=== PATIENT | male | born 1970 | race Caucasian/White ===

== ENCOUNTER 2017-01-14 09:38 | Inpatient (IN) | payer OTHER ==
[2017-01-14 09:56] VITALS: BMI 28.5
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
[2017-01-14] MEDS ORDERED: MAGNESIUM HYDROX 2400MG/30ML ORAL SUSPENSION 30 ML CUP PO PRN (11:27)
[2017-01-14] MEDS ORDERED: ACETAMINOPHEN 325 MG TABLET (FP) PO PRN (11:27)
[2017-01-14] MEDS ORDERED: MAG HYDROX/AL HYDROX/SIMETH 30 ML UNIT-DOSE CUP PO PRN (11:27)
[2017-01-14] MEDS ORDERED: LOPERAMIDE HCL 2 MG CAPSULE PO PRN (11:27)
[2017-01-14] MEDS ORDERED: MENTHOL/PHENOL 1 EACH UD MM PRN (11:27)
[2017-01-14] MEDS ORDERED: IBUPROFEN 400 MG TABLET (FP) PO PRN (11:27)
[2017-01-14] MEDS ORDERED: guaiFENesin/D-METHORPHAN HB 10 ML UNIT-DOSE CUPS PO PRN (11:27)
[2017-01-14] MEDS ORDERED: MAGNESIUM CITRATE 300 ML BOTTLE PO PRN (11:27)
[2017-01-14] MEDS ORDERED: NICOTINE POLACRILEX 2 MG GUM BUC PRN (11:27)
[2017-01-14] MEDS ORDERED: P-EPHED 60MG/TRIPROLIDI 2.5MG TABLET PO PRN (11:27)
[2017-01-14] MEDS ORDERED: chlordiazePOXIDE HCL 25 MG CAPSULE PO ONE (11:55)
[2017-01-14] MEDS ORDERED: LEVOTHYROXINE NA 125 MCG TABLET (FP) PO ONE (11:57)
[2017-01-14] MEDS: NICOTINE 21 MG/24 HOURS TOPICAL PATCH TD SCH (12:08)
[2017-01-14] MEDS ORDERED: LEVOTHYROXINE NA 25 MCG TABLET (FP) PO ONE (12:30)
[2017-01-14] MEDS: GABAPENTIN 300 MG CAPSULE (FP) PO SCH ×2 (15:00→22:06)
[2017-01-14] MEDS: chlordiazePOXIDE HCL 25 MG CAPSULE PO PRN (15:00)
[2017-01-14] MEDS: chlordiazePOXIDE HCL 25 MG CAPSULE PO SCH ×2 (17:04→22:06)
[2017-01-14 17:30] LABS: URINE APPEARANCE CLOUDY; URINE BILIRUBIN NEGATIVE (NEGATIVE); URINE BLOOD NEGATIVE (NEGATIVE); URINE COLOR AMBER; URINE GLUCOSE (UA) NEGATIVE (NEGATIVE); URINE KETONE NEGATIVE (NEGATIVE); URINE NITRITE NEGATIVE (NEGATIVE); URINE UROBILINOGEN NEGATIVE mg/dL (0.2-1.0)
[2017-01-14 17:39] LABS: URINE PROTEIN 2+ (NEGATIVE)
[2017-01-14 17:40] LABS: URINE HYALINE CAST 6 /lpf; URINE MUCUS FEW; URINE RBC 2; URINE WBC 3
[2017-01-14 19:47] LABS: URINE LEUK ESTERASE Negative (NEGATIVE)
[2017-01-14] MEDS: THIAMINE HCL 100 MG TABLET (FP) PO SCH (22:06)
[2017-01-14] MEDS: hydrOXYzine PAMOATE 50 MG CAPSULE (FP) PO PRN (22:09)
[2017-01-15] MEDS: chlordiazePOXIDE HCL 25 MG CAPSULE PO SCH ×4 (05:27→22:58)
[2017-01-15] MEDS: GABAPENTIN 300 MG CAPSULE (FP) PO SCH ×3 (05:28→22:10)
[2017-01-15] MEDS: LEVOTHYROXINE NA 25 MCG TABLET (FP) PO SCH (07:22)
[2017-01-15 08:44] LABS: HIV 1 & 2 AB NEGATIVE; HIV 1 AGp24 NEGATIVE
[2017-01-15 10:04] LABS: MCH 33.2 pg (25.7-33.7); MCHC 33.9 g/dl (32.0-35.9); MEAN CELL VOLUME 97.9 fl (80-96); MEAN PLT VOLUME 7.9 fl (7.5-11.1); PLATELET COUNT 227 K/MM3 (134-434); RDW 14.5 % (11.9-15.9); WHITE BLOOD COUNT 6.2 K/mm3 (4.0-10.0)
[2017-01-15 10:20] LABS: ALBUMIN 4.3 g/dl (3.4-5.0); ALK PHOS 51 U/L (45-117); ANION GAP 16 (8-16); BILIRUBIN,TOTAL 1.3 mg/dL (0.2-1.0); CALCIUM 8.6 mg/dL (8.5-10.1); CO2 16 mmol/L (21-32); CREATININE 1.7 mg/dL (0.7-1.3); GLUCOSE,RANDOM 133 mg/dL (74-106); SGOT/AST 54 U/L (15-37); SGPT/ALT 61 U/L (12-78); TOT PROT 7.2 g/dl (6.4-8.2)
[2017-01-15] MEDS: PRENATAL VITAMINS W/ FOLIC ACID TABLET (FP) PO SCH (10:27)
[2017-01-15] MEDS: NICOTINE 21 MG/24 HOURS TOPICAL PATCH TD SCH (10:27)
[2017-01-15] MEDS: HYDROCORTISONE 0.5% TOPICAL OINTMENT TUBE TP SCH ×2 (10:47→22:10)
--- NOTE | 2017-01-15 11:39 | EKG ---
Test Reason : Blood Pressure : / mmHG Vent. Rate : 123 BPM Atrial Rate : 123 BPM P-R Int : 156 ms QRS Dur : 082 ms QT Int : 310 ms P-R-T Axes : 054 071 054 degrees QTc Int : 443 ms SINUS TACHYCARDIA OTHERWISE NORMAL ECG WHEN COMPARED WITH ECG OF 09-MAY-2016 14:48, NO SIGNIFICANT CHANGE WAS FOUND Confirmed by SAL BONILLA MD ([id number]) on 01/15/2017 11:38:33 AM Referred By: Confirmed By:SAL BONILLA MD
--- NOTE | 2017-01-15 12:12 | PN ---
S CIWA - CIWA Score Nausea/Vomitin-No Nausea/No Vomiting Muscle Tremors: 3 Anxiety: 4-Mod. Anxious/Guarded Agitation: 3 Paroxysmal Sweats: 3 Orientation: 0-Oriented Tacttile Disturbances: 3-Moderate Itch/Numb/Burn Auditory Disturbances: 0-None Visual Disturbances: 0-None Headache: 0-None Present CIWA-Ar Total Score: 16 BHS Progress Note (SOAP) Subjective: Body Aches, Tremors, Sweating. Objective: PT. A & O X 3, OBSERVED AMBULATING ON UNIT. NO ACUTE DISTRESS. 01/15/17 12:10 Vital Signs Temperature 96.1 F L 01/15/17 09:25 Pulse Rate 110 H 01/15/17 09:25 Respiratory Rate 18 01/15/17 09:25 Blood Pressure 104/68 01/15/17 09:25 O2 Sat by Pulse Oximetry (%) Laboratory Tests 01/14/17 01/14/17 01/15/17 11:15 15:00 05:45 WBC 6.2 RBC 4.66 D Hgb 15.5 D Hct 45.6 D MCV 97.9 H MCH 33.2 MCHC 33.9 RDW 14.5 D Plt Count 227 MPV 7.9 Sodium Potassium Chloride Carbon Dioxide Anion Gap BUN Creatinine Creat Clearance w eGFR Random Glucose Calcium Total Bilirubin AST ALT Alkaline Phosphatase Total Protein Albumin Urine Color Rossy Urine Appearance Cloudy Urine pH 5.0 Ur Specific [place] 1.023 Urine Protein 2+ H Urine Glucose (UA) Negative Urine Ketones Negative Urine Blood Negative Urine Nitrite Negative Urine Bilirubin Negative Urine Urobilinogen Negative Ur Leukocyte Esterase Negative Urine WBC (Auto) 3 Urine RBC (Auto) 2 Ur Epithelial Cells Rare Hyaline Casts 6 Urine Mucus Few RPR Titer HIV 1&2 Antibody Screen Negative HIV P24 Antigen Negative 01/15/17 01/15/17 05:45 05:45 WBC RBC Hgb Hct MCV MCH MCHC RDW Plt Count MPV Sodium 136 Potassium 3.5 Chloride 104 Carbon Dioxide 16 L Anion Gap 16 BUN 15 Creatinine 1.7 H D Creat Clearance w eGFR 43.42 Random Glucose 133 H D Calcium 8.6 Total Bilirubin 1.3 H D AST 54 H ALT 61 Alkaline Phosphatase 51 D Total Protein 7.2 Albumin 4.3 Urine Color Urine Appearance Urine pH Ur Specific [place] Urine Protein Urine Glucose (UA) Urine Ketones Urine Blood Urine Nitrite Urine Bilirubin Urine Urobilinogen Ur Leukocyte Esterase Urine WBC (Auto) Urine RBC (Auto) Ur Epithelial Cells Hyaline Casts Urine Mucus RPR Titer Nonreactive HIV 1&2 Antibody Screen HIV P24 Antigen LABS NOTED. Assessment: 01/15/17 12:10 WITHDRAWAL SYMPTOMS. Plan: CONTINUE DETOX. D/C MAGNESIUM-CONTAINING MEDS. AND IBUPROFEN DUE TO ABNORMAL ADMISSION RENAL LAB VALUES. BMP ON 01/17/2017 FOR ABNORMAL ADMISSION RENAL LAB VALUES.. INCREASE DAILY PO FLUID INTAKE.
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
[2017-01-15] MEDS: chlordiazePOXIDE HCL 25 MG CAPSULE PO PRN (12:30)
[2017-01-15] MEDS: THIAMINE HCL 100 MG TABLET (FP) PO SCH (22:09)
[2017-01-15] MEDS: hydrOXYzine PAMOATE 50 MG CAPSULE (FP) PO PRN (22:12)
[2017-01-16] MEDS: GABAPENTIN 300 MG CAPSULE (FP) PO SCH ×3 (05:37→22:08)
[2017-01-16] MEDS: chlordiazePOXIDE HCL 25 MG CAPSULE PO SCH ×2 (05:37→10:35)
[2017-01-16] MEDS: LEVOTHYROXINE NA 25 MCG TABLET (FP) PO SCH (06:44)
[2017-01-16] MEDS: PRENATAL VITAMINS W/ FOLIC ACID TABLET (FP) PO SCH (10:35)
[2017-01-16] MEDS: CLOTRIMAZOLE/BETAMET DIPROP 15 GM TUBE TP SCH ×3 (10:36→22:55)
[2017-01-16] MEDS: NICOTINE 21 MG/24 HOURS TOPICAL PATCH TD SCH (10:36)
[2017-01-16] MEDS: chlordiazePOXIDE HCL 25 MG CAPSULE PO PRN ×2 (12:44→20:06)
[2017-01-16] MEDS: chlordiazePOXIDE 5 MG CAPSULE PO SCH ×2 (17:00→22:08)
--- NOTE | 2017-01-16 19:09 | PN ---
[facility] CIWA - CIWA Score Nausea/Vomitin-No Nausea/No Vomiting Muscle Tremors: 3 Anxiety: 4-Mod. Anxious/Guarded Agitation: 3 Paroxysmal Sweats: 3 Orientation: 0-Oriented Tacttile Disturbances: 3-Moderate Itch/Numb/Burn Auditory Disturbances: 0-None Visual Disturbances: 0-None Headache: 0-None Present CIWA-Ar Total Score: 16 BHS Progress Note (SOAP) Subjective: Body Aches, Interrupted Sleep, Sweating, Tremors. Objective: PT. A & O X 3, OBSERVED AMBULATING ON UNIT. NO ACUTE DISTRESS. 01/16/17 19:07 Vital Signs Temperature 98.1 F 01/16/17 17:10 Pulse Rate 89 01/16/17 17:10 Respiratory Rate 18 01/16/17 17:10 Blood Pressure 96/57 01/16/17 17:10 O2 Sat by Pulse Oximetry (%) Laboratory Tests 01/14/17 01/14/17 01/15/17 11:15 15:00 05:45 WBC 6.2 RBC 4.66 D Hgb 15.5 D Hct 45.6 D MCV 97.9 H MCH 33.2 MCHC 33.9 RDW 14.5 D Plt Count 227 MPV 7.9 Sodium Potassium Chloride Carbon Dioxide Anion Gap BUN Creatinine Creat Clearance w eGFR Random Glucose Calcium Total Bilirubin AST ALT Alkaline Phosphatase Total Protein Albumin Urine Color Rossy Urine Appearance Cloudy Urine pH 5.0 Ur Specific [place] 1.023 Urine Protein 2+ H Urine Glucose (UA) Negative Urine Ketones Negative Urine Blood Negative Urine Nitrite Negative Urine Bilirubin Negative Urine Urobilinogen Negative Ur Leukocyte Esterase Negative Urine WBC (Auto) 3 Urine RBC (Auto) 2 Ur Epithelial Cells Rare Hyaline Casts 6 Urine Mucus Few RPR Titer HIV 1&2 Antibody Screen Negative HIV P24 Antigen Negative 01/15/17 01/15/17 05:45 05:45 WBC RBC Hgb Hct MCV MCH MCHC RDW Plt Count MPV Sodium 136 Potassium 3.5 Chloride 104 Carbon Dioxide 16 L Anion Gap 16 BUN 15 Creatinine 1.7 H D Creat Clearance w eGFR 43.42 Random Glucose 133 H D Calcium 8.6 Total Bilirubin 1.3 H D AST 54 H ALT 61 Alkaline Phosphatase 51 D Total Protein 7.2 Albumin 4.3 Urine Color Urine Appearance Urine pH Ur Specific [place] Urine Protein Urine Glucose (UA) Urine Ketones Urine Blood Urine Nitrite Urine Bilirubin Urine Urobilinogen Ur Leukocyte Esterase Urine WBC (Auto) Urine RBC (Auto) Ur Epithelial Cells Hyaline Casts Urine Mucus RPR Titer Nonreactive HIV 1&2 Antibody Screen HIV P24 Antigen LABS NOTED. Assessment: 01/16/17 19:07 WITHDRAWAL SYMPTOMS. Plan: CONTINUE DETOX. INCREASE DAILY PO FLUID INTAKE.
[2017-01-16] MEDS: THIAMINE HCL 100 MG TABLET (FP) PO SCH (22:08)
[2017-01-16] MEDS: hydrOXYzine PAMOATE 50 MG CAPSULE (FP) PO PRN (22:10)
[2017-01-17] MEDS: chlordiazePOXIDE 5 MG CAPSULE PO SCH ×2 (05:45→10:40)
[2017-01-17] MEDS: GABAPENTIN 300 MG CAPSULE (FP) PO SCH ×3 (05:46→22:10)
[2017-01-17] MEDS: LEVOTHYROXINE NA 25 MCG TABLET (FP) PO SCH (07:30)
[2017-01-17 10:01] LABS: ANION GAP 8 (8-16); CALCIUM 8.5 mg/dL (8.5-10.1); CO2 27 mmol/L (21-32); GLUCOSE,RANDOM 103 mg/dL (74-106)
[2017-01-17 10:03] LABS: CREATININE 1.1 mg/dL (0.7-1.3)
[2017-01-17] MEDS: PRENATAL VITAMINS W/ FOLIC ACID TABLET (FP) PO SCH (10:40)
[2017-01-17] MEDS: NICOTINE 21 MG/24 HOURS TOPICAL PATCH TD SCH (10:41)
[2017-01-17] MEDS: CLOTRIMAZOLE/BETAMET DIPROP 15 GM TUBE TP SCH ×2 (10:41→22:10)
--- NOTE | 2017-01-17 15:30 | PN ---
S Progress Note (SOAP) Subjective: Tremors, Interrupted Sleep, Body Aches, H/A, Fatigue. Objective: PT. A & O X 3, OBSERVED AMBULATING ON UNIT. NO ACUTE DISTRESS. PT. DENIES CHEST PAIN. 01/17/17 15:29 Vital Signs Temperature 96.3 F L 01/17/17 13:47 Pulse Rate 115 H 01/17/17 13:47 Respiratory Rate 18 01/17/17 13:47 Blood Pressure 117/78 01/17/17 13:47 O2 Sat by Pulse Oximetry (%) Laboratory Tests 01/14/17 01/14/17 01/15/17 11: 15:00 05:45 WBC 6.2 RBC 4.66 D Hgb 15.5 D Hct 45.6 D MCV 97.9 H MCH 33.2 MCHC 33.9 RDW 14.5 D Plt Count 227 MPV 7.9 Sodium Potassium Chloride Carbon Dioxide Anion Gap BUN Creatinine Creat Clearance w eGFR Random Glucose Calcium Total Bilirubin AST ALT Alkaline Phosphatase Total Protein Albumin Urine Color Rossy Urine Appearance Cloudy Urine pH 5.0 Ur Specific [place] 1.023 Urine Protein 2+ H Urine Glucose (UA) Negative Urine Ketones Negative Urine Blood Negative Urine Nitrite Negative Urine Bilirubin Negative Urine Urobilinogen Negative Ur Leukocyte Esterase Negative Urine WBC (Auto) 3 Urine RBC (Auto) 2 Ur Epithelial Cells Rare Hyaline Casts 6 Urine Mucus Few RPR Titer HIV 1&2 Antibody Screen Negative HIV P24 Antigen Negative 01/15/17 01/15/17 01/17/17 05:45 05:45 06:30 WBC RBC Hgb Hct MCV MCH MCHC RDW Plt Count MPV Sodium 136 143 Potassium 3.5 3.8 Chloride 104 108 H Carbon Dioxide 16 L 27 D Anion Gap 16 8 BUN 15 10 D Creatinine 1.7 H D 1.1 D Creat Clearance w eGFR 43.42 Random Glucose 133 H D 103 D Calcium 8.6 8.5 Total Bilirubin 1.3 H D AST 54 H ALT 61 Alkaline Phosphatase 51 D Total Protein 7.2 Albumin 4.3 Urine Color Urine Appearance Urine pH Ur Specific [place] Urine Protein Urine Glucose (UA) Urine Ketones Urine Blood Urine Nitrite Urine Bilirubin Urine Urobilinogen Ur Leukocyte Esterase Urine WBC (Auto) Urine RBC (Auto) Ur Epithelial Cells Hyaline Casts Urine Mucus RPR Titer Nonreactive HIV 1&2 Antibody Screen HIV P24 Antigen LABS NOTED. RESULTS OF BMP NOTED. 01/17/17 15:30 Assessment: 01/17/17 15:29 WITHDRAWAL SYMPTOMS. Plan: CONTINUE DETOX.
[2017-01-17] MEDS: chlordiazePOXIDE HCL 10 MG CAPSULE PO SCH ×2 (17:04→22:09)
[2017-01-17] MEDS: THIAMINE HCL 100 MG TABLET (FP) PO SCH (22:10)
[2017-01-17] MEDS: hydrOXYzine PAMOATE 50 MG CAPSULE (FP) PO PRN (22:12)
[2017-01-18] MEDS: chlordiazePOXIDE HCL 10 MG CAPSULE PO SCH (05:14)
[2017-01-18] MEDS: GABAPENTIN 300 MG CAPSULE (FP) PO SCH (05:16)
[2017-01-18] MEDS: LEVOTHYROXINE NA 25 MCG TABLET (FP) PO SCH (07:25)
[2017-01-18 09:24] VITALS: BP 97/80; PULSE 103; TEMP 98.1
--- NOTE | 2017-01-18 16:20 | DS ---
[facility] Detox Discharge Summary Admission Date: 01/14/17 Discharge Date: 01/18/17 - History Present History: Alcohol Dependence, Cocaine Dependence Additional Comments: PATIENT WILL RETURN TO OUTPATIENT 12-STEP / NA / AA SUPPORT GROUP MEETINGS FOR AFTERCARE. PATIENT ALSO ADVISED TO FOLLOW-UP WITH ONLINE PRODUCER DR. CHRISTINE ([facility]) FOR MEDICAL ASSESSMENT. PATIENT WAS DISCHARGED FROM DETOX UNIT IN STABLE MEDICAL CONDITION. Pertinent Past History: Hep C, History of Seizures (due to Head Trauma), Depression, Anxiety, Insomnia, Hypothyroidism, Nicotine Dependence, Syncope. - Physical Exam Results Vital Signs: Vital Signs Temperature 98.1 F 01/18/17 09:22 Pulse Rate 103 H 01/18/17 09:22 Respiratory Rate 15 01/18/17 09:22 Blood Pressure 97/80 01/18/17 09:22 O2 Sat by Pulse Oximetry (%) Pertinent Admission Physical Exam Findings: WITHDRAWAL SYMPTOMS. Laboratory Tests 01/14/17 01/14/17 01/15/17 11:15 15:00 05:45 WBC 6.2 RBC 4.66 D Hgb 15.5 D Hct 45.6 D MCV 97.9 H MCH 33.2 MCHC 33.9 RDW 14.5 D Plt Count 227 MPV 7.9 Sodium Potassium Chloride Carbon Dioxide Anion Gap BUN Creatinine Creat Clearance w eGFR Random Glucose Calcium Total Bilirubin AST ALT Alkaline Phosphatase Total Protein Albumin Urine Color Rossy Urine Appearance Cloudy Urine pH 5.0 Ur Specific [place] 1.023 Urine Protein 2+ H Urine Glucose (UA) Negative Urine Ketones Negative Urine Blood Negative Urine Nitrite Negative Urine Bilirubin Negative Urine Urobilinogen Negative Ur Leukocyte Esterase Negative Urine WBC (Auto) 3 Urine RBC (Auto) 2 Ur Epithelial Cells Rare Hyaline Casts 6 Urine Mucus Few RPR Titer HIV 1&2 Antibody Screen Negative HIV P24 Antigen Negative 01/15/17 01/15/17 01/17/17 05:45 05:45 06:30 WBC RBC Hgb Hct MCV MCH MCHC RDW Plt Count MPV Sodium 136 143 Potassium 3.5 3.8 Chloride 104 108 H Carbon Dioxide 16 L 27 D Anion Gap 16 8 BUN 15 10 D Creatinine 1.7 H D 1.1 D Creat Clearance w eGFR 43.42 Random Glucose 133 H D 103 D Calcium 8.6 8.5 Total Bilirubin 1.3 H D AST 54 H ALT 61 Alkaline Phosphatase 51 D Total Protein 7.2 Albumin 4.3 Urine Color Urine Appearance Urine pH Ur Specific [place] Urine Protein Urine Glucose (UA) Urine Ketones Urine Blood Urine Nitrite Urine Bilirubin Urine Urobilinogen Ur Leukocyte Esterase Urine WBC (Auto) Urine RBC (Auto) Ur Epithelial Cells Hyaline Casts Urine Mucus RPR Titer Nonreactive HIV 1&2 Antibody Screen HIV P24 Antigen LABS NOTED. - Treatment Hospital Course: Detox Protocol Followed, Detoxed Safely, Responded well, Discharged Condition Good Patient has Accepted a Rehab Referral to: PATIENT WILL RETURN TO OUTPATIENT 12- STEP/NA/AA SUPPORT GROUP MEETINGS. - Medication Discharge Medications: Ambulatory Orders Levothyroxine [Synthroid -] 62.5 mcg PO DAILY #30 tablet 01/17/17 - Diagnosis (1) Alcohol dependence with uncomplicated withdrawal Status: Acute (2) Cocaine dependence Status: Acute Qualifiers: Substance use status: uncomplicated Qualified Code(s): F14.20 - Cocaine dependence, uncomplicated (3) Nicotine dependence Status: Acute Qualifiers: Nicotine product type: cigarettes Substance use status: uncomplicated Qualified Code(s): F17.210 - Nicotine dependence, cigarettes, uncomplicated (4) Substance induced mood disorder Status: Acute (5) Hepatitis C Status: Chronic Qualifiers: Viral hepatitis chronicity: unspecified Hepatic coma status: without hepatic coma Qualified Code(s): B19.20 - Unspecified viral hepatitis C without hepatic coma (6) Hypothyroidism Status: Chronic Qualifiers: Hypothyroidism type: unspecified Qualified Code(s): E03.9 - Hypothyroidism , unspecified (7) Syncope Status: Acute Qualifiers: Syncope type: unspecified Qualified Code(s): R55 - Syncope and collapse (8) Seizure disorder Status: Chronic (9) Depression with anxiety Status: Suspected - AMA Did Patient Leave Against Medical Advice: No
== END 2017-01-18 08:50 | disposition home or self-care (01) | DRG 774 ==
LOC: YASAS 09:38 → Y3N 11:34
PROVIDERS: ADMIT Internal Medicine; ATTEND Internal Medicine
PROC: HZ2ZZZZ Detoxification Services for Substance Abuse Treatment (ICD-10-PCS; principal; 2017-01-14)
DX: F10.230 Alcohol dependence with withdrawal, uncomplicated (principal); F14.20 Cocaine dependence, uncomplicated; F17.210 Nicotine dependence, cigarettes, uncomplicated; F19.24 Other psychoactive substance dependence with psychoactive substance-induced mood disorder; F41.8 Other specified anxiety disorders; G47.00 Insomnia, unspecified; E03.9 Hypothyroidism, unspecified; B19.20 Unspecified viral hepatitis C without hepatic coma; R63.4 Abnormal weight loss; Z68.28 Body mass index [BMI] 28.0-28.9, adult; Z87.828 Personal history of other (healed) physical injury and trauma; G40.909 Epilepsy, unspecified, not intractable, without status epilepticus
CPT/HCPCS: 36415; 80048; 80053; 81003; 81015; 85027; 86593; 87389; 93005; 93010

== ENCOUNTER 2017-03-10 11:58 | Inpatient (IN) | payer OTHER ==
[2017-03-10 13:43] VITALS: BMI 28.2
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
[2017-03-10] MEDS ORDERED: guaiFENesin/D-METHORPHAN HB 10 ML UNIT-DOSE CUPS PO PRN (17:38)
[2017-03-10] MEDS ORDERED: ACETAMINOPHEN 325 MG TABLET (FP) PO PRN (17:38)
[2017-03-10] MEDS ORDERED: MAGNESIUM HYDROX 2400MG/30ML ORAL SUSPENSION 30 ML CUP PO PRN (17:38)
[2017-03-10] MEDS ORDERED: NICOTINE POLACRILEX 4 MG GUM BC PRN (17:38)
[2017-03-10] MEDS ORDERED: IBUPROFEN 400 MG TABLET (FP) PO PRN (17:38)
[2017-03-10] MEDS ORDERED: MENTHOL/PHENOL 1 EACH UD MM PRN (17:38)
[2017-03-10] MEDS ORDERED: LOPERAMIDE HCL 2 MG CAPSULE PO PRN (17:38)
[2017-03-10] MEDS ORDERED: MAGNESIUM CITRATE 300 ML BOTTLE PO PRN (17:38)
[2017-03-10] MEDS ORDERED: MAG HYDROX/AL HYDROX/SIMETH 30 ML UNIT-DOSE CUP PO PRN (17:38)
[2017-03-10] MEDS ORDERED: P-EPHED 60MG/TRIPROLIDI 2.5MG TABLET PO PRN (17:38)
[2017-03-10] MEDS: GABAPENTIN 300 MG CAPSULE (FP) PO SCH ×2 (20:34→22:12)
[2017-03-10] MEDS: METHOCARBAMOL 500 MG TABLET PO SCH ×2 (20:34→22:12)
[2017-03-10] MEDS: chlordiazePOXIDE HCL 25 MG CAPSULE PO PRN (20:35)
[2017-03-10] MEDS: chlordiazePOXIDE HCL 25 MG CAPSULE PO SCH (22:12)
[2017-03-10] MEDS: RANITIDINE HCL 150 MG TABLET (FP) PO SCH (22:12)
[2017-03-10] MEDS: THIAMINE HCL 100 MG TABLET (FP) PO SCH (22:12)
[2017-03-10] MEDS: NAPROXEN 500 MG TABLET (FP) PO SCH (22:12)
[2017-03-10] MEDS: LIDOCAINE PATCH REMOVAL MC SCH (22:51)
[2017-03-11 05:13] LABS: URINE APPEARANCE SLCLOUDY; URINE BILIRUBIN NEGATIVE (NEGATIVE); URINE BLOOD NEGATIVE (NEGATIVE); URINE COLOR YELLOW; URINE GLUCOSE (UA) NEGATIVE (NEGATIVE); URINE KETONE NEGATIVE (NEGATIVE); URINE LEUK ESTERASE NEGATIVE (NEGATIVE); URINE NITRITE NEGATIVE (NEGATIVE); URINE PROTEIN NEGATIVE (NEGATIVE); URINE UROBILINOGEN NEGATIVE mg/dL (0.2-1.0)
[2017-03-11] MEDS: METHOCARBAMOL 500 MG TABLET PO SCH ×3 (05:41→22:10)
[2017-03-11] MEDS: GABAPENTIN 300 MG CAPSULE (FP) PO SCH ×3 (05:41→22:09)
[2017-03-11] MEDS: chlordiazePOXIDE HCL 25 MG CAPSULE PO SCH ×4 (05:41→22:10)
[2017-03-11] MEDS: LEVOTHYROXINE NA 25 MCG TABLET (FP) PO SCH (07:57)
--- NOTE | 2017-03-11 09:05 | PN ---
S CIWA - CIWA Score Nausea/Vomitin Muscle Tremors: 3 Anxiety: 3 Agitation: 2 Paroxysmal Sweats: 1-Minimal Palms Moist Orientation: 0-Oriented Tacttile Disturbances: 1-Very Mild Itch/Numbness Auditory Disturbances: 1-Very Mild Visual Disturbances: 0-None Headache: 2-Mild CIWA-Ar Total Score: 16 BHS Progress Note (SOAP) Subjective: ALERT,IRRITABLE,ANXIOUS,INTERRUPTED SLEEP,TREMOR Objective: 03/11/17 09:03 Vital Signs Temperature 98.1 F 03/11/17 06:00 Pulse Rate 93 H 03/11/17 06:00 Respiratory Rate 18 03/11/17 06:00 Blood Pressure 100/58 03/11/17 06:00 O2 Sat by Pulse Oximetry (%) EKG SINUS TACHYCARDIA 107/MIN NO CHEST PAIN,NO SOB,NO DIZZINESS Laboratory Last Values Urine Color Yellow 03/10/17 06:30 Urine Appearance Slcloudy 03/10/17 06:30 Urine pH 5.0 (5.0-8.0) 03/10/17 06:30 Ur Specific [place] 1.019 (1.001-1.035) 03/10/17 06:30 Urine Protein Negative (NEGATIVE) 03/10/17 06:30 Urine Glucose (UA) Negative (NEGATIVE) 03/10/17 06:30 Urine Ketones Negative (NEGATIVE) 03/10/17 06:30 Urine Blood Negative (NEGATIVE) 03/10/17 06:30 Urine Nitrite Negative (NEGATIVE) 03/10/17 06:30 Urine Bilirubin Negative (NEGATIVE) 03/10/17 06:30 Urine Urobilinogen Negative mg/dL (0.2-1.0) 03/10/17 06:30 Ur Leukocyte Esterase Negative (NEGATIVE) 03/10/17 06:30 LABS PENDING Assessment: 03/11/17 09:04 WITHDRAWAL SYMPTOM Plan: CONTINUE DETOX
[2017-03-11] MEDS: RANITIDINE HCL 150 MG TABLET (FP) PO SCH ×2 (10:07→22:09)
[2017-03-11] MEDS: LIDOCAINE 5% TOPICAL PATCH TP SCH (10:07)
[2017-03-11] MEDS: PRENATAL VITAMINS W/ FOLIC ACID TABLET (FP) PO SCH (10:07)
[2017-03-11] MEDS: NICOTINE 21 MG/24 HOURS TOPICAL PATCH TD SCH (10:07)
[2017-03-11] MEDS: NAPROXEN 500 MG TABLET (FP) PO SCH ×2 (10:07→22:10)
[2017-03-11 10:20] LABS: CHLORIDE 106 mmol/L (98-107); POTASSIUM 4.1 mmol/L (3.5-5.1); SODIUM 143 mmol/L (136-145)
[2017-03-11 10:27] LABS: ALBUMIN 3.9 g/dl (3.4-5.0); ALK PHOS 47 U/L (45-117); ANION GAP 11 (8-16); BILIRUBIN,TOTAL 0.6 mg/dL (0.2-1.0); BLOOD UREA NITROGEN 18 mg/dL (7-18); CALCIUM 8.6 mg/dL (8.5-10.1); CO2 26 mmol/L (21-32); CREATININE 1.4 mg/dL (0.7-1.3); GLUCOSE,RANDOM 125 mg/dL (74-106); SGOT/AST 32 U/L (15-37); SGPT/ALT 44 U/L (12-78); TOT PROT 7.4 g/dl (6.4-8.2)
[2017-03-11 10:32] LABS: HEMATOCRIT 43.1 % (35.4-49); HEMOGLOBIN 14.1 GM/dL (11.7-16.9); MCH 34.5 pg (25.7-33.7); MCHC 32.8 g/dl (32.0-35.9); MEAN CELL VOLUME 105.1 fl (80-96); MEAN PLT VOLUME 7.9 fl (7.5-11.1); PLATELET COUNT 234 K/MM3 (134-434); WHITE BLOOD COUNT 5.7 K/mm3 (4.0-10.0)
[2017-03-11] MEDS: chlordiazePOXIDE HCL 25 MG CAPSULE PO PRN (12:03)
--- NOTE | 2017-03-11 15:19 | EKG ---
Test Reason : Blood Pressure : / mmHG Vent. Rate : 107 BPM Atrial Rate : 107 BPM P-R Int : 196 ms QRS Dur : 082 ms QT Int : 324 ms P-R-T Axes : 000 072 053 degrees QTc Int : 432 ms SINUS TACHYCARDIA OTHERWISE NORMAL ECG WHEN COMPARED WITH ECG OF 14-JAN-2017 13:18, NO SIGNIFICANT CHANGE WAS FOUND Confirmed by Dom Clemens MD ([id number]) on 03/11/2017 3:18:53 PM Referred By: Confirmed By:Dom Clemens MD
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
[2017-03-11] MEDS ORDERED: diphenhydrAMINE HCL 50 MG CAPSULE PO PRN (22:00)
[2017-03-11] MEDS: THIAMINE HCL 100 MG TABLET (FP) PO SCH (22:09)
[2017-03-11] MEDS: LIDOCAINE PATCH REMOVAL MC SCH (22:10)
[2017-03-12] MEDS: chlordiazePOXIDE HCL 25 MG CAPSULE PO PRN ×3 (00:50→14:34)
[2017-03-12] MEDS: METHOCARBAMOL 500 MG TABLET PO SCH ×3 (05:04→22:13)
[2017-03-12] MEDS: chlordiazePOXIDE HCL 25 MG CAPSULE PO SCH ×3 (05:04→17:24)
[2017-03-12] MEDS: GABAPENTIN 300 MG CAPSULE (FP) PO SCH ×3 (05:04→22:13)
[2017-03-12] MEDS: LEVOTHYROXINE NA 25 MCG TABLET (FP) PO SCH (06:20)
--- NOTE | 2017-03-12 09:08 | PN ---
S CIWA - CIWA Score Nausea/Vomitin Muscle Tremors: 3 Anxiety: 3 Agitation: 2 Paroxysmal Sweats: 1-Minimal Palms Moist Orientation: 0-Oriented Tacttile Disturbances: 1-Very Mild Itch/Numbness Auditory Disturbances: 1-Very Mild Visual Disturbances: 0-None Headache: 2-Mild CIWA-Ar Total Score: 16 BHS Progress Note (SOAP) Subjective: alert,irritable,anxious,interrupted sleep,tremor,rash left thumb Objective: 03/12/17 09:05 Vital Signs Temperature 96.8 F L 03/12/17 06:11 Pulse Rate 71 03/12/17 06:11 Respiratory Rate 18 03/12/17 06:11 Blood Pressure 136/78 03/12/17 06:11 O2 Sat by Pulse Oximetry (%) Laboratory Last Values WBC 5.7 K/mm3 (4.0-10.0) 03/11/17 06:00 RBC 4.10 M/mm3 (4.00-5.60) 03/11/17 06:00 Hgb 14.1 GM/dL (11.7-16.9) 03/11/17 06:00 Hct 43.1 % (35.4-49) 03/11/17 06:00 MCV 105.1 fl (80-96) H D 03/11/17 06:00 MCH 34.5 pg (25.7-33.7) H 03/11/17 06:00 MCHC 32.8 g/dl (32.0-35.9) 03/11/17 06:00 RDW 15.0 % (11.9-15.9) 03/11/17 06:00 Plt Count 234 K/MM3 (134-434) 03/11/17 06:00 MPV 7.9 fl (7.5-11.1) 03/11/17 06:00 Sodium 143 mmol/L (136-145) 03/11/17 06:00 Potassium 4.1 mmol/L (3.5-5.1) 03/11/17 06:00 Chloride 106 mmol/L (98-107) 03/11/17 06:00 Carbon Dioxide 26 mmol/L (21-32) 03/11/17 06:00 Anion Gap 11 (8-16) 03/11/17 06:00 BUN 18 mg/dL (7-18) D 03/11/17 06:00 Creatinine 1.4 mg/dL (0.7-1.3) H D 03/11/17 06:00 Creat Clearance w eGFR 54.32 (>60) 03/11/17 06:00 Random Glucose 125 mg/dL (74-106) H D 03/11/17 06:00 Calcium 8.6 mg/dL (8.5-10.1) 03/11/17 06:00 Total Bilirubin 0.6 mg/dL (0.2-1.0) D 03/11/17 06:00 AST 32 U/L (15-37) D 03/11/17 06:00 ALT 44 U/L (12-78) D 03/11/17 06:00 Alkaline Phosphatase 47 U/L (45-117) 03/11/17 06:00 Total Protein 7.4 g/dl (6.4-8.2) 03/11/17 06:00 Albumin 3.9 g/dl (3.4-5.0) 03/11/17 06:00 Urine Color Yellow 03/10/17 06:30 Urine Appearance Slcloudy 03/10/17 06:30 Urine pH 5.0 (5.0-8.0) 03/10/17 06:30 Ur Specific [place] 1.019 (1.001-1.035) 03/10/17 06:30 Urine Protein Negative (NEGATIVE) 03/10/17 06:30 Urine Glucose (UA) Negative (NEGATIVE) 03/10/17 06:30 Urine Ketones Negative (NEGATIVE) 03/10/17 06:30 Urine Blood Negative (NEGATIVE) 03/10/17 06:30 Urine Nitrite Negative (NEGATIVE) 03/10/17 06:30 Urine Bilirubin Negative (NEGATIVE) 03/10/17 06:30 Urine Urobilinogen Negative mg/dL (0.2-1.0) 03/10/17 06:30 Ur Leukocyte Esterase Negative (NEGATIVE) 03/10/17 06:30 RPR Titer Nonreactive (NONREACTIVE) 03/11/17 06:00 Assessment: 03/12/17 09:06 withdrawal symptom Plan: continue detox,encourage oral fluid,hydrocortisone cream left thumb bid,repeat cmp in am
[2017-03-12] MEDS: PRENATAL VITAMINS W/ FOLIC ACID TABLET (FP) PO SCH (10:03)
[2017-03-12] MEDS: RANITIDINE HCL 150 MG TABLET (FP) PO SCH ×2 (10:03→22:13)
[2017-03-12] MEDS: HYDROCORTISONE 1% TOPICAL CREAM 30 GM TUBE TP SCH ×2 (10:03→22:16)
[2017-03-12] MEDS: NAPROXEN 500 MG TABLET (FP) PO SCH ×2 (10:03→22:13)
[2017-03-12] MEDS: NICOTINE 21 MG/24 HOURS TOPICAL PATCH TD SCH (10:04)
[2017-03-12] MEDS: LIDOCAINE 5% TOPICAL PATCH TP SCH (10:04)
--- NOTE | 2017-03-12 15:52 | PN ---
Psychiatric Progress Note Vital Signs: Vital Signs Period Temp Pulse Resp BP Sys/Enriquez Pulse Ox Last 24 Hr 96.8 F-97.9 F 71-104 18-20 112-136/76-89 Date of Session: 03/12/17 Chief Complaint:: "I need trazodone for sleep." HPI: Pt. is a 46 year old male admitted to for alcohol dependence. ROS: Unremarkable. Current Medications: Active Medications Generic Name Dose Route Start Last Admin Trade Name Freq PRN Reason Stop Dose Admin Acetaminophen 650 mg 03/10/17 17:38 Tylenol - PO Q4H PRN FEVER OR PAIN Al Hydroxide/Mg Hydroxide 30 ml 03/10/17 17:38 Mylanta Oral Suspension - PO Q6H PRN DYSPEPSIA Chlordiazepoxide HCl 25 mg 03/11/17 23:00 03/12/17 10:56 Librium - PO 03/12/17 17:01 25 mg [id number] JUAN Administration Chlordiazepoxide HCl 15 mg 03/12/17 23:00 Librium - PO 03/13/17 17:01 [id number] JUAN Chlordiazepoxide HCl 25 mg 03/10/17 17:38 03/12/17 14:34 Librium - PO 03/13/17 17:37 25 mg Q4H PRN Administration WITHDRAWAL(CONT SUBST) Chlordiazepoxide HCl 10 mg 03/13/17 23:00 Librium - PO 03/14/17 17:01 [id number] UJAN Diphenhydramine HCl 50 mg 03/11/17 22:00 03/11/17 22:10 Benadryl - PO 50 mg HS PRN Administration INSOMNIA Eucalyptus/Menthol/Phenol/Sorbitol 1 each 03/10/17 17:38 Cepastat Lozenge - MM Q4H PRN SORE THROAT Gabapentin 600 mg 03/10/17 18:30 03/12/17 14:34 Neurontin - PO 600 mg TID JUAN Administration Guaifenesin 10 ml 03/10/17 17:38 Robitussin Dm - PO Q6H PRN COUGH Hydrocortisone 1 applic 03/12/17 10:00 03/12/17 10:03 Hytone 1% Cream - TP 1 applic BID JUAN Administration Levothyroxine Sodium 62.5 mcg 03/11/17 07:00 03/12/17 06:20 Synthroid - PO 62.5 mcg DAILY@0700 JUAN Administration Lidocaine 1 patch 03/11/17 10:00 03/12/17 10:04 Lidoderm Patch - TP 1 patch DAILY JUAN Administration Loperamide HCl 4 mg 03/10/17 17:38 Imodium - PO Q6H PRN DIARRHEA Magnesium Citrate 300 ml 03/10/17 17:38 Citroma - PO Q48H PRN CONSTIPATION Magnesium Hydroxide 30 ml 03/10/17 17:38 Milk Of Magnesia - PO DAILY PRN CONSTIPATION Methocarbamol 500 mg 03/10/17 18:30 03/12/17 14:35 Robaxin - PO 500 mg TID JUAN Administration Miscellaneous 1 each 03/10/17 22:00 03/11/17 22:10 Lidoderm Patch Removal MC 1 each DAILY@2200 JUAN Administration Naproxen 500 mg 03/10/17 22:00 03/12/17 10:03 Naprosyn - PO 500 mg BID JUAN Administration Nicotine 21 mg 03/11/17 10:00 03/12/17 10:04 Nicoderm Patch - TD 21 mg DAILY JUAN Administration Nicotine Polacrilex 4 mg 03/10/17 17:38 Nicorette Gum - BC Q2H PRN NICOTINE REPLACEMENT RX Multivit/Folic Acid/Iron 1 tab 03/11/17 10:00 03/12/17 10:03 Vitamins (Sjr) - PO 1 tab DAILY JUAN Administration Pseudoephedrine/Triprolidine 1 combo 03/10/17 17:38 Actifed - PO TID PRN NASAL CONGESTION Ranitidine HCl 150 mg 03/10/17 22:00 03/12/17 10:03 Zantac - PO 150 mg BID JUAN Administration Thiamine HCl 100 mg 03/10/17 22:00 03/11/17 22:09 Vitamin B1 - PO 100 mg HS JUAN Administration Medication(s) Change(s): Yes. Trazodone 50mg qhs for insomnia ordered. Benadryl 50mg discontinued. Current Side Effect: No Lab tests ordered: No Lab tests reviewed: Yes Provider note:: Typing Teacher approached patient in reference to the psychiatric reconsultation. Pt. requesting trazodone for sleep instead of his current sleep aid benadryl. Pt. stating benadryl was not effective last night and would instead prefer to take trazodone. Pt reports favorable effect from previously taking trazodone. Verbal consent given. Sleep hygiene discussed. Trazdone 50mg qhs ordered for insomnia. Benefits and side effects (priapism) discussed. Will continue to monitor. Total face to face time:: 25 Mental Status Exam - Mental Status Exam Alert and Oriented to: Time, Place, Person Cognitive Function: Good Patient Appearance: Well Groomed Mood: Euthymic Affect: Mood Congruent Patient Behavior: Cooperative Speech Pattern: Appropriate Voice Loudness: Normal Thought Process: Goal Oriented Thought Disorder: Not Present Hallucinations: Denies Suicidal Ideation: Denies Homicidal Ideation: Denies Insight/Judgement: Poor Sleep: Poorly Appetite: Fair Muscle strength/Tone: Normal Gait/Station: Normal Psychiatric Treatment Plan - Problem List (1) Alcohol dependence with uncomplicated withdrawal Current Visit: Yes (2) Alcohol dependence Current Visit: Yes (3) Nicotine dependence Current Visit: Yes Qualifiers: Nicotine product type: cigarettes Substance use status: in withdrawal Qualified Code(s): F17.213 - Nicotine dependence, cigarettes, with withdrawal (4) Anxiety disorder Current Visit: No Comment: Self reports. (5) Substance induced mood disorder Current Visit: No (6) Depression Current Visit: No Comment: Self reports. (7) Insomnia Current Visit: Yes
[2017-03-12] MEDS: THIAMINE HCL 100 MG TABLET (FP) PO SCH (22:13)
[2017-03-12] MEDS: chlordiazePOXIDE 5 MG CAPSULE PO SCH (22:13)
[2017-03-12] MEDS: traZODone HCL 50 MG TABLET (FP) PO SCH (22:13)
[2017-03-12] MEDS: LIDOCAINE PATCH REMOVAL MC SCH (22:16)
[2017-03-13] MEDS: chlordiazePOXIDE 5 MG CAPSULE PO SCH ×3 (05:04→17:55)
[2017-03-13] MEDS: GABAPENTIN 300 MG CAPSULE (FP) PO SCH ×3 (05:05→22:13)
[2017-03-13] MEDS: METHOCARBAMOL 500 MG TABLET PO SCH ×3 (05:05→22:13)
[2017-03-13] MEDS: LEVOTHYROXINE NA 25 MCG TABLET (FP) PO SCH (07:45)
[2017-03-13] MEDS: chlordiazePOXIDE HCL 25 MG CAPSULE PO PRN ×3 (08:28→16:38)
--- NOTE | 2017-03-13 09:33 | PN ---
S Progress Note (SOAP) Subjective: alert,irritable,anxious,interrupted sleep Objective: 03/13/17 09:32 Vital Signs Temperature 97 F L 03/13/17 06:01 Pulse Rate 72 03/13/17 06:01 Respiratory Rate 18 03/13/17 06:01 Blood Pressure 102/53 03/13/17 06:01 O2 Sat by Pulse Oximetry (%) repeat cmp pending Assessment: 03/13/17 09:32 withdrawal symptom Plan: continue detox,discharge in am
[2017-03-13] MEDS: PRENATAL VITAMINS W/ FOLIC ACID TABLET (FP) PO SCH (10:12)
[2017-03-13] MEDS: RANITIDINE HCL 150 MG TABLET (FP) PO SCH ×2 (10:12→22:13)
[2017-03-13] MEDS: NAPROXEN 500 MG TABLET (FP) PO SCH ×2 (10:12→22:13)
[2017-03-13] MEDS: LIDOCAINE 5% TOPICAL PATCH TP SCH (10:12)
[2017-03-13] MEDS: NICOTINE 21 MG/24 HOURS TOPICAL PATCH TD SCH (10:12)
[2017-03-13] MEDS: HYDROCORTISONE 1% TOPICAL CREAM 30 GM TUBE TP SCH ×2 (10:12→22:15)
[2017-03-13 10:14] LABS: CHLORIDE 109 mmol/L (98-107); POTASSIUM 4.1 mmol/L (3.5-5.1); SODIUM 141 mmol/L (136-145)
[2017-03-13 10:59] LABS: ALBUMIN 2.9 g/dl (3.4-5.0); ALK PHOS 36 U/L (45-117); ANION GAP 7 (8-16); BILIRUBIN,TOTAL 0.7 mg/dL (0.2-1.0); BLOOD UREA NITROGEN 12 mg/dL (7-18); CALCIUM 8.4 mg/dL (8.5-10.1); CO2 25 mmol/L (21-32); CREATININE 1.1 mg/dL (0.7-1.3); GLUCOSE,RANDOM 93 mg/dL (74-106); SGOT/AST 45 U/L (15-37); SGPT/ALT 48 U/L (12-78); TOT PROT 5.3 g/dl (6.4-8.2)
[2017-03-13] MEDS: chlordiazePOXIDE HCL 10 MG CAPSULE PO SCH (22:13)
[2017-03-13] MEDS: traZODone HCL 50 MG TABLET (FP) PO SCH (22:13)
[2017-03-13] MEDS: THIAMINE HCL 100 MG TABLET (FP) PO SCH (22:15)
[2017-03-14] MEDS: chlordiazePOXIDE HCL 10 MG CAPSULE PO SCH (05:21)
[2017-03-14] MEDS: METHOCARBAMOL 500 MG TABLET PO SCH (05:21)
[2017-03-14] MEDS: GABAPENTIN 300 MG CAPSULE (FP) PO SCH (05:21)
[2017-03-14] MEDS: LEVOTHYROXINE NA 25 MCG TABLET (FP) PO SCH (06:05)
[2017-03-14 06:21] VITALS: BP 114/70; PULSE 112; TEMP 97.2
--- NOTE | 2017-03-14 08:09 | DS ---
[facility] Detox Discharge Summary Admission Date: 03/10/17 Discharge Date: 03/14/17 - History Present History: Alcohol Dependence Pertinent Past History: hypothyroidism hepatitis c seizure gerd nicotine dependence borderlined dm - Physical Exam Results Vital Signs: Vital Signs Temperature 97.2 F L 03/14/17 06:00 Pulse Rate 112 H 03/14/17 06:00 Respiratory Rate 03/14/17 06:00 Blood Pressure 114/70 03/14/17 06:00 O2 Sat by Pulse Oximetry (%) Pertinent Admission Physical Exam Findings: withdrawal symptom with withdrawal finding - Treatment Hospital Course: Detox Protocol Followed, Detoxed Safely, Responded well, Discharged Condition Good Patient has Accepted a Rehab Referral to: declined - Medication Discharge Medications: Ambulatory Orders Levothyroxine [Synthroid -] 62.5 mcg PO DAILY #30 tablet 01/17/17 Gabapentin [Neurontin] 600 mg PO TID 03/10/17 - Diagnosis (1) Alcohol dependence with uncomplicated withdrawal Current Visit: Yes Status: Acute (2) Nicotine dependence Current Visit: Yes Status: Chronic Qualifiers: Nicotine product type: cigarettes Substance use status: in withdrawal Qualified Code(s): F17.213 - Nicotine dependence, cigarettes, with withdrawal (3) Borderline diabetes mellitus Current Visit: Yes Status: Chronic (4) GERD (gastroesophageal reflux disease) Current Visit: Yes Status: Chronic Qualifiers: Esophagitis presence: without esophagitis Qualified Code(s): K21.9 - Gastro -esophageal reflux disease without esophagitis (5) Hypothyroidism Current Visit: Yes Status: Chronic Qualifiers: Hypothyroidism type: acquired Qualified Code(s): E03.9 - Hypothyroidism, unspecified (6) Seizure disorder Current Visit: Yes Status: Chronic (7) Syncope Current Visit: No Status: Acute Qualifiers: Syncope type: unspecified Qualified Code(s): R55 - Syncope and collapse (8) Anxiety Current Visit: Yes Status: Acute (9) Drug-induced mood disorder Current Visit: No Status: Chronic (10) Substance induced mood disorder Current Visit: No Status: Suspected - AMA Did Patient Leave Against Medical Advice: No
== END 2017-03-14 09:40 | disposition home or self-care (01) | DRG 775 ==
LOC: YASAS 11:58 → Y6N 18:02
PROVIDERS: ADMIT Internal Medicine; ATTEND Internal Medicine
PROC: HZ2ZZZZ Detoxification Services for Substance Abuse Treatment (ICD-10-PCS; principal; 2017-03-10)
DX: F10.230 Alcohol dependence with withdrawal, uncomplicated (principal); F17.213 Nicotine dependence, cigarettes, with withdrawal; F32.9 Major depressive disorder, single episode, unspecified; F19.24 Other psychoactive substance dependence with psychoactive substance-induced mood disorder; F41.9 Anxiety disorder, unspecified; G47.00 Insomnia, unspecified; E03.9 Hypothyroidism, unspecified; K21.9 Gastro-esophageal reflux disease without esophagitis; G40.909 Epilepsy, unspecified, not intractable, without status epilepticus; R73.03 Prediabetes
CPT/HCPCS: 36415; 80053; 81003; 85027; 86593; 93005; 93010

== ENCOUNTER 2017-07-25 01:53 | Inpatient (IN) | payer OTHER ==
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
[2017-07-25] MEDS ORDERED: MAGNESIUM CITRATE 300 ML BOTTLE PO PRN (03:00)
[2017-07-25] MEDS ORDERED: IBUPROFEN 400 MG TABLET (FP) PO PRN (03:00)
[2017-07-25] MEDS ORDERED: LOPERAMIDE HCL 2 MG CAPSULE PO PRN (03:00)
[2017-07-25] MEDS ORDERED: ACETAMINOPHEN 325 MG TABLET (FP) PO PRN (03:00)
[2017-07-25] MEDS ORDERED: MAGNESIUM HYDROX 2400MG/30ML ORAL SUSPENSION 30 ML CUP PO PRN (03:00)
[2017-07-25] MEDS ORDERED: MAG HYDROX/AL HYDROX/SIMETH 30 ML UNIT-DOSE CUP PO PRN (03:00)
[2017-07-25] MEDS ORDERED: guaiFENesin/D-METHORPHAN HB 10 ML UNIT-DOSE CUPS PO PRN (03:00)
[2017-07-25] MEDS ORDERED: MENTHOL/PHENOL 1 EACH UD MM PRN (03:00)
[2017-07-25] MEDS ORDERED: P-EPHED 60MG/TRIPROLIDI 2.5MG TABLET PO PRN (03:00)
[2017-07-25 03:03] VITALS: BMI 28.2
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
[2017-07-25] MEDS: chlordiazePOXIDE HCL 25 MG CAPSULE PO SCH ×4 (04:18→22:10)
[2017-07-25] MEDS ORDERED: hydrOXYzine PAMOATE 50 MG CAPSULE (FP) PO ONE (04:26)
[2017-07-25] MEDS: GABAPENTIN 300 MG CAPSULE (FP) PO SCH ×3 (05:38→22:09)
[2017-07-25] MEDS: chlordiazePOXIDE HCL 25 MG CAPSULE PO PRN ×2 (06:38→14:02)
[2017-07-25] MEDS: LEVOTHYROXINE NA 125 MCG TABLET (FP) PO SCH (06:39)
[2017-07-25] MEDS: PRENATAL VITAMINS W/ FOLIC ACID TABLET (FP) PO SCH (10:24)
[2017-07-25] MEDS ORDERED: ONDANSETRON *ODT* 4 MG TABLET SL PRN (11:07)
[2017-07-25] MEDS ORDERED: NICOTINE POLACRILEX 2 MG GUM BUC PRN (11:08)
--- NOTE | 2017-07-25 11:24 | EKG ---
Test Reason : Blood Pressure : / mmHG Vent. Rate : 119 BPM Atrial Rate : 119 BPM P-R Int : 162 ms QRS Dur : 080 ms QT Int : 310 ms P-R-T Axes : 056 074 050 degrees QTc Int : 436 ms SINUS TACHYCARDIA CANNOT RULE OUT ANTERIOR INFARCT , AGE UNDETERMINED ABNORMAL ECG WHEN COMPARED WITH ECG OF 10-MAR-2017 20:43, NO SIGNIFICANT CHANGE WAS FOUND Confirmed by MINNIE POSEY MD ([id number]) on 07/25/2017 11:24:23 AM Referred By: Confirmed By:MINNIE POSEY MD
--- NOTE | 2017-07-25 11:24 | EKG ---
Test Reason : Blood Pressure : / mmHG Vent. Rate : 100 BPM Atrial Rate : 100 BPM P-R Int : 174 ms QRS Dur : 082 ms QT Int : 340 ms P-R-T Axes : 044 069 054 degrees QTc Int : 438 ms NORMAL SINUS RHYTHM NORMAL ECG WHEN COMPARED WITH ECG OF 25-JUL-2017 04:27, NO SIGNIFICANT CHANGE WAS FOUND Confirmed by MINNIE POSEY MD ([id number]) on 07/25/2017 11:24:09 AM Referred By: Confirmed By:MINNIE POSEY MD
[2017-07-25] MEDS: NICOTINE 21 MG/24 HOURS TOPICAL PATCH TD SCH (14:04)
[2017-07-25] MEDS: HYDROCORTISONE 0.5% TOPICAL OINTMENT TUBE TP SCH ×2 (14:04→22:36)
--- NOTE | 2017-07-25 16:41 | PN ---
[facility] CIWA - CIWA Score Nausea/Vomitin-No Nausea/No Vomiting Muscle Tremors: 3 Anxiety: 4-Mod. Anxious/Guarded Agitation: 2 Paroxysmal Sweats: No Perspiration Orientation: 2-Disoriented Date<2 days Tacttile Disturbances: 2-Mild Itch/Numbness/Burn Auditory Disturbances: 0-None Visual Disturbances: 3-Moderate Sensitivity Headache: 0-None Present CIWA-Ar Total Score: 16 S Progress Note (SOAP) Subjective: Interrupted sleep, Stomach Cramping, Tremors, Nausea. Objective: PATIENT A & O X 2 (UNCERTAIN ABOUT CURRENT DAY / DATE). PATIENT OBSERVED AMBULATING ON UNIT. NO ACUTE DISTRESS. 07/25/17 16:38 Vital Signs Temperature 96.7 F L 07/25/17 13:10 Pulse Rate 94 H 07/25/17 16:23 Respiratory Rate 18 07/25/17 16:23 Blood Pressure 99/65 07/25/17 13:10 O2 Sat by Pulse Oximetry (%) Laboratory Tests 07/25/17 07:50 HIV 1&2 Antibody Screen Negative HIV P24 Antigen Negative HIV AB RESULT PENDING. OTHER ADMISSION LAB RESULTS PENDING. Assessment: 07/25/17 16:40 WITHDRAWAL SYMPTOMS. Plan: CONTINUE DETOX. INCREASE DAILY PO FLUID INTAKE.
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
[2017-07-25] MEDS: THIAMINE HCL 100 MG TABLET (FP) PO SCH (22:09)
[2017-07-25] MEDS: MELATONIN 5 MG TABLETS PO PRN (22:11)
[2017-07-26] MEDS: chlordiazePOXIDE HCL 25 MG CAPSULE PO SCH ×4 (05:29→22:43)
[2017-07-26] MEDS: GABAPENTIN 300 MG CAPSULE (FP) PO SCH ×3 (05:31→22:44)
[2017-07-26] MEDS: LEVOTHYROXINE NA 125 MCG TABLET (FP) PO SCH (07:29)
[2017-07-26] MEDS: chlordiazePOXIDE HCL 25 MG CAPSULE PO PRN ×3 (08:37→20:39)
[2017-07-26 10:08] LABS: HEMATOCRIT 43.2 % (35.4-49); HEMOGLOBIN 14.9 GM/dL (11.7-16.9); MCH 35.6 pg (25.7-33.7); MCHC 34.4 g/dl (32.0-35.9); MEAN CELL VOLUME 103.6 fl (80-96); MEAN PLT VOLUME 8.3 fl (7.5-11.1); PLATELET COUNT 221 K/MM3 (134-434); RBC 4.17 M/mm3 (4.00-5.60); RDW 15.3 % (11.9-15.9); WHITE BLOOD COUNT 4.7 K/mm3 (4.0-10.0)
[2017-07-26 10:35] LABS: CHLORIDE 104 mmol/L (98-107); POTASSIUM 3.7 mmol/L (3.5-5.1); SODIUM 140 mmol/L (136-145)
[2017-07-26] MEDS: PRENATAL VITAMINS W/ FOLIC ACID TABLET (FP) PO SCH (10:42)
[2017-07-26] MEDS: HYDROCORTISONE 0.5% TOPICAL OINTMENT TUBE TP SCH ×2 (10:43→22:43)
[2017-07-26] MEDS: NICOTINE 21 MG/24 HOURS TOPICAL PATCH TD SCH (10:43)
[2017-07-26 11:04] LABS: ALBUMIN 3.9 g/dl (3.4-5.0); ALK PHOS 56 U/L (45-117); ANION GAP 15 (8-16); BILIRUBIN,TOTAL 0.7 mg/dL (0.2-1.0); BLOOD UREA NITROGEN 20 mg/dL (7-18); CALCIUM 8.4 mg/dL (8.5-10.1); CO2 21 mmol/L (21-32); CREATININE 1.6 mg/dL (0.7-1.3); GLUCOSE,RANDOM 142 mg/dL (74-106); SGOT/AST 130 U/L (15-37); SGPT/ALT 83 U/L (12-78); TOT PROT 6.8 g/dl (6.4-8.2)
--- NOTE | 2017-07-26 16:07 | PN ---
S CIWA - CIWA Score Nausea/Vomitin Muscle Tremors: 4-Moderate,w/Arms Extend Anxiety: 3 Agitation: 3 Paroxysmal Sweats: No Perspiration Orientation: 0-Oriented Tacttile Disturbances: 3-Moderate Itch/Numb/Burn Auditory Disturbances: 0-None Visual Disturbances: 0-None Headache: 0-None Present CIWA-Ar Total Score: 16 BHS Progress Note (SOAP) Subjective: Nausea, Anxious, Interrupted Sleep, Tremors. Objective: PATIENT A & O X 3, OBSERVED AMBULATING ON UNIT. NO ACUTE DISTRESS. 07/26/17 16:02 Vital Signs Temperature 96.1 F L 07/26/17 14:57 Pulse Rate 95 H 07/26/17 14:57 Respiratory Rate 20 07/26/17 14:57 Blood Pressure 135/92 07/26/17 14:57 O2 Sat by Pulse Oximetry (%) Laboratory Tests 07/25/17 07/26/17 07/26/17 07:50 05:30 05:30 WBC 4.7 RBC 4.17 Hgb 14.9 Hct 43.2 MCV 103.6 H MCH 35.6 H MCHC 34.4 RDW 15.3 Plt Count 221 MPV 8.3 Sodium 140 Potassium 3.7 Chloride 104 Carbon Dioxide 21 Anion Gap 15 BUN 20 H D Creatinine 1.6 H D Creat Clearance w eGFR 46.56 Random Glucose 142 H D Calcium 8.4 L Total Bilirubin 0.7 AST 130 H D ALT 83 H D Alkaline Phosphatase 56 D Total Protein 6.8 D Albumin 3.9 D RPR Titer HIV 1&2 Antibody Screen Negative HIV P24 Antigen Negative 07/26/17 05:30 WBC RBC Hgb Hct MCV MCH MCHC RDW Plt Count MPV Sodium Potassium Chloride Carbon Dioxide Anion Gap BUN Creatinine Creat Clearance w eGFR Random Glucose Calcium Total Bilirubin AST ALT Alkaline Phosphatase Total Protein Albumin RPR Titer Nonreactive HIV 1&2 Antibody Screen HIV P24 Antigen LABS NOTED. UA RESULTS PENDING. 07/26/17 16:05 Assessment: 07/26/17 16:03 WITHDRAWAL SYMPTOMS. Plan: CONTINUE DETOX. CMP ON 07/28/2017 FOR ADMISSION ABNORMALITIES. D/C IBUPROFEN AND MAGNESIUM-CONTAINING MEDS. FOR ABNORMAL ADMISSION RENAL LAB VALUES. INCREASE DAILY PO FLUID INTAKE.
[2017-07-26] MEDS: THIAMINE HCL 100 MG TABLET (FP) PO SCH (22:43)
[2017-07-26] MEDS: MELATONIN 5 MG TABLETS PO PRN (22:44)
[2017-07-27] MEDS: chlordiazePOXIDE HCL 25 MG CAPSULE PO PRN ×2 (00:39→14:00)
[2017-07-27] MEDS: chlordiazePOXIDE 5 MG CAPSULE PO SCH ×4 (05:33→22:47)
[2017-07-27] MEDS: GABAPENTIN 300 MG CAPSULE (FP) PO SCH ×3 (05:33→22:47)
[2017-07-27] MEDS: LEVOTHYROXINE NA 125 MCG TABLET (FP) PO SCH (07:13)
[2017-07-27] MEDS: NICOTINE 21 MG/24 HOURS TOPICAL PATCH TD SCH (10:24)
[2017-07-27] MEDS: PRENATAL VITAMINS W/ FOLIC ACID TABLET (FP) PO SCH (10:24)
[2017-07-27] MEDS: HYDROCORTISONE 0.5% TOPICAL OINTMENT TUBE TP SCH ×2 (10:24→22:46)
--- NOTE | 2017-07-27 15:15 | PN ---
S CIWA - CIWA Score Nausea/Vomitin Muscle Tremors: 3 Anxiety: 4-Mod. Anxious/Guarded Agitation: 3 Paroxysmal Sweats: 3 Orientation: 0-Oriented Tacttile Disturbances: 1-Very Mild Itch/Numbness Auditory Disturbances: 0-None Visual Disturbances: 0-None Headache: 1-Very Mild CIWA-Ar Total Score: 18 BHS Progress Note (SOAP) Subjective: Tremor, chills, sweating, headache, nausea Objective: 07/27/17 15:11 Last Vital Signs Temp Pulse Resp BP Pulse Ox 96.2 F L 83 18 118/84 07/27/17 10:00 07/27/17 10:00 07/27/17 10:00 07/27/17 10:00 Laboratory Tests 07/25/17 07/26/17 07/26/17 07:50 05:30 05:30 WBC 4.7 RBC 4.17 Hgb 14.9 Hct 43.2 MCV 103.6 H MCH 35.6 H MCHC 34.4 RDW 15.3 Plt Count 221 MPV 8.3 Sodium 140 Potassium 3.7 Chloride 104 Carbon Dioxide 21 Anion Gap 15 BUN 20 H D Creatinine 1.6 H D Creat Clearance w eGFR 46.56 Random Glucose 142 H D Calcium 8.4 L Total Bilirubin 0.7 AST 130 H D ALT 83 H D Alkaline Phosphatase 56 D Total Protein 6.8 D Albumin 3.9 D RPR Titer HIV 1&2 Antibody Screen Negative HIV P24 Antigen Negative 07/26/17 05:30 WBC RBC Hgb Hct MCV MCH MCHC RDW Plt Count MPV Sodium Potassium Chloride Carbon Dioxide Anion Gap BUN Creatinine Creat Clearance w eGFR Random Glucose Calcium Total Bilirubin AST ALT Alkaline Phosphatase Total Protein Albumin RPR Titer Nonreactive HIV 1&2 Antibody Screen HIV P24 Antigen Labs reviewed: Acute renal failure Assessment: 07/27/17 15:12 Withdrawal symptoms Noted with hyperglycemia and Acute renal failure Plan: Continue detox Hyperglycemia: repeat fasting glucose, send HbA1c Acute renal failure: encouraged PO hydration (water), water pitcher ordered, repeat BMP (already ordered for CMP on 07/28)
[2017-07-27] MEDS: THIAMINE HCL 100 MG TABLET (FP) PO SCH (22:47)
[2017-07-27] MEDS: MELATONIN 5 MG TABLETS PO PRN (22:47)
[2017-07-28] MEDS ORDERED: chlordiazePOXIDE HCL 10 MG CAPSULE PO SCH (05:00)
[2017-07-28] MEDS: GABAPENTIN 300 MG CAPSULE (FP) PO SCH (05:58)
[2017-07-28] MEDS: LEVOTHYROXINE NA 125 MCG TABLET (FP) PO SCH (06:51)
[2017-07-28 06:53] VITALS: BP 100/74; PULSE 90; TEMP 97.6
[2017-07-28 10:38] LABS: ALBUMIN 3.4 g/dl (3.4-5.0); ALK PHOS 54 U/L (45-117); ANION GAP 6 (8-16); BILIRUBIN,TOTAL 0.6 mg/dL (0.2-1.0); BLOOD UREA NITROGEN 7 mg/dL (7-18); CALCIUM 8.8 mg/dL (8.5-10.1); CHLORIDE 105 mmol/L (98-107); CO2 31 mmol/L (21-32); CREATININE 1.2 mg/dL (0.7-1.3); GLUCOSE,RANDOM 80 mg/dL (74-106); POTASSIUM 3.9 mmol/L (3.5-5.1); SGOT/AST 92 U/L (15-37); SGPT/ALT 101 U/L (12-78); SODIUM 142 mmol/L (136-145); TOT PROT 6.2 g/dl (6.4-8.2)
--- NOTE | 2017-07-28 16:10 | DS ---
[facility] Detox Discharge Summary Admission Date: 07/25/17 Discharge Date: 07/28/17 - History Additional Comments: pt for d/c home States he will do O/P by going to AA meetings, and peri out patient clincs Will f/u with his PMD DR Chow of [facility] in 2 months Declines refill prescription, stating he has enough supplies. Pt was A & O x 3, in no acute distress Pertinent Past History: GERD Seizure Hypothyroidism Hep C Depression Insomnia Anxiety - Physical Exam Results Vital Signs: Vital Signs Temperature 97.6 F 07/28/17 06:52 Pulse Rate 90 07/28/17 06:52 Respiratory Rate 18 07/28/17 06:52 Blood Pressure 100/74 07/28/17 06:52 O2 Sat by Pulse Oximetry (%) Pertinent Admission Physical Exam Findings: withdrawal sx - Treatment Hospital Course: Detox Protocol Followed, Detoxed Safely, Responded well, Discharged Condition Good Patient has Accepted a Rehab Referral to: Out patient, AA meetings - Medication Discharge Medications: Ambulatory Orders Levothyroxine [Synthroid -] 62.5 mcg PO DAILY #30 tablet 01/17/17 Gabapentin [Neurontin] 600 mg PO TID 03/10/17 - Diagnosis (1) Alcohol dependence with uncomplicated withdrawal Status: Acute (2) Borderline diabetes mellitus Status: Chronic (3) Depression Status: Chronic Qualifiers: Depression Type: unspecified Qualified Code(s): F32.9 - Major depressive disorder, single episode, unspecified (4) Drug-induced mood disorder Status: Chronic (5) GERD (gastroesophageal reflux disease) Status: Chronic Qualifiers: Esophagitis presence: without esophagitis Qualified Code(s): K21.9 - Gastro -esophageal reflux disease without esophagitis (6) Hypothyroidism Status: Chronic Qualifiers: Hypothyroidism type: acquired Qualified Code(s): E03.9 - Hypothyroidism, unspecified (7) Nicotine dependence Status: Chronic Qualifiers: Nicotine product type: cigarettes Substance use status: in withdrawal Qualified Code(s): F17.213 - Nicotine dependence, cigarettes, with withdrawal (8) Seizure disorder Status: Chronic (9) Tachycardia Status: Chronic - AMA Did Patient Leave Against Medical Advice: No
--- NOTE | 2017-07-28 16:10 | PN ---
S Progress Note (SOAP) Subjective: Denies any complaint Objective: 07/28/17 16:09 A & O x 3 Vital Signs Temperature 97.6 F 07/28/17 06:52 Pulse Rate 90 07/28/17 06:52 Respiratory Rate 18 07/28/17 06:52 Blood Pressure 100/74 07/28/17 06:52 O2 Sat by Pulse Oximetry (%) Assessment: 07/28/17 16:09 Detox successfully completed Plan: for d/c
== END 2017-07-28 08:55 | disposition home or self-care (01) | DRG 775 ==
LOC: YASAS 01:53 → Y3N 02:37
PROVIDERS: ADMIT Internal Medicine; ATTEND Internal Medicine
PROC: HZ2ZZZZ Detoxification Services for Substance Abuse Treatment (ICD-10-PCS; principal; 2017-07-25)
DX: F10.230 Alcohol dependence with withdrawal, uncomplicated (principal); F17.213 Nicotine dependence, cigarettes, with withdrawal; F19.27 Other psychoactive substance dependence with psychoactive substance-induced persisting dementia; F32.9 Major depressive disorder, single episode, unspecified; E03.9 Hypothyroidism, unspecified; K21.9 Gastro-esophageal reflux disease without esophagitis; N17.9 Acute kidney failure, unspecified; B18.2 Chronic viral hepatitis C; R73.03 Prediabetes; Z86.69 Personal history of other diseases of the nervous system and sense organs; F41.8 Other specified anxiety disorders; Z87.828 Personal history of other (healed) physical injury and trauma
CPT/HCPCS: 36415; 80053; 83036; 85027; 86593; 87389; 93005; 93010

== ENCOUNTER 2017-12-21 21:06 | Inpatient (IN) | payer OTHER ==
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
[2017-12-21] MEDS ORDERED: P-EPHED 60MG/TRIPROLIDI 2.5MG TABLET PO PRN (21:15)
[2017-12-21] MEDS ORDERED: IBUPROFEN 400 MG TABLET (FP) PO PRN (21:15)
[2017-12-21] MEDS ORDERED: MAGNESIUM CITRATE 300 ML BOTTLE PO PRN (21:15)
[2017-12-21] MEDS ORDERED: MAGNESIUM HYDROX 2400MG/30ML ORAL SUSPENSION 30 ML CUP PO PRN (21:15)
[2017-12-21] MEDS ORDERED: guaiFENesin/D-METHORPHAN HB 10 ML UNIT-DOSE CUPS PO PRN (21:15)
[2017-12-21] MEDS ORDERED: NICOTINE POLACRILEX 4 MG GUM BC PRN (21:15)
[2017-12-21] MEDS ORDERED: ACETAMINOPHEN 325 MG TABLET (FP) PO PRN (21:15)
[2017-12-21] MEDS ORDERED: LOPERAMIDE HCL 2 MG CAPSULE PO PRN (21:15)
[2017-12-21] MEDS ORDERED: MAG HYDROX/AL HYDROX/SIMETH 30 ML UNIT-DOSE CUP PO PRN (21:15)
[2017-12-21] MEDS ORDERED: MENTHOL/PHENOL 1 EACH UD MM PRN (21:15)
[2017-12-21 21:33] VITALS: BMI 28.3
[2017-12-21] MEDS ORDERED: chlordiazePOXIDE HCL 25 MG CAPSULE PO ONE (21:45)
[2017-12-21] MEDS ORDERED: PATIENT'S OWN MEDICATION (NON-FORMULARY) (Gabapentin [Neurontin] 600 MG) PO SCH (22:00)
[2017-12-21] MEDS: hydrOXYzine PAMOATE 25 MG CAPSULE (FP) PO PRN (22:53)
[2017-12-21] MEDS: GABAPENTIN 300 MG CAPSULE (FP) PO SCH (22:53)
[2017-12-21] MEDS: PANTOPRAZOLE 20 MG TABLET (FP) PO SCH (22:54)
[2017-12-21] MEDS: THIAMINE HCL 100 MG TABLET (FP) PO SCH (22:54)
[2017-12-21] MEDS: chlordiazePOXIDE HCL 25 MG CAPSULE PO SCH (22:54)
[2017-12-22] MEDS: chlordiazePOXIDE HCL 25 MG CAPSULE PO SCH ×4 (06:51→22:19)
[2017-12-22] MEDS: GABAPENTIN 300 MG CAPSULE (FP) PO SCH ×3 (06:52→22:19)
[2017-12-22] MEDS ORDERED: LEVOTHYROXINE NA 75 MCG TABLET (FP) PO SCH (07:00)
--- NOTE | 2017-12-22 08:48 | CONSULT ---
[facility] Psychiatric Consult - Data Date of interview: 12/22/17 Admission source: [facility] Identifying data: This is a 47 years old male, single, father of three, unsmployed, homeless, on PA, with no psychiatric hospitalization history, with multiple medical problems, reports Alcohol and Nicotine dependence, reports Alcohol withdrawal synptoms and seeking detox. THE PT. IS REQUESTING ADMISSION TO THE DETOX UNIT AND CAME FOR H AND PE Substance Abuse History: - Smoking Cessation. Smoking history: Current every day smoker. Have you smoked in the past 12 months: Yes. Aproximately how many cigarettes per day: 40. Cigars Per Day: 0. Hx Chewing Tobacco Use: No. Initiated information on smoking cessation: Yes. 'Breaking Loose' booklet given : 12/21/17. - Substances Abused. Alcohol. Route: Oral. Frequency: Daily. Amount used: BEER 30 CANS AND LIQUOR 2 P/D. Age of first use: 5. Date of Last Use: 12/21/17 Medical History: Renal failure history, DM-II, GERD, Hypothyroidism, Hyperglycemia history, Weight loss history, Syncope history, Seizure history, HepC+ Psychiatric History: PATIENT REPORTS HISTORY OF DEPRESSION, DENIES PSYCHIATRIC HOSPITALIZATIONS HISTORY, DENIES SUICDIAL, HOMICIDAL HISTORY, REPORTS TAKIGN PRIOR TO ADMISSION: GABAPENTIN 600MG PO TID Physical/Sexual Abuse/Trauma History: Denies Additional Comment: Gabapentin 600mg po tid. Observation Mental Status Exam - Mental Status Exam Alert and Oriented to: Person Cognitive Function: Fair Patient Appearance: Unkempt Mood: Sad Affect: Mood Congruent Patient Behavior: Sedated Speech Pattern: Delayed Voice Loudness: Mildly Soft/Quiet Thought Process: Goal Oriented Thought Disorder: Being Controlled Hallucinations: Denies Suicidal Ideation: Denies Homicidal Ideation: Denies Insight/Judgement: Fair Sleep: Difficulty falling asleep Appetite: Weight loss Muscle strength/Tone: Mild Hypotonicity Gait/Station: Shuffling Additional Comments: Gabapentin 600mg po tid. Observation Psychiatric Findings - Problem List ([place] 1, 2,3) (1) Acute renal failure Current Visit: No Status: Acute (2) Alcohol abuse Current Visit: No Status: Acute (3) Alcohol dependence Current Visit: No Status: Acute (4) Chest pain Current Visit: No Status: Acute Qualifiers: Chest pain type: other chest pain Qualified Code(s): R07.89 - Other chest pain; R07.8 - Other chest pain (5) Cocaine dependence Current Visit: No Status: Acute Qualifiers: Substance use status: uncomplicated Qualified Code(s): F14.20 - Cocaine dependence, uncomplicated (6) Hyperglycemia Current Visit: No Status: Acute (7) Syncope Current Visit: No Status: Acute Qualifiers: Syncope type: unspecified Qualified Code(s): R55 - Syncope and collapse (8) Weight loss Current Visit: No Status: Acute (9) Alcohol dependence with uncomplicated withdrawal Current Visit: No Status: Chronic (10) Borderline diabetes mellitus Current Visit: No Status: Chronic Comment: DIETARY CONTROL (11) Drug-induced mood disorder Current Visit: No Status: Chronic (12) GERD (gastroesophageal reflux disease) Current Visit: No Status: Chronic Qualifiers: Esophagitis presence: without esophagitis Qualified Code(s): K21.9 - Gastro -esophageal reflux disease without esophagitis (13) Hypothyroidism Current Visit: No Status: Chronic Qualifiers: Hypothyroidism type: unspecified Qualified Code(s): E03.9 - Hypothyroidism , unspecified (14) Seizure disorder Current Visit: No Status: Chronic (15) Substance-induced anxiety disorder Current Visit: No Status: Chronic (16) Tachycardia Current Visit: No Status: Chronic (17) Substance induced mood disorder Current Visit: No Status: Suspected (18) Hepatitis C Current Visit: No Status: Resolved Qualifiers: Viral hepatitis chronicity: unspecified Hepatic coma status: without hepatic coma Qualified Code(s): B19.20 - Unspecified viral hepatitis C without hepatic coma - Initial Treatment Plan Initial Treatment Plan: Gabapentin 600mg po tid. Observation
[2017-12-22] MEDS: PANTOPRAZOLE 20 MG TABLET (FP) PO SCH ×2 (10:03→22:19)
[2017-12-22] MEDS: PRENATAL VITAMINS W/ FOLIC ACID TABLET (FP) PO SCH (10:03)
[2017-12-22] MEDS: NICOTINE 21 MG/24 HOURS TOPICAL PATCH TD SCH (10:04)
[2017-12-22 11:10] LABS: HEMATOCRIT 46.1 % (35.4-49); HEMOGLOBIN 15.1 GM/dL (11.7-16.9); MCHC 32.8 g/dl (32.0-35.9); MEAN CELL VOLUME 103.8 fl (80-96); MEAN PLT VOLUME 7.9 fl (7.5-11.1); PLATELET COUNT 175 K/MM3 (134-434); RBC 4.44 M/mm3 (4.00-5.60); RDW 14.9 % (11.9-15.9); WHITE BLOOD COUNT 3.8 K/mm3 (4.0-10.0)
[2017-12-22 11:45] LABS: ALBUMIN 4.2 g/dl (3.4-5.0); ALK PHOS 54 U/L (45-117); ANION GAP 7 MMOL/L (8-16); BILIRUBIN,TOTAL 0.7 mg/dL (0.2-1); BLOOD UREA NITROGEN 9 mg/dL (7-18); CHLORIDE 107 mmol/L (98-107); CO2 24 mmol/L (21-32); CREATININE 1.2 mg/dL (0.55-1.3); GLUCOSE,RANDOM 78 mg/dL (74-106); POTASSIUM 4.5 mmol/L (3.5-5.1); SGOT/AST 38 U/L (15-37); SGPT/ALT 47 U/L (13-61); SODIUM 138 mmol/L (136-145); TOT PROT 7.3 g/dl (6.4-8.2)
--- NOTE | 2017-12-22 12:16 | PN ---
[facility] CIWA - CIWA Score Nausea/Vomitin-Mild Nausea/No Vomiting Muscle Tremors: 4-Moderate,w/Arms Extend Anxiety: 4-Mod. Anxious/Guarded Agitation: 4-Moderately Restless Paroxysmal Sweats: 1-Minimal Palms Moist Orientation: 1-Uncertain about Date Tacttile Disturbances: 1-Very Mild Itch/Numbness Auditory Disturbances: 0-None Visual Disturbances: 0-None Headache: 0-None Present CIWA-Ar Total Score: 16 BHS Progress Note (SOAP) Subjective: sweat tremor restlessness anxiety Objective: 12/22/17 12:15 Vital Signs Temperature 97.0 F L 12/22/17 09:37 Pulse Rate 78 12/22/17 09:37 Respiratory Rate 18 12/22/17 09:37 Blood Pressure 109/63 12/22/17 09:37 O2 Sat by Pulse Oximetry (%) Laboratory Last Values WBC 3.8 K/mm3 (4.0-10.0) L 12/22/17 07:20 RBC 4.44 M/mm3 (4.00-5.60) 12/22/17 07:20 Hgb 15.1 GM/dL (11.7-16.9) 12/22/17 07:20 Hct 46.1 % (35.4-49) D 12/22/17 07:20 MCV 103.8 fl (80-96) H 12/22/17 07:20 MCH 34.0 pg (25.7-33.7) H 12/22/17 07:20 MCHC 32.8 g/dl (32.0-35.9) 12/22/17 07:20 RDW 14.9 % (11.9-15.9) 12/22/17 07:20 Plt Count 175 K/MM3 (134-434) D 12/22/17 07:20 MPV 7.9 fl (7.5-11.1) D 12/22/17 07:20 Sodium 138 mmol/L (136-145) 12/22/17 07:20 Potassium 4.5 mmol/L (3.5-5.1) 12/22/17 07:20 Chloride 107 mmol/L (98-107) 12/22/17 07:20 Carbon Dioxide 24 mmol/L (21-32) 12/22/17 07:20 Anion Gap 7 MMOL/L (8-16) L 12/22/17 07:20 BUN 9 mg/dL (7-18) 12/22/17 07:20 Creatinine 1.2 mg/dL (0.55-1.3) 12/22/17 07:20 Creat Clearance w eGFR > 60 (>60) 12/22/17 07:20 Random Glucose 78 mg/dL (74-106) 12/22/17 07:20 Calcium 9.0 mg/dL (8.5-10.1) 12/22/17 07:20 Total Bilirubin 0.7 mg/dL (0.2-1) 12/22/17 07:20 AST 38 U/L (15-37) H 12/22/17 07:20 ALT 47 U/L (13-61) 12/22/17 07:20 Alkaline Phosphatase 54 U/L (45-117) 12/22/17 07:20 Total Protein 7.3 g/dl (6.4-8.2) 12/22/17 07:20 Albumin 4.2 g/dl (3.4-5.0) 12/22/17 07:20 lab noted Assessment: 12/22/17 12:15 withdrawal sx Plan: continue detox
[2017-12-22] MEDS: chlordiazePOXIDE HCL 25 MG CAPSULE PO PRN (14:16)
[2017-12-22 17:49] LABS: URINE APPEARANCE CLEAR; URINE BILIRUBIN NEGATIVE (<2.0 mg/dL); URINE COLOR LTYELLOW; URINE GLUCOSE (UA) NEGATIVE (NEGATIVE); URINE KETONE NEGATIVE (NEGATIVE); URINE LEUK ESTERASE NEGATIVE (NEGATIVE); URINE NITRITE NEGATIVE (NEGATIVE); URINE PROTEIN NEGATIVE (NEGATIVE); URINE UROBILINOGEN NEGATIVE mg/dL (0.2-1.0)
[2017-12-22] MEDS: THIAMINE HCL 100 MG TABLET (FP) PO SCH (22:19)
[2017-12-22] MEDS: MELATONIN 5 MG TABLETS PO PRN (22:20)
[2017-12-23] MEDS: GABAPENTIN 300 MG CAPSULE (FP) PO SCH ×3 (05:44→22:11)
[2017-12-23] MEDS: chlordiazePOXIDE HCL 25 MG CAPSULE PO SCH ×3 (05:44→17:01)
[2017-12-23] MEDS: LEVOTHYROXINE NA 25 MCG TABLET (FP) PO SCH (07:41)
[2017-12-23] MEDS: PANTOPRAZOLE 20 MG TABLET (FP) PO SCH ×2 (10:41→22:11)
[2017-12-23] MEDS: PRENATAL VITAMINS W/ FOLIC ACID TABLET (FP) PO SCH (10:41)
[2017-12-23] MEDS: NICOTINE 21 MG/24 HOURS TOPICAL PATCH TD SCH (10:42)
--- NOTE | 2017-12-23 11:42 | PN ---
S CIWA - CIWA Score Nausea/Vomitin-No Nausea/No Vomiting Muscle Tremors: 4-Moderate,w/Arms Extend Anxiety: 3 Agitation: 3 Paroxysmal Sweats: 3 Orientation: 0-Oriented Tacttile Disturbances: 0-None Auditory Disturbances: 0-None Visual Disturbances: 0-None Headache: 0-None Present CIWA-Ar Total Score: 13 S Progress Note (SOAP) Subjective: sweats shakes restless body aches nausea I have a rash on my palm and it itches Objective: 12/23/17 11:35 Vital Signs Temperature 97.8 F 12/23/17 09:34 Pulse Rate 88 12/23/17 09:34 Respiratory Rate 18 12/23/17 09:34 Blood Pressure 105/68 12/23/17 09:34 O2 Sat by Pulse Oximetry (%) Laboratory Tests 12/22/17 12/22/17 12/22/17 07:20 07:20 07:20 WBC 3.8 L RBC 4.44 Hgb 15.1 Hct 46.1 D MCV 103.8 H MCH 34.0 H MCHC 32.8 RDW 14.9 Plt Count 175 D MPV 7.9 D Sodium 138 Potassium 4.5 Chloride 107 Carbon Dioxide 24 Anion Gap 7 L BUN 9 Creatinine 1.2 Creat Clearance w eGFR > 60 Random Glucose 78 Calcium 9.0 Total Bilirubin 0.7 AST 38 H ALT 47 Alkaline Phosphatase 54 Total Protein 7.3 Albumin 4.2 Urine Color Urine Appearance Urine pH Ur Specific [place] Urine Protein Urine Glucose (UA) Urine Ketones Urine Blood Urine Nitrite Urine Bilirubin Urine Urobilinogen Ur Leukocyte Esterase RPR Titer Nonreactive 12/22/17 17:00 WBC RBC Hgb Hct MCV MCH MCHC RDW Plt Count MPV Sodium Potassium Chloride Carbon Dioxide Anion Gap BUN Creatinine Creat Clearance w eGFR Random Glucose Calcium Total Bilirubin AST ALT Alkaline Phosphatase Total Protein Albumin Urine Color Ltyellow Urine Appearance Clear Urine pH 5.0 Ur Specific [place] 1.006 L Urine Protein Negative Urine Glucose (UA) Negative Urine Ketones Negative Urine Blood Negative Urine Nitrite Negative Urine Bilirubin Negative Urine Urobilinogen Negative Ur Leukocyte Esterase Negative RPR Titer aaox3 ambulating no acute distress rash noted on left side of palm quarter size and erythema in color. Pt c/o of itching Assessment: 12/23/17 11:42 withdrawal sx Plan: continue detox increase fluids hydrocortizone cream ordered aveeno soap
[2017-12-23] MEDS ORDERED: COLLOIDAL OATMEAL 1 BAR EACH TP PRN (11:44)
[2017-12-23] MEDS: chlordiazePOXIDE HCL 25 MG CAPSULE PO PRN (12:06)
--- NOTE | 2017-12-23 13:01 | EKG ---
Test Reason : Blood Pressure : / mmHG Vent. Rate : 090 BPM Atrial Rate : 090 BPM P-R Int : 180 ms QRS Dur : 086 ms QT Int : 342 ms P-R-T Axes : 053 073 064 degrees QTc Int : 418 ms NORMAL SINUS RHYTHM NORMAL ECG Confirmed by MD JULISSA, ITALAI ([id number]) on 12/23/2017 1:01:04 PM Referred By: Confirmed By:ITALIA COSTA MD
[2017-12-23] MEDS: hydrOXYzine PAMOATE 25 MG CAPSULE (FP) PO PRN (14:17)
[2017-12-23] MEDS: FLUOCINONIDE 0.05% TOP OINT (60 GM TUBE) TP SCH ×2 (14:18→22:11)
[2017-12-23] MEDS: THIAMINE HCL 100 MG TABLET (FP) PO SCH (22:11)
[2017-12-23] MEDS: MELATONIN 5 MG TABLETS PO PRN (22:11)
[2017-12-23] MEDS: chlordiazePOXIDE 5 MG CAPSULE PO SCH (22:11)
[2017-12-24] MEDS: LEVOTHYROXINE NA 25 MCG TABLET (FP) PO SCH (06:26)
[2017-12-24] MEDS: chlordiazePOXIDE 5 MG CAPSULE PO SCH ×3 (06:26→17:32)
[2017-12-24] MEDS: GABAPENTIN 300 MG CAPSULE (FP) PO SCH ×3 (06:26→22:07)
[2017-12-24] MEDS: FLUOCINONIDE 0.05% TOP OINT (60 GM TUBE) TP SCH ×3 (06:29→22:07)
[2017-12-24] MEDS: PRENATAL VITAMINS W/ FOLIC ACID TABLET (FP) PO SCH (10:09)
[2017-12-24] MEDS: NICOTINE 21 MG/24 HOURS TOPICAL PATCH TD SCH (10:09)
[2017-12-24] MEDS: PANTOPRAZOLE 20 MG TABLET (FP) PO SCH ×2 (10:10→22:07)
[2017-12-24] MEDS: hydrOXYzine PAMOATE 25 MG CAPSULE (FP) PO PRN ×2 (10:11→14:50)
--- NOTE | 2017-12-24 13:52 | PN ---
BHS Progress Note (SOAP) Subjective: tired, interrupted sleep, , sweats, anxious Objective: 12/24/17 13:48 Vital Signs Temperature 98.4 F 12/24/17 13:41 Pulse Rate 98 H 12/24/17 13:41 Respiratory Rate 18 12/24/17 13:41 Blood Pressure 114/72 12/24/17 13:41 O2 Sat by Pulse Oximetry (%) Laboratory Tests 12/22/17 12/22/17 12/22/17 07:20 07:20 07:20 WBC 3.8 L RBC 4.44 Hgb 15.1 Hct 46.1 D MCV 103.8 H MCH 34.0 H MCHC 32.8 RDW 14.9 Plt Count 175 D MPV 7.9 D Sodium 138 Potassium 4.5 Chloride 107 Carbon Dioxide 24 Anion Gap 7 L BUN 9 Creatinine 1.2 Creat Clearance w eGFR > 60 Random Glucose 78 Calcium 9.0 Total Bilirubin 0.7 AST 38 H ALT 47 Alkaline Phosphatase 54 Total Protein 7.3 Albumin 4.2 Urine Color Urine Appearance Urine pH Ur Specific [place] Urine Protein Urine Glucose (UA) Urine Ketones Urine Blood Urine Nitrite Urine Bilirubin Urine Urobilinogen Ur Leukocyte Esterase RPR Titer Nonreactive 12/22/17 17:00 WBC RBC Hgb Hct MCV MCH MCHC RDW Plt Count MPV Sodium Potassium Chloride Carbon Dioxide Anion Gap BUN Creatinine Creat Clearance w eGFR Random Glucose Calcium Total Bilirubin AST ALT Alkaline Phosphatase Total Protein Albumin Urine Color Ltyellow Urine Appearance Clear Urine pH 5.0 Ur Specific [place] 1.006 L Urine Protein Negative Urine Glucose (UA) Negative Urine Ketones Negative Urine Blood Negative Urine Nitrite Negative Urine Bilirubin Negative Urine Urobilinogen Negative Ur Leukocyte Esterase Negative RPR Titer pt aox3 in nad , lying in bed , Assessment: 12/24/17 13:52 withdrawal sx's Plan: cont. detox increase fluids d/c in am
[2017-12-24] MEDS: chlordiazePOXIDE HCL 10 MG CAPSULE PO SCH (22:07)
[2017-12-24] MEDS: MELATONIN 5 MG TABLETS PO PRN (22:07)
[2017-12-24] MEDS: THIAMINE HCL 100 MG TABLET (FP) PO SCH (22:07)
[2017-12-25] MEDS: chlordiazePOXIDE HCL 10 MG CAPSULE PO SCH (06:19)
[2017-12-25] MEDS: LEVOTHYROXINE NA 25 MCG TABLET (FP) PO SCH (06:19)
[2017-12-25] MEDS: GABAPENTIN 300 MG CAPSULE (FP) PO SCH (06:19)
[2017-12-25] MEDS: FLUOCINONIDE 0.05% TOP OINT (60 GM TUBE) TP SCH (06:21)
[2017-12-25 07:15] VITALS: BP 120/75; PULSE 58; TEMP 96.8
--- NOTE | 2017-12-25 08:39 | DS ---
[facility] Detox Discharge Summary Admission Date: 12/21/17 Discharge Date: 12/25/17 - History Present History: Alcohol Dependence - Physical Exam Results Vital Signs: Vital Signs Temperature 96.8 F L 12/25/17 07:14 Pulse Rate 58 L 12/25/17 07:14 Respiratory Rate 18 12/25/17 07:14 Blood Pressure 120/75 12/25/17 07:14 O2 Sat by Pulse Oximetry (%) - Treatment Hospital Course: Detox Protocol Followed, Detoxed Safely, Responded well, Discharged Condition Good, Rehab Referral Accepted - Medication Discharge Medications: Ambulatory Orders Levothyroxine [Synthroid -] 62.5 mcg PO DAILY #30 tablet 01/17/17 Gabapentin [Neurontin] 600 mg PO TID 03/10/17 Fluocinonide 0.05% Oin [Lidex 0.05% Ointment -] 1 applic TP TID #1 applic - Diagnosis (1) Hypothyroidism Current Visit: Yes Status: Chronic Qualifiers: Hypothyroidism type: unspecified Qualified Code(s): E03.9 - Hypothyroidism , unspecified (2) Acute renal failure Current Visit: No Status: Acute (3) Alcohol dependence Current Visit: No Status: Acute (4) Anxiety Current Visit: No Status: Acute (5) Chest pain Current Visit: No Status: Acute Qualifiers: Chest pain type: other chest pain Qualified Code(s): R07.89 - Other chest pain; R07.8 - Other chest pain (6) Cocaine dependence Current Visit: No Status: Acute Qualifiers: Substance use status: uncomplicated Qualified Code(s): F14.20 - Cocaine dependence, uncomplicated (7) Hyperglycemia Current Visit: No Status: Acute (8) Insomnia Current Visit: No Status: Acute (9) Syncope Current Visit: No Status: Acute Qualifiers: Syncope type: unspecified Qualified Code(s): R55 - Syncope and collapse (10) Weight loss Current Visit: No Status: Acute (11) Alcohol dependence with uncomplicated withdrawal Current Visit: No Status: Chronic (12) Anxiety disorder Current Visit: No Status: Chronic (13) Borderline diabetes mellitus Current Visit: No Status: Chronic (14) Depression Current Visit: No Status: Chronic Qualifiers: Depression Type: unspecified Qualified Code(s): F32.9 - Major depressive disorder, single episode, unspecified (15) Drug-induced mood disorder Current Visit: No Status: Chronic (16) GERD (gastroesophageal reflux disease) Current Visit: No Status: Chronic Qualifiers: Esophagitis presence: without esophagitis Qualified Code(s): K21.9 - Gastro -esophageal reflux disease without esophagitis (17) Nicotine dependence Current Visit: No Status: Chronic Qualifiers: Nicotine product type: cigarettes Substance use status: uncomplicated Qualified Code(s): F17.210 - Nicotine dependence, cigarettes, uncomplicated (18) Red blood cell disorder Current Visit: No Status: Chronic (19) Seizure disorder Current Visit: No Status: Chronic (20) Substance-induced anxiety disorder Current Visit: No Status: Chronic (21) Tachycardia Current Visit: No Status: Chronic (22) Depression with anxiety Current Visit: No Status: Suspected (23) Substance induced mood disorder Current Visit: No Status: Suspected (24) Hepatitis C Current Visit: No Status: Resolved Qualifiers: Viral hepatitis chronicity: unspecified Hepatic coma status: without hepatic coma Qualified Code(s): B19.20 - Unspecified viral hepatitis C without hepatic coma - AMA Did Patient Leave Against Medical Advice: No (going home)
== END 2017-12-25 08:58 | disposition home or self-care (01) | DRG 774 ==
LOC: YASAS 21:06 → Y6N 21:31
PROC: HZ2ZZZZ Detoxification Services for Substance Abuse Treatment (ICD-10-PCS; principal; 2017-12-21)
DX: F10.230 Alcohol dependence with withdrawal, uncomplicated (principal); F14.20 Cocaine dependence, uncomplicated; F17.210 Nicotine dependence, cigarettes, uncomplicated; F41.9 Anxiety disorder, unspecified; F32.9 Major depressive disorder, single episode, unspecified; F19.280 Other psychoactive substance dependence with psychoactive substance-induced anxiety disorder; F19.24 Other psychoactive substance dependence with psychoactive substance-induced mood disorder; N17.9 Acute kidney failure, unspecified; R07.89 Other chest pain; R73.9 Hyperglycemia, unspecified; G47.00 Insomnia, unspecified; R73.03 Prediabetes; K21.9 Gastro-esophageal reflux disease without esophagitis; B19.20 Unspecified viral hepatitis C without hepatic coma; R00.0 Tachycardia, unspecified; Z86.69 Personal history of other diseases of the nervous system and sense organs; Z88.0 Allergy status to penicillin; Z91.013 Allergy to seafood; Z87.898 Personal history of other specified conditions
CPT/HCPCS: 36415; 80053; 81003; 85027; 86593; 93005; 93010

== ENCOUNTER 2018-02-01 18:06 | Emergency (ER) | payer OTHER ==
[2018-02-01 18:16] VITALS: BMI 30.3
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
[2018-02-01] MEDS ORDERED: FOLIC ACID INJECTION - 1 MG, THIAMINE HCL 100 MG, MULTIVIT INJECTION ADULT 10 ML in SOD... IVPB ONE (19:20)
[2018-02-01] MEDS ORDERED: ACETAMINOPHEN 1000 MG/100 ML VIAL (NON FORMULARY) IVPB ONE (19:20)
[2018-02-01] MEDS ORDERED: chlordiazePOXIDE HCL 25 MG CAPSULE PO ONE ×3 (19:32→22:33)
[2018-02-01] MEDS ORDERED: chlordiazePOXIDE HCL 25 MG CAPSULE ONE ×3 (19:59→22:35)
[2018-02-01] MEDS ORDERED: ACETAMINOPHEN INJECTION 100 ML IVPB ONE ×2 (19:59→20:38)
[2018-02-01 20:20] LABS: BASO % 2.7 % (0-2.0); EOS % 7.4 % (0-4.5); HEMATOCRIT 38.8 % (35.4-49); LYMPH % 38.4 % (8-40); MCH 35.9 pg (25.7-33.7); MCHC 36.2 g/dl (32.0-35.9); MEAN CELL VOLUME 99.1 fl (80-96); MEAN PLT VOLUME 7.2 fl (7.5-11.1); MONO % 7.9 % (3.8-10.2); NEUT % 43.6 % (42.8-82.8); PLATELET COUNT 205 K/MM3 (134-434); RBC 3.91 M/mm3 (4.00-5.60); RDW 14.3 % (11.9-15.9)
[2018-02-01 20:32] LABS: INR 0.87 (0.83-1.09); PROTHROMBIN TIME (PATIENT) 10.3 SEC (9.7-13.0)
[2018-02-01 20:35] LABS: ACTIVATED PTT 25.6 SECONDS (25.2-36.5)
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
[2018-02-01 20:49] LABS: ALBUMIN 4.4 g/dl (3.4-5.0); ALK PHOS 57 U/L (45-117); ANION GAP 9 MMOL/L (8-16); BILIRUBIN,TOTAL 0.4 mg/dL (0.2-1); BLOOD UREA NITROGEN 15 mg/dL (7-18); CALCIUM 8.5 mg/dL (8.5-10.1); CHLORIDE 105 mmol/L (98-107); CO2 25 mmol/L (21-32); CREATININE 1.4 mg/dL (0.55-1.3); GLUCOSE,RANDOM 148 mg/dL (74-106); LIPASE 388 U/L (73-393); MAGNESIUM 2.3 mg/dL (1.8-2.4); POTASSIUM 4.1 mmol/L (3.5-5.1); SGOT/AST 44 U/L (15-37); SGPT/ALT 39 U/L (13-61); SODIUM 139 mmol/L (136-145); TOT PROT 7.4 g/dl (6.4-8.2)
[2018-02-01 22:34] VITALS: TEMP 98.2
[2018-02-01 23:21] VITALS: BP 125/86; PULSE 100
--- NOTE | 2018-02-02 11:10 | EKG ---
Test Reason : Blood Pressure : / mmHG Vent. Rate : 123 BPM Atrial Rate : 123 BPM P-R Int : 160 ms QRS Dur : 082 ms QT Int : 302 ms P-R-T Axes : 037 047 051 degrees QTc Int : 432 ms SINUS TACHYCARDIA CANNOT RULE OUT ANTERIOR INFARCT , AGE UNDETERMINED ABNORMAL ECG WHEN COMPARED WITH ECG OF 21-DEC-2017 22:10, VENT. RATE HAS INCREASED Confirmed by WILMAN PAIGE MD ([id number]) on 02/02/2018 11:10:30 AM Referred By: Confirmed By:WILMAN PAIGE MD
== END 2018-02-01 23:20 | disposition short-term general hospital (02) ==
LOC: JER 18:06
PROC: 3E033NZ Introduction of Analgesics, Hypnotics, Sedatives into Peripheral Vein, Percutaneous Approach (ICD-10-PCS; principal; 2018-02-01)
PROC: 3E0337Z Introduction of Electrolytic and Water Balance Substance into Peripheral Vein, Percutaneous Approach (ICD-10-PCS; 2018-02-01)
DX: F10.239 Alcohol dependence with withdrawal, unspecified (principal); K21.9 Gastro-esophageal reflux disease without esophagitis; F14.10 Cocaine abuse, uncomplicated; E03.9 Hypothyroidism, unspecified; F41.8 Other specified anxiety disorders
CPT/HCPCS: 36415; 80053; 80307; 82550; 82553; 83690; 83735; 84443; 84484; 85025; 85610; 85730; 86850; 86900; 86901; 93005; 93010; 99284-25; J0131; J7030

== ENCOUNTER 2018-02-01 23:33 | Inpatient (IN) | payer OTHER ==
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
[2018-02-02] MEDS ORDERED: MAGNESIUM HYDROX 2400MG/30ML ORAL SUSPENSION 30 ML CUP PO PRN
[2018-02-02] MEDS ORDERED: LOPERAMIDE HCL 2 MG CAPSULE PO PRN
[2018-02-02] MEDS ORDERED: MAGNESIUM CITRATE 300 ML BOTTLE PO PRN
[2018-02-02] MEDS ORDERED: guaiFENesin/D-METHORPHAN HB 10 ML UNIT-DOSE CUPS PO PRN
[2018-02-02] MEDS ORDERED: P-EPHED 60MG/TRIPROLIDI 2.5MG TABLET PO PRN
[2018-02-02] MEDS ORDERED: MENTHOL/PHENOL 1 EACH UD MM PRN
[2018-02-02] MEDS ORDERED: hydrOXYzine PAMOATE 50 MG CAPSULE (FP) PO PRN
[2018-02-02] MEDS ORDERED: NICOTINE POLACRILEX 4 MG GUM BC PRN
[2018-02-02] MEDS ORDERED: ACETAMINOPHEN 325 MG TABLET (FP) PO PRN
[2018-02-02] MEDS ORDERED: MAG HYDROX/AL HYDROX/SIMETH 30 ML UNIT-DOSE CUP PO PRN
[2018-02-02] MEDS ORDERED: IBUPROFEN 400 MG TABLET (FP) PO PRN
[2018-02-02] MEDS: chlordiazePOXIDE HCL 25 MG CAPSULE PO PRN ×2 (01:17→09:17)
[2018-02-02] MEDS: GABAPENTIN 300 MG CAPSULE (FP) PO SCH ×3 (05:40→22:23)
[2018-02-02] MEDS: chlordiazePOXIDE HCL 25 MG CAPSULE PO SCH ×4 (05:40→22:24)
[2018-02-02] MEDS: LEVOTHYROXINE NA 25 MCG TABLET (FP) PO SCH (06:55)
[2018-02-02] MEDS: PRENATAL VITAMINS W/ FOLIC ACID TABLET (FP) PO SCH (10:18)
[2018-02-02] MEDS: NICOTINE 21 MG/24 HOURS TOPICAL PATCH TD SCH (10:18)
[2018-02-02 15:09] LABS: URINE APPEARANCE CLEAR; URINE BILIRUBIN NEGATIVE (<2.0 mg/dL); URINE COLOR STRAW; URINE GLUCOSE (UA) NEGATIVE (NEGATIVE); URINE KETONE NEGATIVE (NEGATIVE); URINE LEUK ESTERASE NEGATIVE (NEGATIVE); URINE NITRITE NEGATIVE (NEGATIVE); URINE PROTEIN NEGATIVE (NEGATIVE); URINE UROBILINOGEN NEGATIVE mg/dL (0.2-1.0)
--- NOTE | 2018-02-02 15:54 | PN ---
S CIWA - CIWA Score Nausea/Vomitin Muscle Tremors: 3 Anxiety: 2 Agitation: 2 Paroxysmal Sweats: 3 Orientation: 0-Oriented Tacttile Disturbances: 0-None Auditory Disturbances: 0-None Visual Disturbances: 0-None Headache: 0-None Present CIWA-Ar Total Score: 12 BHS Progress Note (SOAP) Subjective: shakes tremors chest discomfort Objective: 02/02/18 15:52 Sleeping, A & O x 3 Vital Signs Temperature 97.2 F L 02/02/18 13:04 Pulse Rate 92 H 02/02/18 15:30 Respiratory Rate 18 02/02/18 15:30 Blood Pressure 100/59 L 02/02/18 13:04 O2 Sat by Pulse Oximetry (%) Laboratory Last Values Urine Color Straw 02/02/18 10:10 Urine Appearance Clear 02/02/18 10:10 Urine pH 5.0 (5.0-8.0) 02/02/18 10:10 Ur Specific [place] 1.011 (1.010-1.035) 02/02/18 10:10 Urine Protein Negative (NEGATIVE) 02/02/18 10:10 Urine Glucose (UA) Negative (NEGATIVE) 02/02/18 10:10 Urine Ketones Negative (NEGATIVE) 02/02/18 10:10 Urine Blood Negative (NEGATIVE) 02/02/18 10:10 Urine Nitrite Negative (NEGATIVE) 02/02/18 10:10 Urine Bilirubin Negative (<2.0 mg/dL) 02/02/18 10:10 Urine Urobilinogen Negative mg/dL (0.2-1.0) 02/02/18 10:10 Ur Leukocyte Esterase Negative (NEGATIVE) 02/02/18 10:10 UA noted chemistry pending Assessment: 02/02/18 15:53 withdrawal sx Plan: continue detox f/u on rest of labs
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
[2018-02-02] MEDS: THIAMINE HCL 100 MG TABLET (FP) PO SCH (22:23)
[2018-02-02] MEDS: MELATONIN 5 MG TABLETS PO PRN (22:24)
[2018-02-03] MEDS: chlordiazePOXIDE HCL 25 MG CAPSULE PO SCH ×4 (05:31→22:16)
[2018-02-03] MEDS: GABAPENTIN 300 MG CAPSULE (FP) PO SCH ×3 (05:31→22:16)
[2018-02-03] MEDS: LEVOTHYROXINE NA 25 MCG TABLET (FP) PO SCH (06:24)
[2018-02-03] MEDS: chlordiazePOXIDE HCL 25 MG CAPSULE PO PRN ×2 (09:18→14:26)
[2018-02-03] MEDS: NICOTINE 21 MG/24 HOURS TOPICAL PATCH TD SCH (10:17)
[2018-02-03] MEDS: PRENATAL VITAMINS W/ FOLIC ACID TABLET (FP) PO SCH (10:17)
[2018-02-03] MEDS: CLOTRIMAZOLE 1% CREAM 15 GM TUBE TP SCH ×2 (10:19→22:16)
--- NOTE | 2018-02-03 13:11 | PN ---
S CIWA - CIWA Score Nausea/Vomitin Muscle Tremors: 3 Anxiety: 3 Agitation: 3 Paroxysmal Sweats: 3 Orientation: 0-Oriented Tacttile Disturbances: 0-None Auditory Disturbances: 0-None Visual Disturbances: 0-None Headache: 0-None Present CIWA-Ar Total Score: 14 [facility] Progress Note (SOAP) Subjective: Anxious, nausea, sweating, chills, tremor. C/O redness and itchy area to left palm (thumb area) after taking librium stating that he always gets a little itching but that librium works well for him and wants to continue taking librium and that symptoms usually goes away when he uses a cream for the itching. Objective: 02/03/18 13:05 Last Vital Signs Temp Pulse Resp BP Pulse Ox 96.8 F L 122 H 19 132/82 02/03/18 09:30 02/03/18 09:30 02/03/18 09:30 02/03/18 09:30 Laboratory Tests 02/02/18 10:10 Urine Color Straw Urine Appearance Clear Urine pH 5.0 Ur Specific [place] 1.011 Urine Protein Negative Urine Glucose (UA) Negative Urine Ketones Negative Urine Blood Negative Urine Nitrite Negative Urine Bilirubin Negative Urine Urobilinogen Negative Ur Leukocyte Esterase Negative Labs reviewed: CBC wnl; CMP shows serum creatinine 1.4, serum glucose 148mg/dl Assessment: 02/03/18 13:12 Withdrawal symptoms Noted with prerenal azotemia and hyperglycemia Plan: Continue detox Prerenal azotemia: encouraged PO water intake, repeat BMP Hyperglycemia: denies DM, repeat fasting glucose
[2018-02-03] MEDS: THIAMINE HCL 100 MG TABLET (FP) PO SCH (22:16)
[2018-02-03] MEDS: MELATONIN 5 MG TABLETS PO PRN (22:16)
[2018-02-04] MEDS: GABAPENTIN 300 MG CAPSULE (FP) PO SCH ×3 (05:25→22:36)
[2018-02-04] MEDS: chlordiazePOXIDE 5 MG CAPSULE PO SCH ×4 (05:25→22:11)
[2018-02-04] MEDS: LEVOTHYROXINE NA 25 MCG TABLET (FP) PO SCH (07:09)
[2018-02-04] MEDS: PRENATAL VITAMINS W/ FOLIC ACID TABLET (FP) PO SCH (10:16)
[2018-02-04] MEDS: CLOTRIMAZOLE 1% CREAM 15 GM TUBE TP SCH ×2 (10:17→22:36)
[2018-02-04] MEDS: NICOTINE 21 MG/24 HOURS TOPICAL PATCH TD SCH (10:17)
[2018-02-04 11:05] LABS: ANION GAP 6 MMOL/L (8-16); BLOOD UREA NITROGEN 9 mg/dL (7-18); CALCIUM 8.8 mg/dL (8.5-10.1); CHLORIDE 108 mmol/L (98-107); CO2 27 mmol/L (21-32); CREATININE 1.1 mg/dL (0.55-1.3); GLUCOSE,RANDOM 101 mg/dL (74-106); POTASSIUM 3.6 mmol/L (3.5-5.1); SODIUM 141 mmol/L (136-145)
[2018-02-04] MEDS: chlordiazePOXIDE HCL 25 MG CAPSULE PO PRN ×2 (12:52→19:45)
--- NOTE | 2018-02-04 16:15 | PN ---
[facility] Progress Note (SOAP) Subjective: Tremor, chills, anxious, sweating, interrupted sleep Objective: 02/04/18 16:14 Last Vital Signs Temp Pulse Resp BP Pulse Ox 98.5 F 105 H 20 121/79 02/04/18 13:08 02/04/18 13:08 02/04/18 13:08 02/04/18 13:08 Laboratory Tests 02/02/18 02/04/18 10:10 07:00 Sodium 141 Potassium 3.6 Chloride 108 H Carbon Dioxide 27 Anion Gap 6 L BUN 9 Creatinine 1.1 Creat Clearance w eGFR > 60 Random Glucose 101 Calcium 8.8 Urine Color Straw Urine Appearance Clear Urine pH 5.0 Ur Specific [place] 1.011 Urine Protein Negative Urine Glucose (UA) Negative Urine Ketones Negative Urine Blood Negative Urine Nitrite Negative Urine Bilirubin Negative Urine Urobilinogen Negative Ur Leukocyte Esterase Negative Labs reviewed Assessment: 02/04/18 16:14 Withdrawal symptoms Plan: Continue detox Encouraged PO water intake
[2018-02-04] MEDS: THIAMINE HCL 100 MG TABLET (FP) PO SCH (22:10)
[2018-02-04] MEDS: MELATONIN 5 MG TABLETS PO PRN (22:11)
[2018-02-05] MEDS ORDERED: chlordiazePOXIDE HCL 10 MG CAPSULE PO SCH (05:00)
[2018-02-05] MEDS: GABAPENTIN 300 MG CAPSULE (FP) PO SCH (05:07)
[2018-02-05 06:11] VITALS: PULSE 70; TEMP 97.9
[2018-02-05 06:12] VITALS: BP 106/64
[2018-02-05] MEDS: LEVOTHYROXINE NA 25 MCG TABLET (FP) PO SCH (07:22)
--- NOTE | 2018-02-05 16:41 | DS ---
[facility] Detox Discharge Summary Admission Date: 02/02/18 Discharge Date: 02/05/18 - History Present History: Alcohol Dependence Additional Comments: Patient completed detox successfully. Patient instructed to follow up with PCP within 1-2 weeks. Patient is A, A, Ox3, in nad, ambulatory. Pertinent Past History: Alcohol dependence Seizure disorder Hypothyroidism GERD Hepatitis C Nicotine dependence - Physical Exam Results Vital Signs: Vital Signs Temperature 97.9 F 02/05/18 06:11 Pulse Rate 70 02/05/18 06:11 Respiratory Rate 18 02/05/18 06:11 Blood Pressure 106/64 02/05/18 06:11 O2 Sat by Pulse Oximetry (%) Pertinent Admission Physical Exam Findings: Withdrawal symptoms Laboratory Tests 02/02/18 02/04/18 10:10 07:00 Sodium 141 Potassium 3.6 Chloride 108 H Carbon Dioxide 27 Anion Gap 6 L BUN 9 Creatinine 1.1 Creat Clearance w eGFR > 60 Random Glucose 101 Calcium 8.8 Urine Color Straw Urine Appearance Clear Urine pH 5.0 Ur Specific [place] 1.011 Urine Protein Negative Urine Glucose (UA) Negative Urine Ketones Negative Urine Blood Negative Urine Nitrite Negative Urine Bilirubin Negative Urine Urobilinogen Negative Ur Leukocyte Esterase Negative Labs reviewed - Treatment Hospital Course: Detox Protocol Followed, Detoxed Safely, Responded well, Discharged Condition Good - Medication Discharge Medications: Ambulatory Orders Gabapentin [Neurontin] 600 mg PO TID #90 tablet 12/25/17 Levothyroxine [Synthroid -] 75 mcg PO DAILY@0700 #30 tablet 12/25/17 - Diagnosis (1) Hand dermatitis Status: Acute (2) Alcohol dependence with uncomplicated withdrawal Status: Acute (3) Nicotine dependence Status: Chronic Qualifiers: Nicotine product type: cigarettes Substance use status: uncomplicated Qualified Code(s): F17.210 - Nicotine dependence, cigarettes, uncomplicated (4) GERD (gastroesophageal reflux disease) Status: Chronic Qualifiers: Esophagitis presence: without esophagitis Qualified Code(s): K21.9 - Gastro -esophageal reflux disease without esophagitis (5) Hypothyroidism Status: Chronic Qualifiers: Hypothyroidism type: unspecified Qualified Code(s): E03.9 - Hypothyroidism , unspecified (6) Depression with anxiety Status: Chronic (7) Hepatitis C Status: Chronic Qualifiers: Viral hepatitis chronicity: unspecified Hepatic coma status: without hepatic coma Qualified Code(s): B19.20 - Unspecified viral hepatitis C without hepatic coma (8) Seizure disorder Status: Chronic - AMA Did Patient Leave Against Medical Advice: No (F/U with PCP within 1-2 weeks)
== END 2018-02-05 08:36 | disposition home or self-care (01) | DRG 897 ==
LOC: YASAS 23:33 → Y3N 02-02 00:23
PROC: HZ2ZZZZ Detoxification Services for Substance Abuse Treatment (ICD-10-PCS; principal; 2018-02-02)
DX: F10.230 Alcohol dependence with withdrawal, uncomplicated (principal); F14.20 Cocaine dependence, uncomplicated; F17.210 Nicotine dependence, cigarettes, uncomplicated; F19.24 Other psychoactive substance dependence with psychoactive substance-induced mood disorder; F41.8 Other specified anxiety disorders; F32.9 Major depressive disorder, single episode, unspecified; B18.2 Chronic viral hepatitis C; G47.00 Insomnia, unspecified; E03.9 Hypothyroidism, unspecified; E11.9 Type 2 diabetes mellitus without complications; L30.9 Dermatitis, unspecified; R07.89 Other chest pain; K21.9 Gastro-esophageal reflux disease without esophagitis; R79.89 Other specified abnormal findings of blood chemistry; R73.9 Hyperglycemia, unspecified; G40.909 Epilepsy, unspecified, not intractable, without status epilepticus
CPT/HCPCS: 36415; 80048; 81003

== ENCOUNTER 2018-03-30 09:18 | Inpatient (IN) | payer OTHER ==
[2018-03-30 09:43] VITALS: BMI 27.6
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
[2018-03-30] MEDS ORDERED: MAGNESIUM HYDROX 2400MG/30ML ORAL SUSPENSION 30 ML CUP PO PRN (13:46)
[2018-03-30] MEDS ORDERED: IBUPROFEN 400 MG TABLET (FP) PO PRN (13:46)
[2018-03-30] MEDS ORDERED: MENTHOL/PHENOL 1 EACH UD MM PRN (13:46)
[2018-03-30] MEDS ORDERED: P-EPHED 60MG/TRIPROLIDI 2.5MG TABLET PO PRN (13:46)
[2018-03-30] MEDS ORDERED: ACETAMINOPHEN 325 MG TABLET (FP) PO PRN (13:46)
[2018-03-30] MEDS ORDERED: LOPERAMIDE HCL 2 MG CAPSULE PO PRN (13:46)
[2018-03-30] MEDS ORDERED: MAG HYDROX/AL HYDROX/SIMETH 30 ML UNIT-DOSE CUP PO PRN (13:46)
[2018-03-30] MEDS ORDERED: MAGNESIUM CITRATE 300 ML BOTTLE PO PRN (13:46)
[2018-03-30] MEDS ORDERED: NICOTINE POLACRILEX 4 MG GUM BUC PRN (13:46)
[2018-03-30] MEDS ORDERED: guaiFENesin/D-METHORPHAN HB 10 ML UNIT-DOSE CUPS PO PRN (13:46)
[2018-03-30] MEDS ORDERED: SODIUM CHLORIDE NASAL SPRAY 44 ML BOTTLE NS PRN (13:52)
[2018-03-30] MEDS ORDERED: chlordiazePOXIDE HCL 25 MG CAPSULE PO ONE (15:00)
[2018-03-30] MEDS: GABAPENTIN 300 MG CAPSULE (FP) PO SCH ×2 (15:12→22:21)
[2018-03-30] MEDS: BACLOFEN 10 MG TABLET (FP) PO SCH ×2 (15:12→22:21)
[2018-03-30] MEDS: chlordiazePOXIDE HCL 25 MG CAPSULE PO SCH ×2 (17:38→22:21)
[2018-03-30] MEDS: MINERAL OIL/PETROLAT/WATER TOPICAL CREAM 454 GM JAR TP SCH (17:38)
[2018-03-30] MEDS: THIAMINE HCL 100 MG TABLET (FP) PO SCH (22:21)
[2018-03-31] MEDS: chlordiazePOXIDE HCL 25 MG CAPSULE PO SCH ×4 (05:37→22:14)
[2018-03-31] MEDS: GABAPENTIN 300 MG CAPSULE (FP) PO SCH ×3 (05:37→22:14)
[2018-03-31] MEDS: BACLOFEN 10 MG TABLET (FP) PO SCH ×3 (05:37→22:14)
[2018-03-31] MEDS: LEVOTHYROXINE NA 25 MCG TABLET (FP) PO SCH (06:11)
[2018-03-31] MEDS: chlordiazePOXIDE HCL 25 MG CAPSULE PO PRN ×3 (08:48→20:41)
[2018-03-31] MEDS ORDERED: PRENATAL VITAMINS W/ FOLIC ACID TABLET (FP) PO SCH (10:00)
[2018-03-31] MEDS: MULTIVITAMINS (DAILY MVI) TABLET (FP) PO SCH (10:15)
[2018-03-31] MEDS: NICOTINE 21 MG/24 HOURS TOPICAL PATCH TD SCH (10:20)
[2018-03-31] MEDS: FLUOCINONIDE 0.05% CREAM (60 GM TUBE) TP SCH ×4 (10:44→22:16)
[2018-03-31] MEDS: MINERAL OIL/PETROLAT/WATER TOPICAL CREAM 454 GM JAR TP SCH (10:44)
[2018-03-31 10:56] LABS: HEMATOCRIT 40.2 % (35.4-49); HEMOGLOBIN 14.1 GM/dL (11.7-16.9); MCH 36.3 pg (25.7-33.7); MEAN CELL VOLUME 103.6 fl (80-96); MEAN PLT VOLUME 8.1 fl (7.5-11.1); PLATELET COUNT 178 K/MM3 (134-434); RBC 3.88 M/mm3 (4.00-5.60); WHITE BLOOD COUNT 6.2 K/mm3 (4.0-10.0)
[2018-03-31 11:19] LABS: ALBUMIN 4.1 g/dl (3.4-5.0); ALK PHOS 49 U/L (45-117); ANION GAP 12 MMOL/L (8-16); BILIRUBIN,TOTAL 0.9 mg/dL (0.2-1); BLOOD UREA NITROGEN 19 mg/dL (7-18); CALCIUM 9.3 mg/dL (8.5-10.1); CHLORIDE 105 mmol/L (98-107); CO2 22 mmol/L (21-32); CREATININE 1.4 mg/dL (0.55-1.3); GLUCOSE,RANDOM 108 mg/dL (74-106); SGOT/AST 46 U/L (15-37); SGPT/ALT 50 U/L (13-61); SODIUM 138 mmol/L (136-145); TOT PROT 7.1 g/dl (6.4-8.2)
[2018-03-31] MEDS ORDERED: diphenhydrAMINE HCL 50 MG CAPSULE PO PRN (13:31)
--- NOTE | 2018-03-31 13:31 | PN ---
[facility] CIWA - CIWA Score Nausea/Vomitin-No Nausea/No Vomiting Muscle Tremors: 3 Anxiety: 0-No Anxiety, at Ease Agitation: 0-Normal Activity Paroxysmal Sweats: 3 Orientation: 0-Oriented Tacttile Disturbances: 2-Mild Itch/Numbness/Burn Auditory Disturbances: 0-None Visual Disturbances: 2-Mild Sensitivity Headache: 2-Mild CIWA-Ar Total Score: 12 S Progress Note (SOAP) Subjective: Interrupted Sleep, Stomach Cramping, H/A, Diarrhea, Tremors, Body Aches, Sweating. Objective: PATIENT A & O X 3, OBSERVED AMBULATING ON UNIT. IN NO ACUTE DISTRESS. 03/31/18 13:27 Vital Signs Temperature 97.7 F 03/31/18 13:23 Pulse Rate 58 L 03/31/18 13:23 Respiratory Rate 18 03/31/18 13:23 Blood Pressure 107/68 03/31/18 13:23 O2 Sat by Pulse Oximetry (%) Laboratory Tests 03/31/18 03/31/18 03/31/18 05:45 05:45 05:45 WBC 6.2 RBC 3.88 L Hgb 14.1 Hct 40.2 MCV 103.6 H MCH 36.3 H MCHC 35.0 RDW 15.0 Plt Count 178 MPV 8.1 D Sodium 138 Potassium 4.0 Chloride 105 Carbon Dioxide 22 Anion Gap 12 BUN 19 H Creatinine 1.4 H Creat Clearance w eGFR 54.09 Random Glucose 108 H Calcium 9.3 Total Bilirubin 0.9 AST 46 H ALT 50 Alkaline Phosphatase 49 Total Protein 7.1 Albumin 4.1 RPR Titer HIV 1&2 Antibody Screen Negative HIV P24 Antigen Negative 03/31/18 05:45 WBC RBC Hgb Hct MCV MCH MCHC RDW Plt Count MPV Sodium Potassium Chloride Carbon Dioxide Anion Gap BUN Creatinine Creat Clearance w eGFR Random Glucose Calcium Total Bilirubin AST ALT Alkaline Phosphatase Total Protein Albumin RPR Titer Nonreactive HIV 1&2 Antibody Screen HIV P24 Antigen LABS NOTED. Assessment: 03/31/18 13:27 WITHDRAWAL SYMPTOMS. Plan: CONTINUE DETOX. INCREASE DAILY PO FLUID INTAKE. PRN IMMODIUM FOR DIARRHEA. PATIENT REPORTS THAT THENAR MUSCLE OF LEFT HAND "IS RED AND FEELS ITCHY" SINCE HE WAS ADMITTED FOR DETOX. ERYTHEMA AND MILD SWELLING NOTED ON THENAR MUSCLE OF LEFT HAND. PATIENT REPORTS THAT THIS HAS OCCURRED SEVERAL TIMES IN PAST WHEN HE WAS ADMITTED FOR DETOX AND BELIEVES TO BE DUE TO LIBRIUM. PATIENT DENIES NOTICING SIMILAR OCCURRENCE ON ANY OTHER PART OF HIS BODY. TOPICAL LIDEX CREAM ORDERED FOR AFFECTED AREA ON HAND.
[2018-03-31] MEDS: THIAMINE HCL 100 MG TABLET (FP) PO SCH (22:14)
[2018-03-31] MEDS: MELATONIN 5 MG TABLETS PO PRN (22:14)
[2018-04-01] MEDS: chlordiazePOXIDE HCL 25 MG CAPSULE PO SCH ×2 (05:58→10:33)
[2018-04-01] MEDS: BACLOFEN 10 MG TABLET (FP) PO SCH ×3 (05:59→22:13)
[2018-04-01] MEDS: GABAPENTIN 300 MG CAPSULE (FP) PO SCH ×3 (05:59→22:13)
[2018-04-01] MEDS: LEVOTHYROXINE NA 25 MCG TABLET (FP) PO SCH (06:01)
[2018-04-01] MEDS: chlordiazePOXIDE HCL 25 MG CAPSULE PO PRN ×3 (08:48→20:31)
[2018-04-01] MEDS: NICOTINE 21 MG/24 HOURS TOPICAL PATCH TD SCH (10:33)
[2018-04-01] MEDS: MINERAL OIL/PETROLAT/WATER TOPICAL CREAM 454 GM JAR TP SCH (10:33)
[2018-04-01] MEDS: CHOLECALCIFEROL (VITAMIN D3) 1,000 UNIT TABLET (FP) PO SCH (10:33)
[2018-04-01] MEDS: FLUOCINONIDE 0.05% CREAM (60 GM TUBE) TP SCH (10:33)
[2018-04-01] MEDS: MULTIVITAMINS (DAILY MVI) TABLET (FP) PO SCH (10:34)
[2018-04-01] MEDS ORDERED: HYDROCORTISONE 1% TOPICAL CREAM 30 GM TUBE TP PRN (10:36)
--- NOTE | 2018-04-01 16:32 | PN ---
S CIWA - CIWA Score Nausea/Vomitin-Mild Nausea/No Vomiting Muscle Tremors: 1-None Visible, but Constable Anxiety: 1-Mildly Anxious Agitation: 1-Slight > Activity Paroxysmal Sweats: 1-Minimal Palms Moist Orientation: 0-Oriented Tacttile Disturbances: 1-Very Mild Itch/Numbness Auditory Disturbances: 1-Very Mild Visual Disturbances: 0-None Headache: 0-None Present CIWA-Ar Total Score: 7 [facility] Progress Note (SOAP) Subjective: pt would like to have benadryl for sleep- that is better than melatonin O: Vital Signs - 24 hr 03/31/18 03/31/18 04/01/18 17:47 20:56 00:30 Temperature 97.3 F L 97.2 F L Pulse Rate 69 107 H Respiratory 16 16 18 Rate Blood Pressure 113/67 114/65 04/01/18 04/01/18 04/01/18 03:30 08:03 09:14 Temperature 96.8 F L 96.1 F L Pulse Rate 87 120 H Respiratory 18 18 20 Rate Blood Pressure 111/74 115/85 04/01/18 13:41 Temperature 97.3 F L Pulse Rate 122 H Respiratory 20 Rate Blood Pressure 106/88 Laboratory Tests 03/31/18 03/31/18 03/31/18 05:45 05:45 05:45 WBC 6.2 RBC 3.88 L Hgb 14.1 Hct 40.2 MCV 103.6 H MCH 36.3 H MCHC 35.0 RDW 15.0 Plt Count 178 MPV 8.1 D Sodium 138 Potassium 4.0 Chloride 105 Carbon Dioxide 22 Anion Gap 12 BUN 19 H Creatinine 1.4 H Creat Clearance w eGFR 54.09 Random Glucose 108 H Calcium 9.3 Total Bilirubin 0.9 AST 46 H ALT 50 Alkaline Phosphatase 49 Total Protein 7.1 Albumin 4.1 RPR Titer HIV 1&2 Antibody Screen Negative HIV P24 Antigen Negative 03/31/18 05:45 WBC RBC Hgb Hct MCV MCH MCHC RDW Plt Count MPV Sodium Potassium Chloride Carbon Dioxide Anion Gap BUN Creatinine Creat Clearance w eGFR Random Glucose Calcium Total Bilirubin AST ALT Alkaline Phosphatase Total Protein Albumin RPR Titer Nonreactive HIV 1&2 Antibody Screen HIV P24 Antigen mild renal insufficiency a/p continue alcohol detox protocol- will give benadryl for sleep
[2018-04-01] MEDS: chlordiazePOXIDE 5 MG CAPSULE PO SCH ×2 (17:44→22:13)
[2018-04-01] MEDS: THIAMINE HCL 100 MG TABLET (FP) PO SCH (22:13)
[2018-04-02] MEDS: chlordiazePOXIDE HCL 25 MG CAPSULE PO PRN ×2 (03:40→07:33)
[2018-04-02] MEDS: GABAPENTIN 300 MG CAPSULE (FP) PO SCH ×3 (05:23→22:28)
[2018-04-02] MEDS: BACLOFEN 10 MG TABLET (FP) PO SCH (05:23)
[2018-04-02] MEDS: chlordiazePOXIDE 5 MG CAPSULE PO SCH ×2 (05:23→10:48)
[2018-04-02] MEDS: LEVOTHYROXINE NA 25 MCG TABLET (FP) PO SCH (06:52)
[2018-04-02] MEDS ORDERED: CYCLOBENZAPRINE HCL 10 MG TABLET (FP) PO PRN (09:19)
[2018-04-02] MEDS ORDERED: cloNIDine HCL 0.1 MG TABLET PO SCH (10:00)
[2018-04-02] MEDS: NICOTINE 21 MG/24 HOURS TOPICAL PATCH TD SCH (10:48)
[2018-04-02] MEDS ORDERED: ALBUTEROL SO4 2.5/IPRATROPIUM 0.5 INH SOL 3 ML VIAL.NEB. NEB PRN (13:44)
--- NOTE | 2018-04-02 14:13 | PN ---
[facility] Progress Note (SOAP) Subjective: Fatigue, Body Aches, Anxious. At Time of AM Rounds Assessment, Patient reports feelings of "dizziness," Anxiety, and SOB. Objective: PATIENT A & O X 3, OBSERVED AMBULATING ON UNIT. NO ACUTE DISTRESS. PATIENT DENIES KNOWN HISTORY OF CARDIAC DISEASE. LUNG SOUNDS AUSCULTATED CLEAR AND EQUAL BILATERALLY. VS NOTED. BP STABLE. O2: 95%. PATIENT EXPERIENCING INTERMITTENT TACHYCARDIA OVER VARIOUS VS ASSESSMENTS. 04/02/18 14:10 Vital Signs Temperature 98.1 F 04/02/18 13:24 Pulse Rate 99 H 04/02/18 13:24 Respiratory Rate 18 04/02/18 13:24 Blood Pressure 113/75 04/02/18 13:24 O2 Sat by Pulse Oximetry (%) Laboratory Tests 03/31/18 03/31/18 03/31/18 05:45 05:45 05:45 WBC 6.2 RBC 3.88 L Hgb 14.1 Hct 40.2 MCV 103.6 H MCH 36.3 H MCHC 35.0 RDW 15.0 Plt Count 178 MPV 8.1 D Sodium 138 Potassium 4.0 Chloride 105 Carbon Dioxide 22 Anion Gap 12 BUN 19 H Creatinine 1.4 H Creat Clearance w eGFR 54.09 Random Glucose 108 H Calcium 9.3 Total Bilirubin 0.9 AST 46 H ALT 50 Alkaline Phosphatase 49 Total Protein 7.1 Albumin 4.1 RPR Titer HIV 1&2 Antibody Screen Negative HIV P24 Antigen Negative 03/31/18 05:45 WBC RBC Hgb Hct MCV MCH MCHC RDW Plt Count MPV Sodium Potassium Chloride Carbon Dioxide Anion Gap BUN Creatinine Creat Clearance w eGFR Random Glucose Calcium Total Bilirubin AST ALT Alkaline Phosphatase Total Protein Albumin RPR Titer Nonreactive HIV 1&2 Antibody Screen HIV P24 Antigen LABS NOTED. ECG ORDERED. RESULTS NOTED: 'NORMAL SINUS RHYTHM; SEPTAL INFARCT, AGE UNDETERMINED.' 04/02/18 14:13 Assessment: 04/02/18 14:14 WITHDRAWAL SYMPTOMS. TACHYCARDIA. 04/02/18 14:19 Plan: CONTINUE DETOX. CLONIDINE, 0.1 MG PO DAILY FOR WITHDRAWAL SYMPTOMS AND FOR TACHYCARDIA. PRN FLEXERIL FOR BODY ACHES / MUSCLE SPASMS. PATIENT ADVISED TO FOLLOW-UP WITH PHARMACY CUSTOMER CARE SPECIALIST DR. REAL ([facility], [place]) AND SYSTEMS SOFTWARE ENGINEER DR. LYNN ([place], [place]) AFTER DISCHARGE FROM DETOX UNIT FOR HISTORY OF HEMOCHROMATOSIS, THYROID DISORDER AND FOR HISTORY OF HEPATITIS C. PATIENT VERBALIZED UNDERSTANDING OF RECOMMENDATIONS.
--- NOTE | 2018-04-02 14:18 | EKG ---
Test Reason : Blood Pressure : / mmHG Vent. Rate : 090 BPM Atrial Rate : 090 BPM P-R Int : 182 ms QRS Dur : 080 ms QT Int : 336 ms P-R-T Axes : 060 072 063 degrees QTc Int : 411 ms NORMAL SINUS RHYTHM SEPTAL INFARCT (CITED ON OR BEFORE 01-FEB-2018) ABNORMAL ECG WHEN COMPARED WITH ECG OF 01-FEB-2018 20:03, QUESTIONABLE CHANGE IN INITIAL [employer]CES OF ANTERIOR LEADS Confirmed by RODOLFO CASANOVA MD ([id number]) on 04/02/2018 2:17:48 PM Referred By: Confirmed By:RODOLFO CASANOVA MD
[2018-04-02] MEDS: MULTIVITAMINS (DAILY MVI) TABLET (FP) PO SCH (15:24)
[2018-04-02] MEDS: CHOLECALCIFEROL (VITAMIN D3) 1,000 UNIT TABLET (FP) PO SCH (15:24)
[2018-04-02] MEDS: MINERAL OIL/PETROLAT/WATER TOPICAL CREAM 454 GM JAR TP SCH (15:24)
[2018-04-02] MEDS: chlordiazePOXIDE HCL 10 MG CAPSULE PO SCH ×2 (17:51→22:28)
[2018-04-02] MEDS: THIAMINE HCL 100 MG TABLET (FP) PO SCH (22:29)
[2018-04-02] MEDS: MELATONIN 5 MG TABLETS PO PRN (22:30)
[2018-04-03] MEDS: CHOLECALCIFEROL (VITAMIN D3) 1,000 UNIT TABLET (FP) PO SCH (01:55)
[2018-04-03] MEDS: GABAPENTIN 300 MG CAPSULE (FP) PO SCH (05:12)
[2018-04-03] MEDS: chlordiazePOXIDE HCL 10 MG CAPSULE PO SCH (05:12)
[2018-04-03] MEDS: LEVOTHYROXINE NA 25 MCG TABLET (FP) PO SCH (06:02)
--- NOTE | 2018-04-03 08:53 | DS ---
[facility] Detox Discharge Summary Admission Date: 03/30/18 Discharge Date: 04/03/18 - History Present History: Alcohol Dependence, Cocaine Dependence - Physical Exam Results Vital Signs: Vital Signs Temperature 96.6 F L 04/03/18 06:00 Pulse Rate 69 04/03/18 06:00 Respiratory Rate 18 04/03/18 06:30 Blood Pressure 113/69 04/03/18 06:00 O2 Sat by Pulse Oximetry (%) - Treatment Hospital Course: Detox Protocol Followed, Detoxed Safely, Responded well, Discharged Condition Good, Rehab Referral Accepted - Medication Discharge Medications: Ambulatory Orders Gabapentin [Neurontin] 600 mg PO TID #90 tablet 12/25/17 Levothyroxine [Synthroid -] 75 mcg PO DAILY@0700 #30 tablet 12/25/17 Cholecalciferol (Vitamin D3) [Vitamin D3 -] 1,000 unit PO DAILY 03/30/18 - Diagnosis (1) Alcohol dependence with uncomplicated withdrawal Current Visit: Yes Status: Chronic (2) Nicotine dependence Current Visit: Yes Status: Chronic Qualifiers: Nicotine product type: cigarettes Substance use status: uncomplicated Qualified Code(s): F17.210 - Nicotine dependence, cigarettes, uncomplicated (3) Borderline diabetes mellitus Current Visit: Yes Status: Chronic (4) GERD (gastroesophageal reflux disease) Current Visit: Yes Status: Chronic Qualifiers: Esophagitis presence: without esophagitis Qualified Code(s): K21.9 - Gastro -esophageal reflux disease without esophagitis (5) Hemochromatosis, hereditary Current Visit: Yes Status: Chronic (6) Hepatitis C Current Visit: Yes Status: Chronic Qualifiers: Viral hepatitis chronicity: unspecified Hepatic coma status: without hepatic coma Qualified Code(s): B19.20 - Unspecified viral hepatitis C without hepatic coma (7) Hypothyroidism Current Visit: Yes Status: Chronic Qualifiers: Hypothyroidism type: unspecified Qualified Code(s): E03.9 - Hypothyroidism , unspecified (8) Drug-induced mood disorder Current Visit: Yes Status: Suspected (9) Substance induced mood disorder Current Visit: Yes Status: Suspected (10) Anxiety Current Visit: No Status: Acute (11) Cocaine dependence Current Visit: Yes Status: Chronic Qualifiers: Substance use status: uncomplicated Qualified Code(s): F14.20 - Cocaine dependence, uncomplicated (12) Hand dermatitis Current Visit: Yes Status: Chronic (13) Insomnia Current Visit: No Status: Acute (14) Syncope Current Visit: No Status: Acute Qualifiers: Syncope type: unspecified Qualified Code(s): R55 - Syncope and collapse (15) Weight loss Current Visit: No Status: Acute (16) Anxiety disorder Current Visit: No Status: Chronic (17) Cocaine abuse, uncomplicated Current Visit: No Status: Chronic (18) Depression Current Visit: No Status: Chronic Qualifiers: Depression Type: unspecified Qualified Code(s): F32.9 - Major depressive disorder, single episode, unspecified (19) Depression with anxiety Current Visit: No Status: Chronic (20) Seizure disorder Current Visit: No Status: Chronic (21) Substance-induced anxiety disorder Current Visit: No Status: Chronic (22) Tachycardia Current Visit: No Status: Chronic (23) Hyperglycemia Current Visit: No Status: Resolved
[2018-04-03 09:46] VITALS: BP 103/69; PULSE 89; TEMP 96.1
== END 2018-04-03 08:58 | disposition home or self-care (01) | DRG 774 ==
LOC: YASAS 09:18 → Y6N 14:38
PROVIDERS: ADMIT Neuromusculoskeletal Medicine & OMM; ATTEND Neuromusculoskeletal Medicine & OMM
PROC: HZ2ZZZZ Detoxification Services for Substance Abuse Treatment (ICD-10-PCS; principal; 2018-03-30)
DX: F10.230 Alcohol dependence with withdrawal, uncomplicated (principal); F14.20 Cocaine dependence, uncomplicated; F17.210 Nicotine dependence, cigarettes, uncomplicated; F19.24 Other psychoactive substance dependence with psychoactive substance-induced mood disorder; F19.280 Other psychoactive substance dependence with psychoactive substance-induced anxiety disorder; F41.9 Anxiety disorder, unspecified; F32.9 Major depressive disorder, single episode, unspecified; K21.9 Gastro-esophageal reflux disease without esophagitis; E83.119 Hemochromatosis, unspecified; B19.20 Unspecified viral hepatitis C without hepatic coma; E03.9 Hypothyroidism, unspecified; L30.9 Dermatitis, unspecified; G47.00 Insomnia, unspecified; R73.03 Prediabetes; R00.0 Tachycardia, unspecified; R73.9 Hyperglycemia, unspecified; G40.89 Other seizures; N28.9 Disorder of kidney and ureter, unspecified; Z91.013 Allergy to seafood; Z88.0 Allergy status to penicillin
CPT/HCPCS: 36415; 80053; 85027; 86593; 87389; 93005; 93010; J0475; J0735

== ENCOUNTER 2018-05-11 14:45 | Inpatient (IN) | payer OTHER ==
[2018-05-11 17:59] VITALS: BMI 27.4
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
[2018-05-11] MEDS ORDERED: HYDROCORTISONE 1% TOPICAL OINT 30 GM TUBE TP PRN (19:07)
[2018-05-11] MEDS ORDERED: BISMUTH SUBSALICYLATE 524 MG/30 ML UD PO PRN (20:51)
[2018-05-11] MEDS ORDERED: METHOCARBAMOL 500 MG TABLET PO PRN (20:51)
[2018-05-11] MEDS ORDERED: NICOTINE POLACRILEX 2 MG GUM BUC PRN (20:51)
[2018-05-11] MEDS ORDERED: MAGNESIUM CITRATE 300 ML BOTTLE PO PRN (20:51)
[2018-05-11] MEDS ORDERED: ACETAMINOPHEN 325 MG TABLET (FP) PO PRN ×2 (20:51)
[2018-05-11] MEDS ORDERED: IBUPROFEN 400 MG TABLET (FP) PO PRN (20:51)
[2018-05-11] MEDS ORDERED: MENTHOL/PHENOL 1 EACH UD MM PRN (20:51)
[2018-05-11] MEDS ORDERED: MAG HYDROX/AL HYDROX/SIMETH 30 ML UNIT-DOSE CUP PO PRN (20:51)
[2018-05-11] MEDS ORDERED: MAGNESIUM HYDROX 2400MG/30ML ORAL SUSPENSION 30 ML CUP PO PRN (20:51)
[2018-05-11] MEDS: chlordiazePOXIDE HCL 25 MG CAPSULE PO PRN (21:04)
[2018-05-11] MEDS: GABAPENTIN 300 MG CAPSULE (FP) PO SCH (22:30)
[2018-05-11] MEDS: THIAMINE HCL 100 MG TABLET (FP) PO SCH (22:30)
[2018-05-11] MEDS: MELATONIN 5 MG TABLETS PO PRN (22:30)
[2018-05-11] MEDS: chlordiazePOXIDE HCL 25 MG CAPSULE PO SCH (22:30)
[2018-05-12] MEDS: chlordiazePOXIDE HCL 25 MG CAPSULE PO SCH ×4 (05:31→22:20)
[2018-05-12] MEDS: GABAPENTIN 300 MG CAPSULE (FP) PO SCH ×3 (05:31→22:20)
[2018-05-12] MEDS ORDERED: LEVOTHYROXINE NA 75 MCG TABLET (FP) PO SCH (07:00)
[2018-05-12] MEDS: chlordiazePOXIDE HCL 25 MG CAPSULE PO PRN ×2 (08:44→14:14)
[2018-05-12] MEDS: LEVOTHYROXINE NA 25 MCG TABLET (FP) PO SCH (10:28)
[2018-05-12] MEDS: NICOTINE 14 MG/24 HOURS TOPICAL PATCH TD SCH (10:29)
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
--- NOTE | 2018-05-12 12:02 | PN ---
[facility] CIWA - CIWA Score Nausea/Vomitin-Mild Nausea/No Vomiting Muscle Tremors: 2 Anxiety: 2 Agitation: 1-Slight > Activity Paroxysmal Sweats: 1-Minimal Palms Moist Orientation: 1-Uncertain about Date Tacttile Disturbances: 1-Very Mild Itch/Numbness Auditory Disturbances: 0-None Visual Disturbances: 0-None Headache: 1-Very Mild CIWA-Ar Total Score: 10 [facility] Progress Note (SOAP) Subjective: left thumb itchy rashes patch round well demarked erythema flat 4 cm in diameter no exudate tremor sweating trouble sleep at night Objective: 05/12/18 12:01 Vital Signs Temperature 97.8 F 05/12/18 09:38 Pulse Rate 93 H 05/12/18 09:38 Respiratory Rate 16 05/12/18 09:38 Blood Pressure 112/67 05/12/18 09:38 O2 Sat by Pulse Oximetry (%) lab pending Assessment: 05/12/18 12:02 alcohol withdrawal sx Plan: continue detox
[2018-05-12 12:39] LABS: HEMATOCRIT 37.5 % (35.4-49); HEMOGLOBIN 13.3 GM/dL (11.7-16.9); MCH 37.6 pg (25.7-33.7); MCHC 35.4 g/dl (32.0-35.9); MEAN CELL VOLUME 106.2 fl (80-96); PLATELET COUNT 137 K/MM3 (134-434); RBC 3.53 M/mm3 (4.00-5.60); RDW 13.4 % (11.9-15.9); WHITE BLOOD COUNT 3.3 K/mm3 (4.0-10.0)
[2018-05-12 12:47] LABS: ALBUMIN 3.6 g/dl (3.4-5.0); ALK PHOS 44 U/L (45-117); ANION GAP 6 MMOL/L (8-16); BILIRUBIN,TOTAL 0.6 mg/dL (0.2-1); BLOOD UREA NITROGEN 12 mg/dL (7-18); CALCIUM 8.6 mg/dL (8.5-10.1); CHLORIDE 109 mmol/L (98-107); CO2 25 mmol/L (21-32); CREATININE 1.1 mg/dL (0.55-1.3); GLUCOSE,RANDOM 82 mg/dL (74-106); POTASSIUM 3.6 mmol/L (3.5-5.1); SGOT/AST 52 U/L (15-37); SGPT/ALT 67 U/L (13-61); SODIUM 140 mmol/L (136-145); TOT PROT 6.1 g/dl (6.4-8.2)
[2018-05-12] MEDS: HYDROCORTISONE 1% TOPICAL OINT 30 GM TUBE TP SCH ×4 (13:23→23:35)
[2018-05-12 17:28] LABS: URINE APPEARANCE CLEAR; URINE BILIRUBIN NEGATIVE (<2.0 mg/dL); URINE COLOR YELLOW; URINE GLUCOSE (UA) NEGATIVE (NEGATIVE); URINE KETONE NEGATIVE (NEGATIVE); URINE LEUK ESTERASE NEGATIVE (NEGATIVE); URINE NITRITE NEGATIVE (NEGATIVE); URINE PROTEIN NEGATIVE (NEGATIVE); URINE UROBILINOGEN NEGATIVE mg/dL (0.2-1.0)
[2018-05-12] MEDS: MELATONIN 5 MG TABLETS PO PRN (22:20)
[2018-05-12] MEDS: THIAMINE HCL 100 MG TABLET (FP) PO SCH (22:20)
[2018-05-13] MEDS: chlordiazePOXIDE HCL 25 MG CAPSULE PO SCH ×3 (05:17→17:11)
[2018-05-13] MEDS: GABAPENTIN 300 MG CAPSULE (FP) PO SCH ×3 (05:17→22:17)
[2018-05-13] MEDS: LEVOTHYROXINE NA 25 MCG TABLET (FP) PO SCH (06:01)
[2018-05-13] MEDS: chlordiazePOXIDE HCL 25 MG CAPSULE PO PRN ×3 (08:51→19:01)
[2018-05-13] MEDS: NICOTINE 14 MG/24 HOURS TOPICAL PATCH TD SCH (10:20)
[2018-05-13] MEDS: HYDROCORTISONE 1% TOPICAL OINT 30 GM TUBE TP SCH ×4 (10:21→22:17)
--- NOTE | 2018-05-13 11:10 | PN ---
[facility] CIWA - CIWA Score Nausea/Vomitin-Mild Nausea/No Vomiting Muscle Tremors: 1-None Visible, but [place] Anxiety: 1-Mildly Anxious Agitation: 0-Normal Activity Paroxysmal Sweats: No Perspiration Orientation: 1-Uncertain about Date Tacttile Disturbances: 1-Very Mild Itch/Numbness Auditory Disturbances: 0-None Visual Disturbances: 0-None Headache: 1-Very Mild CIWA-Ar Total Score: 6 [facility] Progress Note (SOAP) Subjective: tremor sweating itchy of left palm Objective: 05/13/18 11:09 Vital Signs Temperature 96.2 F L 05/13/18 09:10 Pulse Rate 121 H 05/13/18 09:10 Respiratory Rate 18 05/13/18 09:10 Blood Pressure 95/71 05/13/18 09:10 O2 Sat by Pulse Oximetry (%) Laboratory Last Values WBC 3.3 K/mm3 (4.0-10.0) L 05/12/18 07:00 RBC 3.53 M/mm3 (4.00-5.60) L 05/12/18 07:00 Hgb 13.3 GM/dL (11.7-16.9) 05/12/18 07:00 Hct 37.5 % (35.4-49) 05/12/18 07:00 MCV 106.2 fl (80-96) H 05/12/18 07:00 MCH 37.6 pg (25.7-33.7) H 05/12/18 07:00 MCHC 35.4 g/dl (32.0-35.9) 05/12/18 07:00 RDW 13.4 % (11.9-15.9) D 05/12/18 07:00 Plt Count 137 K/MM3 (134-434) D 05/12/18 07:00 MPV 8.0 fl (7.5-11.1) 05/12/18 07:00 Sodium 140 mmol/L (136-145) 05/12/18 07:00 Potassium 3.6 mmol/L (3.5-5.1) 05/12/18 07:00 Chloride 109 mmol/L (98-107) H 05/12/18 07:00 Carbon Dioxide 25 mmol/L (21-32) 05/12/18 07:00 Anion Gap 6 MMOL/L (8-16) L 05/12/18 07:00 BUN 12 mg/dL (7-18) 05/12/18 07:00 Creatinine 1.1 mg/dL (0.55-1.3) 05/12/18 07:00 Creat Clearance w eGFR > 60 (>60) 05/12/18 07:00 Random Glucose 82 mg/dL (74-106) 05/12/18 07:00 Calcium 8.6 mg/dL (8.5-10.1) 05/12/18 07:00 Total Bilirubin 0.6 mg/dL (0.2-1) 05/12/18 07:00 AST 52 U/L (15-37) H 05/12/18 07:00 ALT 67 U/L (13-61) H 05/12/18 07:00 Alkaline Phosphatase 44 U/L (45-117) L 05/12/18 07:00 Total Protein 6.1 g/dl (6.4-8.2) L 05/12/18 07:00 Albumin 3.6 g/dl (3.4-5.0) 05/12/18 07:00 Urine Color Yellow 05/12/18 15:45 Urine Appearance Clear 05/12/18 15:45 Urine pH 5.0 (5.0-8.0) 05/12/18 15:45 Ur Specific [place] 1.015 (1.010-1.035) 05/12/18 15:45 Urine Protein Negative (NEGATIVE) 05/12/18 15:45 Urine Glucose (UA) Negative (NEGATIVE) 05/12/18 15:45 Urine Ketones Negative (NEGATIVE) 05/12/18 15:45 Urine Blood Negative (NEGATIVE) 05/12/18 15:45 Urine Nitrite Negative (NEGATIVE) 05/12/18 15:45 Urine Bilirubin Negative (<2.0 mg/dL) 05/12/18 15:45 Urine Urobilinogen Negative mg/dL (0.2-1.0) 05/12/18 15:45 Ur Leukocyte Esterase Negative (NEGATIVE) 05/12/18 15:45 RPR Titer Nonreactive (NONREACTIVE) 05/12/18 07:00 lab noted Assessment: 05/13/18 11:09 withdrawal sx Plan: continue detox
[2018-05-13] MEDS: chlordiazePOXIDE HCL 10 MG CAPSULE PO SCH (22:17)
[2018-05-13] MEDS: THIAMINE HCL 100 MG TABLET (FP) PO SCH (22:17)
[2018-05-13] MEDS: MELATONIN 5 MG TABLETS PO PRN (22:18)
[2018-05-14] MEDS: chlordiazePOXIDE HCL 10 MG CAPSULE PO SCH ×3 (05:20→17:36)
[2018-05-14] MEDS: GABAPENTIN 300 MG CAPSULE (FP) PO SCH ×3 (05:20→22:20)
[2018-05-14] MEDS: LEVOTHYROXINE NA 25 MCG TABLET (FP) PO SCH (06:04)
[2018-05-14] MEDS: chlordiazePOXIDE HCL 10 MG CAPSULE PO PRN ×2 (08:54→12:22)
[2018-05-14] MEDS: NICOTINE 14 MG/24 HOURS TOPICAL PATCH TD SCH (10:08)
[2018-05-14] MEDS: HYDROCORTISONE 1% TOPICAL OINT 30 GM TUBE TP SCH ×4 (10:09→22:20)
--- NOTE | 2018-05-14 17:12 | PN ---
[facility] Progress Note (SOAP) Subjective: Sweating, Tremors, Fatigue. Objective: PATIENT A & O X 3, OBSERVED AMBULATING ON UNIT. IN NO ACUTE DISTRESS. 05/14/18 17:10 Vital Signs Temperature 98.6 F 05/14/18 13:55 Pulse Rate 112 H 05/14/18 13:55 Respiratory Rate 18 05/14/18 13:55 Blood Pressure 122/79 05/14/18 13:55 O2 Sat by Pulse Oximetry (%) Laboratory Tests 05/12/18 05/12/18 05/12/18 07:00 07:00 07:00 WBC 3.3 L RBC 3.53 L Hgb 13.3 Hct 37.5 MCV 106.2 H MCH 37.6 H MCHC 35.4 RDW 13.4 D Plt Count 137 D MPV 8.0 Sodium 140 Potassium 3.6 Chloride 109 H Carbon Dioxide 25 Anion Gap 6 L BUN 12 Creatinine 1.1 Creat Clearance w eGFR > 60 Random Glucose 82 Calcium 8.6 Total Bilirubin 0.6 AST 52 H ALT 67 H Alkaline Phosphatase 44 L Total Protein 6.1 L Albumin 3.6 Urine Color Urine Appearance Urine pH Ur Specific [place] Urine Protein Urine Glucose (UA) Urine Ketones Urine Blood Urine Nitrite Urine Bilirubin Urine Urobilinogen Ur Leukocyte Esterase RPR Titer Nonreactive 05/12/18 15:45 WBC RBC Hgb Hct MCV MCH MCHC RDW Plt Count MPV Sodium Potassium Chloride Carbon Dioxide Anion Gap BUN Creatinine Creat Clearance w eGFR Random Glucose Calcium Total Bilirubin AST ALT Alkaline Phosphatase Total Protein Albumin Urine Color Yellow Urine Appearance Clear Urine pH 5.0 Ur Specific [place] 1.015 Urine Protein Negative Urine Glucose (UA) Negative Urine Ketones Negative Urine Blood Negative Urine Nitrite Negative Urine Bilirubin Negative Urine Urobilinogen Negative Ur Leukocyte Esterase Negative RPR Titer LABS NOTED. Assessment: 05/14/18 17:11 WITHDRAWAL SYMPTOMS. LEUKOPENIA. Plan: CONTINUE DETOX.
[2018-05-14] MEDS: THIAMINE HCL 100 MG TABLET (FP) PO SCH (22:20)
[2018-05-14] MEDS: MELATONIN 5 MG TABLETS PO PRN (22:21)
[2018-05-14] MEDS ORDERED: chlordiazePOXIDE HCL 10 MG CAPSULE PO SCH (23:00)
[2018-05-15] MEDS: GABAPENTIN 300 MG CAPSULE (FP) PO SCH (05:26)
[2018-05-15 06:29] VITALS: BP 105/72; PULSE 71; TEMP 96.1
[2018-05-15] MEDS: LEVOTHYROXINE NA 25 MCG TABLET (FP) PO SCH (06:30)
--- NOTE | 2018-05-15 19:06 | DS ---
[facility] Detox Discharge Summary Admission Date: 05/11/18 Discharge Date: 05/15/18 - History Present History: Alcohol Dependence Additional Comments: PATIENT TO RETURN TO [facility] ([place], [place]) FOR AFTERCARE. PATIENT ADVISED TO FOLLOW-UP WITH QUALITY ASSURANCE INTERN DR. CHRISTINE AFTER DISCHARGE FROM DETOX FOR GENERAL MEDICAL ASSESSMENT AND FOR HISTORY OF HEREDITARY HEMOCHROMATOSIS. PATIENT VERBALIZED UNDERSTANDING OF RECOMMENDATION. PATIENT DECLINED OFFER OF MEDICATION PRESCRIPTION FOR HOME MEDICATION AT TIME OF DISCHARGE FROM DETOX, NOTING THAT HE CURRENTLY HAS ADEQUATE SUPPLIES OF ALL PRESCRIBED HOME MEDICATIONS AT HOME. PATIENT WAS DISCHARGED FROM DETOX UNIT IN STABLE MEDICAL CONDITION. Pertinent Past History: History of Seizures (Related To History of Head Trauma), Hypothyroidism, Hep C ( Treated), Hemochromatosis (Hereditary), G.E.R.D., Hand Dermatitis, History of Borderline DM, Nicotine Dependence, History of Chronic Back Pain, Insomnia. - Physical Exam Results Vital Signs: Vital Signs Temperature 96.1 F L 05/15/18 06:29 Pulse Rate 71 05/15/18 06:29 Respiratory Rate 18 05/15/18 06:29 Blood Pressure 105/72 05/15/18 06:29 O2 Sat by Pulse Oximetry (%) Pertinent Admission Physical Exam Findings: WITHDRAWAL SYMPTOMS. Laboratory Tests 05/12/18 05/12/18 05/12/18 07:00 07:00 07:00 WBC 3.3 L RBC 3.53 L Hgb 13.3 Hct 37.5 MCV 106.2 H MCH 37.6 H MCHC 35.4 RDW 13.4 D Plt Count 137 D MPV 8.0 Sodium 140 Potassium 3.6 Chloride 109 H Carbon Dioxide 25 Anion Gap 6 L BUN 12 Creatinine 1.1 Creat Clearance w eGFR > 60 Random Glucose 82 Calcium 8.6 Total Bilirubin 0.6 AST 52 H ALT 67 H Alkaline Phosphatase 44 L Total Protein 6.1 L Albumin 3.6 Urine Color Urine Appearance Urine pH Ur Specific [place] Urine Protein Urine Glucose (UA) Urine Ketones Urine Blood Urine Nitrite Urine Bilirubin Urine Urobilinogen Ur Leukocyte Esterase RPR Titer Nonreactive 05/12/18 15:45 WBC RBC Hgb Hct MCV MCH MCHC RDW Plt Count MPV Sodium Potassium Chloride Carbon Dioxide Anion Gap BUN Creatinine Creat Clearance w eGFR Random Glucose Calcium Total Bilirubin AST ALT Alkaline Phosphatase Total Protein Albumin Urine Color Yellow Urine Appearance Clear Urine pH 5.0 Ur Specific [place] 1.015 Urine Protein Negative Urine Glucose (UA) Negative Urine Ketones Negative Urine Blood Negative Urine Nitrite Negative Urine Bilirubin Negative Urine Urobilinogen Negative Ur Leukocyte Esterase Negative RPR Titer LABS NOTED. - Treatment Hospital Course: Detox Protocol Followed, Detoxed Safely, Responded well, Discharged Condition Good Patient has Accepted a Rehab Referral to: PT. WILL RETURN TO [facility] ([place], [place]) - Medication Discharge Medications: Ambulatory Orders Gabapentin [Neurontin] 600 mg PO TID #90 tablet 12/25/17 Levothyroxine [Synthroid -] 75 mcg PO DAILY@0700 #30 tablet 12/25/17 Cholecalciferol (Vitamin D3) [Vitamin D3 -] 1,000 unit PO DAILY 03/30/18 - Diagnosis (1) Alcohol dependence with uncomplicated withdrawal Status: Acute (2) Borderline diabetes mellitus Status: Chronic (3) Chronic back pain Status: Chronic Qualifiers: Back pain location: low back pain Back pain laterality: right Sciatica presence: with sciatica Sciatica laterality: sciatica laterality unspecified Qualified Code(s): M54.40 - Lumbago with sciatica, unspecified side; G89.29 - Other chronic pain (4) GERD (gastroesophageal reflux disease) Status: Chronic Qualifiers: Esophagitis presence: without esophagitis Qualified Code(s): K21.9 - Gastro -esophageal reflux disease without esophagitis (5) Hand dermatitis Status: Chronic (6) Hemochromatosis, hereditary Status: Chronic (7) Hypothyroidism Status: Chronic Qualifiers: Hypothyroidism type: unspecified Qualified Code(s): E03.9 - Hypothyroidism , unspecified (8) Nicotine dependence Status: Chronic Qualifiers: Nicotine product type: cigarettes Substance use status: uncomplicated Qualified Code(s): F17.210 - Nicotine dependence, cigarettes, uncomplicated (9) Seizure disorder Status: Chronic (10) Insomnia Status: Chronic Qualifiers: Insomnia type: unspecified Qualified Code(s): G47.00 - Insomnia, unspecified (11) Non-compliance Status: Chronic (12) Substance induced mood disorder Status: Chronic - AMA Did Patient Leave Against Medical Advice: No
== END 2018-05-15 09:04 | disposition home or self-care (01) | DRG 775 ==
LOC: YASAS 14:45 → Y3N 19:40
PROVIDERS: ADMIT Surgery; ATTEND Surgery
PROC: HZ2ZZZZ Detoxification Services for Substance Abuse Treatment (ICD-10-PCS; principal; 2018-05-11)
DX: F10.230 Alcohol dependence with withdrawal, uncomplicated (principal); F19.24 Other psychoactive substance dependence with psychoactive substance-induced mood disorder; F17.210 Nicotine dependence, cigarettes, uncomplicated; R56.1 Post traumatic seizures; G47.00 Insomnia, unspecified; E11.9 Type 2 diabetes mellitus without complications; B18.2 Chronic viral hepatitis C; K21.9 Gastro-esophageal reflux disease without esophagitis; M54.40 Lumbago with sciatica, unspecified side; D72.818 Other decreased white blood cell count; E83.110 Hereditary hemochromatosis; L40.9 Psoriasis, unspecified; E03.9 Hypothyroidism, unspecified; Z91.19 Patient's noncompliance with other medical treatment and regimen
CPT/HCPCS: 36415; 80053; 81003; 85027; 86593

== ENCOUNTER 2018-06-07 04:02 | Emergency (ER) | payer OTHER ==
[2018-06-07 04:06] VITALS: BP 109/76; PULSE 98; TEMP 98.6; BMI 31.1
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
== END 2018-06-07 05:00 | disposition home or self-care (01) ==
LOC: JER 04:02
DX: F10.120 Alcohol abuse with intoxication, uncomplicated (principal); M79.641 Pain in right hand; Y90.8 Blood alcohol level of 240 mg/100 ml or more; W19.XXXA Unspecified fall, initial encounter; Y93.89 Activity, other specified; Y92.89 Other specified places as the place of occurrence of the external cause; Y99.8 Other external cause status; E03.9 Hypothyroidism, unspecified; R56.1 Post traumatic seizures
CPT/HCPCS: 73130-TC-RT-FY; 99281-25

== ENCOUNTER 2018-06-07 14:59 | Inpatient (IN) | payer OTHER ==
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
[2018-06-07] MEDS ORDERED: METHOCARBAMOL 500 MG TABLET PO PRN (17:31)
[2018-06-07] MEDS ORDERED: PROCHLORPERAZINE MALEATE 5 MG TABLET PO PRN (17:31)
[2018-06-07] MEDS ORDERED: ACETAMINOPHEN 325 MG TABLET (FP) PO PRN ×2 (17:31)
[2018-06-07] MEDS ORDERED: BISMUTH SUBSALICYLATE 524 MG/30 ML UD PO PRN (17:31)
[2018-06-07] MEDS ORDERED: NICOTINE POLACRILEX 4 MG GUM BUC PRN (17:31)
[2018-06-07] MEDS ORDERED: MAGNESIUM HYDROX 2400MG/30ML ORAL SUSPENSION 30 ML CUP PO PRN (17:31)
[2018-06-07] MEDS ORDERED: chlordiazePOXIDE HCL 25 MG CAPSULE PO ONE (17:31)
[2018-06-07] MEDS ORDERED: MENTHOL/PHENOL 1 EACH UD MM PRN (17:31)
[2018-06-07] MEDS ORDERED: MAGNESIUM CITRATE 300 ML BOTTLE PO PRN (17:31)
[2018-06-07] MEDS ORDERED: IBUPROFEN 400 MG TABLET (FP) PO PRN (17:31)
[2018-06-07] MEDS ORDERED: MAG HYDROX/AL HYDROX/SIMETH 30 ML UNIT-DOSE CUP PO PRN (17:31)
[2018-06-07] MEDS: guaiFENesin 200 MG/10 ML 10 ML UNIT-DOSE CUPS PO SCH ×2 (17:57→22:47)
[2018-06-07] MEDS: ALBUTEROL SO4 0.083% IH SOL 2.5 MG/3 ML VIAL.NEB. NEB SCH (17:58)
[2018-06-07] MEDS: chlordiazePOXIDE HCL 25 MG CAPSULE PO PRN (20:33)
[2018-06-07] MEDS: THIAMINE HCL 100 MG TABLET (FP) PO SCH (22:06)
[2018-06-07] MEDS: chlordiazePOXIDE HCL 25 MG CAPSULE PO SCH (22:06)
[2018-06-07] MEDS: GABAPENTIN 300 MG CAPSULE (FP) PO SCH (22:06)
[2018-06-07] MEDS: MELATONIN 5 MG TABLETS PO PRN (22:08)
[2018-06-08] MEDS: chlordiazePOXIDE HCL 25 MG CAPSULE PO SCH ×4 (05:54→22:09)
[2018-06-08] MEDS: GABAPENTIN 300 MG CAPSULE (FP) PO SCH ×3 (05:54→22:09)
[2018-06-08] MEDS: LEVOTHYROXINE NA 25 MCG TABLET (FP) PO SCH (06:28)
[2018-06-08] MEDS: ALBUTEROL SO4 0.083% IH SOL 2.5 MG/3 ML VIAL.NEB. NEB SCH (06:28)
[2018-06-08] MEDS: guaiFENesin 200 MG/10 ML 10 ML UNIT-DOSE CUPS PO SCH ×4 (06:28→22:48)
[2018-06-08] MEDS: chlordiazePOXIDE HCL 25 MG CAPSULE PO PRN ×3 (08:32→20:06)
--- NOTE | 2018-06-08 10:08 | PN ---
S CIWA - CIWA Score Nausea/Vomitin-Mild Nausea/No Vomiting Muscle Tremors: 3 Anxiety: 2 Agitation: 3 Paroxysmal Sweats: 1-Minimal Palms Moist Orientation: 2-Disoriented Date<2 days Tacttile Disturbances: 0-None Auditory Disturbances: 0-None Visual Disturbances: 0-None Headache: 2-Mild CIWA-Ar Total Score: 14 [facility] Progress Note (SOAP) Subjective: patient has alcohol withdrawal sx of indigestion, tremor trouble sleep at night , feeling tired Objective: 06/08/18 10:08 Vital Signs Temperature 97.2 F L 06/08/18 09:41 Pulse Rate 113 H 06/08/18 09:41 Respiratory Rate 20 06/08/18 09:41 Blood Pressure 122/83 06/08/18 09:41 O2 Sat by Pulse Oximetry (%) lab pending Assessment: 06/08/18 10:11 alcohol withdrawal sx Plan: continue detox
[2018-06-08 10:12] LABS: HEMATOCRIT 36.6 % (35.4-49); HEMOGLOBIN 12.4 GM/dL (11.7-16.9); MCH 36.1 pg (25.7-33.7); MCHC 33.9 g/dl (32.0-35.9); MEAN CELL VOLUME 106.4 fl (80-96); MEAN PLT VOLUME 7.5 fl (7.5-11.1); PLATELET COUNT 135 K/MM3 (134-434); RBC 3.44 M/mm3 (4.00-5.60); RDW 13.2 % (11.9-15.9); WHITE BLOOD COUNT 2.6 K/mm3 (4.0-10.0)
[2018-06-08] MEDS: NICOTINE 21 MG/24 HOURS TOPICAL PATCH TD SCH (10:12)
[2018-06-08 10:30] LABS: ALBUMIN 3.6 g/dl (3.4-5.0); ALK PHOS 40 U/L (45-117); ANION GAP 8 MMOL/L (8-16); BILIRUBIN,TOTAL 0.6 mg/dL (0.2-1); BLOOD UREA NITROGEN 13 mg/dL (7-18); CALCIUM 8.7 mg/dL (8.5-10.1); CHLORIDE 106 mmol/L (98-107); CO2 27 mmol/L (21-32); CREATININE 1.2 mg/dL (0.55-1.3); GLUCOSE,RANDOM 119 mg/dL (74-106); POTASSIUM 3.9 mmol/L (3.5-5.1); SGOT/AST 35 U/L (15-37); SGPT/ALT 36 U/L (13-61); SODIUM 141 mmol/L (136-145); TOT PROT 6.1 g/dl (6.4-8.2)
[2018-06-08] MEDS: CHOLECALCIFEROL (VITAMIN D3) 1,000 UNIT TABLET (FP) PO SCH (12:00)
[2018-06-08] MEDS: HYDROCORTISONE 1% TOPICAL CREAM 30 GM TUBE TP SCH ×2 (14:05→22:11)
--- NOTE | 2018-06-08 15:37 | EKG ---
Test Reason : Blood Pressure : / mmHG Vent. Rate : 080 BPM Atrial Rate : 080 BPM P-R Int : 184 ms QRS Dur : 084 ms QT Int : 376 ms P-R-T Axes : 051 068 057 degrees QTc Int : 433 ms NORMAL SINUS RHYTHM NORMAL ECG WHEN COMPARED WITH ECG OF 02-APR-2018 08:51, NO SIGNIFICANT CHANGE WAS FOUND Confirmed by WILMAN PAIGE MD ([id number]) on 06/08/2018 3:37:08 PM Referred By: Confirmed By:WILMAN PAIGE MD
[2018-06-08 17:27] LABS: URINE APPEARANCE CLEAR; URINE BILIRUBIN NEGATIVE (NEGATIVE); URINE COLOR YELLOW; URINE GLUCOSE (UA) NEGATIVE (NEGATIVE); URINE KETONE NEGATIVE (NEGATIVE); URINE LEUK ESTERASE NEGATIVE (NEGATIVE); URINE NITRITE NEGATIVE (NEGATIVE); URINE PROTEIN NEGATIVE (NEGATIVE); URINE UROBILINOGEN 0.2 mg/dL (0.2-1.0)
[2018-06-08] MEDS: THIAMINE HCL 100 MG TABLET (FP) PO SCH (22:09)
[2018-06-08] MEDS: MELATONIN 5 MG TABLETS PO PRN (22:09)
[2018-06-09] MEDS: chlordiazePOXIDE HCL 25 MG CAPSULE PO SCH ×3 (05:12→17:19)
[2018-06-09] MEDS: GABAPENTIN 300 MG CAPSULE (FP) PO SCH ×3 (05:12→22:36)
[2018-06-09] MEDS: HYDROCORTISONE 1% TOPICAL CREAM 30 GM TUBE TP SCH ×3 (05:15→23:35)
[2018-06-09] MEDS: guaiFENesin 200 MG/10 ML 10 ML UNIT-DOSE CUPS PO SCH ×2 (06:59→13:04)
[2018-06-09] MEDS: LEVOTHYROXINE NA 25 MCG TABLET (FP) PO SCH (07:01)
[2018-06-09] MEDS: chlordiazePOXIDE HCL 25 MG CAPSULE PO PRN ×3 (08:54→19:27)
[2018-06-09] MEDS: NICOTINE 21 MG/24 HOURS TOPICAL PATCH TD SCH (10:11)
[2018-06-09] MEDS: CHOLECALCIFEROL (VITAMIN D3) 1,000 UNIT TABLET (FP) PO SCH (10:11)
--- NOTE | 2018-06-09 10:56 | PN ---
S CIWA - CIWA Score Nausea/Vomitin-No Nausea/No Vomiting Muscle Tremors: 3 Anxiety: 1-Mildly Anxious Agitation: 2 Paroxysmal Sweats: 1-Minimal Palms Moist Orientation: 1-Uncertain about Date Tacttile Disturbances: 0-None Auditory Disturbances: 0-None Visual Disturbances: 0-None Headache: 1-Very Mild CIWA-Ar Total Score: 9 [facility] Progress Note (SOAP) Subjective: feeling ok today but lack of energy to go to the group prefer to stay in room Objective: 06/09/18 10:55 Vital Signs Temperature 95.8 F L 06/09/18 09:04 Pulse Rate 88 06/09/18 09:04 Respiratory Rate 18 06/09/18 09:04 Blood Pressure 121/80 06/09/18 09:04 O2 Sat by Pulse Oximetry (%) Laboratory Last Values WBC 2.6 K/mm3 (4.0-10.0) L 06/08/18 07:00 RBC 3.44 M/mm3 (4.00-5.60) L 06/08/18 07:00 Hgb 12.4 GM/dL (11.7-16.9) 06/08/18 07:00 Hct 36.6 % (35.4-49) 06/08/18 07:00 MCV 106.4 fl (80-96) H 06/08/18 07:00 MCH 36.1 pg (25.7-33.7) H 06/08/18 07:00 MCHC 33.9 g/dl (32.0-35.9) 06/08/18 07:00 RDW 13.2 % (11.9-15.9) 06/08/18 07:00 Plt Count 135 K/MM3 (134-434) 06/08/18 07:00 MPV 7.5 fl (7.5-11.1) 06/08/18 07:00 Sodium 141 mmol/L (136-145) 06/08/18 07:00 Potassium 3.9 mmol/L (3.5-5.1) 06/08/18 07:00 Chloride 106 mmol/L (98-107) 06/08/18 07:00 Carbon Dioxide 27 mmol/L (21-32) 06/08/18 07:00 Anion Gap 8 MMOL/L (8-16) 06/08/18 07:00 BUN 13 mg/dL (7-18) 06/08/18 07:00 Creatinine 1.2 mg/dL (0.55-1.3) 06/08/18 07:00 Creat Clearance w eGFR 64.62 (>60) 06/08/18 07:00 Random Glucose 119 mg/dL (74-106) H 06/08/18 07:00 Calcium 8.7 mg/dL (8.5-10.1) 06/08/18 07:00 Total Bilirubin 0.6 mg/dL (0.2-1) 06/08/18 07:00 AST 35 U/L (15-37) 06/08/18 07:00 ALT 36 U/L (13-61) 06/08/18 07:00 Alkaline Phosphatase 40 U/L (45-117) L 06/08/18 07:00 Total Protein 6.1 g/dl (6.4-8.2) L 06/08/18 07:00 Albumin 3.6 g/dl (3.4-5.0) 06/08/18 07:00 Urine Color Yellow 06/07/18 23:00 Urine Appearance Clear 06/07/18 23:00 Urine pH 5.0 (5.0-8.0) 06/07/18 23:00 Ur Specific [place] 1.010 (1.010-1.035) 06/07/18 23:00 Urine Protein Negative (NEGATIVE) 06/07/18 23:00 Urine Glucose (UA) Negative (NEGATIVE) 06/07/18 23:00 Urine Ketones Negative (NEGATIVE) 06/07/18 23:00 Urine Blood Negative (NEGATIVE) 06/07/18 23:00 Urine Nitrite Negative (NEGATIVE) 06/07/18 23:00 Urine Bilirubin Negative (NEGATIVE) 06/07/18 23:00 Urine Urobilinogen 0.2 mg/dL (0.2-1.0) 06/07/18 23:00 Ur Leukocyte Esterase Negative (NEGATIVE) 06/07/18 23:00 RPR Titer Nonreactive (NONREACTIVE) 06/08/18 07:00 HIV 1&2 Antibody Screen Negative 06/08/18 07:00 HIV P24 Antigen Negative 06/08/18 07:00 lab noted repeat cbc 06/09/18 10:57 Assessment: 06/09/18 10:57 alcohol withdrawal sx Plan: continue detox
[2018-06-09] MEDS: THIAMINE HCL 100 MG TABLET (FP) PO SCH (22:36)
[2018-06-09] MEDS: chlordiazePOXIDE HCL 10 MG CAPSULE PO SCH (22:36)
[2018-06-09] MEDS: MELATONIN 5 MG TABLETS PO PRN (22:36)
[2018-06-10] MEDS: chlordiazePOXIDE HCL 10 MG CAPSULE PO PRN ×3 (00:33→19:13)
[2018-06-10] MEDS: GABAPENTIN 300 MG CAPSULE (FP) PO SCH ×3 (05:29→22:28)
[2018-06-10] MEDS: chlordiazePOXIDE HCL 10 MG CAPSULE PO SCH ×3 (05:29→17:11)
[2018-06-10] MEDS: LEVOTHYROXINE NA 25 MCG TABLET (FP) PO SCH (06:12)
[2018-06-10] MEDS: HYDROCORTISONE 1% TOPICAL CREAM 30 GM TUBE TP SCH ×3 (06:28→22:43)
[2018-06-10 10:02] LABS: ALBUMIN 3.2 g/dl (3.4-5.0); ALK PHOS 38 U/L (45-117); ANION GAP 6 MMOL/L (8-16); BILIRUBIN,TOTAL 0.5 mg/dL (0.2-1); BLOOD UREA NITROGEN 7 mg/dL (7-18); CALCIUM 8.7 mg/dL (8.5-10.1); CHLORIDE 107 mmol/L (98-107); CO2 26 mmol/L (21-32); GLUCOSE,RANDOM 115 mg/dL (74-106); POTASSIUM 3.7 mmol/L (3.5-5.1); SGOT/AST 25 U/L (15-37); SGPT/ALT 32 U/L (13-61); SODIUM 140 mmol/L (136-145); TOT PROT 5.5 g/dl (6.4-8.2)
[2018-06-10] MEDS: NICOTINE 21 MG/24 HOURS TOPICAL PATCH TD SCH (10:39)
[2018-06-10] MEDS: CHOLECALCIFEROL (VITAMIN D3) 1,000 UNIT TABLET (FP) PO SCH (10:40)
--- NOTE | 2018-06-10 11:12 | PN ---
S CIWA - CIWA Score Nausea/Vomitin-No Nausea/No Vomiting Muscle Tremors: 2 Anxiety: 1-Mildly Anxious Agitation: 1-Slight > Activity Paroxysmal Sweats: 1-Minimal Palms Moist Orientation: 0-Oriented Tacttile Disturbances: 0-None Auditory Disturbances: 0-None Visual Disturbances: 0-None Headache: 0-None Present CIWA-Ar Total Score: 5 B[facility] Progress Note (SOAP) Subjective: reporting that three months ago wbc was low but "doctor said little low" patient donates his blood every two to three months due to high concentration of iron content encourage the patient bring in lab report to hemotologist follow up appointment repeat wbc pending Objective: 06/10/18 11:15 Vital Signs Temperature 96.0 F L 06/10/18 09:04 Pulse Rate 88 06/10/18 09:04 Respiratory Rate 20 06/10/18 09:04 Blood Pressure 118/78 06/10/18 09:04 O2 Sat by Pulse Oximetry (%) Laboratory Last Values WBC 2.6 K/mm3 (4.0-10.0) L 06/08/18 07:00 RBC 3.44 M/mm3 (4.00-5.60) L 06/08/18 07:00 Hgb 12.4 GM/dL (11.7-16.9) 06/08/18 07:00 Hct 36.6 % (35.4-49) 06/08/18 07:00 MCV 106.4 fl (80-96) H 06/08/18 07:00 MCH 36.1 pg (25.7-33.7) H 06/08/18 07:00 MCHC 33.9 g/dl (32.0-35.9) 06/08/18 07:00 RDW 13.2 % (11.9-15.9) 06/08/18 07:00 Plt Count 135 K/MM3 (134-434) 06/08/18 07:00 MPV 7.5 fl (7.5-11.1) 06/08/18 07:00 Sodium 140 mmol/L (136-145) 06/10/18 07:00 Potassium 3.7 mmol/L (3.5-5.1) 06/10/18 07:00 Chloride 107 mmol/L (98-107) 06/10/18 07:00 Carbon Dioxide 26 mmol/L (21-32) 06/10/18 07:00 Anion Gap 6 MMOL/L (8-16) L 06/10/18 07:00 BUN 7 mg/dL (7-18) 06/10/18 07:00 Creatinine 1.0 mg/dL (0.55-1.3) 06/10/18 07:00 Creat Clearance w eGFR 79.75 (>60) 06/10/18 07:00 Random Glucose 115 mg/dL (74-106) H 06/10/18 07:00 Calcium 8.7 mg/dL (8.5-10.1) 06/10/18 07:00 Total Bilirubin 0.5 mg/dL (0.2-1) 06/10/18 07:00 AST 25 U/L (15-37) 06/10/18 07:00 ALT 32 U/L (13-61) 06/10/18 07:00 Alkaline Phosphatase 38 U/L (45-117) L 06/10/18 07:00 Total Protein 5.5 g/dl (6.4-8.2) L 06/10/18 07:00 Albumin 3.2 g/dl (3.4-5.0) L 06/10/18 07:00 Urine Color Yellow 06/07/18 23:00 Urine Appearance Clear 06/07/18 23:00 Urine pH 5.0 (5.0-8.0) 06/07/18 23:00 Ur Specific [place] 1.010 (1.010-1.035) 06/07/18 23:00 Urine Protein Negative (NEGATIVE) 06/07/18 23:00 Urine Glucose (UA) Negative (NEGATIVE) 06/07/18 23:00 Urine Ketones Negative (NEGATIVE) 06/07/18 23:00 Urine Blood Negative (NEGATIVE) 06/07/18 23:00 Urine Nitrite Negative (NEGATIVE) 06/07/18 23:00 Urine Bilirubin Negative (NEGATIVE) 06/07/18 23:00 Urine Urobilinogen 0.2 mg/dL (0.2-1.0) 06/07/18 23:00 Ur Leukocyte Esterase Negative (NEGATIVE) 06/07/18 23:00 RPR Titer Nonreactive (NONREACTIVE) 06/08/18 07:00 HIV 1&2 Antibody Screen Negative 06/08/18 07:00 HIV P24 Antigen Negative 06/08/18 07:00 lab noted Assessment: 06/10/18 11:16 alcohol withdrawal sx Plan: continue detox
[2018-06-10] MEDS: THIAMINE HCL 100 MG TABLET (FP) PO SCH (22:28)
[2018-06-10] MEDS: MELATONIN 5 MG TABLETS PO PRN (22:29)
[2018-06-10] MEDS ORDERED: chlordiazePOXIDE HCL 10 MG CAPSULE PO SCH (23:00)
[2018-06-11] MEDS ORDERED: hydrOXYzine PAMOATE 50 MG CAPSULE (FP) PO ONE (00:34)
[2018-06-11 06:33] VITALS: BP 109/67; PULSE 63; TEMP 96.8
[2018-06-11] MEDS: GABAPENTIN 300 MG CAPSULE (FP) PO SCH (07:31)
[2018-06-11] MEDS: LEVOTHYROXINE NA 25 MCG TABLET (FP) PO SCH (07:31)
[2018-06-11] MEDS: HYDROCORTISONE 1% TOPICAL CREAM 30 GM TUBE TP SCH (07:31)
--- NOTE | 2018-06-11 16:46 | DS ---
[facility] Detox Discharge Summary Admission Date: 06/07/18 Discharge Date: 06/11/18 - History Present History: Alcohol Dependence Additional Comments: 47 years old male admitted on 06/07/18 for alcohol withdrawal stabilization completed detox regimen aftercare Pertinent Past History: 47 years old male admitted on 06/07/18 for alcohol withdrawal stabilization completed detox regimen aftercare as per counselor arrangement patient stated that he has a primary care provider prescribed synthroid and vitamin D patient acknowledged the low wbc as well as follow up with primary care provider - Physical Exam Results Vital Signs: Vital Signs Temperature 96.8 F L 06/11/18 06:32 Pulse Rate 63 06/11/18 06:32 Respiratory Rate 8 L 06/11/18 06:32 Blood Pressure 109/67 06/11/18 06:32 O2 Sat by Pulse Oximetry (%) Pertinent Admission Physical Exam Findings: alcohol withdrawal sx Laboratory Last Values WBC 2.6 K/mm3 (4.0-10.0) L 06/08/18 07:00 RBC 3.44 M/mm3 (4.00-5.60) L 06/08/18 07:00 Hgb 12.4 GM/dL (11.7-16.9) 06/08/18 07:00 Hct 36.6 % (35.4-49) 06/08/18 07:00 MCV 106.4 fl (80-96) H 06/08/18 07:00 MCH 36.1 pg (25.7-33.7) H 06/08/18 07:00 MCHC 33.9 g/dl (32.0-35.9) 06/08/18 07:00 RDW 13.2 % (11.9-15.9) 06/08/18 07:00 Plt Count 135 K/MM3 (134-434) 06/08/18 07:00 MPV 7.5 fl (7.5-11.1) 06/08/18 07:00 Sodium 140 mmol/L (136-145) 06/10/18 07:00 Potassium 3.7 mmol/L (3.5-5.1) 06/10/18 07:00 Chloride 107 mmol/L (98-107) 06/10/18 07:00 Carbon Dioxide 26 mmol/L (21-32) 06/10/18 07:00 Anion Gap 6 MMOL/L (8-16) L 06/10/18 07:00 BUN 7 mg/dL (7-18) 06/10/18 07:00 Creatinine 1.0 mg/dL (0.55-1.3) 06/10/18 07:00 Creat Clearance w eGFR 79.75 (>60) 06/10/18 07:00 Random Glucose 115 mg/dL (74-106) H 06/10/18 07:00 Calcium 8.7 mg/dL (8.5-10.1) 06/10/18 07:00 Total Bilirubin 0.5 mg/dL (0.2-1) 06/10/18 07:00 AST 25 U/L (15-37) 06/10/18 07:00 ALT 32 U/L (13-61) 06/10/18 07:00 Alkaline Phosphatase 38 U/L (45-117) L 06/10/18 07:00 Total Protein 5.5 g/dl (6.4-8.2) L 06/10/18 07:00 Albumin 3.2 g/dl (3.4-5.0) L 06/10/18 07:00 Urine Color Yellow 06/07/18 23:00 Urine Appearance Clear 06/07/18 23:00 Urine pH 5.0 (5.0-8.0) 06/07/18 23:00 Ur Specific [place] 1.010 (1.010-1.035) 06/07/18 23:00 Urine Protein Negative (NEGATIVE) 06/07/18 23:00 Urine Glucose (UA) Negative (NEGATIVE) 06/07/18 23:00 Urine Ketones Negative (NEGATIVE) 06/07/18 23:00 Urine Blood Negative (NEGATIVE) 06/07/18 23:00 Urine Nitrite Negative (NEGATIVE) 06/07/18 23:00 Urine Bilirubin Negative (NEGATIVE) 06/07/18 23:00 Urine Urobilinogen 0.2 mg/dL (0.2-1.0) 06/07/18 23:00 Ur Leukocyte Esterase Negative (NEGATIVE) 06/07/18 23:00 RPR Titer Nonreactive (NONREACTIVE) 06/08/18 07:00 HIV 1&2 Antibody Screen Negative 06/08/18 07:00 HIV P24 Antigen Negative 06/08/18 07:00 lab noted strong recommend the patient to bring in medication list and lab report to follow up appointment and aftercare program - Treatment Hospital Course: Detox Protocol Followed, Detoxed Safely, Responded well, Discharged Condition Good, Rehab Referral Accepted Patient has Accepted a Rehab Referral to: as per counselor arrangement - Medication Discharge Medications: Ambulatory Orders Gabapentin [Neurontin] 600 mg PO TID #90 tablet 12/25/17 Levothyroxine [Synthroid -] 75 mcg PO DAILY@0700 #30 tablet 12/25/17 Cholecalciferol (Vitamin D3) [Vitamin D3 -] 1,000 unit PO DAILY 03/30/18 - Diagnosis (1) Alcohol dependence with uncomplicated withdrawal Status: Acute (2) GERD (gastroesophageal reflux disease) Status: Chronic Qualifiers: Esophagitis presence: without esophagitis Qualified Code(s): K21.9 - Gastro -esophageal reflux disease without esophagitis (3) Hepatitis C Status: Chronic Qualifiers: Viral hepatitis chronicity: unspecified Hepatic coma status: without hepatic coma Qualified Code(s): B19.20 - Unspecified viral hepatitis C without hepatic coma (4) Hypothyroidism Status: Chronic Qualifiers: Hypothyroidism type: unspecified Qualified Code(s): E03.9 - Hypothyroidism , unspecified (5) Nicotine dependence Status: Acute Qualifiers: Nicotine product type: cigarettes Substance use status: in withdrawal Qualified Code(s): F17.213 - Nicotine dependence, cigarettes, with withdrawal (6) Substance induced mood disorder Status: Suspected - AMA Did Patient Leave Against Medical Advice: No
== END 2018-06-11 08:38 | disposition home or self-care (01) | DRG 774 ==
LOC: YASAS 14:59 → Y3N 17:31
PROVIDERS: ADMIT Surgery; ATTEND Surgery
PROC: HZ2ZZZZ Detoxification Services for Substance Abuse Treatment (ICD-10-PCS; principal; 2018-06-07)
DX: F10.230 Alcohol dependence with withdrawal, uncomplicated (principal); F14.10 Cocaine abuse, uncomplicated; F17.213 Nicotine dependence, cigarettes, with withdrawal; F19.24 Other psychoactive substance dependence with psychoactive substance-induced mood disorder; K21.9 Gastro-esophageal reflux disease without esophagitis; B19.20 Unspecified viral hepatitis C without hepatic coma; E03.9 Hypothyroidism, unspecified; G40.89 Other seizures; M54.40 Lumbago with sciatica, unspecified side; G89.29 Other chronic pain; G47.00 Insomnia, unspecified; R00.0 Tachycardia, unspecified; E83.110 Hereditary hemochromatosis; Z91.013 Allergy to seafood; Z88.0 Allergy status to penicillin; Z91.048 Other nonmedicinal substance allergy status
CPT/HCPCS: 36415; 80053; 81003; 85027; 86593; 87389; 93005; 93010; 94640

== ENCOUNTER 2018-07-14 17:24 | Inpatient (IN) | payer OTHER ==
[2018-07-14 18:29] VITALS: BMI 30.6
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
[2018-07-14] MEDS ORDERED: MAG HYDROX/AL HYDROX/SIMETH 30 ML UNIT-DOSE CUP PO PRN (20:51)
[2018-07-14] MEDS ORDERED: DICYCLOMINE HCL 10 MG CAPSULE PO PRN (20:51)
[2018-07-14] MEDS ORDERED: MAGNESIUM HYDROX 2400MG/30ML ORAL SUSPENSION 30 ML CUP PO PRN (20:51)
[2018-07-14] MEDS ORDERED: P-EPHED 60MG/TRIPROLIDI 2.5MG TABLET PO PRN (20:51)
[2018-07-14] MEDS ORDERED: guaiFENesin 200 MG/10 ML 10 ML UNIT-DOSE CUPS PO PRN (20:51)
[2018-07-14] MEDS ORDERED: IBUPROFEN 400 MG TABLET (FP) PO PRN ×2 (20:51)
[2018-07-14] MEDS ORDERED: BISMUTH SUBSALICYLATE 524 MG/30 ML UD PO PRN (20:51)
[2018-07-14] MEDS ORDERED: ACETAMINOPHEN 325 MG TABLET (FP) PO PRN ×2 (20:51)
[2018-07-14] MEDS ORDERED: MENTHOL/PHENOL 1 EACH UD MM PRN (20:51)
[2018-07-14] MEDS ORDERED: MAGNESIUM CITRATE 300 ML BOTTLE PO PRN (20:51)
[2018-07-14] MEDS ORDERED: NICOTINE POLACRILEX 4 MG GUM BUC PRN (20:51)
[2018-07-14] MEDS ORDERED: ONDANSETRON *ODT* 4 MG TABLET SL PRN (20:51)
[2018-07-14] MEDS ORDERED: hydrOXYzine PAMOATE 25 MG CAPSULE (FP) PO PRN (20:51)
[2018-07-14] MEDS: THIAMINE HCL 100 MG TABLET (FP) PO SCH (21:50)
[2018-07-14] MEDS: GABAPENTIN 300 MG CAPSULE (FP) PO SCH (21:50)
[2018-07-14] MEDS: chlordiazePOXIDE HCL 25 MG CAPSULE PO SCH (22:05)
[2018-07-14] MEDS: MELATONIN 5 MG TABLETS PO PRN (22:39)
[2018-07-15] MEDS: GABAPENTIN 300 MG CAPSULE (FP) PO SCH ×3 (05:41→22:31)
[2018-07-15] MEDS: chlordiazePOXIDE HCL 25 MG CAPSULE PO SCH ×4 (05:41→22:30)
[2018-07-15] MEDS: LEVOTHYROXINE NA 25 MCG TABLET (FP) PO SCH (06:12)
[2018-07-15 09:56] LABS: HEMATOCRIT 37.2 % (35.4-49); HEMOGLOBIN 12.7 GM/dL (11.7-16.9); MCHC 34.1 g/dl (32.0-35.9); MEAN CELL VOLUME 102.5 fl (80-96); MEAN PLT VOLUME 7.6 fl (7.5-11.1); PLATELET COUNT 185 K/MM3 (134-434); RBC 3.63 M/mm3 (4.00-5.60); WHITE BLOOD COUNT 3.8 K/mm3 (4.0-10.0)
[2018-07-15 10:09] LABS: ALBUMIN 3.7 g/dl (3.4-5.0); BILIRUBIN,TOTAL 0.2 mg/dL (0.2-1); CREATININE 1.1 mg/dL (0.55-1.3); POTASSIUM 4.4 mmol/L (3.5-5.1)
[2018-07-15] MEDS: NICOTINE 21 MG/24 HOURS TOPICAL PATCH TD SCH (10:44)
--- NOTE | 2018-07-15 11:39 | PN ---
[facility] CIWA - CIWA Score Nausea/Vomitin-Mild Nausea/No Vomiting Muscle Tremors: 4-Moderate,w/Arms Extend Anxiety: 4-Mod. Anxious/Guarded Agitation: 3 Paroxysmal Sweats: 1-Minimal Palms Moist Orientation: 2-Disoriented Date<2 days Tacttile Disturbances: 0-None Auditory Disturbances: 1-Very Mild Visual Disturbances: 0-None Headache: 2-Mild CIWA-Ar Total Score: 18 BHS Progress Note (SOAP) Subjective: anxiety doing fine with librium protocol tired headaches Objective: 07/15/18 11:38 Vital Signs Temperature 97.5 F L 07/15/18 09:18 Pulse Rate 114 H 07/15/18 09:18 Respiratory Rate 20 07/15/18 09:18 Blood Pressure 105/70 07/15/18 09:18 O2 Sat by Pulse Oximetry (%) Laboratory Last Values WBC 3.8 K/mm3 (4.0-10.0) L 07/15/18 07:00 RBC 3.63 M/mm3 (4.00-5.60) L 07/15/18 07:00 Hgb 12.7 GM/dL (11.7-16.9) 07/15/18 07:00 Hct 37.2 % (35.4-49) 07/15/18 07:00 MCV 102.5 fl (80-96) H 07/15/18 07:00 MCH 35.0 pg (25.7-33.7) H 07/15/18 07:00 MCHC 34.1 g/dl (32.0-35.9) 07/15/18 07:00 RDW 13.0 % (11.9-15.9) 07/15/18 07:00 Plt Count 185 K/MM3 (134-434) D 07/15/18 07:00 MPV 7.6 fl (7.5-11.1) 07/15/18 07:00 Sodium 145 mmol/L (136-145) 07/15/18 07:00 Potassium 4.4 mmol/L (3.5-5.1) 07/15/18 07:00 Chloride 115 mmol/L (98-107) H 07/15/18 07:00 Carbon Dioxide 25 mmol/L (21-32) 07/15/18 07:00 Anion Gap 6 MMOL/L (8-16) L 07/15/18 07:00 BUN 12 mg/dL (7-18) 07/15/18 07:00 Creatinine 1.1 mg/dL (0.55-1.3) 07/15/18 07:00 Est GFR (CKD-EPI)AfAm 91.52 07/15/18 07:00 Est GFR (CKD-EPI)NonAf 78.96 07/15/18 07:00 Random Glucose 96 mg/dL (74-106) 07/15/18 07:00 Calcium 9.0 mg/dL (8.5-10.1) 07/15/18 07:00 Total Bilirubin 0.2 mg/dL (0.2-1) 07/15/18 07:00 AST 20 U/L (15-37) 07/15/18 07:00 ALT 30 U/L (13-61) 07/15/18 07:00 Alkaline Phosphatase 40 U/L (45-117) L 07/15/18 07:00 Total Protein 6.0 g/dl (6.4-8.2) L 07/15/18 07:00 Albumin 3.7 g/dl (3.4-5.0) 07/15/18 07:00 lab noted Assessment: 07/15/18 11:39 withdrawal sx Plan: continue detox
[2018-07-15] MEDS: chlordiazePOXIDE HCL 25 MG CAPSULE PO PRN ×2 (12:48→20:35)
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
[2018-07-15] MEDS: THIAMINE HCL 100 MG TABLET (FP) PO SCH (22:30)
[2018-07-15] MEDS: MELATONIN 5 MG TABLETS PO PRN (22:31)
[2018-07-16] MEDS: chlordiazePOXIDE HCL 25 MG CAPSULE PO SCH ×3 (05:24→17:22)
[2018-07-16] MEDS: GABAPENTIN 300 MG CAPSULE (FP) PO SCH ×3 (05:24→22:32)
[2018-07-16] MEDS: LEVOTHYROXINE NA 25 MCG TABLET (FP) PO SCH (07:23)
[2018-07-16] MEDS: chlordiazePOXIDE HCL 25 MG CAPSULE PO PRN ×3 (08:50→20:23)
[2018-07-16] MEDS: NICOTINE 21 MG/24 HOURS TOPICAL PATCH TD SCH (10:29)
--- NOTE | 2018-07-16 13:40 | PN ---
S CIWA - CIWA Score Nausea/Vomitin-Mild Nausea/No Vomiting Muscle Tremors: 4-Moderate,w/Arms Extend Anxiety: 3 Agitation: 3 Paroxysmal Sweats: 1-Minimal Palms Moist Orientation: 0-Oriented Tacttile Disturbances: 0-None Auditory Disturbances: 0-None Visual Disturbances: 0-None Headache: 1-Very Mild CIWA-Ar Total Score: 13 BHS Progress Note (SOAP) Subjective: left base thumb rashes chronic eczema soft on palpation no nodule thrum full range of motion brisk capillary refilled Objective: 07/16/18 13:39 Vital Signs Temperature 96.4 F L 07/16/18 09:43 Pulse Rate 134 H 07/16/18 09:43 Respiratory Rate 20 07/16/18 09:43 Blood Pressure 113/82 07/16/18 09:43 O2 Sat by Pulse Oximetry (%) Laboratory Last Values WBC 3.8 K/mm3 (4.0-10.0) L 07/15/18 07:00 RBC 3.63 M/mm3 (4.00-5.60) L 07/15/18 07:00 Hgb 12.7 GM/dL (11.7-16.9) 07/15/18 07:00 Hct 37.2 % (35.4-49) 07/15/18 07:00 MCV 102.5 fl (80-96) H 07/15/18 07:00 MCH 35.0 pg (25.7-33.7) H 07/15/18 07:00 MCHC 34.1 g/dl (32.0-35.9) 07/15/18 07:00 RDW 13.0 % (11.9-15.9) 07/15/18 07:00 Plt Count 185 K/MM3 (134-434) D 07/15/18 07:00 MPV 7.6 fl (7.5-11.1) 07/15/18 07:00 Sodium 145 mmol/L (136-145) 07/15/18 07:00 Potassium 4.4 mmol/L (3.5-5.1) 07/15/18 07:00 Chloride 115 mmol/L (98-107) H 07/15/18 07:00 Carbon Dioxide 25 mmol/L (21-32) 07/15/18 07:00 Anion Gap 6 MMOL/L (8-16) L 07/15/18 07:00 BUN 12 mg/dL (7-18) 07/15/18 07:00 Creatinine 1.1 mg/dL (0.55-1.3) 07/15/18 07:00 Est GFR (CKD-EPI)AfAm 91.52 07/15/18 07:00 Est GFR (CKD-EPI)NonAf 78.96 07/15/18 07:00 Random Glucose 96 mg/dL (74-106) 07/15/18 07:00 Calcium 9.0 mg/dL (8.5-10.1) 07/15/18 07:00 Total Bilirubin 0.2 mg/dL (0.2-1) 07/15/18 07:00 AST 20 U/L (15-37) 07/15/18 07:00 ALT 30 U/L (13-61) 07/15/18 07:00 Alkaline Phosphatase 40 U/L (45-117) L 07/15/18 07:00 Total Protein 6.0 g/dl (6.4-8.2) L 07/15/18 07:00 Albumin 3.7 g/dl (3.4-5.0) 07/15/18 07:00 RPR Titer Nonreactive (NONREACTIVE) 07/15/18 07:00 HIV 1&2 Antibody Screen Negative 07/15/18 07:00 HIV P24 Antigen Negative 07/15/18 07:00 lab noted Assessment: 07/16/18 13:40 alcohol withdrawal sx Plan: continue detox
--- NOTE | 2018-07-16 14:37 | PN ---
[facility] CIWA - CIWA Score Nausea/Vomitin-Mild Nausea/No Vomiting Muscle Tremors: 3 Anxiety: 3 Agitation: 2 Paroxysmal Sweats: 1-Minimal Palms Moist Orientation: 1-Uncertain about Date Tacttile Disturbances: 0-None Auditory Disturbances: 0-None Visual Disturbances: 0-None Headache: 2-Mild CIWA-Ar Total Score: 13
[2018-07-16] MEDS: TRIAMCINOLONE ACET 0.1% OINT 15 GM TUBE TP SCH ×4 (15:07→22:31)
[2018-07-16] MEDS: THIAMINE HCL 100 MG TABLET (FP) PO SCH (22:31)
[2018-07-16] MEDS: chlordiazePOXIDE HCL 10 MG CAPSULE PO SCH (22:31)
[2018-07-16] MEDS: MELATONIN 5 MG TABLETS PO PRN (22:32)
[2018-07-16] MEDS ORDERED: chlordiazePOXIDE HCL 10 MG CAPSULE PO PRN (23:00)
[2018-07-17] MEDS: chlordiazePOXIDE HCL 10 MG CAPSULE PO SCH ×3 (05:33→17:24)
[2018-07-17] MEDS: GABAPENTIN 300 MG CAPSULE (FP) PO SCH ×3 (05:33→22:13)
[2018-07-17] MEDS: LEVOTHYROXINE NA 25 MCG TABLET (FP) PO SCH (07:06)
[2018-07-17] MEDS: NICOTINE 21 MG/24 HOURS TOPICAL PATCH TD SCH (10:39)
[2018-07-17] MEDS: TRIAMCINOLONE ACET 0.1% OINT 15 GM TUBE TP SCH ×4 (10:40→22:13)
[2018-07-17] MEDS: METHOCARBAMOL 500 MG TABLET PO PRN ×2 (10:41→17:25)
[2018-07-17 16:07] LABS: PH,URINE 6.5 (5.0-8.0); URINE APPEARANCE CLEAR; URINE BILIRUBIN NEGATIVE (NEGATIVE); URINE COLOR YELLOW; URINE GLUCOSE (UA) NEGATIVE (NEGATIVE); URINE KETONE NEGATIVE (NEGATIVE); URINE LEUK ESTERASE NEGATIVE (NEGATIVE); URINE NITRITE NEGATIVE (NEGATIVE); URINE PROTEIN NEGATIVE (NEGATIVE); URINE UROBILINOGEN 0.2 mg/dL (0.2-1.0)
--- NOTE | 2018-07-17 18:10 | PN ---
S CIWA - CIWA Score Nausea/Vomitin-No Nausea/No Vomiting Muscle Tremors: 2 Anxiety: 2 Agitation: 1-Slight > Activity Paroxysmal Sweats: 3 Orientation: 0-Oriented Tacttile Disturbances: 1-Very Mild Itch/Numbness Auditory Disturbances: 0-None Visual Disturbances: 0-None Headache: 0-None Present CIWA-Ar Total Score: 9 BHS Progress Note (SOAP) Subjective: Body Aches, Sweating, Diarrhea, Stomach Cramping, Anxious, Interrupted Sleep, Tremors. Objective: PATIENT A & O X 3, OBSERVED AMBULATING ON UNIT UNASSISTED. IN NO ACUTE DISTRESS. 07/17/18 18:08 Vital Signs Temperature 97.2 F L 07/17/18 17:52 Pulse Rate 75 07/17/18 17:52 Respiratory Rate 18 07/17/18 17:52 Blood Pressure 118/75 07/17/18 17:52 O2 Sat by Pulse Oximetry (%) Laboratory Tests 07/15/18 07/15/18 07/15/18 07:00 07:00 07:00 WBC 3.8 L RBC 3.63 L Hgb 12.7 Hct 37.2 MCV 102.5 H MCH 35.0 H MCHC 34.1 RDW 13.0 Plt Count 185 D MPV 7.6 Sodium 145 Potassium 4.4 Chloride 115 H Carbon Dioxide 25 Anion Gap 6 L BUN 12 Creatinine 1.1 Est GFR (CKD-EPI)AfAm 91.52 Est GFR (CKD-EPI)NonAf 78.96 Random Glucose 96 Calcium 9.0 Total Bilirubin 0.2 AST 20 ALT 30 Alkaline Phosphatase 40 L Total Protein 6.0 L Albumin 3.7 Urine Color Urine Appearance Urine pH Ur Specific [place] Urine Protein Urine Glucose (UA) Urine Ketones Urine Blood Urine Nitrite Urine Bilirubin Urine Urobilinogen Ur Leukocyte Esterase RPR Titer HIV 1&2 Antibody Screen Negative HIV P24 Antigen Negative 07/15/18 07/17/18 07:00 10:50 WBC RBC Hgb Hct MCV MCH MCHC RDW Plt Count MPV Sodium Potassium Chloride Carbon Dioxide Anion Gap BUN Creatinine Est GFR (CKD-EPI)AfAm Est GFR (CKD-EPI)NonAf Random Glucose Calcium Total Bilirubin AST ALT Alkaline Phosphatase Total Protein Albumin Urine Color Yellow Urine Appearance Clear Urine pH 6.5 D Ur Specific [place] 1.010 Urine Protein Negative Urine Glucose (UA) Negative Urine Ketones Negative Urine Blood Negative Urine Nitrite Negative Urine Bilirubin Negative Urine Urobilinogen 0.2 Ur Leukocyte Esterase Negative RPR Titer Nonreactive HIV 1&2 Antibody Screen HIV P24 Antigen LABS NOTED. Assessment: 07/17/18 18:09 WITHDRAWAL SYMPTOMS. Plan: CONTINUE DETOX. PATIENT SCHEDULED FOR D/C TOMORROW AM.
[2018-07-17] MEDS ORDERED: cloNIDine HCL 0.1 MG TABLET PO ONE (18:30)
[2018-07-17] MEDS: MELATONIN 5 MG TABLETS PO PRN (22:13)
[2018-07-17] MEDS: THIAMINE HCL 100 MG TABLET (FP) PO SCH (22:21)
[2018-07-17] MEDS ORDERED: chlordiazePOXIDE HCL 10 MG CAPSULE PO SCH (23:00)
[2018-07-18] MEDS: METHOCARBAMOL 500 MG TABLET PO PRN (00:13)
[2018-07-18] MEDS: GABAPENTIN 300 MG CAPSULE (FP) PO SCH (05:32)
[2018-07-18 06:10] VITALS: BP 116/74; PULSE 65; TEMP 96.8
[2018-07-18] MEDS: LEVOTHYROXINE NA 25 MCG TABLET (FP) PO SCH (06:12)
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
== END 2018-07-18 07:30 | disposition home or self-care (01) | DRG 774 ==
LOC: YASAS 17:24 → Y3N 21:09
PROVIDERS: ADMIT Surgery; ATTEND Surgery
PROC: HZ2ZZZZ Detoxification Services for Substance Abuse Treatment (ICD-10-PCS; principal; 2018-07-14)
DX: F10.230 Alcohol dependence with withdrawal, uncomplicated (principal); F14.20 Cocaine dependence, uncomplicated; F17.213 Nicotine dependence, cigarettes, with withdrawal; F19.24 Other psychoactive substance dependence with psychoactive substance-induced mood disorder; F41.9 Anxiety disorder, unspecified; F32.9 Major depressive disorder, single episode, unspecified; E03.9 Hypothyroidism, unspecified; B19.20 Unspecified viral hepatitis C without hepatic coma; K21.9 Gastro-esophageal reflux disease without esophagitis; M54.40 Lumbago with sciatica, unspecified side; G89.29 Other chronic pain; Z91.89 Other specified personal risk factors, not elsewhere classified; Z88.0 Allergy status to penicillin; Z91.013 Allergy to seafood; Z91.048 Other nonmedicinal substance allergy status; Z91.19 Patient's noncompliance with other medical treatment and regimen
CPT/HCPCS: 36415; 80053; 81003; 85027; 86593; 87389; J0735

== ENCOUNTER 2018-07-22 18:27 | Emergency (ER) | payer OTHER ==
[2018-07-22 18:41] VITALS: BP 123/92; PULSE 107; TEMP 98.7; BMI 35.7
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
[2018-07-22] MEDS ORDERED: LORazepam 2 MG/ML SDV VIAL ONE (20:16)
[2018-07-22 20:28] LABS: EOS % 5.8 % (0-4.5); HEMATOCRIT 41.3 % (35.4-49); HEMOGLOBIN 13.9 GM/dL (11.7-16.9); LYMPH % 37.8 % (8-40); MCH 34.4 pg (25.7-33.7); MCHC 33.6 g/dl (32.0-35.9); MEAN CELL VOLUME 102.3 fl (80-96); MEAN PLT VOLUME 7.4 fl (7.5-11.1); MONO % 11.9 % (3.8-10.2); NEUT % 42.5 % (42.8-82.8); PLATELET COUNT 227 K/MM3 (134-434); RBC 4.03 M/mm3 (4.00-5.60); RDW 13.4 % (11.9-15.9); WHITE BLOOD COUNT 4.6 K/mm3 (4.0-10.0)
[2018-07-22 20:52] LABS: ALBUMIN 4.1 g/dl (3.4-5.0); ALK PHOS 53 U/L (45-117); ANION GAP 8 MMOL/L (8-16); BILIRUBIN,TOTAL 0.8 mg/dL (0.2-1); BLOOD UREA NITROGEN 19 mg/dL (7-18); CALCIUM 8.6 mg/dL (8.5-10.1); CHLORIDE 108 mmol/L (98-107); CO2 27 mmol/L (21-32); CREATININE 1.6 mg/dL (0.55-1.3); GLUCOSE,RANDOM 96 mg/dL (74-106); POTASSIUM 4.1 mmol/L (3.5-5.1); SGOT/AST 103 U/L (15-37); SGPT/ALT 87 U/L (13-61); SODIUM 143 mmol/L (136-145); TOT PROT 6.8 g/dl (6.4-8.2)
[2018-07-22] MEDS ORDERED: SODIUM CHLORIDE 0.9% 500 ML INFUS.BAG IV ONE (21:21)
[2018-07-23 02:13] LABS: METHADONE, UR NEGATIVE ng/ml (CUTOFF=300); OPIATES, URI NEGATIVE ng/ml (CUTOFF=300); PHENCYCLIDINE,URINE NEGATIVE ng/ml (CUTOFF=25); URINE AMPHETAMINES NEGATIVE ng/ml (CUTOFF=500); URINE BARBITURATES NEGATIVE ng/ml (CUTOFF=200)
[2018-07-23 02:15] LABS: URINE BENZODIAZEPINES POSITIVE ng/ml (CUTOFF=200)
[2018-07-23 02:16] LABS: COCAINE, UR POSITIVE ng/ml (CUTOFF=300)
[2018-07-23 02:27] LABS: URINE APPEARANCE CLEAR; URINE BILIRUBIN NEGATIVE (NEGATIVE); URINE COLOR YELLOW; URINE GLUCOSE (UA) NEGATIVE (NEGATIVE); URINE KETONE NEGATIVE (NEGATIVE); URINE LEUK ESTERASE NEGATIVE (NEGATIVE); URINE NITRITE NEGATIVE (NEGATIVE); URINE PROTEIN NEGATIVE (NEGATIVE); URINE UROBILINOGEN 0.2 mg/dL (0.2-1.0)
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
--- NOTE | 2018-07-23 13:15 | EKG ---
Test Reason : Blood Pressure : / mmHG Vent. Rate : 099 BPM Atrial Rate : 099 BPM P-R Int : 164 ms QRS Dur : 082 ms QT Int : 338 ms P-R-T Axes : 029 060 043 degrees QTc Int : 433 ms NORMAL SINUS RHYTHM NORMAL ECG WHEN COMPARED WITH ECG OF 08-JUN-2018 05:18, NO SIGNIFICANT CHANGE WAS FOUND Confirmed by RODOLFO CASANOVA MD ([id number]) on 07/23/2018 1:14:52 PM Referred By: Confirmed By:RODOLFO CASANOVA MD
== END 2018-07-23 03:38 | disposition home or self-care (01) ==
LOC: JER 18:27
PROC: 3E033NZ Introduction of Analgesics, Hypnotics, Sedatives into Peripheral Vein, Percutaneous Approach (ICD-10-PCS; principal; 2018-07-22)
PROC: 3E0337Z Introduction of Electrolytic and Water Balance Substance into Peripheral Vein, Percutaneous Approach (ICD-10-PCS; 2018-07-22)
DX: F10.120 Alcohol abuse with intoxication, uncomplicated (principal); Y90.8 Blood alcohol level of 240 mg/100 ml or more; F14.20 Cocaine dependence, uncomplicated; F10.11 Alcohol abuse, in remission; F17.210 Nicotine dependence, cigarettes, uncomplicated; E03.9 Hypothyroidism, unspecified; G40.909 Epilepsy, unspecified, not intractable, without status epilepticus
CPT/HCPCS: 36415; 70450-TC; 71250-TC; 74176-TC; 76705-TC; 80053; 80307; 81003; 83690; 84443; 84484; 85025; 93005; 93010; 99281-25

== ENCOUNTER 2018-08-14 10:57 | Inpatient (IN) | payer OTHER ==
[2018-08-14 13:52] VITALS: BMI 29.5
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
[2018-08-14] MEDS ORDERED: MAG HYDROX/AL HYDROX/SIMETH 30 ML UNIT-DOSE CUP PO PRN (15:45)
[2018-08-14] MEDS ORDERED: MAGNESIUM HYDROX 2400MG/30ML ORAL SUSPENSION 30 ML CUP PO PRN (15:45)
[2018-08-14] MEDS ORDERED: ACETAMINOPHEN 325 MG TABLET (FP) PO PRN ×2 (15:45)
[2018-08-14] MEDS ORDERED: BISMUTH SUBSALICYLATE 524 MG/30 ML UD PO PRN (15:45)
[2018-08-14] MEDS ORDERED: METHOCARBAMOL 500 MG TABLET PO PRN (15:45)
[2018-08-14] MEDS ORDERED: MAGNESIUM CITRATE 300 ML BOTTLE PO PRN (15:45)
[2018-08-14] MEDS ORDERED: hydrOXYzine PAMOATE 25 MG CAPSULE (FP) PO PRN (15:45)
[2018-08-14] MEDS ORDERED: NICOTINE POLACRILEX 4 MG GUM BUC PRN (15:45)
[2018-08-14] MEDS ORDERED: IBUPROFEN 400 MG TABLET (FP) PO PRN (15:45)
[2018-08-14] MEDS: chlordiazePOXIDE HCL 25 MG CAPSULE PO SCH ×2 (16:50→22:10)
[2018-08-14] MEDS: chlordiazePOXIDE HCL 25 MG CAPSULE PO PRN (20:08)
[2018-08-14] MEDS: THIAMINE HCL 100 MG TABLET (FP) PO SCH (22:09)
[2018-08-14] MEDS: GABAPENTIN 300 MG CAPSULE (FP) PO SCH (22:09)
[2018-08-15] MEDS: GABAPENTIN 300 MG CAPSULE (FP) PO SCH ×3 (05:09→22:03)
[2018-08-15] MEDS: chlordiazePOXIDE HCL 25 MG CAPSULE PO SCH ×4 (05:09→22:03)
[2018-08-15] MEDS: LEVOTHYROXINE NA 25 MCG TABLET (FP) PO SCH (07:48)
[2018-08-15] MEDS: chlordiazePOXIDE HCL 25 MG CAPSULE PO PRN (09:04)
[2018-08-15] MEDS: NICOTINE 21 MG/24 HOURS TOPICAL PATCH TD SCH (09:05)
--- NOTE | 2018-08-15 10:10 | PN ---
[facility] CIWA - CIWA Score Nausea/Vomitin-No Nausea/No Vomiting Muscle Tremors: 2 Anxiety: 2 Agitation: 2 Paroxysmal Sweats: 3 Orientation: 0-Oriented Tacttile Disturbances: 0-None Auditory Disturbances: 0-None Visual Disturbances: 0-None Headache: 2-Mild CIWA-Ar Total Score: 11 [facility] Progress Note (SOAP) Subjective: c/o sweats, anxiety, headache, and shakes. Objective: 08/15/18 10:07 Vital Signs 08/15/18 08/15/18 08/15/18 02:30 03:00 03:30 Temperature Pulse Rate 89 84 80 Respiratory 18 18 Rate Blood Pressure 08/15/18 08/15/18 08/15/18 04:00 04:30 05:00 Temperature Pulse Rate 80 77 74 Respiratory 18 18 Rate Blood Pressure 08/15/18 08/15/18 08/15/18 05:30 06:00 06:09 Temperature 97.0 F L Pulse Rate 78 81 79 Respiratory 18 18 18 Rate Blood Pressure 99/57 L 08/15/18 08/15/18 08/15/18 06:30 07:00 07:30 Temperature Pulse Rate 79 81 85 Respiratory 18 18 18 Rate Blood Pressure 08/15/18 08/15/18 08/15/18 08:00 08:30 09:24 Temperature 96.8 F L Pulse Rate 83 88 92 H Respiratory 18 18 20 Rate Blood Pressure 100/62 Labs pending. Assessment: 08/15/18 10:07 AOX3, in no acute distress Full ROM, ambulating in the unit. Withdrawal symptoms. Plan: continue detox increase hydration.
[2018-08-15 10:48] LABS: ALBUMIN 3.9 g/dl (3.4-5.0); BILIRUBIN,TOTAL 0.7 mg/dL (0.2-1); CALCIUM 8.4 mg/dL (8.5-10.1); CREATININE 1.3 mg/dL (0.55-1.3); POTASSIUM 4.3 mmol/L (3.5-5.1); TOT PROT 6.3 g/dl (6.4-8.2)
[2018-08-15 11:17] LABS: HEMATOCRIT 37.3 % (35.4-49); HEMOGLOBIN 13.1 GM/dL (11.7-16.9); MCH 35.8 pg (25.7-33.7); MEAN CELL VOLUME 102.5 fl (80-96); MEAN PLT VOLUME 7.5 fl (7.5-11.1); RBC 3.64 M/mm3 (4.00-5.60); RDW 14.2 % (11.9-15.9); WHITE BLOOD COUNT 3.7 K/mm3 (4.0-10.0)
[2018-08-15 11:36] LABS: PLATELET COUNT 148 K/MM3 (134-434)
[2018-08-15] MEDS: MELATONIN 5 MG TABLETS PO PRN (22:03)
[2018-08-15] MEDS: THIAMINE HCL 100 MG TABLET (FP) PO SCH (22:03)
[2018-08-16] MEDS: GABAPENTIN 300 MG CAPSULE (FP) PO SCH ×3 (06:00→22:32)
[2018-08-16] MEDS: chlordiazePOXIDE HCL 25 MG CAPSULE PO SCH ×2 (06:00→10:09)
[2018-08-16] MEDS: LEVOTHYROXINE NA 25 MCG TABLET (FP) PO SCH (06:00)
[2018-08-16] MEDS: NICOTINE 21 MG/24 HOURS TOPICAL PATCH TD SCH (10:08)
[2018-08-16] MEDS: chlordiazePOXIDE HCL 25 MG CAPSULE PO PRN (13:18)
--- NOTE | 2018-08-16 15:15 | PN ---
S CIWA - CIWA Score Nausea/Vomitin-Mild Nausea/No Vomiting Muscle Tremors: 2 Anxiety: 2 Agitation: 2 Paroxysmal Sweats: 1-Minimal Palms Moist Orientation: 0-Oriented Tacttile Disturbances: 0-None Auditory Disturbances: 0-None Visual Disturbances: 0-None Headache: 1-Very Mild CIWA-Ar Total Score: 9 [facility] Progress Note (SOAP) Subjective: RESTLESSNESS, POOR SLEEP GI UPSET Objective: Vital Signs - 24 hr 08/15/18 08/15/18 08/15/18 15:30 16:00 16:30 Temperature Pulse Rate 95 H 95 H 98 H Respiratory 18 18 16 Rate Blood Pressure 08/15/18 08/15/18 08/15/18 17:00 17:37 21:24 Temperature 97.4 F L 97 F L Pulse Rate 90 96 H 100 H Respiratory 18 16 18 Rate Blood Pressure 111/73 120/99 08/16/18 08/16/18 08/16/18 00:30 03:30 06:26 Temperature 96.6 F L Pulse Rate 74 Respiratory 18 18 18 Rate Blood Pressure 109/71 08/16/18 08/16/18 08/16/18 06:30 09:14 13:00 Temperature 96.3 F L 97.8 F Pulse Rate 81 112 H Respiratory 18 18 18 Rate Blood Pressure 122/83 116/80 Laboratory Tests 08/15/18 08/15/18 07:40 07:40 WBC 3.7 L RBC 3.64 L Hgb 13.1 Hct 37.3 MCV 102.5 H MCH 35.8 H MCHC 35.0 RDW 14.2 Plt Count 148 D MPV 7.5 Sodium 141 Potassium 4.3 Chloride 109 H Carbon Dioxide 25 Anion Gap 7 L BUN 19.0 H Creatinine 1.3 Est GFR (CKD-EPI)AfAm 74.26 Est GFR (CKD-EPI)NonAf 64.07 Random Glucose 90 Calcium 8.4 L Total Bilirubin 0.7 AST 51 H ALT 70 H Alkaline Phosphatase 52 Total Protein 6.3 L Albumin 3.9 ALERT AMBULATING AND ORIENTED Assessment: 08/16/18 15:14 ACUTE WITHDRAWAL MILD TRNSAMINITIS Plan: CONTINUE DETOX PROTOCOL
[2018-08-16] MEDS: chlordiazePOXIDE HCL 10 MG CAPSULE PO SCH ×2 (17:23→22:32)
[2018-08-16] MEDS: chlordiazePOXIDE HCL 10 MG CAPSULE PO PRN (20:26)
[2018-08-16] MEDS: THIAMINE HCL 100 MG TABLET (FP) PO SCH (22:32)
[2018-08-16] MEDS: MELATONIN 5 MG TABLETS PO PRN (22:32)
[2018-08-17] MEDS: GABAPENTIN 300 MG CAPSULE (FP) PO SCH ×3 (05:15→22:06)
[2018-08-17] MEDS: chlordiazePOXIDE HCL 10 MG CAPSULE PO SCH ×3 (05:15→16:22)
[2018-08-17] MEDS: LEVOTHYROXINE NA 25 MCG TABLET (FP) PO SCH (06:19)
[2018-08-17] MEDS: chlordiazePOXIDE HCL 10 MG CAPSULE PO PRN (09:04)
[2018-08-17] MEDS: NICOTINE 21 MG/24 HOURS TOPICAL PATCH TD SCH (10:40)
[2018-08-17] MEDS: MENTHOL/PHENOL 1 EACH UD MM PRN ×3 (10:43→19:07)
--- NOTE | 2018-08-17 13:47 | PN ---
S CIWA - CIWA Score Nausea/Vomitin-No Nausea/No Vomiting Muscle Tremors: None Anxiety: 2 Agitation: 2 Paroxysmal Sweats: No Perspiration Orientation: 0-Oriented Tacttile Disturbances: 2-Mild Itch/Numbness/Burn Auditory Disturbances: 0-None Visual Disturbances: 0-None Headache: 0-None Present CIWA-Ar Total Score: 6 BHS Progress Note (SOAP) Subjective: Anxious, Restless. Objective: PATIENT A & O X 3, OBSERVED AMBULATING ON UNIT UNASSISTED. IN NO ACUTE DISTRESS. 08/17/18 13:46 Vital Signs Temperature 97.0 F L 08/17/18 13:04 Pulse Rate 105 H 08/17/18 13:04 Respiratory Rate 18 08/17/18 13:04 Blood Pressure 118/74 08/17/18 13:04 O2 Sat by Pulse Oximetry (%) Laboratory Tests 08/15/18 08/15/18 07:40 07:40 WBC 3.7 L RBC 3.64 L Hgb 13.1 Hct 37.3 MCV 102.5 H MCH 35.8 H MCHC 35.0 RDW 14.2 Plt Count 148 D MPV 7.5 Sodium 141 Potassium 4.3 Chloride 109 H Carbon Dioxide 25 Anion Gap 7 L BUN 19.0 H Creatinine 1.3 Est GFR (CKD-EPI)AfAm 74.26 Est GFR (CKD-EPI)NonAf 64.07 Random Glucose 90 Calcium 8.4 L Total Bilirubin 0.7 AST 51 H ALT 70 H Alkaline Phosphatase 52 Total Protein 6.3 L Albumin 3.9 LABS NOTED. Assessment: 08/17/18 13:46 WITHDRAWAL SYMPTOMS. ELEVATED LIVER ENZYMES (AST, ALT). Plan: CONTINUE DETOX. PATIENT SCHEDULED FOR D/C TOMORROW.
[2018-08-17] MEDS: THIAMINE HCL 100 MG TABLET (FP) PO SCH (22:06)
[2018-08-17] MEDS: MELATONIN 5 MG TABLETS PO PRN (22:07)
[2018-08-18] MEDS: GABAPENTIN 300 MG CAPSULE (FP) PO SCH (05:17)
[2018-08-18] MEDS: chlordiazePOXIDE HCL 10 MG CAPSULE PO SCH (05:17)
[2018-08-18 06:03] VITALS: BP 117/70; PULSE 71; TEMP 97
--- NOTE | 2018-08-18 15:22 | DS ---
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 THUS, PRE-DISCHARGE MEDICAL ASSESSMENT UNABLE TO BE DONE. PER DISCUSSION WITH PATIENT YESTERDAY, PATIENT NOTED THAT HE WOULD RETURN TO [facility], WHERE HE HAS PREVIOUSLY BEEN A CLIENT, FOR AFTERCARE. ALSO PER DISCUSSION WITH PATIENT YESTERDAY, PATIENT DECLINED OFFER OF MEDICATION PRESCRIPTION FOR HOME MEDICATION AT TIME OF DISCHARGE FROM DETOX, NOTING THAT HE CURRENTLY HAS ADEQUATE SUPPLIES OF ALL PRESCRIBED HOME MEDICATIONS AT HOME. Pertinent Past History: History Of Hemochromatosis, Hypothyroidism, Borderline DM, Nicotine Dependence, G.E.R.D., History Of Seizure Disorder, HTN, Hep C (Treated), Depression. - Physical Exam Results Vital Signs: Vital Signs Temperature 97 F L 08/18/18 06:02 Pulse Rate 71 08/18/18 06:02 Respiratory Rate 18 08/18/18 06:02 Blood Pressure 117/70 08/18/18 06:02 O2 Sat by Pulse Oximetry (%) Pertinent Admission Physical Exam Findings: WITHDRAWAL SYMPTOMS. Laboratory Tests 08/15/18 08/15/18 08/18/18 07:40 07:40 05:18 WBC 3.7 L RBC 3.64 L Hgb 13.1 Hct 37.3 MCV 102.5 H MCH 35.8 H MCHC 35.0 RDW 14.2 Plt Count 148 D MPV 7.5 Sodium 141 Potassium 4.3 Chloride 109 H Carbon Dioxide 25 Anion Gap 7 L BUN 19.0 H Creatinine 1.3 Est GFR (CKD-EPI)AfAm 74.26 Est GFR (CKD-EPI)NonAf 64.07 POC Glucometer 115 Random Glucose 90 Calcium 8.4 L Total Bilirubin 0.7 AST 51 H ALT 70 H Alkaline Phosphatase 52 Total Protein 6.3 L Albumin 3.9 LABS NOTED. - Treatment Hospital Course: Detox Protocol Followed, Detoxed Safely, Responded well, Discharged Condition Good Patient has Accepted a Rehab Referral to: PATIENT TO RETURN TO PREVIOUS [facility]. - Medication Discharge Medications: Ambulatory Orders Gabapentin [Neurontin] 600 mg PO TID #90 tablet 12/25/17 Cholecalciferol (Vitamin D3) [Vitamin D3 -] 1,000 unit PO DAILY 03/30/18 Levothyroxine [Synthroid -] 75 mcg PO DAILY@0700 #30 tablet 07/27/18 - Diagnosis (1) Alcohol dependence with uncomplicated withdrawal Status: Acute (2) At risk for dehydration due to poor fluid intake Status: Acute (3) Cocaine dependence Status: Acute Qualifiers: Substance use status: uncomplicated Qualified Code(s): F14.20 - Cocaine dependence, uncomplicated (4) Nicotine dependence Status: Acute Qualifiers: Nicotine product type: cigarettes Substance use status: in withdrawal Qualified Code(s): F17.213 - Nicotine dependence, cigarettes, with withdrawal (5) Borderline diabetes mellitus Status: Chronic (6) GERD (gastroesophageal reflux disease) Status: Chronic Qualifiers: Esophagitis presence: without esophagitis Qualified Code(s): K21.9 - Gastro -esophageal reflux disease without esophagitis (7) Hemochromatosis, hereditary Status: Chronic (8) Hypertension Status: Chronic Qualifiers: Hypertension type: essential hypertension Qualified Code(s): I10 - Essential (primary) hypertension (9) Hypothyroidism Status: Chronic Qualifiers: Hypothyroidism type: unspecified Qualified Code(s): E03.9 - Hypothyroidism , unspecified (10) Seizure disorder Status: Chronic - AMA Did Patient Leave Against Medical Advice: No
== END 2018-08-18 06:45 | disposition home or self-care (01) | DRG 774 ==
LOC: YASAS 10:57 → Y3N 16:11
PROVIDERS: ADMIT Surgery; ATTEND Surgery
PROC: HZ2ZZZZ Detoxification Services for Substance Abuse Treatment (ICD-10-PCS; principal; 2018-08-14)
DX: F10.230 Alcohol dependence with withdrawal, uncomplicated (principal); F14.20 Cocaine dependence, uncomplicated; F17.210 Nicotine dependence, cigarettes, uncomplicated; F32.9 Major depressive disorder, single episode, unspecified; E03.9 Hypothyroidism, unspecified; E83.110 Hereditary hemochromatosis; K21.9 Gastro-esophageal reflux disease without esophagitis; G40.909 Epilepsy, unspecified, not intractable, without status epilepticus; E11.9 Type 2 diabetes mellitus without complications; R94.5 Abnormal results of liver function studies; B18.2 Chronic viral hepatitis C; Z91.89 Other specified personal risk factors, not elsewhere classified; Z91.013 Allergy to seafood; Z88.0 Allergy status to penicillin
CPT/HCPCS: 36415; 80053; 82962; 85027

== ENCOUNTER 2018-10-18 16:13 | Inpatient (IN) | payer OTHER ==
[2018-10-18 17:14] VITALS: BMI 27.4
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
[2018-10-18] MEDS ORDERED: NICOTINE POLACRILEX 2 MG GUM BUC PRN (18:38)
[2018-10-18] MEDS ORDERED: MAGNESIUM CITRATE 300 ML BOTTLE PO PRN (18:38)
[2018-10-18] MEDS ORDERED: IBUPROFEN 400 MG TABLET (FP) PO PRN (18:38)
[2018-10-18] MEDS ORDERED: ACETAMINOPHEN 325 MG TABLET (FP) PO PRN ×2 (18:38)
[2018-10-18] MEDS ORDERED: MENTHOL/PHENOL 1 EACH UD MM PRN (18:38)
[2018-10-18] MEDS ORDERED: BISMUTH SUBSALICYLATE 524 MG/30 ML UD PO PRN (18:38)
[2018-10-18] MEDS ORDERED: MAGNESIUM HYDROX 2400MG/30ML ORAL SUSPENSION 30 ML CUP PO PRN (18:38)
[2018-10-18] MEDS ORDERED: MAG HYDROX/AL HYDROX/SIMETH 30 ML UNIT-DOSE CUP PO PRN (18:38)
[2018-10-18] MEDS ORDERED: METHOCARBAMOL 500 MG TABLET PO PRN (18:38)
[2018-10-18] MEDS: chlordiazePOXIDE HCL 25 MG CAPSULE PO PRN (19:29)
[2018-10-18] MEDS: NICOTINE 21 MG/24 HOURS TOPICAL PATCH TD SCH (19:59)
[2018-10-18] MEDS: hydrOXYzine PAMOATE 25 MG CAPSULE (FP) PO PRN (20:14)
[2018-10-18] MEDS ORDERED: PATIENT'S OWN MEDICATION (NON-FORMULARY) (Gabapentin [Neurontin] 600 MG) PO SCH (22:00)
[2018-10-18] MEDS: chlordiazePOXIDE HCL 25 MG CAPSULE PO SCH (22:54)
[2018-10-18] MEDS: MELATONIN 5 MG TABLETS PO PRN (22:54)
[2018-10-18] MEDS: THIAMINE HCL 100 MG TABLET (FP) PO SCH (22:54)
[2018-10-18] MEDS: GABAPENTIN 300 MG CAPSULE (FP) PO SCH (22:54)
[2018-10-19] MEDS: GABAPENTIN 300 MG CAPSULE (FP) PO SCH ×3 (05:34→22:14)
[2018-10-19] MEDS: chlordiazePOXIDE HCL 25 MG CAPSULE PO SCH ×4 (05:35→22:13)
[2018-10-19] MEDS ORDERED: LEVOTHYROXINE NA 75 MCG TABLET (FP) PO SCH (07:00)
[2018-10-19] MEDS: chlordiazePOXIDE HCL 25 MG CAPSULE PO PRN ×2 (07:58→13:26)
[2018-10-19] MEDS: LEVOTHYROXINE NA 25 MCG TABLET (FP) PO SCH (10:09)
[2018-10-19] MEDS: CHOLECALCIFEROL (VIT D3) 1,000 UNIT (25 MCG) TABLET PO SCH (10:09)
[2018-10-19] MEDS: NICOTINE 21 MG/24 HOURS TOPICAL PATCH TD SCH (10:09)
[2018-10-19] MEDS: PRENATAL VITAMINS W/ FOLIC ACID TABLET (FP) PO SCH (10:10)
[2018-10-19 12:03] LABS: ALBUMIN 3.1 g/dl (3.4-5.0); BILIRUBIN,TOTAL 0.4 mg/dL (0.2-1); BLOOD UREA NITROGEN 16.5 mg/dL (7-18); CALCIUM 8.2 mg/dL (8.5-10.1); CREATININE 1.1 mg/dL (0.55-1.3); POTASSIUM 3.7 mmol/L (3.5-5.1); TOT PROT 5.4 g/dl (6.4-8.2)
[2018-10-19 12:28] LABS: HEMATOCRIT 34.9 % (35.4-49); HEMOGLOBIN 12.3 GM/dL (11.7-16.9); MCH 37.2 pg (25.7-33.7); MCHC 35.3 g/dl (32.0-35.9); MEAN CELL VOLUME 105.3 fl (80-96); MEAN PLT VOLUME 7.4 fl (7.5-11.1); PLATELET COUNT 157 K/MM3 (134-434); RBC 3.31 M/mm3 (4.00-5.60); RDW 13.6 % (11.9-15.9)
--- NOTE | 2018-10-19 17:38 | PN ---
[facility] CIWA - CIWA Score Nausea/Vomitin-No Nausea/No Vomiting Muscle Tremors: 3 Anxiety: 3 Agitation: 0-Normal Activity Paroxysmal Sweats: No Perspiration Orientation: 0-Oriented Tacttile Disturbances: 1-Very Mild Itch/Numbness Auditory Disturbances: 1-Very Mild Visual Disturbances: 3-Moderate Sensitivity Headache: 0-None Present CIWA-Ar Total Score: 11 BHS Progress Note (SOAP) Subjective: Anxious, Fatigue, Tremors. Objective: PATIENT A & O X 3. IN NO ACUTE DISTRESS. 10/19/18 17:39 Vital Signs Temperature 98.1 F 10/19/18 17:23 Pulse Rate 76 10/19/18 17:23 Respiratory Rate 16 10/19/18 17:23 Blood Pressure 100/65 10/19/18 17:23 O2 Sat by Pulse Oximetry (%) Laboratory Tests 10/19/18 10/19/18 10/19/18 07:30 07:30 07:30 WBC 3.0 L RBC 3.31 L Hgb 12.3 Hct 34.9 L MCV 105.3 H MCH 37.2 H MCHC 35.3 RDW 13.6 Plt Count 157 MPV 7.4 L Sodium 142 Potassium 3.7 Chloride 110 H Carbon Dioxide 28 Anion Gap 5 L BUN 16.5 Creatinine 1.1 Est GFR (CKD-EPI)AfAm 90.88 Est GFR (CKD-EPI)NonAf 78.41 Random Glucose 117 H Calcium 8.2 L Total Bilirubin 0.4 AST 49 H ALT 54 Alkaline Phosphatase 43 L Total Protein 5.4 L Albumin 3.1 L RPR Titer Nonreactive HIV 1&2 Antibody Screen HIV P24 Antigen 10/19/18 07:30 WBC RBC Hgb Hct MCV MCH MCHC RDW Plt Count MPV Sodium Potassium Chloride Carbon Dioxide Anion Gap BUN Creatinine Est GFR (CKD-EPI)AfAm Est GFR (CKD-EPI)NonAf Random Glucose Calcium Total Bilirubin AST ALT Alkaline Phosphatase Total Protein Albumin RPR Titer HIV 1&2 Antibody Screen Cancelled HIV P24 Antigen Cancelled LABS NOTED. PATIENT HAS HAD LOW WBC LEVELS ON PREVIOUS ADMISSIONS. 10/19/18 17:40 Assessment: 10/19/18 17:39 WITHDRAWAL SYMPTOMS. LEUKOPENIA. ANEMIA. 10/19/18 17:40 Plan: CONTINUE DETOX. INCREASE DAILY PO WATER INTAKE. PATIENT IS CURRENTLY RECEIVING DAILY MVI CONTAINING B VITAMINS AND IRON WHILE ADMITTED FOR DETOX.
[2018-10-19] MEDS: THIAMINE HCL 100 MG TABLET (FP) PO SCH (22:13)
[2018-10-19] MEDS: MELATONIN 5 MG TABLETS PO PRN (22:14)
[2018-10-20] MEDS: chlordiazePOXIDE HCL 25 MG CAPSULE PO PRN ×2 (02:13→14:16)
[2018-10-20] MEDS: chlordiazePOXIDE HCL 25 MG CAPSULE PO SCH ×4 (06:08→22:17)
[2018-10-20] MEDS: GABAPENTIN 300 MG CAPSULE (FP) PO SCH ×3 (06:33→22:17)
[2018-10-20] MEDS: LEVOTHYROXINE NA 25 MCG TABLET (FP) PO SCH (09:00)
[2018-10-20] MEDS: NICOTINE 21 MG/24 HOURS TOPICAL PATCH TD SCH (10:39)
[2018-10-20] MEDS: PRENATAL VITAMINS W/ FOLIC ACID TABLET (FP) PO SCH (10:39)
[2018-10-20] MEDS: CHOLECALCIFEROL (VIT D3) 1,000 UNIT (25 MCG) TABLET PO SCH (10:39)
[2018-10-20] MEDS: hydrOXYzine PAMOATE 25 MG CAPSULE (FP) PO PRN (12:24)
--- NOTE | 2018-10-20 12:38 | PN ---
[facility] CIWA - CIWA Score Nausea/Vomitin Muscle Tremors: 2 Anxiety: 3 Agitation: 3 Paroxysmal Sweats: 1-Minimal Palms Moist Orientation: 0-Oriented Tacttile Disturbances: 1-Very Mild Itch/Numbness Auditory Disturbances: 0-None Visual Disturbances: 0-None Headache: 1-Very Mild CIWA-Ar Total Score: 13 BHS Progress Note (SOAP) Subjective: alert,irritable,anxious,interrupted sleep,rash left hand contact dermatitis Objective: 10/20/18 12:37 Vital Signs Temperature 96.3 F L 10/20/18 09:32 Pulse Rate 95 H 10/20/18 09:32 Respiratory Rate 18 10/20/18 09:32 Blood Pressure 126/87 10/20/18 09:32 O2 Sat by Pulse Oximetry (%) Assessment: 10/20/18 12:37 withdrawal symptom Plan: continue detox librium regimen
[2018-10-20] MEDS: HYDROCORTISONE 1% TOPICAL CREAM 30 GM TUBE TP SCH ×2 (14:17→22:33)
[2018-10-20] MEDS: MELATONIN 5 MG TABLETS PO PRN (22:17)
[2018-10-20] MEDS: THIAMINE HCL 100 MG TABLET (FP) PO SCH (22:17)
[2018-10-21] MEDS ORDERED: chlordiazePOXIDE HCL 10 MG CAPSULE PO PRN
[2018-10-21] MEDS: GABAPENTIN 300 MG CAPSULE (FP) PO SCH ×3 (06:10→22:14)
[2018-10-21] MEDS: chlordiazePOXIDE HCL 10 MG CAPSULE PO SCH ×4 (06:10→22:14)
[2018-10-21] MEDS: LEVOTHYROXINE NA 25 MCG TABLET (FP) PO SCH (06:11)
[2018-10-21] MEDS: HYDROCORTISONE 1% TOPICAL CREAM 30 GM TUBE TP SCH ×2 (10:06→22:33)
[2018-10-21] MEDS: NICOTINE 21 MG/24 HOURS TOPICAL PATCH TD SCH (10:06)
[2018-10-21] MEDS: CHOLECALCIFEROL (VIT D3) 1,000 UNIT (25 MCG) TABLET PO SCH (10:06)
[2018-10-21] MEDS: PRENATAL VITAMINS W/ FOLIC ACID TABLET (FP) PO SCH (10:06)
[2018-10-21] MEDS: hydrOXYzine PAMOATE 25 MG CAPSULE (FP) PO PRN (15:16)
--- NOTE | 2018-10-21 16:20 | PN ---
[facility] CIWA - CIWA Score Nausea/Vomitin-No Nausea/No Vomiting Muscle Tremors: 3 Anxiety: 3 Agitation: 2 Paroxysmal Sweats: 3 Orientation: 0-Oriented Tacttile Disturbances: 1-Very Mild Itch/Numbness Auditory Disturbances: 0-None Visual Disturbances: 0-None Headache: 0-None Present CIWA-Ar Total Score: 12 S Progress Note (SOAP) Subjective: Anxious, Sweating, Tremors. Objective: PATIENT A & O X 3, OBSERVED AMBULATING ON UNIT UNASSISTED. IN NO ACUTE DISTRESS. 10/21/18 16:16 Vital Signs Temperature 98.6 F 10/21/18 13:41 Pulse Rate 117 H 10/21/18 13:41 Respiratory Rate 18 10/21/18 13:41 Blood Pressure 114/54 L 10/21/18 13:41 O2 Sat by Pulse Oximetry (%) Laboratory Last Values WBC 3.0 K/mm3 (4.0-10.0) L 10/19/18 07:30 RBC 3.31 M/mm3 (4.00-5.60) L 10/19/18 07:30 Hgb 12.3 GM/dL (11.7-16.9) 10/19/18 07:30 Hct 34.9 % (35.4-49) L 10/19/18 07:30 MCV 105.3 fl (80-96) H 10/19/18 07:30 MCH 37.2 pg (25.7-33.7) H 10/19/18 07:30 MCHC 35.3 g/dl (32.0-35.9) 10/19/18 07:30 RDW 13.6 % (11.9-15.9) 10/19/18 07:30 Plt Count 157 K/MM3 (134-434) 10/19/18 07:30 MPV 7.4 fl (7.5-11.1) L 10/19/18 07:30 Sodium 142 mmol/L (136-145) 10/19/18 07:30 Potassium 3.7 mmol/L (3.5-5.1) 10/19/18 07:30 Chloride 110 mmol/L (98-107) H 10/19/18 07:30 Carbon Dioxide 28 mmol/L (21-32) 10/19/18 07:30 Anion Gap 5 MMOL/L (8-16) L 10/19/18 07:30 BUN 16.5 mg/dL (7-18) 10/19/18 07:30 Creatinine 1.1 mg/dL (0.55-1.3) 10/19/18 07:30 Est GFR (CKD-EPI)AfAm 90.88 10/19/18 07:30 Est GFR (CKD-EPI)NonAf 78.41 10/19/18 07:30 Random Glucose 117 mg/dL (74-106) H 10/19/18 07:30 Calcium 8.2 mg/dL (8.5-10.1) L 10/19/18 07:30 Total Bilirubin 0.4 mg/dL (0.2-1) 10/19/18 07:30 AST 49 U/L (15-37) H 10/19/18 07:30 ALT 54 U/L (13-61) 10/19/18 07:30 Alkaline Phosphatase 43 U/L (45-117) L 10/19/18 07:30 Total Protein 5.4 g/dl (6.4-8.2) L 10/19/18 07:30 Albumin 3.1 g/dl (3.4-5.0) L 10/19/18 07:30 RPR Titer Nonreactive (NONREACTIVE) 10/19/18 07:30 HIV 1&2 Ag/Ab, 4th Gen Non reactive (Non Reactive) 10/19/18 09:30 HIV 1&2 Antibody Screen Cancelled 10/19/18 07:30 HIV P24 Antigen Cancelled 10/19/18 07:30 LABS NOTED. PATIENT HAS HAD ELEVATED AST AND LOW WBC LEVELS ON PREVIOUS ADMISSIONS. 10/21/18 16:18 Assessment: 10/21/18 16:17 WITHDRAWAL SYMPTOMS. ELEVATED AST LEVEL. LEUKOPENIA. ANEMIA. 10/21/18 16:19 Plan: CONTINUE DETOX.
[2018-10-21] MEDS: THIAMINE HCL 100 MG TABLET (FP) PO SCH (22:13)
[2018-10-21] MEDS: MELATONIN 5 MG TABLETS PO PRN (22:14)
[2018-10-22] MEDS: hydrOXYzine PAMOATE 25 MG CAPSULE (FP) PO PRN (02:46)
[2018-10-22] MEDS ORDERED: chlordiazePOXIDE HCL 10 MG CAPSULE PO SCH (05:00)
[2018-10-22] MEDS: GABAPENTIN 300 MG CAPSULE (FP) PO SCH ×2 (05:46→15:05)
[2018-10-22] MEDS: LEVOTHYROXINE NA 25 MCG TABLET (FP) PO SCH (06:18)
[2018-10-22] MEDS ORDERED: hydrOXYzine PAMOATE 50 MG CAPSULE (FP) PO PRN (08:56)
[2018-10-22] MEDS ORDERED: MELATONIN 5 MG TABLETS PO PRN (09:00)
[2018-10-22] MEDS: NICOTINE 21 MG/24 HOURS TOPICAL PATCH TD SCH (10:10)
[2018-10-22] MEDS: PRENATAL VITAMINS W/ FOLIC ACID TABLET (FP) PO SCH (10:10)
[2018-10-22] MEDS: CHOLECALCIFEROL (VIT D3) 1,000 UNIT (25 MCG) TABLET PO SCH (10:10)
[2018-10-22] MEDS: HYDROCORTISONE 1% TOPICAL CREAM 30 GM TUBE TP SCH (10:11)
[2018-10-22 13:19] LABS: PH,URINE 7.5 (5.0-8.0); URINE APPEARANCE CLEAR; URINE BILIRUBIN NEGATIVE (NEGATIVE); URINE COLOR YELLOW; URINE GLUCOSE (UA) NEGATIVE (NEGATIVE); URINE KETONE NEGATIVE (NEGATIVE); URINE LEUK ESTERASE NEGATIVE (NEGATIVE); URINE NITRITE NEGATIVE (NEGATIVE); URINE PROTEIN NEGATIVE (NEGATIVE); URINE UROBILINOGEN 0.2 mg/dL (0.2-1.0)
[2018-10-22 13:42] VITALS: BP 146/88; PULSE 70; TEMP 97.5
--- NOTE | 2018-10-22 16:34 | PN ---
S CIWA - CIWA Score Nausea/Vomitin-No Nausea/No Vomiting Muscle Tremors: 3 Anxiety: 5 Agitation: 2 Paroxysmal Sweats: 3 Orientation: 0-Oriented Tacttile Disturbances: 0-None Auditory Disturbances: 0-None Visual Disturbances: 0-None Headache: 0-None Present CIWA-Ar Total Score: 13 S Progress Note (SOAP) Subjective: Anxious, Sweating, Tremors, Insomnia. Objective: PATIENT A & O X 3, OBSERVED AMBULATING ON UNIT UNASSISTED. IN NO ACUTE DISTRESS. 10/22/18 16:33 Vital Signs Temperature 97.5 F L 10/22/18 13:41 Pulse Rate 70 10/22/18 13:41 Respiratory Rate 18 10/22/18 13:41 Blood Pressure 146/88 10/22/18 13:41 O2 Sat by Pulse Oximetry (%) Laboratory Tests 10/19/18 10/19/18 10/19/18 07:30 07:30 07:30 WBC 3.0 L RBC 3.31 L Hgb 12.3 Hct 34.9 L MCV 105.3 H MCH 37.2 H MCHC 35.3 RDW 13.6 Plt Count 157 MPV 7.4 L Sodium 142 Potassium 3.7 Chloride 110 H Carbon Dioxide 28 Anion Gap 5 L BUN 16.5 Creatinine 1.1 Est GFR (CKD-EPI)AfAm 90.88 Est GFR (CKD-EPI)NonAf 78.41 Random Glucose 117 H Calcium 8.2 L Total Bilirubin 0.4 AST 49 H ALT 54 Alkaline Phosphatase 43 L Total Protein 5.4 L Albumin 3.1 L Urine Color Urine Appearance Urine pH Ur Specific [place] Urine Protein Urine Glucose (UA) Urine Ketones Urine Blood Urine Nitrite Urine Bilirubin Urine Urobilinogen Ur Leukocyte Esterase RPR Titer Nonreactive HIV 1&2 Ag/Ab, 4th Gen HIV 1&2 Antibody Screen HIV P24 Antigen 10/19/18 10/19/18 10/22/18 07:30 09:30 09:00 WBC RBC Hgb Hct MCV MCH MCHC RDW Plt Count MPV Sodium Potassium Chloride Carbon Dioxide Anion Gap BUN Creatinine Est GFR (CKD-EPI)AfAm Est GFR (CKD-EPI)NonAf Random Glucose Calcium Total Bilirubin AST ALT Alkaline Phosphatase Total Protein Albumin Urine Color Yellow Urine Appearance Clear Urine pH 7.5 D Ur Specific [place] 1.010 Urine Protein Negative Urine Glucose (UA) Negative Urine Ketones Negative Urine Blood Negative Urine Nitrite Negative Urine Bilirubin Negative Urine Urobilinogen 0.2 Ur Leukocyte Esterase Negative RPR Titer HIV 1&2 Ag/Ab, 4th Gen Non reactive HIV 1&2 Antibody Screen Cancelled HIV P24 Antigen Cancelled LABS NOTED. Assessment: 10/22/18 16:33 WITHDRAWAL SYMPTOMS. ANEMIA. LEUKOPENIA. ELEVATED AST LEVEL. Plan: CONTINUE DETOX. PRN MELATONIN PO FOR INSOMNIA.
--- NOTE | 2018-10-22 16:41 | DS ---
[facility] Detox Discharge Summary Admission Date: 10/18/18 Discharge Date: 10/22/18 - History Present History: Alcohol Dependence, Cocaine Dependence Additional Comments: DESPITE EFFORTS BY SOFT WORK WRAPPER LAYER AND EXAMINER AND BY NURSING STAFF TO ADDRESS PATIENT'S MEDICAL NEEDS / CONCERNS, PATIENT DOES NOT WISH TO REMAIN TO COMPLETE DETOX REGIMEN. RISKS OF LEAVING DETOX UNIT AGAINST MEDICAL ADVICE AND PRIOR TO COMPLETION OF DETOX REGIMEN EXPLAINED TO PATIENT. PATIENT ADVISED TO GO IMMEDIATELY TO NEAREST ER SHOULD ANY INTOLERABLE WITHDRAWAL / DETOX SYMPTOMS DEVELOP AT ANY TIME. PATIENT VERBALIZED UNDERSTANDING OF ALL INFORMATION / RECOMMENDATIONS PRESENTED TO HIM PRIOR TO DEPARTURE FROM DETOX UNIT. PATIENT DECLINED OFFER OF MEDICATION PRESCRIPTION FOR HOME MEDICATION AT TIME IN WHICH HE LEFT DETOX UNIT, NOTING THAT HE CURRENTLY HAS ADEQUATE SUPPLIES OF ALL PRESCRIBED HOME MEDICATIONS AT HOME. PATIENT LEFT DETOX UNIT IN STABLE MEDICAL CONDITION. Pertinent Past History: Leukopenia, Elevated Liver Enzyme Levels, Thrombocytopenia, Depression, Epilepsy , History of Herniated Discs in Back, Hereditary Hemochromatosis, Hypothyroidism , Hep C (Treated), History Of Chronic Back Pain. - Physical Exam Results Vital Signs: Vital Signs Temperature 97.5 F L 10/22/18 13:41 Pulse Rate 70 10/22/18 13:41 Respiratory Rate 18 10/22/18 13:41 Blood Pressure 146/88 10/22/18 13:41 O2 Sat by Pulse Oximetry (%) Pertinent Admission Physical Exam Findings: WITHDRAWAL SYMPTOMS. Laboratory Tests 10/19/18 10/19/18 10/19/18 07:30 07:30 07:30 WBC 3.0 L RBC 3.31 L Hgb 12.3 Hct 34.9 L MCV 105.3 H MCH 37.2 H MCHC 35.3 RDW 13.6 Plt Count 157 MPV 7.4 L Sodium 142 Potassium 3.7 Chloride 110 H Carbon Dioxide 28 Anion Gap 5 L BUN 16.5 Creatinine 1.1 Est GFR (CKD-EPI)AfAm 90.88 Est GFR (CKD-EPI)NonAf 78.41 Random Glucose 117 H Calcium 8.2 L Total Bilirubin 0.4 AST 49 H ALT 54 Alkaline Phosphatase 43 L Total Protein 5.4 L Albumin 3.1 L Urine Color Urine Appearance Urine pH Ur Specific [place] Urine Protein Urine Glucose (UA) Urine Ketones Urine Blood Urine Nitrite Urine Bilirubin Urine Urobilinogen Ur Leukocyte Esterase RPR Titer Nonreactive HIV 1&2 Ag/Ab, 4th Gen HIV 1&2 Antibody Screen HIV P24 Antigen 0810/19/18 10/22/18 07:30 09:30 09:00 WBC RBC Hgb Hct MCV MCH MCHC RDW Plt Count MPV Sodium Potassium Chloride Carbon Dioxide Anion Gap BUN Creatinine Est GFR (CKD-EPI)AfAm Est GFR (CKD-EPI)NonAf Random Glucose Calcium Total Bilirubin AST ALT Alkaline Phosphatase Total Protein Albumin Urine Color Yellow Urine Appearance Clear Urine pH 7.5 D Ur Specific [place] 1.010 Urine Protein Negative Urine Glucose (UA) Negative Urine Ketones Negative Urine Blood Negative Urine Nitrite Negative Urine Bilirubin Negative Urine Urobilinogen 0.2 Ur Leukocyte Esterase Negative RPR Titer HIV 1&2 Ag/Ab, 4th Gen Non reactive HIV 1&2 Antibody Screen Cancelled HIV P24 Antigen Cancelled LABS NOTED. - Medication Discharge Medications: Ambulatory Orders Gabapentin [Neurontin] 600 mg PO TID #90 tablet 12/25/17 Cholecalciferol (Vitamin D3) [Vitamin D3 -] 1,000 unit PO DAILY 03/30/18 Levothyroxine [Synthroid -] 75 mcg PO DAILY@0700 #30 tablet 07/27/18 - Diagnosis (1) Anemia Current Visit: Yes Status: Acute Qualifiers: Anemia type: unspecified type Qualified Code(s): D64.9 - Anemia, unspecified (2) Depression Current Visit: Yes Status: Acute Qualifiers: Depression Type: unspecified Qualified Code(s): F32.9 - Major depressive disorder, single episode, unspecified (3) Leukopenia Current Visit: Yes Status: Acute Qualifiers: Leukopenia type: unspecified Qualified Code(s): D72.819 - Decreased white blood cell count, unspecified (4) Alcohol dependence with uncomplicated withdrawal Current Visit: Yes Status: Acute (5) Alcohol intoxication Current Visit: Yes Status: Acute Qualifiers: Complication of substance-induced condition: uncomplicated Qualified Code(s ): F10.920 - Alcohol use, unspecified with intoxication, uncomplicated (6) At risk for dehydration due to poor fluid intake Current Visit: Yes Status: Acute (7) Chronic back pain Current Visit: Yes Status: Chronic Qualifiers: Back pain location: low back pain Back pain laterality: right Sciatica presence: with sciatica Sciatica laterality: sciatica laterality unspecified Qualified Code(s): M54.40 - Lumbago with sciatica, unspecified side; G89.29 - Other chronic pain (8) Hemochromatosis, hereditary Current Visit: Yes Status: Chronic (9) Hepatitis C Current Visit: Yes Status: Chronic Qualifiers: Viral hepatitis chronicity: unspecified Hepatic coma status: without hepatic coma Qualified Code(s): B19.20 - Unspecified viral hepatitis C without hepatic coma (10) Elevated aspartate aminotransferase level Current Visit: Yes Status: Acute (11) Cocaine abuse, uncomplicated Current Visit: Yes Status: Acute - AMA Did Patient Leave Against Medical Advice: Yes (PATIENT DID NOT WISH TO REMAIN TO COMPLETE DETOX REGIMEN.)
[2018-10-23] MEDS ORDERED: chlordiazePOXIDE HCL 10 MG CAPSULE PO ONE (05:00)
== END 2018-10-22 16:36 | disposition home or self-care (01) | DRG 775 ==
LOC: YASAS 16:13 → Y6N 18:48
PROVIDERS: ADMIT Surgery; ATTEND Surgery
PROC: HZ2ZZZZ Detoxification Services for Substance Abuse Treatment (ICD-10-PCS; principal; 2018-10-18)
DX: F10.230 Alcohol dependence with withdrawal, uncomplicated (principal); F10.220 Alcohol dependence with intoxication, uncomplicated; F17.210 Nicotine dependence, cigarettes, uncomplicated; F32.9 Major depressive disorder, single episode, unspecified; D64.9 Anemia, unspecified; D72.819 Decreased white blood cell count, unspecified; R63.8 Other symptoms and signs concerning food and fluid intake; M54.40 Lumbago with sciatica, unspecified side; G89.29 Other chronic pain; G40.909 Epilepsy, unspecified, not intractable, without status epilepticus; B19.20 Unspecified viral hepatitis C without hepatic coma; R74.0 Nonspecific elevation of levels of transaminase and lactic acid dehydrogenase [LDH]; E83.119 Hemochromatosis, unspecified; E03.9 Hypothyroidism, unspecified; Z88.0 Allergy status to penicillin; Z91.013 Allergy to seafood
CPT/HCPCS: 36415; 80053; 81003; 85027; 86593; 87389

== ENCOUNTER 2018-12-01 17:26 | Inpatient (IN) | payer OTHER ==
[2018-12-01 20:04] VITALS: BMI 29.1
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
[2018-12-01] MEDS ORDERED: MAGNESIUM CITRATE 300 ML BOTTLE PO PRN (21:43)
[2018-12-01] MEDS ORDERED: MENTHOL/PHENOL 1 EACH UD MM PRN (21:43)
[2018-12-01] MEDS ORDERED: MAG HYDROX/AL HYDROX/SIMETH 30 ML UNIT-DOSE CUP PO PRN (21:43)
[2018-12-01] MEDS ORDERED: BISMUTH SUBSALICYLATE 524 MG/30 ML UD PO PRN (21:43)
[2018-12-01] MEDS ORDERED: MAGNESIUM HYDROX 2400MG/30ML ORAL SUSPENSION 30 ML CUP PO PRN (21:43)
[2018-12-01] MEDS ORDERED: ACETAMINOPHEN 325 MG TABLET (FP) PO PRN ×2 (21:43)
[2018-12-01] MEDS ORDERED: IBUPROFEN 400 MG TABLET (FP) PO PRN (21:43)
[2018-12-01] MEDS: chlordiazePOXIDE HCL 25 MG CAPSULE PO SCH (22:49)
[2018-12-01] MEDS ORDERED: chlordiazePOXIDE HCL 25 MG CAPSULE ONE (22:49)
[2018-12-01] MEDS: THIAMINE HCL 100 MG TABLET (FP) PO SCH (22:50)
[2018-12-01] MEDS: MELATONIN 5 MG TABLETS PO PRN (22:50)
[2018-12-02] MEDS: chlordiazePOXIDE HCL 25 MG CAPSULE PO SCH ×4 (05:33→22:15)
[2018-12-02] MEDS: hydrOXYzine PAMOATE 25 MG CAPSULE (FP) PO PRN ×2 (09:22→15:49)
[2018-12-02] MEDS: METHOCARBAMOL 500 MG TABLET PO PRN ×3 (09:22→22:15)
--- NOTE | 2018-12-02 09:53 | CONSULT ---
[facility] Psychiatric Consult - Data Date of interview: 12/02/18 Admission source: Self-referred Psychiatric History: Patient approached at bedside while sleeping. Told advertising copy writer: " I did not ask to talk to you. I'm all right". Patient seen recently on by Dr De Paz during one of his admissions to this facility. He was not prescribed medication
[2018-12-02] MEDS: PRENATAL VITAMINS W/ FOLIC ACID TABLET (FP) PO SCH (10:21)
[2018-12-02 11:01] LABS: ALBUMIN 3.4 g/dl (3.4-5.0); BILIRUBIN,TOTAL 0.5 mg/dL (0.2-1); BLOOD UREA NITROGEN 17.5 mg/dL (7-18); CALCIUM 8.7 mg/dL (8.5-10.1); CREATININE 1.2 mg/dL (0.55-1.3); HEMATOCRIT 36.5 % (35.4-49); HEMOGLOBIN 12.8 GM/dL (11.7-16.9); MCH 36.4 pg (25.7-33.7); MEAN CELL VOLUME 104.1 fl (80-96); MEAN PLT VOLUME 7.6 fl (7.5-11.1); PLATELET COUNT 167 K/MM3 (134-434); POTASSIUM 4.1 mmol/L (3.5-5.1); RBC 3.51 M/mm3 (4.00-5.60); RDW 13.5 % (11.9-15.9); TOT PROT 5.8 g/dl (6.4-8.2); WHITE BLOOD COUNT 2.7 K/mm3 (4.0-10.0)
--- NOTE | 2018-12-02 11:23 | PN ---
S CIWA - CIWA Score Nausea/Vomitin-Mild Nausea/No Vomiting Muscle Tremors: 3 Anxiety: 3 Agitation: 4-Moderately Restless Paroxysmal Sweats: 3 Orientation: 0-Oriented Tacttile Disturbances: 0-None Auditory Disturbances: 0-None Visual Disturbances: 0-None Headache: 1-Very Mild CIWA-Ar Total Score: 15 BHS Progress Note (SOAP) Subjective: sweats shakes agitation body aches interrupted sleep headache Objective: 12/02/18 11:24 Vital Signs Temperature 97.2 F L 12/02/18 09:29 Pulse Rate 87 12/02/18 09:29 Respiratory Rate 18 12/02/18 09:29 Blood Pressure 116/63 12/02/18 09:29 O2 Sat by Pulse Oximetry (%) Laboratory Tests 12/02/18 12/02/18 08:00 08:00 WBC 2.7 L RBC 3.51 L Hgb 12.8 Hct 36.5 MCV 104.1 H MCH 36.4 H MCHC 35.0 RDW 13.5 Plt Count 167 MPV 7.6 Sodium 141 Potassium 4.1 Chloride 107 Carbon Dioxide 25 Anion Gap 8 BUN 17.5 Creatinine 1.2 Est GFR (CKD-EPI)AfAm 81.80 Est GFR (CKD-EPI)NonAf 70.58 Random Glucose 104 Calcium 8.7 Total Bilirubin 0.5 AST 34 ALT 61 Alkaline Phosphatase 41 L Total Protein 5.8 L Albumin 3.4 labs noted aaox3 ambulating no acute distress Assessment: 12/02/18 11:24 withdrawals Plan: continue detox increase fluids
[2018-12-02] MEDS: GABAPENTIN 300 MG CAPSULE (FP) PO SCH ×2 (13:26→22:15)
[2018-12-02 16:53] LABS: URINE APPEARANCE CLEAR; URINE BILIRUBIN NEGATIVE (NEGATIVE); URINE COLOR YELLOW; URINE GLUCOSE (UA) NEGATIVE (NEGATIVE); URINE KETONE NEGATIVE (NEGATIVE); URINE LEUK ESTERASE NEGATIVE (NEGATIVE); URINE NITRITE NEGATIVE (NEGATIVE); URINE PROTEIN NEGATIVE (NEGATIVE); URINE UROBILINOGEN 0.2 mg/dL (0.2-1.0)
[2018-12-02] MEDS: chlordiazePOXIDE HCL 25 MG CAPSULE PO PRN (20:28)
[2018-12-02] MEDS: THIAMINE HCL 100 MG TABLET (FP) PO SCH (22:15)
[2018-12-02] MEDS: MELATONIN 5 MG TABLETS PO PRN (22:17)
[2018-12-03] MEDS: GABAPENTIN 300 MG CAPSULE (FP) PO SCH ×3 (06:46→22:34)
[2018-12-03] MEDS: chlordiazePOXIDE HCL 25 MG CAPSULE PO SCH ×4 (06:46→22:34)
[2018-12-03] MEDS: LEVOTHYROXINE NA 25 MCG TABLET (FP) PO SCH (08:10)
[2018-12-03] MEDS: NICOTINE 21 MG/24 HOURS TOPICAL PATCH TD SCH (11:20)
[2018-12-03] MEDS: PRENATAL VITAMINS W/ FOLIC ACID TABLET (FP) PO SCH (11:20)
[2018-12-03] MEDS: METHOCARBAMOL 500 MG TABLET PO PRN ×2 (12:19→22:34)
[2018-12-03] MEDS: hydrOXYzine PAMOATE 25 MG CAPSULE (FP) PO PRN (12:19)
--- NOTE | 2018-12-03 13:43 | PN ---
S CIWA - CIWA Score Nausea/Vomitin-No Nausea/No Vomiting Muscle Tremors: 2 Anxiety: 2 Agitation: 3 Paroxysmal Sweats: 2 Orientation: 0-Oriented Tacttile Disturbances: 0-None Auditory Disturbances: 0-None Visual Disturbances: 0-None Headache: 0-None Present CIWA-Ar Total Score: 9 BHS Progress Note (SOAP) Subjective: sweats irritable agitation body aches Objective: 12/03/18 13:42 Vital Signs Temperature 97.5 F L 12/03/18 09:59 Pulse Rate 82 12/03/18 09:59 Respiratory Rate 18 12/03/18 09:59 Blood Pressure 112/73 12/03/18 09:59 O2 Sat by Pulse Oximetry (%) Laboratory Tests 12/02/18 12/02/18 12/02/18 08:00 08:00 08:00 WBC 2.7 L RBC 3.51 L Hgb 12.8 Hct 36.5 MCV 104.1 H MCH 36.4 H MCHC 35.0 RDW 13.5 Plt Count 167 MPV 7.6 Sodium 141 Potassium 4.1 Chloride 107 Carbon Dioxide 25 Anion Gap 8 BUN 17.5 Creatinine 1.2 Est GFR (CKD-EPI)AfAm 81.80 Est GFR (CKD-EPI)NonAf 70.58 Random Glucose 104 Calcium 8.7 Total Bilirubin 0.5 AST 34 ALT 61 Alkaline Phosphatase 41 L Total Protein 5.8 L Albumin 3.4 Urine Color Urine Appearance Urine pH Ur Specific [place] Urine Protein Urine Glucose (UA) Urine Ketones Urine Blood Urine Nitrite Urine Bilirubin Urine Urobilinogen Ur Leukocyte Esterase RPR Titer Nonreactive 12/02/18 13:30 WBC RBC Hgb Hct MCV MCH MCHC RDW Plt Count MPV Sodium Potassium Chloride Carbon Dioxide Anion Gap BUN Creatinine Est GFR (CKD-EPI)AfAm Est GFR (CKD-EPI)NonAf Random Glucose Calcium Total Bilirubin AST ALT Alkaline Phosphatase Total Protein Albumin Urine Color Yellow Urine Appearance Clear Urine pH 5.0 D Ur Specific [place] 1.014 Urine Protein Negative Urine Glucose (UA) Negative Urine Ketones Negative Urine Blood Negative Urine Nitrite Negative Urine Bilirubin Negative Urine Urobilinogen 0.2 Ur Leukocyte Esterase Negative RPR Titer labs noted aaox3 ambulating no acute distress Assessment: 12/03/18 13:43 withdrawals Plan: continue detox increase fluids
[2018-12-03] MEDS: chlordiazePOXIDE HCL 25 MG CAPSULE PO PRN (20:00)
[2018-12-03] MEDS: MELATONIN 5 MG TABLETS PO PRN (22:34)
[2018-12-03] MEDS: THIAMINE HCL 100 MG TABLET (FP) PO SCH (22:34)
[2018-12-04] MEDS ORDERED: chlordiazePOXIDE HCL 10 MG CAPSULE PO PRN
[2018-12-04] MEDS: GABAPENTIN 300 MG CAPSULE (FP) PO SCH ×3 (05:36→21:37)
[2018-12-04] MEDS: chlordiazePOXIDE HCL 10 MG CAPSULE PO SCH ×4 (05:36→23:34)
[2018-12-04] MEDS: LEVOTHYROXINE NA 25 MCG TABLET (FP) PO SCH (07:55)
[2018-12-04] MEDS ORDERED: cloNIDine HCL 0.1 MG TABLET PO ONE (09:03)
[2018-12-04] MEDS: NICOTINE 21 MG/24 HOURS TOPICAL PATCH TD SCH (10:26)
[2018-12-04] MEDS: PRENATAL VITAMINS W/ FOLIC ACID TABLET (FP) PO SCH (10:26)
--- NOTE | 2018-12-04 11:29 | PN ---
S CIWA - CIWA Score Nausea/Vomitin-No Nausea/No Vomiting Muscle Tremors: 3 Anxiety: 3 Agitation: 2 Paroxysmal Sweats: 1-Minimal Palms Moist Orientation: 0-Oriented Tacttile Disturbances: 0-None Auditory Disturbances: 0-None Visual Disturbances: 0-None Headache: 0-None Present CIWA-Ar Total Score: 9 BHS Progress Note (SOAP) Subjective: sweats anxiety restless Objective: 12/04/18 11:26 Vital Signs Temperature 97.9 F 12/04/18 10:24 Pulse Rate 134 H 12/04/18 10:24 Respiratory Rate 18 12/04/18 10:24 Blood Pressure 104/70 12/04/18 10:24 O2 Sat by Pulse Oximetry (%) Laboratory Tests 12/02/18 12/02/18 12/02/18 08:00 08:00 08:00 WBC 2.7 L RBC 3.51 L Hgb 12.8 Hct 36.5 MCV 104.1 H MCH 36.4 H MCHC 35.0 RDW 13.5 Plt Count 167 MPV 7.6 Sodium 141 Potassium 4.1 Chloride 107 Carbon Dioxide 25 Anion Gap 8 BUN 17.5 Creatinine 1.2 Est GFR (CKD-EPI)AfAm 81.80 Est GFR (CKD-EPI)NonAf 70.58 Random Glucose 104 Calcium 8.7 Total Bilirubin 0.5 AST 34 ALT 61 Alkaline Phosphatase 41 L Total Protein 5.8 L Albumin 3.4 Urine Color Urine Appearance Urine pH Ur Specific [place] Urine Protein Urine Glucose (UA) Urine Ketones Urine Blood Urine Nitrite Urine Bilirubin Urine Urobilinogen Ur Leukocyte Esterase RPR Titer Nonreactive 12/02/18 13:30 WBC RBC Hgb Hct MCV MCH MCHC RDW Plt Count MPV Sodium Potassium Chloride Carbon Dioxide Anion Gap BUN Creatinine Est GFR (CKD-EPI)AfAm Est GFR (CKD-EPI)NonAf Random Glucose Calcium Total Bilirubin AST ALT Alkaline Phosphatase Total Protein Albumin Urine Color Yellow Urine Appearance Clear Urine pH 5.0 D Ur Specific [place] 1.014 Urine Protein Negative Urine Glucose (UA) Negative Urine Ketones Negative Urine Blood Negative Urine Nitrite Negative Urine Bilirubin Negative Urine Urobilinogen 0.2 Ur Leukocyte Esterase Negative RPR Titer labs noted tachycardia HR 134 pt denies of chest pain ekg ordered clonidin 0.2mg x one Assessment: 12/04/18 11:28 withdrawal sx Plan: EKG done; normal sinus rhythm noted clonidine 0.2mg x one continue detox increase fluids
--- NOTE | 2018-12-04 12:02 | EKG ---
Test Reason : Blood Pressure : / mmHG Vent. Rate : 096 BPM Atrial Rate : 096 BPM P-R Int : 166 ms QRS Dur : 084 ms QT Int : 324 ms P-R-T Axes : 047 065 046 degrees QTc Int : 409 ms NORMAL SINUS RHYTHM NORMAL ECG WHEN COMPARED WITH ECG OF 22-JUL-2018 18:31, NO SIGNIFICANT CHANGE WAS FOUND Confirmed by MINNIE POSEY MD ([id number]) on 12/04/2018 12:01:32 PM Referred By: NIDA JOYNER Confirmed By:MINNIE POSEY MD
[2018-12-04] MEDS: MELATONIN 5 MG TABLETS PO PRN (21:36)
[2018-12-04] MEDS: THIAMINE HCL 100 MG TABLET (FP) PO SCH (21:37)
[2018-12-05] MEDS: GABAPENTIN 300 MG CAPSULE (FP) PO SCH ×3 (06:04→22:58)
[2018-12-05] MEDS: LEVOTHYROXINE NA 25 MCG TABLET (FP) PO SCH (06:04)
[2018-12-05] MEDS: chlordiazePOXIDE HCL 10 MG CAPSULE PO SCH ×2 (06:05→18:04)
[2018-12-05] MEDS: NICOTINE 21 MG/24 HOURS TOPICAL PATCH TD SCH (10:59)
[2018-12-05] MEDS: PRENATAL VITAMINS W/ FOLIC ACID TABLET (FP) PO SCH (10:59)
[2018-12-05] MEDS: hydrOXYzine PAMOATE 25 MG CAPSULE (FP) PO PRN ×3 (11:00→22:59)
--- NOTE | 2018-12-05 14:35 | PN ---
S CIWA - CIWA Score Nausea/Vomitin-No Nausea/No Vomiting Muscle Tremors: None Anxiety: 2 Agitation: 0-Normal Activity Paroxysmal Sweats: 1-Minimal Palms Moist Orientation: 0-Oriented Tacttile Disturbances: 0-None Auditory Disturbances: 0-None Visual Disturbances: 0-None Headache: 1-Very Mild CIWA-Ar Total Score: 4 S Progress Note (SOAP) Subjective: c/o tiredness, mild anxiety, sweats. Objective: 12/05/18 14:34 Vital Signs 12/05/18 12/05/18 09:52 13:56 Temperature 97.6 F 98.0 F Pulse Rate 87 113 H Respiratory 18 18 Rate Blood Pressure 103/73 101/64 Lab Results WBC 2.7 K/mm3 (4.0-10.0) L 12/02/18 08:00 RBC 3.51 M/mm3 (4.00-5.60) L 12/02/18 08:00 Hgb 12.8 GM/dL (11.7-16.9) 12/02/18 08:00 Hct 36.5 % (35.4-49) 12/02/18 08:00 MCV 104.1 fl (80-96) H 12/02/18 08:00 MCHC 35.0 g/dl (32.0-35.9) 12/02/18 08:00 RDW 13.5 % (11.9-15.9) 12/02/18 08:00 Plt Count 167 K/MM3 (134-434) 12/02/18 08:00 Sodium 141 mmol/L (136-145) 12/02/18 08:00 Potassium 4.1 mmol/L (3.5-5.1) 12/02/18 08:00 Chloride 107 mmol/L (98-107) 12/02/18 08:00 Carbon Dioxide 25 mmol/L (21-32) 12/02/18 08:00 Anion Gap 8 MMOL/L (8-16) 12/02/18 08:00 BUN 17.5 mg/dL (7-18) 12/02/18 08:00 Creatinine 1.2 mg/dL (0.55-1.3) 12/02/18 08:00 Random Glucose 104 mg/dL (74-106) 12/02/18 08:00 Calcium 8.7 mg/dL (8.5-10.1) 12/02/18 08:00 Labs noted. Assessment: 12/05/18 14:34 AOX3, in no acute respiratory distress. Full ROM, ambulating in the unit. mild withdrawal symptoms. For discharge tomorrow. Plan: continue detox. D/C in AM.
[2018-12-05] MEDS: METHOCARBAMOL 500 MG TABLET PO PRN ×2 (16:28→22:59)
[2018-12-05] MEDS: THIAMINE HCL 100 MG TABLET (FP) PO SCH (22:58)
[2018-12-05] MEDS: MELATONIN 5 MG TABLETS PO PRN (22:58)
[2018-12-06] MEDS ORDERED: chlordiazePOXIDE HCL 10 MG CAPSULE PO ONE (05:00)
[2018-12-06] MEDS: GABAPENTIN 300 MG CAPSULE (FP) PO SCH (05:45)
[2018-12-06] MEDS: LEVOTHYROXINE NA 25 MCG TABLET (FP) PO SCH (06:18)
[2018-12-06 09:38] VITALS: BP 109/77; PULSE 112; TEMP 96.1
--- NOTE | 2018-12-06 15:10 | PN ---
S CIWA - CIWA Score Nausea/Vomitin-No Nausea/No Vomiting Muscle Tremors: None Anxiety: 0-No Anxiety, at Ease Agitation: 0-Normal Activity Paroxysmal Sweats: No Perspiration Orientation: 0-Oriented Tacttile Disturbances: 0-None Auditory Disturbances: 0-None Visual Disturbances: 0-None Headache: 0-None Present CIWA-Ar Total Score: 0 BHS Progress Note (SOAP) Subjective: no complaints offered Objective: 12/06/18 15:09 A & O x 3 gait steady not in acute distress Vital Signs Temperature 96.1 F L 12/06/18 09:37 Pulse Rate 112 H 12/06/18 09:37 Respiratory Rate 20 12/06/18 09:37 Blood Pressure 109/77 12/06/18 09:37 O2 Sat by Pulse Oximetry (%) Assessment: 12/06/18 15:10 detox completed Plan: for d/c
--- NOTE | 2018-12-06 15:11 | DS ---
[facility] Detox Discharge Summary Admission Date: 12/01/18 Discharge Date: 12/06/18 - History Additional Comments: for discharge due to completion of detox. In no distress. States he will continue aftercare by attending Outpatient facility at [facility] No med refill needed as per last provider note - Physical Exam Results Vital Signs: Vital Signs Temperature 96.1 F L 12/06/18 09:37 Pulse Rate 112 H 12/06/18 09:37 Respiratory Rate 20 12/06/18 09:37 Blood Pressure 109/77 12/06/18 09:37 O2 Sat by Pulse Oximetry (%) Pertinent Admission Physical Exam Findings: withdrawal sx - Treatment Hospital Course: Detox Protocol Followed, Detoxed Safely, Responded well, Discharged Condition Good, Rehab Referral Accepted Patient has Accepted a Rehab Referral to: [facility] - Medication Discharge Medications: Ambulatory Orders Gabapentin [Neurontin] 600 mg PO TID #90 tablet 12/25/17 Cholecalciferol (Vitamin D3) [Vitamin D3 -] 1,000 unit PO DAILY 03/30/18 Levothyroxine [Synthroid -] 75 mcg PO DAILY@0700 #30 tablet 07/27/18 - Diagnosis (1) Alcohol dependence with uncomplicated withdrawal Status: Acute (2) Anemia Status: Acute Qualifiers: Anemia type: unspecified type Qualified Code(s): D64.9 - Anemia, unspecified (3) Cocaine abuse, uncomplicated Status: Acute (4) Depression Status: Acute Qualifiers: Depression Type: unspecified Qualified Code(s): F32.9 - Major depressive disorder, single episode, unspecified (5) Elevated aspartate aminotransferase level Status: Acute (6) Nicotine dependence Status: Acute Qualifiers: Nicotine product type: cigarettes Substance use status: in withdrawal Qualified Code(s): F17.213 - Nicotine dependence, cigarettes, with withdrawal (7) GERD (gastroesophageal reflux disease) Status: Chronic Qualifiers: Esophagitis presence: without esophagitis Qualified Code(s): K21.9 - Gastro -esophageal reflux disease without esophagitis (8) Hepatitis C Status: Chronic Qualifiers: Viral hepatitis chronicity: unspecified Hepatic coma status: without hepatic coma Qualified Code(s): B19.20 - Unspecified viral hepatitis C without hepatic coma (9) Seizure disorder Status: Chronic (10) Drug-induced mood disorder Status: Suspected - AMA Did Patient Leave Against Medical Advice: No
== END 2018-12-06 08:43 | disposition home or self-care (01) | DRG 774 ==
LOC: YASAS 17:26 → Y6N 22:03
PROVIDERS: ADMIT Surgery; ATTEND Surgery
PROC: HZ2ZZZZ Detoxification Services for Substance Abuse Treatment (ICD-10-PCS; principal; 2018-12-01)
DX: F10.230 Alcohol dependence with withdrawal, uncomplicated (principal); F14.10 Cocaine abuse, uncomplicated; F17.210 Nicotine dependence, cigarettes, uncomplicated; F19.24 Other psychoactive substance dependence with psychoactive substance-induced mood disorder; F32.9 Major depressive disorder, single episode, unspecified; I10 Essential (primary) hypertension; E11.9 Type 2 diabetes mellitus without complications; B19.20 Unspecified viral hepatitis C without hepatic coma; G40.909 Epilepsy, unspecified, not intractable, without status epilepticus; D64.9 Anemia, unspecified; K21.9 Gastro-esophageal reflux disease without esophagitis; E03.9 Hypothyroidism, unspecified; R00.0 Tachycardia, unspecified; R94.5 Abnormal results of liver function studies; Z91.89 Other specified personal risk factors, not elsewhere classified; Z88.0 Allergy status to penicillin; Z91.018 Allergy to other foods
CPT/HCPCS: 36415; 80053; 81003; 85027; 86593; 93005; 93010; J0735

== ENCOUNTER 2019-01-07 17:38 | Inpatient (IN) | payer OTHER ==
[2019-01-07 21:49] VITALS: BMI 28.8
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
[2019-01-07] MEDS ORDERED: IBUPROFEN 400 MG TABLET (FP) PO PRN (22:11)
[2019-01-07] MEDS ORDERED: MAGNESIUM CITRATE 300 ML BOTTLE PO PRN (22:11)
[2019-01-07] MEDS ORDERED: BISMUTH SUBSALICYLATE 524 MG/30 ML UD PO PRN (22:11)
[2019-01-07] MEDS ORDERED: guaiFENesin 200 MG/10 ML 10 ML UNIT-DOSE CUPS PO PRN (22:11)
[2019-01-07] MEDS ORDERED: MAG HYDROX/AL HYDROX/SIMETH 30 ML UNIT-DOSE CUP PO PRN (22:11)
[2019-01-07] MEDS ORDERED: NICOTINE POLACRILEX 2 MG GUM BUC PRN (22:11)
[2019-01-07] MEDS ORDERED: MAGNESIUM HYDROX 2400MG/30ML ORAL SUSPENSION 30 ML CUP PO PRN (22:11)
[2019-01-07] MEDS ORDERED: ACETAMINOPHEN 325 MG TABLET (FP) PO PRN ×2 (22:11)
[2019-01-07] MEDS ORDERED: DICYCLOMINE HCL 10 MG CAPSULE PO PRN (22:11)
[2019-01-07] MEDS ORDERED: ONDANSETRON *ODT* 4 MG TABLET SL PRN (22:11)
[2019-01-07] MEDS ORDERED: P-EPHED 60MG/TRIPROLIDI 2.5MG TABLET PO PRN (22:11)
[2019-01-07] MEDS ORDERED: MENTHOL/PHENOL 1 EACH UD MM PRN (22:11)
[2019-01-07] MEDS: chlordiazePOXIDE HCL 25 MG CAPSULE PO SCH (22:57)
[2019-01-07] MEDS: MELATONIN 5 MG TABLETS PO PRN (22:59)
[2019-01-08] MEDS: chlordiazePOXIDE HCL 25 MG CAPSULE PO PRN ×2 (02:02→08:53)
[2019-01-08] MEDS: GABAPENTIN 300 MG CAPSULE (FP) PO SCH ×3 (05:21→22:11)
[2019-01-08] MEDS: chlordiazePOXIDE HCL 25 MG CAPSULE PO SCH ×4 (05:21→22:11)
[2019-01-08] MEDS: LEVOTHYROXINE NA 25 MCG TABLET (FP) PO SCH (06:21)
[2019-01-08 09:54] LABS: HEMATOCRIT 33.7 % (35.4-49); HEMOGLOBIN 11.9 GM/dL (11.7-16.9); MCH 36.5 pg (25.7-33.7); MCHC 35.2 g/dl (32.0-35.9); MEAN CELL VOLUME 103.7 fl (80-96); MEAN PLT VOLUME 7.3 fl (7.5-11.1); PLATELET COUNT 181 K/MM3 (134-434); RBC 3.25 M/mm3 (4.00-5.60); RDW 13.7 % (11.9-15.9); WHITE BLOOD COUNT 3.6 K/mm3 (4.0-10.0)
[2019-01-08] MEDS: NICOTINE 14 MG/24 HOURS TOPICAL PATCH TD SCH (10:24)
[2019-01-08 10:55] LABS: ALBUMIN 3.4 g/dl (3.4-5.0); BILIRUBIN,TOTAL 0.5 mg/dL (0.2-1); BLOOD UREA NITROGEN 12.5 mg/dL (7-18); CALCIUM 8.2 mg/dL (8.5-10.1); CREATININE 1.2 mg/dL (0.55-1.3); POTASSIUM 3.8 mmol/L (3.5-5.1); TOT PROT 5.8 g/dl (6.4-8.2)
[2019-01-08 12:39] LABS: URINE APPEARANCE CLEAR; URINE BILIRUBIN NEGATIVE (NEGATIVE); URINE COLOR YELLOW; URINE GLUCOSE (UA) NEGATIVE (NEGATIVE); URINE KETONE NEGATIVE (NEGATIVE); URINE LEUK ESTERASE NEGATIVE (NEGATIVE); URINE NITRITE NEGATIVE (NEGATIVE); URINE PROTEIN NEGATIVE (NEGATIVE); URINE UROBILINOGEN 0.2 mg/dL (0.2-1.0)
--- NOTE | 2019-01-08 13:25 | PN ---
[facility] CIWA - CIWA Score Nausea/Vomitin-Mild Nausea/No Vomiting Muscle Tremors: 2 Anxiety: 2 Agitation: 2 Paroxysmal Sweats: No Perspiration Orientation: 0-Oriented Tacttile Disturbances: 1-Very Mild Itch/Numbness Auditory Disturbances: 0-None Visual Disturbances: 0-None Headache: 2-Mild CIWA-Ar Total Score: 10 S Progress Note (SOAP) Subjective: alert,irritable,anxious,interrupted sleep,tremor Objective: 01/08/19 13:24 Vital Signs Temperature 97.6 F 01/08/19 13:18 Pulse Rate 110 H 01/08/19 13:18 Respiratory Rate 20 01/08/19 13:18 Blood Pressure 95/65 01/08/19 13:18 O2 Sat by Pulse Oximetry (%) 01/08/19 13:24 Laboratory Last Values WBC 3.6 K/mm3 (4.0-10.0) L 01/08/19 08:00 RBC 3.25 M/mm3 (4.00-5.60) L 01/08/19 08:00 Hgb 11.9 GM/dL (11.7-16.9) 01/08/19 08:00 Hct 33.7 % (35.4-49) L 01/08/19 08:00 MCV 103.7 fl (80-96) H 01/08/19 08:00 MCH 36.5 pg (25.7-33.7) H 01/08/19 08:00 MCHC 35.2 g/dl (32.0-35.9) 01/08/19 08:00 RDW 13.7 % (11.9-15.9) 01/08/19 08:00 Plt Count 181 K/MM3 (134-434) 01/08/19 08:00 MPV 7.3 fl (7.5-11.1) L 01/08/19 08:00 Sodium 139 mmol/L (136-145) 01/08/19 08:00 Potassium 3.8 mmol/L (3.5-5.1) 01/08/19 08:00 Chloride 108 mmol/L (98-107) H 01/08/19 08:00 Carbon Dioxide 26 mmol/L (21-32) 01/08/19 08:00 Anion Gap 5 MMOL/L (8-16) L 01/08/19 08:00 BUN 12.5 mg/dL (7-18) 01/08/19 08:00 Creatinine 1.2 mg/dL (0.55-1.3) 01/08/19 08:00 Est GFR (CKD-EPI)AfAm 81.80 01/08/19 08:00 Est GFR (CKD-EPI)NonAf 70.58 01/08/19 08:00 POC Glucometer 111 UNITS (80-120) 01/08/19 06:08 Random Glucose 91 mg/dL (74-106) 01/08/19 08:00 Calcium 8.2 mg/dL (8.5-10.1) L 01/08/19 08:00 Total Bilirubin 0.5 mg/dL (0.2-1) 01/08/19 08:00 AST 44 U/L (15-37) H 01/08/19 08:00 ALT 40 U/L (13-61) 01/08/19 08:00 Alkaline Phosphatase 45 U/L (45-117) 01/08/19 08:00 Total Protein 5.8 g/dl (6.4-8.2) L 01/08/19 08:00 Albumin 3.4 g/dl (3.4-5.0) 01/08/19 08:00 Urine Color Yellow 01/08/19 08:10 Urine Appearance Clear 01/08/19 08:10 Urine pH 5.0 (5.0-8.0) 01/08/19 08:10 Ur Specific [place] 1.006 (1.010-1.035) L 01/08/19 08:10 Urine Protein Negative (NEGATIVE) 01/08/19 08:10 Urine Glucose (UA) Negative (NEGATIVE) 01/08/19 08:10 Urine Ketones Negative (NEGATIVE) 01/08/19 08:10 Urine Blood Negative (NEGATIVE) 01/08/19 08:10 Urine Nitrite Negative (NEGATIVE) 01/08/19 08:10 Urine Bilirubin Negative (NEGATIVE) 01/08/19 08:10 Urine Urobilinogen 0.2 mg/dL (0.2-1.0) 01/08/19 08:10 Ur Leukocyte Esterase Negative (NEGATIVE) 01/08/19 08:10 Assessment: 01/08/19 13:24 withdrawal symptom Plan: continue detox librium regimen
--- NOTE | 2019-01-08 13:36 | EKG ---
Test Reason : Blood Pressure : / mmHG Vent. Rate : 095 BPM Atrial Rate : 095 BPM P-R Int : 188 ms QRS Dur : 084 ms QT Int : 356 ms P-R-T Axes : 051 075 057 degrees QTc Int : 447 ms NORMAL SINUS RHYTHM NORMAL ECG WHEN COMPARED WITH ECG OF 04-DEC-2018 08:12, NO SIGNIFICANT CHANGE WAS FOUND Confirmed by MINNIE POSEY MD ([id number]) on 01/08/2019 1:35:39 PM Referred By: Tacho Moncada Confirmed By:MINNIE POSEY MD
--- NOTE | 2019-01-08 14:05 | CONSULT ---
[facility] Psychiatric Consult - Data Date of interview: 01/08/19 Admission source: [facility] Identifying data: Patient is approached by this check writer for the psychiatric interview. " I don't need to see psychiatrists." Mr Barrios declines psychiatric evaluation. Nursing staff is made aware.
[2019-01-08] MEDS: THIAMINE HCL 100 MG TABLET (FP) PO SCH (22:11)
[2019-01-08] MEDS: MELATONIN 5 MG TABLETS PO PRN (22:12)
[2019-01-09] MEDS: chlordiazePOXIDE HCL 25 MG CAPSULE PO PRN ×2 (05:35→15:25)
[2019-01-09] MEDS: GABAPENTIN 300 MG CAPSULE (FP) PO SCH ×3 (05:36→22:20)
[2019-01-09] MEDS: chlordiazePOXIDE HCL 25 MG CAPSULE PO SCH ×4 (05:38→22:20)
[2019-01-09] MEDS: LEVOTHYROXINE NA 25 MCG TABLET (FP) PO SCH (07:04)
[2019-01-09] MEDS: NICOTINE 14 MG/24 HOURS TOPICAL PATCH TD SCH (10:07)
[2019-01-09] MEDS: hydrOXYzine PAMOATE 25 MG CAPSULE (FP) PO PRN ×2 (11:46→20:06)
--- NOTE | 2019-01-09 12:29 | PN ---
S CIWA - CIWA Score Nausea/Vomitin-No Nausea/No Vomiting Muscle Tremors: 2 Anxiety: 3 Agitation: 0-Normal Activity Paroxysmal Sweats: 3 Orientation: 0-Oriented Tacttile Disturbances: 0-None Auditory Disturbances: 0-None Visual Disturbances: 0-None Headache: 0-None Present CIWA-Ar Total Score: 8 S Progress Note (SOAP) Subjective: c/o sweats, anxiety, and headache. Objective: 01/09/19 12:28 Vital Signs 01/09/19 01/09/19 06:13 09:34 Temperature 96.5 F L 96.8 F L Pulse Rate 67 98 H Respiratory 18 18 Rate Blood Pressure 107/71 128/85 Lab Results WBC 3.6 K/mm3 (4.0-10.0) L 01/08/19 08:00 RBC 3.25 M/mm3 (4.00-5.60) L 01/08/19 08:00 Hgb 11.9 GM/dL (11.7-16.9) 01/08/19 08:00 Hct 33.7 % (35.4-49) L 01/08/19 08:00 MCV 103.7 fl (80-96) H 01/08/19 08:00 MCHC 35.2 g/dl (32.0-35.9) 01/08/19 08:00 RDW 13.7 % (11.9-15.9) 01/08/19 08:00 Plt Count 181 K/MM3 (134-434) 01/08/19 08:00 Sodium 139 mmol/L (136-145) 01/08/19 08:00 Potassium 3.8 mmol/L (3.5-5.1) 01/08/19 08:00 Chloride 108 mmol/L (98-107) H 01/08/19 08:00 Carbon Dioxide 26 mmol/L (21-32) 01/08/19 08:00 Anion Gap 5 MMOL/L (8-16) L 01/08/19 08:00 BUN 12.5 mg/dL (7-18) 01/08/19 08:00 Creatinine 1.2 mg/dL (0.55-1.3) 01/08/19 08:00 Random Glucose 91 mg/dL (74-106) 01/08/19 08:00 Calcium 8.2 mg/dL (8.5-10.1) L 01/08/19 08:00 Labs noted. Assessment: 01/09/19 12:28 AOX3, in no acute respiratory distress. Full rom, ambulating in the unit. Withdrawal symptoms. Plan: continue detox.
[2019-01-09] MEDS: METHOCARBAMOL 500 MG TABLET PO PRN (20:06)
[2019-01-09] MEDS: MELATONIN 5 MG TABLETS PO PRN (22:20)
[2019-01-09] MEDS: THIAMINE HCL 100 MG TABLET (FP) PO SCH (22:20)
[2019-01-10] MEDS ORDERED: chlordiazePOXIDE HCL 10 MG CAPSULE PO PRN
[2019-01-10] MEDS: GABAPENTIN 300 MG CAPSULE (FP) PO SCH ×3 (05:12→22:08)
[2019-01-10] MEDS: chlordiazePOXIDE HCL 10 MG CAPSULE PO SCH ×4 (05:12→22:08)
[2019-01-10] MEDS: METHOCARBAMOL 500 MG TABLET PO PRN ×2 (05:12→10:10)
[2019-01-10] MEDS: LEVOTHYROXINE NA 25 MCG TABLET (FP) PO SCH (06:33)
[2019-01-10] MEDS: NICOTINE 14 MG/24 HOURS TOPICAL PATCH TD SCH (10:09)
[2019-01-10] MEDS: hydrOXYzine PAMOATE 25 MG CAPSULE (FP) PO PRN (12:27)
--- NOTE | 2019-01-10 13:23 | PN ---
[facility] CIWA - CIWA Score Nausea/Vomitin-No Nausea/No Vomiting Muscle Tremors: 2 Anxiety: 2 Agitation: 2 Paroxysmal Sweats: 1-Minimal Palms Moist Orientation: 0-Oriented Tacttile Disturbances: 0-None Auditory Disturbances: 0-None Visual Disturbances: 0-None Headache: 0-None Present CIWA-Ar Total Score: 7 S Progress Note (SOAP) Subjective: 48 years old male admitted on 01/07/19 for alcohol withdrawal sx management treatd with librium detox regimen trouble sleep at night belsomra 5 mg po x 1 hs Objective: 01/10/19 13:27 Vital Signs Temperature 96.5 F L 01/10/19 13:10 Pulse Rate 92 H 01/10/19 13:10 Respiratory Rate 18 01/10/19 13:10 Blood Pressure 109/71 01/10/19 13:10 O2 Sat by Pulse Oximetry (%) Laboratory Last Values WBC 3.6 K/mm3 (4.0-10.0) L 01/08/19 08:00 RBC 3.25 M/mm3 (4.00-5.60) L 01/08/19 08:00 Hgb 11.9 GM/dL (11.7-16.9) 01/08/19 08:00 Hct 33.7 % (35.4-49) L 01/08/19 08:00 MCV 103.7 fl (80-96) H 01/08/19 08:00 MCH 36.5 pg (25.7-33.7) H 01/08/19 08:00 MCHC 35.2 g/dl (32.0-35.9) 01/08/19 08:00 RDW 13.7 % (11.9-15.9) 01/08/19 08:00 Plt Count 181 K/MM3 (134-434) 01/08/19 08:00 MPV 7.3 fl (7.5-11.1) L 01/08/19 08:00 Sodium 139 mmol/L (136-145) 01/08/19 08:00 Potassium 3.8 mmol/L (3.5-5.1) 01/08/19 08:00 Chloride 108 mmol/L (98-107) H 01/08/19 08:00 Carbon Dioxide 26 mmol/L (21-32) 01/08/19 08:00 Anion Gap 5 MMOL/L (8-16) L 01/08/19 08:00 BUN 12.5 mg/dL (7-18) 01/08/19 08:00 Creatinine 1.2 mg/dL (0.55-1.3) 01/08/19 08:00 Est GFR (CKD-EPI)AfAm 81.80 01/08/19 08:00 Est GFR (CKD-EPI)NonAf 70.58 01/08/19 08:00 POC Glucometer 123 UNITS (80-120) 01/10/19 05:11 Random Glucose 91 mg/dL (74-106) 01/08/19 08:00 Calcium 8.2 mg/dL (8.5-10.1) L 01/08/19 08:00 Total Bilirubin 0.5 mg/dL (0.2-1) 01/08/19 08:00 AST 44 U/L (15-37) H 01/08/19 08:00 ALT 40 U/L (13-61) 01/08/19 08:00 Alkaline Phosphatase 45 U/L (45-117) 01/08/19 08:00 Total Protein 5.8 g/dl (6.4-8.2) L 01/08/19 08:00 Albumin 3.4 g/dl (3.4-5.0) 01/08/19 08:00 Urine Color Yellow 01/08/19 08:10 Urine Appearance Clear 01/08/19 08:10 Urine pH 5.0 (5.0-8.0) 01/08/19 08:10 Ur Specific [place] 1.006 (1.010-1.035) L 01/08/19 08:10 Urine Protein Negative (NEGATIVE) 01/08/19 08:10 Urine Glucose (UA) Negative (NEGATIVE) 01/08/19 08:10 Urine Ketones Negative (NEGATIVE) 01/08/19 08:10 Urine Blood Negative (NEGATIVE) 01/08/19 08:10 Urine Nitrite Negative (NEGATIVE) 01/08/19 08:10 Urine Bilirubin Negative (NEGATIVE) 01/08/19 08:10 Urine Urobilinogen 0.2 mg/dL (0.2-1.0) 01/08/19 08:10 Ur Leukocyte Esterase Negative (NEGATIVE) 01/08/19 08:10 lab noted Assessment: 01/10/19 13:27 alcohol withdrawal sx Plan: continue librium detox regimen
[2019-01-10] MEDS ORDERED: hydrOXYzine PAMOATE 25 MG CAPSULE (FP) PO PRN (15:09)
[2019-01-10] MEDS ORDERED: SUVOREXANT 5 MG TABLET PO SCH (22:00)
[2019-01-10] MEDS: THIAMINE HCL 100 MG TABLET (FP) PO SCH (22:08)
[2019-01-10] MEDS: MELATONIN 5 MG TABLETS PO PRN (22:08)
[2019-01-11] MEDS ORDERED: chlordiazePOXIDE HCL 10 MG CAPSULE PO SCH (05:00)
[2019-01-11] MEDS: GABAPENTIN 300 MG CAPSULE (FP) PO SCH (05:31)
[2019-01-11 06:23] VITALS: BP 101/55; PULSE 71; TEMP 96.9
[2019-01-11] MEDS: LEVOTHYROXINE NA 25 MCG TABLET (FP) PO SCH (06:30)
--- NOTE | 2019-01-11 12:57 | DS ---
[facility] Detox Discharge Summary Admission Date: 01/07/19 Discharge Date: 01/11/19 - History Present History: Alcohol Dependence Additional Comments: 48 years old male admitted on 01/07/19 for alcohol withdrawal sx management treated with librium detox regimen patient is alert oriented x 3 cardiac S1S2 regular rate rhythm respiratory clear lung bilaterally on auscultation abdomen soft no rebound tenderness Pertinent Past History: patient prefers to leave the detox unit one day early that he wants to return home for personal belonging patient speech clearly coherently - Physical Exam Results Vital Signs: Vital Signs Temperature 96.9 F L 01/11/19 06:23 Pulse Rate 71 01/11/19 06:23 Respiratory Rate 18 01/11/19 06:23 Blood Pressure 101/55 L 01/11/19 06:23 O2 Sat by Pulse Oximetry (%) Pertinent Admission Physical Exam Findings: alcohol withdrawal sx Laboratory Last Values WBC 3.6 K/mm3 (4.0-10.0) L 01/08/19 08:00 RBC 3.25 M/mm3 (4.00-5.60) L 01/08/19 08:00 Hgb 11.9 GM/dL (11.7-16.9) 01/08/19 08:00 Hct 33.7 % (35.4-49) L 01/08/19 08:00 MCV 103.7 fl (80-96) H 01/08/19 08:00 MCH 36.5 pg (25.7-33.7) H 01/08/19 08:00 MCHC 35.2 g/dl (32.0-35.9) 01/08/19 08:00 RDW 13.7 % (11.9-15.9) 01/08/19 08:00 Plt Count 181 K/MM3 (134-434) 01/08/19 08:00 MPV 7.3 fl (7.5-11.1) L 01/08/19 08:00 Sodium 139 mmol/L (136-145) 01/08/19 08:00 Potassium 3.8 mmol/L (3.5-5.1) 01/08/19 08:00 Chloride 108 mmol/L (98-107) H 01/08/19 08:00 Carbon Dioxide 26 mmol/L (21-32) 01/08/19 08:00 Anion Gap 5 MMOL/L (8-16) L 01/08/19 08:00 BUN 12.5 mg/dL (7-18) 01/08/19 08:00 Creatinine 1.2 mg/dL (0.55-1.3) 01/08/19 08:00 Est GFR (CKD-EPI)AfAm 81.80 01/08/19 08:00 Est GFR (CKD-EPI)NonAf 70.58 01/08/19 08:00 POC Glucometer 136 UNITS (80-120) 01/11/19 05:30 Random Glucose 91 mg/dL (74-106) 01/08/19 08:00 Calcium 8.2 mg/dL (8.5-10.1) L 01/08/19 08:00 Total Bilirubin 0.5 mg/dL (0.2-1) 01/08/19 08:00 AST 44 U/L (15-37) H 01/08/19 08:00 ALT 40 U/L (13-61) 01/08/19 08:00 Alkaline Phosphatase 45 U/L (45-117) 01/08/19 08:00 Total Protein 5.8 g/dl (6.4-8.2) L 01/08/19 08:00 Albumin 3.4 g/dl (3.4-5.0) 01/08/19 08:00 Urine Color Yellow 01/08/19 08:10 Urine Appearance Clear 01/08/19 08:10 Urine pH 5.0 (5.0-8.0) 01/08/19 08:10 Ur Specific [place] 1.006 (1.010-1.035) L 01/08/19 08:10 Urine Protein Negative (NEGATIVE) 01/08/19 08:10 Urine Glucose (UA) Negative (NEGATIVE) 01/08/19 08:10 Urine Ketones Negative (NEGATIVE) 01/08/19 08:10 Urine Blood Negative (NEGATIVE) 01/08/19 08:10 Urine Nitrite Negative (NEGATIVE) 01/08/19 08:10 Urine Bilirubin Negative (NEGATIVE) 01/08/19 08:10 Urine Urobilinogen 0.2 mg/dL (0.2-1.0) 01/08/19 08:10 Ur Leukocyte Esterase Negative (NEGATIVE) 01/08/19 08:10 lab noted - Treatment Hospital Course: Detox Protocol Followed, Detoxed Safely, Responded well, Discharged Condition Good, Rehab Referral Accepted Patient has Accepted a Rehab Referral to: [facility] - Medication Discharge Medications: Ambulatory Orders Gabapentin [Neurontin] 600 mg PO TID #90 tablet 12/25/17 Cholecalciferol (Vitamin D3) [Vitamin D3 -] 1,000 unit PO DAILY 03/30/18 Levothyroxine [Synthroid -] 75 mcg PO DAILY@0700 #30 tablet 07/27/18 - Diagnosis (1) Alcohol dependence with uncomplicated withdrawal Status: Acute (2) DM type 2 (diabetes mellitus, type 2) Status: Chronic Qualifiers: Diabetes mellitus half-way insulin use: unspecified salvage determiner insulin use status Diabetes mellitus complication status: without complication Qualified Code(s): E11.9 - Type 2 diabetes mellitus without complications (3) GERD (gastroesophageal reflux disease) Status: Chronic Qualifiers: Esophagitis presence: without esophagitis Qualified Code(s): K21.9 - Gastro -esophageal reflux disease without esophagitis (4) Hepatitis C Status: Chronic Qualifiers: Viral hepatitis chronicity: unspecified Hepatic coma status: without hepatic coma Qualified Code(s): B19.20 - Unspecified viral hepatitis C without hepatic coma (5) Hypertension Status: Chronic Qualifiers: Hypertension type: essential hypertension Qualified Code(s): I10 - Essential (primary) hypertension (6) Hypothyroidism Status: Chronic Qualifiers: Hypothyroidism type: unspecified Qualified Code(s): E03.9 - Hypothyroidism , unspecified (7) Nicotine dependence Status: Acute Qualifiers: Nicotine product type: cigarettes Substance use status: in withdrawal Qualified Code(s): F17.213 - Nicotine dependence, cigarettes, with withdrawal (8) Substance induced mood disorder Status: Suspected - AMA Did Patient Leave Against Medical Advice: No CIWA Score - CIWA Score Nausea/Vomitin-No Nausea/No Vomiting Muscle Tremors: 1-None Visible, but [place] Anxiety: 1-Mildly Anxious Agitation: 1-Slight > Activity Paroxysmal Sweats: 1-Minimal Palms Moist Orientation: 0-Oriented Tacttile Disturbances: 0-None Auditory Disturbances: 0-None Visual Disturbances: 0-None Headache: 0-None Present CIWA-Ar Total Score: 4
[2019-01-12] MEDS ORDERED: chlordiazePOXIDE HCL 10 MG CAPSULE PO ONE (05:00)
== END 2019-01-11 08:54 | disposition home or self-care (01) | DRG 774 ==
LOC: YASAS 17:38 → Y3N 22:10
PROVIDERS: ADMIT Allergy & Immunology; ATTEND Allergy & Immunology
PROC: HZ2ZZZZ Detoxification Services for Substance Abuse Treatment (ICD-10-PCS; principal; 2019-01-07)
DX: F10.230 Alcohol dependence with withdrawal, uncomplicated (principal); F14.20 Cocaine dependence, uncomplicated; F17.213 Nicotine dependence, cigarettes, with withdrawal; F19.280 Other psychoactive substance dependence with psychoactive substance-induced anxiety disorder; F19.24 Other psychoactive substance dependence with psychoactive substance-induced mood disorder; F41.9 Anxiety disorder, unspecified; F32.9 Major depressive disorder, single episode, unspecified; E03.9 Hypothyroidism, unspecified; E11.9 Type 2 diabetes mellitus without complications; Z79.4 Long term (current) use of insulin; I10 Essential (primary) hypertension; K21.9 Gastro-esophageal reflux disease without esophagitis; B18.2 Chronic viral hepatitis C; G47.00 Insomnia, unspecified; M54.40 Lumbago with sciatica, unspecified side; G89.29 Other chronic pain; Z91.89 Other specified personal risk factors, not elsewhere classified; Z88.0 Allergy status to penicillin; Z91.013 Allergy to seafood; Z91.048 Other nonmedicinal substance allergy status
CPT/HCPCS: 36415; 80053; 81003; 82962; 85027; 93005; 93010

== ENCOUNTER 2019-01-27 21:20 | Emergency (ER) | payer OTHER ==
[2019-01-27 21:26] VITALS: BMI 27.7
--- NOTE | 2019-01-27 21:34 | PDOC ---
History of Present Illness - General Chief Complaint: Alcohol intoxication Stated Complaint: INTOX Time Seen by Provider: 01/27/19 21:34 History Source: Patient Exam Limitations: Intoxication - History of Present Illness Initial Comments: Pt is a 48 yo M, with PMH of polysubstance use (nicotine, alcohol, cocaine) and HCV, who is presenting from [facility] via EMS for alcohol intoxication. Pt states his last drink ("a lot of beer") was today just before he presented to [facility]. Pts alcohol level at [facility] was 0.2 and then 0.18. Pt is asking for librium as "I'm withdrawing". Pts ROS is limited due to lack of cooperation and intoxication, but pt denies any recent fevers/chills, headache, vision changes, syncope, chest pain, palpitations, SOB, nausea/vomiting, abdominal pain , urinary symptoms, diarrhea/constipation, or leg swelling. Allergies: PCN, Iron Social: Pt is an everyday cigarette smoker. Pt endorses frequent cocaine use, and drinks alcohol (beer and liquor) every day. Pt presented to detox today for alcohol use. Pt denies any recent travel or sick contacts. Surgical: no relevant history. Family: no relevant history. Past History - Past Medical History Allergies/Adverse Reactions: Allergies Fish Containing Products Allergy (Severe, Verified 01/27/19 21:26) Swelling Penicillins Allergy (Severe, Verified 01/27/19 21:26) Swelling silver Allergy (Severe, Verified 01/27/19 21:26) Hives iron Adverse Reaction (Severe, Verified 01/27/19 21:26) Rash Home Medications: Ambulatory Orders Gabapentin [Neurontin] 600 mg PO TID #90 tablet 12/25/17 Cholecalciferol (Vitamin D3) [Vitamin D3 -] 1,000 unit PO DAILY 03/30/18 Levothyroxine [Synthroid -] 75 mcg PO DAILY@0700 #30 tablet 07/27/18 Psychosocial History: Yes: other (polysubstance abuse) Surgical History: Yes: Noncontributory - Family History Significant Family History: Yes: no pertinent family hx - Immunization History Immunization Up to Date: Yes - Social History Smoking Status: Unknown if ever smoked Number of Cigarettes Per Day: 10 Cigars Per Day: 0 *Review of Systems - Review of Systems Able to Perform ROS?: No (see HPI, intox) *Physical Exam - Vital Signs Last Vital Signs Temp Pulse Resp BP Pulse Ox 98.3 F 18 120/82 99 01/27/19 21:22 01/27/19 21:22 01/27/19 21:22 01/27/19 21:22 - Physical Exam Comments: Vitals stable, pt afebrile. Pt in NAD, but smells strongly of alcohol and is slurring his words. Is argumentative and loud with staff. Normal body habitus. Pt alert and oriented x3. Answers most questions appropriately, but also begins to ramble and becomes argumentative without being able to stay on track. No tongue fasciculation or hand tremors b/l. 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 No midline spinal tenderness, step-offs, or crepitus. Head normocephalic, atraumatic. Eyes PERRLA, EOMI. Oropharynx without erythema or exudates, no LAD b/l. No nasal congestion. Hearing intact. Clear heart sounds, S1/S2, no JVD, b/l pedal edema, or heart murmur. Clear lung sounds, no respiratory distress, wheezes, crackles, or accessory muscle use. No abdominal or CVA tenderness to palpation, no rebound, no guarding. Abdomen soft, non-distended, and with normoactive bowel sounds. Skin without jaundice or rash. 01/27/19 22:12 01/27/19 22:15 Discharge Disposition - Diagnosis Alcohol intoxication Qualifiers: Complication of substance-induced condition: uncomplicated Qualified Code(s): F10.920 - Alcohol use, unspecified with intoxication, uncomplicated - Discharge Dispostion Last Admission D/C Date: 01/11/19 - Referrals Referrals: [facility] [place] Internal [facility] at [place] [Provider Group] - Patient Instructions Printed Discharge Instructions: DI for Alcohol Abuse Additional Instructions: You were seen in the ER today for alcohol intoxication. Please present to [facility] IMMEDIATELY for intake. Please return to the ER if you have any worsening pain, development of fevers or chills, loss of consciousness, inability to tolerate food or fluids, or any other concerns. - Post Discharge Activity BHS CIWA - CIWA Score Nausea/Vomitin-No Nausea/No Vomiting Muscle Tremors: None Anxiety: 1-Mildly Anxious Agitation: 0-Normal Activity Paroxysmal Sweats: No Perspiration Orientation: 0-Oriented Tacttile Disturbances: 0-None Auditory Disturbances: 0-None Visual Disturbances: 0-None Headache: 0-None Present CIWA-Ar Total Score: 1 Critical Care Time/MDM Note - Medical Decision Making Note: Pt was seen at bedside, also will be seen by attending Dr. Bauer. Pt presenting with alcohol intoxication, sent from [facility] due to being aggressive and too intoxicated. Pt verbally aggressive with staff, but expresses no SI or HI at this time. Will monitor pt for clinical sobriety and pt will return to [facility] for alcohol detox. Provided PO water for hydration. Can provide librium PO as needed for withdrawal. Will continue to reassess pt and monitor for symptomatic improvement. 01/27/19 22:15 Provided 50 PO librium and 4 SL zofran for nausea. 01/27/19 23:21 [facility] detox (spoke with Violetta), who will not accept pt back without alcohol level. Ordered blood alcohol level. 01/27/19 23:41 Pending BAL. Pt signed out to Dr. Jonas (night team). 01/27/19 23:58
--- NOTE | 2019-01-27 21:38 | PDOC ---
Attending Attestation - Resident Resident Name: MarylouCarolyn - ED Attending Attestation I have performed the following: I have examined & evaluated the patient, The case was reviewed & discussed with the resident, I agree w/resident's findings & plan - HPI HPI: 01/27/19 21:37 Pt was sent from [facility] because he had an alcohol lebel of 180 and he was being aggressive. Pt sent here to be monitored and to sober up. He has no complaints. - Physicial Exam PE: 01/27/19 21:37 Agree with resident exam - Medical Decision Making 01/27/19 21:38 Pt will be observed for 3 hrs and then he will be discharged back to [facility]. 01/28/19 06:38 Pt's repeat etoh is down near 250; he can be transferred back to [facility] however, I cannot get in touch with the GERIATRICIAN Violetta at [facility]; the AM ER docs will send him back
[2019-01-27] MEDS ORDERED: chlordiazePOXIDE HCL 25 MG CAPSULE PO ONE (22:27)
[2019-01-27] MEDS ORDERED: chlordiazePOXIDE HCL 10 MG CAPSULE PO ONE (22:45)
[2019-01-27] MEDS ORDERED: chlordiazePOXIDE HCL 10 MG CAPSULE ONE (22:46)
[2019-01-27] MEDS ORDERED: ONDANSETRON *ODT* 4 MG TABLET SL ONE (23:02)
[2019-01-27] MEDS ORDERED: ONDANSETRON *ODT* 4 MG TABLET ONE (23:15)
[2019-01-28 06:40] VITALS: BP 108/75; PULSE 88; TEMP 98
--- NOTE | 2019-01-28 07:34 | PDOC ---
*Physical Exam - Vital Signs Last Vital Signs Temp Pulse Resp BP Pulse Ox 98 F 88 18 108/75 98 01/28/19 06:05 01/28/19 06:05 01/28/19 06:05 01/28/19 06:05 01/28/19 06:05 ED Treatment Course - ADDITIONAL ORDERS Additional order review: Laboratory Results 01/28/19 01/28/19 05:30 00:20 Alcohol, Quantitative 267.3 H 308.0 H - Medications Given in the ED: ED Medications Discontinued Medications Generic Name Dose Route Start Last Admin Trade Name Jo Ann PRN Reason Stop Dose Admin Chlordiazepoxide HCl 50 mg 01/27/19 22:45 01/27/19 22:50 Librium - PO 01/27/19 22:46 50 mg ONCE ONE Administration Ondansetron HCl 4 mg 01/27/19 23:02 01/27/19 23:17 Zofran Odt - SL 01/27/19 23:03 4 mg ONCE ONE Administration Medical Decision Making - Medical Decision Making 01/28/19 07:33 patient signed out as intoxicated pending sobriety and transfer to [facility] for detox. Patient is now sober. Discussed with [facility]. Will transfer patient to [facility]. Discharge - Discharge Information Problems reviewed: Yes Clinical Impression/Diagnosis: Alcohol intoxication Qualifiers: Complication of substance-induced condition: uncomplicated Qualified Code(s): F10.920 - Alcohol use, unspecified with intoxication, uncomplicated Condition: Good Disposition: HOME - Admission No - Follow up/Referral Referrals: [facility] [place] Internal [facility] at [place] [Provider Group] - Patient Discharge Instructions Patient Printed Discharge Instructions: DI for Alcohol Abuse Additional Instructions: You were seen in the ER today for alcohol intoxication. Please present to [facility] IMMEDIATELY for intake. Please return to the ER if you have any worsening pain, development of fevers or chills, loss of consciousness, inability to tolerate food or fluids, or any other concerns. - Post Discharge Activity
== END 2019-01-28 07:51 | disposition home or self-care (01) ==
LOC: JER 21:20
DX: F10.920 Alcohol use, unspecified with intoxication, uncomplicated (principal); Z88.0 Allergy status to penicillin; Z91.013 Allergy to seafood; Z91.09 Other allergy status, other than to drugs and biological substances
CPT/HCPCS: 36415; 80307; 99284-25; Q0162

== ENCOUNTER 2019-01-28 08:47 | Inpatient (IN) | payer OTHER ==
[2019-01-28 09:07] VITALS: BMI 28.3
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
[2019-01-28] MEDS ORDERED: IBUPROFEN 400 MG TABLET (FP) PO PRN (09:44)
[2019-01-28] MEDS ORDERED: MAG HYDROX/AL HYDROX/SIMETH 30 ML UNIT-DOSE CUP PO PRN (09:44)
[2019-01-28] MEDS ORDERED: MAGNESIUM CITRATE 300 ML BOTTLE PO PRN (09:44)
[2019-01-28] MEDS ORDERED: hydrOXYzine PAMOATE 25 MG CAPSULE (FP) PO PRN (09:44)
[2019-01-28] MEDS ORDERED: MAGNESIUM HYDROX 2400MG/30ML ORAL SUSPENSION 30 ML CUP PO PRN (09:44)
[2019-01-28] MEDS ORDERED: ACETAMINOPHEN 325 MG TABLET (FP) PO PRN ×2 (09:44)
[2019-01-28] MEDS ORDERED: MENTHOL/PHENOL 1 EACH UD MM PRN (09:44)
[2019-01-28] MEDS ORDERED: METHOCARBAMOL 500 MG TABLET PO PRN (09:44)
[2019-01-28] MEDS ORDERED: NICOTINE POLACRILEX 2 MG GUM BUC PRN (09:44)
[2019-01-28] MEDS ORDERED: BISMUTH SUBSALICYLATE 524 MG/30 ML UD PO PRN (09:44)
[2019-01-28] MEDS: PRENATAL VITAMINS W/ FOLIC ACID TABLET (FP) PO SCH (11:22)
[2019-01-28] MEDS: LORazepam 2 MG TABLET PO SCH ×3 (11:22→22:27)
[2019-01-28] MEDS: NICOTINE 21 MG/24 HOURS TOPICAL PATCH TD SCH (11:23)
[2019-01-28] MEDS: CHOLECALCIFEROL (VIT D3) 1,000 UNIT (25 MCG) TABLET PO SCH (14:13)
[2019-01-28] MEDS: GABAPENTIN 300 MG CAPSULE (FP) PO SCH ×2 (14:13→22:27)
[2019-01-28] MEDS: THIAMINE HCL 100 MG TABLET (FP) PO SCH (22:27)
[2019-01-28] MEDS: MELATONIN 5 MG TABLETS PO PRN (22:29)
[2019-01-29] MEDS: GABAPENTIN 300 MG CAPSULE (FP) PO SCH ×3 (05:48→22:02)
[2019-01-29] MEDS: LORazepam 2 MG TABLET PO SCH ×4 (05:48→22:02)
[2019-01-29] MEDS: LEVOTHYROXINE NA 25 MCG TABLET (FP) PO SCH (07:47)
[2019-01-29] MEDS: LORazepam 1 MG TABLET PO PRN (08:50)
[2019-01-29 10:06] LABS: ALBUMIN 3.3 g/dl (3.4-5.0); BILIRUBIN,TOTAL 0.9 mg/dL (0.2-1); BLOOD UREA NITROGEN 19.2 mg/dL (7-18); CREATININE 1.2 mg/dL (0.55-1.3); POTASSIUM 3.9 mmol/L (3.5-5.1); TOT PROT 5.6 g/dl (6.4-8.2)
[2019-01-29 10:07] LABS: HEMATOCRIT 37.6 % (35.4-49); HEMOGLOBIN 13.3 GM/dL (11.7-16.9); MCH 36.4 pg (25.7-33.7); MCHC 35.4 g/dl (32.0-35.9); MEAN CELL VOLUME 102.6 fl (80-96); MEAN PLT VOLUME 7.4 fl (7.5-11.1); PLATELET COUNT 216 K/MM3 (134-434); RBC 3.66 M/mm3 (4.00-5.60); RDW 13.5 % (11.9-15.9); WHITE BLOOD COUNT 4.1 K/mm3 (4.0-10.0)
[2019-01-29] MEDS: PRENATAL VITAMINS W/ FOLIC ACID TABLET (FP) PO SCH (10:20)
[2019-01-29] MEDS: NICOTINE 21 MG/24 HOURS TOPICAL PATCH TD SCH (10:20)
--- NOTE | 2019-01-29 11:14 | PN ---
S CIWA - CIWA Score Nausea/Vomitin-No Nausea/No Vomiting Muscle Tremors: 3 Anxiety: 3 Agitation: 3 Paroxysmal Sweats: 3 Orientation: 0-Oriented Tacttile Disturbances: 0-None Auditory Disturbances: 0-None Visual Disturbances: 0-None Headache: 0-None Present CIWA-Ar Total Score: 12 BHS Progress Note (SOAP) Subjective: sweats shakes restless interrupted sleep Objective: 01/29/19 11:13 Vital Signs Temperature 97.7 F 01/29/19 09:53 Pulse Rate 108 H 01/29/19 09:53 Respiratory Rate 18 01/29/19 09:53 Blood Pressure 117/83 01/29/19 09:53 O2 Sat by Pulse Oximetry (%) Laboratory Tests 01/28/19 01/28/19 01/29/19 09:33 16:19 05:44 WBC RBC Hgb Hct MCV MCH MCHC RDW Plt Count MPV Sodium Potassium Chloride Carbon Dioxide Anion Gap BUN Creatinine Est GFR (CKD-EPI)AfAm Est GFR (CKD-EPI)NonAf POC Glucometer 224 173 102 Random Glucose Calcium Total Bilirubin AST ALT Alkaline Phosphatase Total Protein Albumin RPR Titer 01/29/19 01/29/19 01/29/19 06:50 06:50 06:50 WBC 4.1 RBC 3.66 L Hgb 13.3 Hct 37.6 MCV 102.6 H MCH 36.4 H MCHC 35.4 RDW 13.5 Plt Count 216 MPV 7.4 L Sodium 139 Potassium 3.9 Chloride 105 Carbon Dioxide 28 Anion Gap 6 L BUN 19.2 H Creatinine 1.2 Est GFR (CKD-EPI)AfAm 81.80 Est GFR (CKD-EPI)NonAf 70.58 POC Glucometer Random Glucose 143 H Calcium 8.0 L Total Bilirubin 0.9 AST 110 H ALT 80 H Alkaline Phosphatase 52 Total Protein 5.6 L Albumin 3.3 L RPR Titer Nonreactive aaox3 ambulating no acute distress Assessment: 01/29/19 11:14 withdrawal sx Plan: continue detox increase fluids
[2019-01-29] MEDS: CHOLECALCIFEROL (VIT D3) 1,000 UNIT (25 MCG) TABLET PO SCH (14:30)
[2019-01-29] MEDS: THIAMINE HCL 100 MG TABLET (FP) PO SCH (22:02)
[2019-01-29] MEDS: MELATONIN 5 MG TABLETS PO PRN (22:03)
[2019-01-30] MEDS: GABAPENTIN 300 MG CAPSULE (FP) PO SCH ×3 (05:20→22:49)
[2019-01-30] MEDS: LORazepam 1 MG TABLET PO SCH ×2 (05:21→10:38)
[2019-01-30] MEDS: LEVOTHYROXINE NA 25 MCG TABLET (FP) PO SCH (07:37)
[2019-01-30] MEDS: LORazepam 1 MG TABLET PO PRN (09:19)
[2019-01-30] MEDS: NICOTINE 21 MG/24 HOURS TOPICAL PATCH TD SCH (10:38)
[2019-01-30] MEDS: PRENATAL VITAMINS W/ FOLIC ACID TABLET (FP) PO SCH (10:38)
[2019-01-30] MEDS: CHOLECALCIFEROL (VIT D3) 1,000 UNIT (25 MCG) TABLET PO SCH (10:40)
--- NOTE | 2019-01-30 13:41 | PN ---
S CIWA - CIWA Score Nausea/Vomitin-Mild Nausea/No Vomiting Muscle Tremors: 2 Anxiety: 2 Agitation: 2 Paroxysmal Sweats: 2 Orientation: 0-Oriented Tacttile Disturbances: 0-None Auditory Disturbances: 0-None Visual Disturbances: 0-None Headache: 1-Very Mild CIWA-Ar Total Score: 10 BHS Progress Note (SOAP) Subjective: pt states ativan is not helping him much prefers librium. O: Vital Signs - 24 hr 01/29/19 01/29/19 01/29/19 13:57 16:48 20:41 Temperature 96.4 F L 97.7 F 97.0 F L Pulse Rate 124 H 105 H 119 H Respiratory 18 18 18 Rate Blood Pressure 126/90 133/88 125/79 01/30/19 01/30/19 01/30/19 03:30 06:00 09:49 Temperature 97.2 F L 97.6 F Pulse Rate 81 129 H Respiratory 18 18 18 Rate Blood Pressure 113/73 122/90 01/30/19 13:31 Temperature 97.9 F Pulse Rate 139 H Respiratory 18 Rate Blood Pressure 106/75 Laboratory Tests 01/28/19 01/28/19 01/29/19 09:33 16:19 05:44 WBC RBC Hgb Hct MCV MCH MCHC RDW Plt Count MPV Sodium Potassium Chloride Carbon Dioxide Anion Gap BUN Creatinine Est GFR (CKD-EPI)AfAm Est GFR (CKD-EPI)NonAf POC Glucometer 224 173 102 Random Glucose Calcium Total Bilirubin AST ALT Alkaline Phosphatase Total Protein Albumin RPR Titer HIV 1&2 Ag/Ab, 4th Gen HIV 1&2 Antibody Screen HIV P24 Antigen 01/29/19 01/29/19 01/29/19 06:50 06:50 06:50 WBC 4.1 RBC 3.66 L Hgb 13.3 Hct 37.6 MCV 102.6 H MCH 36.4 H MCHC 35.4 RDW 13.5 Plt Count 216 MPV 7.4 L Sodium 139 Potassium 3.9 Chloride 105 Carbon Dioxide 28 Anion Gap 6 L BUN 19.2 H Creatinine 1.2 Est GFR (CKD-EPI)AfAm 81.80 Est GFR (CKD-EPI)NonAf 70.58 POC Glucometer Random Glucose 143 H Calcium 8.0 L Total Bilirubin 0.9 AST 110 H ALT 80 H Alkaline Phosphatase 52 Total Protein 5.6 L Albumin 3.3 L RPR Titer Nonreactive HIV 1&2 Ag/Ab, 4th Gen HIV 1&2 Antibody Screen HIV P24 Antigen 01/29/19 01/29/19 01/29/19 06:50 10:00 16:15 WBC RBC Hgb Hct MCV MCH MCHC RDW Plt Count MPV Sodium Potassium Chloride Carbon Dioxide Anion Gap BUN Creatinine Est GFR (CKD-EPI)AfAm Est GFR (CKD-EPI)NonAf POC Glucometer 103 Random Glucose Calcium Total Bilirubin AST ALT Alkaline Phosphatase Total Protein Albumin RPR Titer HIV 1&2 Ag/Ab, 4th Gen Non reactive HIV 1&2 Antibody Screen Cancelled HIV P24 Antigen Cancelled 01/30/19 05:22 WBC RBC Hgb Hct MCV MCH MCHC RDW Plt Count MPV Sodium Potassium Chloride Carbon Dioxide Anion Gap BUN Creatinine Est GFR (CKD-EPI)AfAm Est GFR (CKD-EPI)NonAf POC Glucometer 108 Random Glucose Calcium Total Bilirubin AST ALT Alkaline Phosphatase Total Protein Albumin RPR Titer HIV 1&2 Ag/Ab, 4th Gen HIV 1&2 Antibody Screen HIV P24 Antigen a/p: AUD: alcohol detox protocol will change to valium increased RDW- will give B12
[2019-01-30] MEDS ORDERED: diazePAM 5 MG TABLET PO PRN (13:54)
[2019-01-30 14:06] LABS: PH,URINE 5.5 (5.0-8.0); URINE APPEARANCE TURBID; URINE BILIRUBIN NEGATIVE (NEGATIVE); URINE COLOR DK YELLOW; URINE GLUCOSE (UA) NEGATIVE (NEGATIVE); URINE KETONE NEGATIVE (NEGATIVE); URINE LEUK ESTERASE NEGATIVE (NEGATIVE); URINE NITRITE NEGATIVE (NEGATIVE); URINE PROTEIN NEGATIVE (NEGATIVE); URINE UROBILINOGEN 0.2 mg/dL (0.2-1.0)
[2019-01-30] MEDS: diazePAM 5 MG TABLET PO SCH ×2 (14:20→22:50)
[2019-01-30] MEDS: THIAMINE HCL 100 MG TABLET (FP) PO SCH (22:49)
[2019-01-30] MEDS: MELATONIN 5 MG TABLETS PO PRN (22:50)
[2019-01-31] MEDS ORDERED: LORazepam 0.5 MG TABLET PO PRN
[2019-01-31] MEDS ORDERED: LORazepam 0.5 MG TABLET PO SCH (05:00)
[2019-01-31] MEDS: diazePAM 5 MG TABLET PO SCH (05:46)
[2019-01-31] MEDS: LEVOTHYROXINE NA 25 MCG TABLET (FP) PO SCH ×2 (05:46→07:26)
[2019-01-31] MEDS: GABAPENTIN 300 MG CAPSULE (FP) PO SCH (05:46)
[2019-01-31 06:30] VITALS: BP 110/63; PULSE 77; TEMP 97.2
--- NOTE | 2019-01-31 09:30 | DS ---
[facility] Detox Discharge Summary Admission Date: 01/28/19 Discharge Date: 01/31/19 - History Present History: Alcohol Dependence, Cocaine Dependence - Physical Exam Results Vital Signs: Vital Signs Temperature 97.2 F L 01/31/19 06:00 Pulse Rate 77 01/31/19 06:00 Respiratory Rate 18 01/31/19 06:00 Blood Pressure 110/63 01/31/19 06:00 O2 Sat by Pulse Oximetry (%) Pertinent Admission Physical Exam Findings: pt arrived in withdrawals Laboratory Tests 01/28/19 01/28/19 01/29/19 09:33 16:19 05:44 WBC RBC Hgb Hct MCV MCH MCHC RDW Plt Count MPV Sodium Potassium Chloride Carbon Dioxide Anion Gap BUN Creatinine Est GFR (CKD-EPI)AfAm Est GFR (CKD-EPI)NonAf POC Glucometer 224 173 102 Random Glucose Calcium Total Bilirubin AST ALT Alkaline Phosphatase Total Protein Albumin Urine Color Urine Appearance Urine pH Ur Specific Davis Urine Protein Urine Glucose (UA) Urine Ketones Urine Blood Urine Nitrite Urine Bilirubin Urine Urobilinogen Ur Leukocyte Esterase RPR Titer HIV 1&2 Ag/Ab, 4th Gen HIV 1&2 Antibody Screen HIV P24 Antigen 01/29/19 01/29/19 01/29/19 06:50 06:50 06:50 WBC 4.1 RBC 3.66 L Hgb 13.3 Hct 37.6 MCV 102.6 H MCH 36.4 H MCHC 35.4 RDW 13.5 Plt Count 216 MPV 7.4 L Sodium 139 Potassium 3.9 Chloride 105 Carbon Dioxide 28 Anion Gap 6 L BUN 19.2 H Creatinine 1.2 Est GFR (CKD-EPI)AfAm 81.80 Est GFR (CKD-EPI)NonAf 70.58 POC Glucometer Random Glucose 143 H Calcium 8.0 L Total Bilirubin 0.9 AST 110 H ALT 80 H Alkaline Phosphatase 52 Total Protein 5.6 L Albumin 3.3 L Urine Color Urine Appearance Urine pH Ur Specific Davis Urine Protein Urine Glucose (UA) Urine Ketones Urine Blood Urine Nitrite Urine Bilirubin Urine Urobilinogen Ur Leukocyte Esterase RPR Titer Nonreactive HIV 1&2 Ag/Ab, 4th Gen HIV 1&2 Antibody Screen HIV P24 Antigen 01/29/19 01/29/19 01/29/19 06:50 10:00 16:15 WBC RBC Hgb Hct MCV MCH MCHC RDW Plt Count MPV Sodium Potassium Chloride Carbon Dioxide Anion Gap BUN Creatinine Est GFR (CKD-EPI)AfAm Est GFR (CKD-EPI)NonAf POC Glucometer 103 Random Glucose Calcium Total Bilirubin AST ALT Alkaline Phosphatase Total Protein Albumin Urine Color Urine Appearance Urine pH Ur Specific Davis Urine Protein Urine Glucose (UA) Urine Ketones Urine Blood Urine Nitrite Urine Bilirubin Urine Urobilinogen Ur Leukocyte Esterase RPR Titer HIV 1&2 Ag/Ab, 4th Gen Non reactive HIV 1&2 Antibody Screen Cancelled HIV P24 Antigen Cancelled 01/29/19 01/30/19 01/30/19 20:05 05:22 16:54 WBC RBC Hgb Hct MCV MCH MCHC RDW Plt Count MPV Sodium Potassium Chloride Carbon Dioxide Anion Gap BUN Creatinine Est GFR (CKD-EPI)AfAm Est GFR (CKD-EPI)NonAf POC Glucometer 108 155 Random Glucose Calcium Total Bilirubin AST ALT Alkaline Phosphatase Total Protein Albumin Urine Color Dk yellow Urine Appearance Turbid Urine pH 5.5 Ur Specific Davis 1.028 Urine Protein Negative Urine Glucose (UA) Negative Urine Ketones Negative Urine Blood Negative Urine Nitrite Negative Urine Bilirubin Negative Urine Urobilinogen 0.2 Ur Leukocyte Esterase Negative RPR Titer HIV 1&2 Ag/Ab, 4th Gen HIV 1&2 Antibody Screen HIV P24 Antigen 01/31/19 05:50 WBC RBC Hgb Hct MCV MCH MCHC RDW Plt Count MPV Sodium Potassium Chloride Carbon Dioxide Anion Gap BUN Creatinine Est GFR (CKD-EPI)AfAm Est GFR (CKD-EPI)NonAf POC Glucometer 107 Random Glucose Calcium Total Bilirubin AST ALT Alkaline Phosphatase Total Protein Albumin Urine Color Urine Appearance Urine pH Ur Specific Davis Urine Protein Urine Glucose (UA) Urine Ketones Urine Blood Urine Nitrite Urine Bilirubin Urine Urobilinogen Ur Leukocyte Esterase RPR Titer HIV 1&2 Ag/Ab, 4th Gen HIV 1&2 Antibody Screen HIV P24 Antigen pt aaox3 ambulating no acute distress no s/s of withdrawals - Treatment Hospital Course: Detox Protocol Followed, Detoxed Safely, Responded well, Discharged Condition Good, Rehab Referral Accepted Patient has Accepted a Rehab Referral to: pt declined rehab; referral provided - Medication Discharge Medications: Ambulatory Orders Gabapentin [Neurontin] 600 mg PO TID #90 tablet 12/25/17 Cholecalciferol (Vitamin D3) [Vitamin D3 -] 1,000 unit PO DAILY 03/30/18 Levothyroxine [Synthroid -] 75 mcg PO DAILY@0700 #30 tablet 05/27/19 - Diagnosis (1) Anxiety and depression Current Visit: Yes Status: Acute (2) Hepatitis C virus infection cured after antiviral drug therapy Current Visit: Yes Status: Acute (3) Alcohol dependence with uncomplicated withdrawal Current Visit: Yes Status: Acute (4) Cocaine dependence Current Visit: Yes Status: Acute Qualifiers: Substance use status: uncomplicated Qualified Code(s): F14.20 - Cocaine dependence, uncomplicated (5) Elevated aspartate aminotransferase level Current Visit: No Status: Acute (6) Elevated liver enzymes Current Visit: No Status: Acute (7) Nicotine dependence Current Visit: Yes Status: Chronic Qualifiers: Nicotine product type: cigarettes Substance use status: uncomplicated Qualified Code(s): F17.210 - Nicotine dependence, cigarettes, uncomplicated (8) Anxiety disorder Current Visit: No Status: Chronic (9) Borderline diabetes mellitus Current Visit: No Status: Chronic (10) Chronic back pain Current Visit: No Status: Chronic Qualifiers: Back pain location: low back pain Back pain laterality: right Sciatica presence: with sciatica Sciatica laterality: sciatica laterality unspecified Qualified Code(s): M54.40 - Lumbago with sciatica, unspecified side; G89.29 - Other chronic pain (11) DM type 2 (diabetes mellitus, type 2) Current Visit: No Status: Chronic Qualifiers: Diabetes mellitus salvage determiner insulin use: unspecified salvage determiner insulin use status Diabetes mellitus complication status: without complication Qualified Code(s): E11.9 - Type 2 diabetes mellitus without complications (12) Depression Current Visit: No Status: Chronic Qualifiers: Depression Type: unspecified Qualified Code(s): F32.9 - Major depressive disorder, single episode, unspecified (13) Depression with anxiety Current Visit: No Status: Chronic (14) GERD (gastroesophageal reflux disease) Current Visit: Yes Status: Chronic Qualifiers: Esophagitis presence: without esophagitis Qualified Code(s): K21.9 - Gastro -esophageal reflux disease without esophagitis (15) Hand dermatitis Current Visit: No Status: Chronic (16) Hemochromatosis, hereditary Current Visit: No Status: Chronic (17) Hepatitis C Current Visit: No Status: Chronic Qualifiers: Viral hepatitis chronicity: unspecified Hepatic coma status: without hepatic coma Qualified Code(s): B19.20 - Unspecified viral hepatitis C without hepatic coma (18) Hypertension Current Visit: No Status: Chronic Qualifiers: Hypertension type: essential hypertension Qualified Code(s): I10 - Essential (primary) hypertension (19) Hypothyroidism Current Visit: No Status: Chronic Qualifiers: Hypothyroidism type: unspecified Qualified Code(s): E03.9 - Hypothyroidism , unspecified (20) Insomnia Current Visit: No Status: Chronic Qualifiers: Insomnia type: unspecified Qualified Code(s): G47.00 - Insomnia, unspecified (21) Seizure disorder Current Visit: No Status: Chronic (22) Substance-induced anxiety disorder Current Visit: No Status: Chronic (23) Tachycardia Current Visit: No Status: Chronic (24) Drug-induced mood disorder Current Visit: No Status: Suspected (25) Substance induced mood disorder Current Visit: No Status: Suspected (26) Hyperglycemia Current Visit: No Status: Resolved - AMA Did Patient Leave Against Medical Advice: No
[2019-02-01] MEDS ORDERED: LORazepam 0.5 MG TABLET PO ONE (05:00)
== END 2019-01-31 09:25 | disposition home or self-care (01) | DRG 774 ==
LOC: YASAS 08:47 → Y6N 09:24
PROVIDERS: ADMIT Allergy & Immunology; ATTEND Allergy & Immunology
PROC: HZ2ZZZZ Detoxification Services for Substance Abuse Treatment (ICD-10-PCS; principal; 2019-01-28)
DX: F10.230 Alcohol dependence with withdrawal, uncomplicated (principal); F14.20 Cocaine dependence, uncomplicated; F17.210 Nicotine dependence, cigarettes, uncomplicated; F19.24 Other psychoactive substance dependence with psychoactive substance-induced mood disorder; F41.8 Other specified anxiety disorders; F32.9 Major depressive disorder, single episode, unspecified; G47.00 Insomnia, unspecified; E11.9 Type 2 diabetes mellitus without complications; Z79.4 Long term (current) use of insulin; E03.9 Hypothyroidism, unspecified; I10 Essential (primary) hypertension; K21.9 Gastro-esophageal reflux disease without esophagitis; L30.9 Dermatitis, unspecified; R74.0 Nonspecific elevation of levels of transaminase and lactic acid dehydrogenase [LDH]; R74.8 Abnormal levels of other serum enzymes; R94.5 Abnormal results of liver function studies; M54.40 Lumbago with sciatica, unspecified side; G89.29 Other chronic pain; Z86.19 Personal history of other infectious and parasitic diseases; Z86.69 Personal history of other diseases of the nervous system and sense organs; Z88.0 Allergy status to penicillin; Z91.013 Allergy to seafood; Z91.048 Other nonmedicinal substance allergy status
CPT/HCPCS: 36415; 80053; 81003; 82962; 85027; 86593; 87389

== ENCOUNTER 2019-11-07 19:59 | Inpatient (IN) | payer OTHER ==
[2019-11-07 21:22] VITALS: BMI 27.9
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
[2019-11-07] MEDS ORDERED: BISMUTH SUBSALICYLATE 524 MG/30 ML UD PO PRN (22:46)
[2019-11-07] MEDS ORDERED: MAGNESIUM CITRATE 300 ML BOTTLE PO PRN (22:46)
[2019-11-07] MEDS ORDERED: MAG HYDROX/AL HYDROX/SIMETH 30 ML UNIT-DOSE CUP PO PRN (22:46)
[2019-11-07] MEDS ORDERED: IBUPROFEN 400 MG TABLET (FP) PO PRN (22:46)
[2019-11-07] MEDS ORDERED: ONDANSETRON *ODT* 4 MG TABLET SL PRN (22:46)
[2019-11-07] MEDS ORDERED: ACETAMINOPHEN 325 MG TABLET (FP) PO PRN ×2 (22:46)
[2019-11-07] MEDS ORDERED: MAGNESIUM HYDROX 2400MG/30ML ORAL SUSPENSION 30 ML CUP PO PRN (22:46)
[2019-11-07] MEDS ORDERED: LORazepam 1 MG TABLET PO PRN (22:46)
[2019-11-07] MEDS ORDERED: MENTHOL/PHENOL 1 EACH UD MM PRN (22:46)
[2019-11-07] MEDS ORDERED: NICOTINE POLACRILEX 2 MG GUM BUC PRN (22:46)
[2019-11-07] MEDS: METHOCARBAMOL 500 MG TABLET PO PRN (23:59)
[2019-11-07] MEDS: LORazepam 2 MG TABLET PO SCH (23:59)
[2019-11-08] MEDS: LORazepam 2 MG TABLET PO SCH ×2 (05:14→10:16)
[2019-11-08] MEDS: GABAPENTIN 300 MG CAPSULE PO SCH ×3 (05:14→22:15)
[2019-11-08] MEDS: LEVOTHYROXINE NA 25 MCG TABLET (FP) PO SCH (06:47)
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
[2019-11-08 10:04] LABS: HEMATOCRIT 37.7 % (35.4-49); HEMOGLOBIN 12.6 GM/dL (11.7-16.9); MCH 36.4 pg (25.7-33.7); MCHC 33.5 g/dl (32.0-35.9); MEAN CELL VOLUME 108.5 fl (80-96); MEAN PLT VOLUME 7.7 fl (7.5-11.1); PLATELET COUNT 173 K/MM3 (134-434); RBC 3.47 M/mm3 (4.00-5.60)
[2019-11-08] MEDS: NICOTINE 21 MG/24 HOURS TOPICAL PATCH TD SCH (10:16)
[2019-11-08 10:17] LABS: ALBUMIN 3.2 g/dl (3.4-5.0); BILIRUBIN,TOTAL 0.5 mg/dL (0.2-1); BLOOD UREA NITROGEN 16.2 mg/dL (7-18); CALCIUM 8.2 mg/dL (8.5-10.1); CREATININE 1.5 mg/dL (0.55-1.3); POTASSIUM 3.8 mmol/L (3.5-5.1); TOT PROT 5.9 g/dl (6.4-8.2)
--- NOTE | 2019-11-08 11:14 | PN ---
S CIWA - CIWA Score Nausea/Vomitin Muscle Tremors: 3 Anxiety: 3 Agitation: 3 Paroxysmal Sweats: No Perspiration Orientation: 0-Oriented Tacttile Disturbances: 1-Very Mild Itch/Numbness Auditory Disturbances: 0-None Visual Disturbances: 0-None Headache: 2-Mild CIWA-Ar Total Score: 14 S Progress Note (SOAP) Subjective: alert,irritable,anxious,interrupted sleep,tremor,aching pain in the body and back,nausea Objective: 11/08/19 11:11 Vital Signs Temperature 96.9 F L 11/08/19 09:10 Pulse Rate 108 H 11/08/19 09:10 Respiratory Rate 20 11/08/19 09:10 Blood Pressure 91/65 11/08/19 09:10 O2 Sat by Pulse Oximetry (%) 96 11/08/19 06:34 11/08/19 11:11 Laboratory Last Values WBC 4.0 K/mm3 (4.0-10.0) 11/08/19 07:40 RBC 3.47 M/mm3 (4.00-5.60) L 11/08/19 07:40 Hgb 12.6 GM/dL (11.7-16.9) 11/08/19 07:40 Hct 37.7 % (35.4-49) 11/08/19 07:40 MCV 108.5 fl (80-96) H 11/08/19 07:40 MCH 36.4 pg (25.7-33.7) H 11/08/19 07:40 MCHC 33.5 g/dl (32.0-35.9) 11/08/19 07:40 RDW 14.0 % (11.9-15.9) D 11/08/19 07:40 Plt Count 173 K/MM3 (134-434) 11/08/19 07:40 MPV 7.7 fl (7.5-11.1) 11/08/19 07:40 Sodium 139 mmol/L (136-145) 11/08/19 07:40 Potassium 3.8 mmol/L (3.5-5.1) 11/08/19 07:40 Chloride 108 mmol/L (98-107) H 11/08/19 07:40 Carbon Dioxide 22 mmol/L (21-32) 09/07/20 07:40 Anion Gap 10 MMOL/L (8-16) 11/08/19 07:40 BUN 16.2 mg/dL (7-18) 11/08/19 07:40 Creatinine 1.5 mg/dL (0.55-1.3) H 11/08/19 07:40 Est GFR (CKD-EPI)AfAm 62.02 11/08/19 07:40 Est GFR (CKD-EPI)NonAf 53.51 11/08/19 07:40 Random Glucose 120 mg/dL (74-106) H 11/08/19 07:40 Calcium 8.2 mg/dL (8.5-10.1) L 11/08/19 07:40 Total Bilirubin 0.5 mg/dL (0.2-1) 11/08/19 07:40 AST 46 U/L (15-37) H 11/08/19 07:40 ALT 64 U/L (13-61) H 11/08/19 07:40 Alkaline Phosphatase 50 U/L (45-117) 11/08/19 07:40 Total Protein 5.9 g/dl (6.4-8.2) L 11/08/19 07:40 Albumin 3.2 g/dl (3.4-5.0) L 11/08/19 07:40 Syphilis Serology Non-reactive (NONREACTIVE) 11/08/19 07:40 Assessment: 11/08/19 11:13 withdrawal symptom Plan: continue detox,patient would like regimen to change from ativan to librium,initial glucose is 120 ,will do fasting glucose in am
[2019-11-08] MEDS: chlordiazePOXIDE HCL 25 MG CAPSULE PO PRN (12:34)
--- NOTE | 2019-11-08 12:46 | EKG ---
Test Reason : Blood Pressure : / mmHG Vent. Rate : 110 BPM Atrial Rate : 110 BPM P-R Int : 170 ms QRS Dur : 080 ms QT Int : 318 ms P-R-T Axes : 058 072 059 degrees QTc Int : 430 ms SINUS TACHYCARDIA OTHERWISE NORMAL ECG WHEN COMPARED WITH ECG OF 08-AUG-2019 19:52, NO SIGNIFICANT CHANGE WAS FOUND Confirmed by Bruce Bermudez ([id number]) on 11/08/2019 12:45:41 PM Referred By: Confirmed By:Bruce Bermudez
[2019-11-08] MEDS: CHOLECALCIFEROL (VIT D3) 1,000 UNIT (25 MCG) TABLET PO SCH (13:24)
[2019-11-08] MEDS: chlordiazePOXIDE HCL 25 MG CAPSULE PO SCH ×2 (17:28→22:15)
[2019-11-08] MEDS: THIAMINE HCL 100 MG TABLET (FP) PO SCH (22:15)
[2019-11-08] MEDS: MELATONIN 5 MG TABLETS PO SCH (22:16)
[2019-11-09] MEDS ORDERED: LORazepam 1 MG TABLET PO SCH (05:00)
[2019-11-09] MEDS: GABAPENTIN 300 MG CAPSULE PO SCH ×3 (05:12→22:12)
[2019-11-09] MEDS: chlordiazePOXIDE HCL 25 MG CAPSULE PO SCH ×4 (05:12→22:12)
[2019-11-09] MEDS: LEVOTHYROXINE NA 25 MCG TABLET (FP) PO SCH (06:34)
[2019-11-09] MEDS: chlordiazePOXIDE HCL 25 MG CAPSULE PO PRN ×2 (07:29→13:19)
[2019-11-09] MEDS: CHOLECALCIFEROL (VIT D3) 1,000 UNIT (25 MCG) TABLET PO SCH (10:18)
[2019-11-09] MEDS: NICOTINE 21 MG/24 HOURS TOPICAL PATCH TD SCH (10:20)
--- NOTE | 2019-11-09 10:57 | PN ---
S CIWA - CIWA Score Nausea/Vomitin Muscle Tremors: 3 Anxiety: 3 Agitation: 1-Slight > Activity Paroxysmal Sweats: No Perspiration Orientation: 0-Oriented Tacttile Disturbances: 1-Very Mild Itch/Numbness Auditory Disturbances: 0-None Visual Disturbances: 0-None Headache: 1-Very Mild CIWA-Ar Total Score: 11 S Progress Note (SOAP) Subjective: alert,irritable,anxious,interrupted sleep aching pain in the body and back Objective: 11/09/19 10:56 Vital Signs Temperature 96.9 F L 11/09/19 08:30 Pulse Rate 85 11/09/19 08:30 Respiratory Rate 18 11/09/19 08:30 Blood Pressure 110/76 11/09/19 08:30 O2 Sat by Pulse Oximetry (%) 96 11/09/19 05:02 Laboratory Last Values WBC 4.0 K/mm3 (4.0-10.0) 11/08/19 07:40 RBC 3.47 M/mm3 (4.00-5.60) L 11/08/19 07:40 Hgb 12.6 GM/dL (11.7-16.9) 11/08/19 07:40 Hct 37.7 % (35.4-49) 11/08/19 07:40 MCV 108.5 fl (80-96) H 11/08/19 07:40 MCH 36.4 pg (25.7-33.7) H 11/08/19 07:40 MCHC 33.5 g/dl (32.0-35.9) 11/08/19 07:40 RDW 14.0 % (11.9-15.9) D 11/08/19 07:40 Plt Count 173 K/MM3 (134-434) 11/08/19 07:40 MPV 7.7 fl (7.5-11.1) 11/08/19 07:40 Sodium 139 mmol/L (136-145) 11/08/19 07:40 Potassium 3.8 mmol/L (3.5-5.1) 11/08/19 07:40 Chloride 108 mmol/L (98-107) H 11/08/19 07:40 Carbon Dioxide 22 mmol/L (21-32) 11/08/19 07:40 Anion Gap 10 MMOL/L (8-16) 11/08/19 07:40 BUN 16.2 mg/dL (7-18) 11/08/19 07:40 Creatinine 1.5 mg/dL (0.55-1.3) H 11/08/19 07:40 Est GFR (CKD-EPI)AfAm 62.02 11/08/19 07:40 Est GFR (CKD-EPI)NonAf 53.51 11/08/19 07:40 Random Glucose 120 mg/dL (74-106) H 11/08/19 07:40 Calcium 8.2 mg/dL (8.5-10.1) L 11/08/19 07:40 Total Bilirubin 0.5 mg/dL (0.2-1) 11/08/19 07:40 AST 46 U/L (15-37) H 11/08/19 07:40 ALT 64 U/L (13-61) H 11/08/19 07:40 Alkaline Phosphatase 50 U/L (45-117) 11/08/19 07:40 Total Protein 5.9 g/dl (6.4-8.2) L 11/08/19 07:40 Albumin 3.2 g/dl (3.4-5.0) L 11/08/19 07:40 Syphilis Serology Non-reactive (NONREACTIVE) 11/08/19 07:40 fasting glucose pending Assessment: 11/09/19 10:57 withdrawal symptom Plan: continue detox librium regimen
[2019-11-09] MEDS: THIAMINE HCL 100 MG TABLET (FP) PO SCH (22:12)
[2019-11-09] MEDS: MELATONIN 5 MG TABLETS PO SCH (22:13)
[2019-11-09] MEDS: SUVOREXANT 10 MG TABLET PO PRN (22:15)
[2019-11-10] MEDS ORDERED: LORazepam 0.5 MG TABLET PO PRN
[2019-11-10] MEDS: chlordiazePOXIDE HCL 25 MG CAPSULE PO PRN ×4 (00:28→19:24)
[2019-11-10] MEDS ORDERED: LORazepam 0.5 MG TABLET PO SCH (05:00)
[2019-11-10] MEDS: chlordiazePOXIDE HCL 25 MG CAPSULE PO SCH ×4 (05:16→22:05)
[2019-11-10] MEDS: GABAPENTIN 300 MG CAPSULE PO SCH ×3 (05:16→22:05)
[2019-11-10] MEDS: LEVOTHYROXINE NA 25 MCG TABLET (FP) PO SCH (06:12)
--- NOTE | 2019-11-10 09:56 | PN ---
S CIWA - CIWA Score Nausea/Vomitin-Mild Nausea/No Vomiting Muscle Tremors: 2 Anxiety: 2 Agitation: 2 Paroxysmal Sweats: No Perspiration Orientation: 0-Oriented Tacttile Disturbances: 0-None Auditory Disturbances: 0-None Visual Disturbances: 0-None Headache: 1-Very Mild CIWA-Ar Total Score: 8 S Progress Note (SOAP) Subjective: alert,irritable,anxious,interrupted sleep,tremor,aching pain iin the body and back Objective: 11/10/19 09:55 Vital Signs Temperature 96.6 F L 11/10/19 08:32 Pulse Rate 111 H 11/10/19 08:32 Respiratory Rate 18 11/10/19 08:32 Blood Pressure 112/62 11/10/19 08:32 O2 Sat by Pulse Oximetry (%) 97 11/10/19 06:22 11/10/19 09:55 Laboratory Last Values WBC 4.0 K/mm3 (4.0-10.0) 11/08/19 07:40 RBC 3.47 M/mm3 (4.00-5.60) L 11/08/19 07:40 Hgb 12.6 GM/dL (11.7-16.9) 11/08/19 07:40 Hct 37.7 % (35.4-49) 11/08/19 07:40 MCV 108.5 fl (80-96) H 11/08/19 07:40 MCH 36.4 pg (25.7-33.7) H 11/08/19 07:40 MCHC 33.5 g/dl (32.0-35.9) 11/08/19 07:40 RDW 14.0 % (11.9-15.9) D 11/08/19 07:40 Plt Count 173 K/MM3 (134-434) 11/08/19 07:40 MPV 7.7 fl (7.5-11.1) 11/08/19 07:40 Sodium 139 mmol/L (136-145) 11/08/19 07:40 Potassium 3.8 mmol/L (3.5-5.1) 11/08/19 07:40 Chloride 108 mmol/L (98-107) H 11/08/19 07:40 Carbon Dioxide 22 mmol/L (21-32) 11/08/19 07:40 Anion Gap 10 MMOL/L (8-16) 11/08/19 07:40 BUN 16.2 mg/dL (7-18) 11/08/19 07:40 Creatinine 1.5 mg/dL (0.55-1.3) H 11/08/19 07:40 Est GFR (CKD-EPI)AfAm 62.02 11/08/19 07:40 Est GFR (CKD-EPI)NonAf 53.51 11/08/19 07:40 Random Glucose 120 mg/dL (74-106) H 11/08/19 07:40 Fasting Glucose 104 mg/dL (74-106) 11/09/19 07:45 Calcium 8.2 mg/dL (8.5-10.1) L 11/08/19 07:40 Total Bilirubin 0.5 mg/dL (0.2-1) 11/08/19 07:40 AST 46 U/L (15-37) H 11/08/19 07:40 ALT 64 U/L (13-61) H 11/08/19 07:40 Alkaline Phosphatase 50 U/L (45-117) 11/08/19 07:40 Total Protein 5.9 g/dl (6.4-8.2) L 11/08/19 07:40 Albumin 3.2 g/dl (3.4-5.0) L 11/08/19 07:40 Syphilis Serology Non-reactive (NONREACTIVE) 11/08/19 07:40 COVID-19 (STEPHANIE) Not detected (Not Detected) 11/07/19 22:54 HIV Ag/Ab Combo Qual Negative (NEGATIVE) 11/09/19 07:45 Assessment: 11/10/19 09:55 withdrawal symptom Plan: continue detox librium regimen
[2019-11-10] MEDS: NICOTINE 21 MG/24 HOURS TOPICAL PATCH TD SCH (10:08)
[2019-11-10] MEDS: CHOLECALCIFEROL (VIT D3) 1,000 UNIT (25 MCG) TABLET PO SCH (10:08)
[2019-11-10] MEDS: MELATONIN 5 MG TABLETS PO SCH (22:05)
[2019-11-10] MEDS: THIAMINE HCL 100 MG TABLET (FP) PO SCH (22:05)
[2019-11-10] MEDS: SUVOREXANT 10 MG TABLET PO PRN (22:05)
[2019-11-11] MEDS ORDERED: chlordiazePOXIDE HCL 10 MG CAPSULE PO PRN
[2019-11-11] MEDS ORDERED: chlordiazePOXIDE HCL 10 MG CAPSULE PO SCH (05:00)
[2019-11-11] MEDS ORDERED: LORazepam 0.5 MG TABLET PO ONE (05:00)
[2019-11-11] MEDS: GABAPENTIN 300 MG CAPSULE PO SCH (05:19)
[2019-11-11] MEDS: LEVOTHYROXINE NA 25 MCG TABLET (FP) PO SCH (06:25)
[2019-11-11] MEDS: METHOCARBAMOL 500 MG TABLET PO PRN (06:54)
[2019-11-11 09:18] VITALS: BP 121/80; PULSE 110; TEMP 96.6
--- NOTE | 2019-11-11 09:46 | DS ---
[facility] Detox Discharge Summary Admission Date: 11/07/19 Discharge Date: 11/11/19 - History Present History: Alcohol Dependence, Cocaine Dependence Additional Comments: alert,oriented x 3 ambulation on the unit lung clear on auscultation bilaterally abdomen soft,no distension,no pain,no tenderness no withdrawal symptom stable for discharge today follow up with after care program new focus as arrangement declined rehab left the unit in stable condition total time of discharge 35 minutes stated has medications at home Pertinent Past History: gerd bipolar disorder type 2 dm hypothyroidism - Physical Exam Results Vital Signs: Vital Signs Temperature 96.6 F L 11/11/19 08:53 Pulse Rate 110 H 11/11/19 08:53 Respiratory Rate 20 11/11/19 08:53 Blood Pressure 121/80 11/11/19 08:53 O2 Sat by Pulse Oximetry (%) 98 11/11/19 06:19 Pertinent Admission Physical Exam Findings: withdrawal signs and symptom Laboratory Last Values WBC 4.0 K/mm3 (4.0-10.0) 11/08/19 07:40 RBC 3.47 M/mm3 (4.00-5.60) L 11/08/19 07:40 Hgb 12.6 GM/dL (11.7-16.9) 11/08/19 07:40 Hct 37.7 % (35.4-49) 11/08/19 07:40 MCV 108.5 fl (80-96) H 11/08/19 07:40 MCH 36.4 pg (25.7-33.7) H 11/08/19 07:40 MCHC 33.5 g/dl (32.0-35.9) 11/08/19 07:40 RDW 14.0 % (11.9-15.9) D 11/08/19 07:40 Plt Count 173 K/MM3 (134-434) 11/08/19 07:40 MPV 7.7 fl (7.5-11.1) 11/08/19 07:40 Sodium 139 mmol/L (136-145) 11/08/19 07:40 Potassium 3.8 mmol/L (3.5-5.1) 11/08/19 07:40 Chloride 108 mmol/L (98-107) H 11/08/19 07:40 Carbon Dioxide 22 mmol/L (21-32) 11/08/19 07:40 Anion Gap 10 MMOL/L (8-16) 11/08/19 07:40 BUN 16.2 mg/dL (7-18) 11/08/19 07:40 Creatinine 1.5 mg/dL (0.55-1.3) H 11/08/19 07:40 Est GFR (CKD-EPI)AfAm 62.02 11/08/19 07:40 Est GFR (CKD-EPI)NonAf 53.51 11/08/19 07:40 Random Glucose 120 mg/dL (74-106) H 11/08/19 07:40 Fasting Glucose 104 mg/dL (74-106) 11/09/19 07:45 Calcium 8.2 mg/dL (8.5-10.1) L 11/08/19 07:40 Total Bilirubin 0.5 mg/dL (0.2-1) 11/08/19 07:40 AST 46 U/L (15-37) H 11/08/19 07:40 ALT 64 U/L (13-61) H 11/08/19 07:40 Alkaline Phosphatase 50 U/L (45-117) 11/08/19 07:40 Total Protein 5.9 g/dl (6.4-8.2) L 11/08/19 07:40 Albumin 3.2 g/dl (3.4-5.0) L 11/08/19 07:40 Syphilis Serology Non-reactive (NONREACTIVE) 11/08/19 07:40 COVID-19 (STEPHANIE) Not detected (Not Detected) 11/07/19 22:54 HIV Ag/Ab Combo Qual Negative (NEGATIVE) 11/09/19 07:45 Vital Signs Temperature 96.6 F L 11/11/19 08:53 Pulse Rate 110 H 11/11/19 08:53 Respiratory Rate 20 11/11/19 08:53 Blood Pressure 121/80 11/11/19 08:53 O2 Sat by Pulse Oximetry (%) 98 11/11/19 06:19 - Treatment Hospital Course: Detox Protocol Followed, Detoxed Safely, Responded well, Discharged Condition Good Patient has Accepted a Rehab Referral to: declined - Medication Discharge Medications: Ambulatory Orders Gabapentin [Neurontin] 600 mg PO TID #90 tablet 12/25/17 Cholecalciferol (Vitamin D3) [Vitamin D3 -] 1,000 unit PO DAILY 03/30/18 Levothyroxine [Synthroid -] 75 mcg PO DAILY@0700 #30 tablet 07/27/18 - Diagnosis (1) Alcohol dependence with uncomplicated withdrawal Status: Acute (2) Cocaine dependence Status: Acute Qualifiers: Substance use status: uncomplicated Qualified Code(s): F14.20 - Cocaine dependence, uncomplicated (3) DM type 2 (diabetes mellitus, type 2) Status: Chronic Qualifiers: Diabetes mellitus supervisor intermediates insulin use: unspecified usp insulin use status Diabetes mellitus complication status: without complication Qualified Code(s): E11.9 - Type 2 diabetes mellitus without complications (4) GERD (gastroesophageal reflux disease) Status: Chronic Qualifiers: Esophagitis presence: esophagitis presence not specified Qualified Code(s): K21.9 - Gastro-esophageal reflux disease without esophagitis (5) Hepatitis C virus infection cured after antiviral drug therapy Status: Chronic (6) Hypothyroidism Status: Chronic Qualifiers: Hypothyroidism type: unspecified Qualified Code(s): E03.9 - Hypothyroidism, unspecified (7) Seizure disorder Status: Chronic (8) Bipolar disorder Status: Acute - AMA Did Patient Leave Against Medical Advice: No
--- NOTE | 2019-11-11 09:46 | PN ---
[facility] CIWA - CIWA Score Nausea/Vomitin-No Nausea/No Vomiting Muscle Tremors: None Anxiety: 1-Mildly Anxious Agitation: 0-Normal Activity Orientation: 0-Oriented Tacttile Disturbances: 0-None Auditory Disturbances: 0-None Visual Disturbances: 0-None Headache: 0-None Present [facility] Progress Note (SOAP) Subjective: alert,no complaint Objective: 11/11/19 12:25 Vital Signs Temperature 96.6 F L 11/11/19 08:53 Pulse Rate 110 H 11/11/19 08:53 Respiratory Rate 20 11/11/19 08:53 Blood Pressure 121/80 11/11/19 08:53 O2 Sat by Pulse Oximetry (%) 98 11/11/19 06:19 Assessment: 11/11/19 12:26 no withdrawal symptom Plan: stable for discharge today,follow up with after care program as arrangement
[2019-11-11] MEDS: CHOLECALCIFEROL (VIT D3) 1,000 UNIT (25 MCG) TABLET PO SCH (10:14)
[2019-11-11] MEDS: NICOTINE 21 MG/24 HOURS TOPICAL PATCH TD SCH (10:14)
[2019-11-12] MEDS ORDERED: chlordiazePOXIDE HCL 10 MG CAPSULE PO SCH (05:00)
[2019-11-13] MEDS ORDERED: chlordiazePOXIDE HCL 10 MG CAPSULE PO ONE (05:00)
== END 2019-11-11 09:46 | disposition home or self-care (01) | DRG 774 ==
LOC: YASAS 19:59 → Y3N 22:50
PROVIDERS: ADMIT Allergy & Immunology; ATTEND Allergy & Immunology
PROC: HZ2ZZZZ Detoxification Services for Substance Abuse Treatment (ICD-10-PCS; principal; 2019-11-07)
DX: F10.230 Alcohol dependence with withdrawal, uncomplicated (principal); F14.20 Cocaine dependence, uncomplicated; F17.210 Nicotine dependence, cigarettes, uncomplicated; F19.282 Other psychoactive substance dependence with psychoactive substance-induced sleep disorder; F19.24 Other psychoactive substance dependence with psychoactive substance-induced mood disorder; F31.9 Bipolar disorder, unspecified; F41.9 Anxiety disorder, unspecified; E03.9 Hypothyroidism, unspecified; E83.110 Hereditary hemochromatosis; E11.9 Type 2 diabetes mellitus without complications; G40.909 Epilepsy, unspecified, not intractable, without status epilepticus; K21.9 Gastro-esophageal reflux disease without esophagitis; Z87.81 Personal history of (healed) traumatic fracture; Z87.828 Personal history of other (healed) physical injury and trauma; Z86.69 Personal history of other diseases of the nervous system and sense organs; Z91.048 Other nonmedicinal substance allergy status; Z91.018 Allergy to other foods; Z85.828 Personal history of other malignant neoplasm of skin
CPT/HCPCS: 36415; 80053; 82947; 85027; 86780; 87389; 93005; 93010; U0003

== ENCOUNTER 2020-04-12 13:53 | Inpatient (IN) | payer OTHER ==
[2020-04-12] MEDS ORDERED: ACETAMINOPHEN 325 MG TABLET (FP) PO PRN ×2 (15:12)
[2020-04-12] MEDS ORDERED: MAG HYDROX/AL HYDROX/SIMETH 30 ML UNIT-DOSE CUP PO PRN (15:12)
[2020-04-12] MEDS ORDERED: BISMUTH SUBSALICYLATE 524 MG/30 ML UD PO PRN (15:12)
[2020-04-12] MEDS ORDERED: MENTHOL/PHENOL 1 EACH UD MM PRN (15:12)
[2020-04-12] MEDS ORDERED: ONDANSETRON *ODT* 4 MG TABLET SL PRN (15:12)
[2020-04-12] MEDS ORDERED: MAGNESIUM HYDROX 2400MG/30ML ORAL SUSPENSION 30 ML CUP PO PRN (15:12)
[2020-04-12] MEDS ORDERED: MAGNESIUM CITRATE 300 ML BOTTLE PO PRN (15:12)
[2020-04-12] MEDS ORDERED: NICOTINE POLACRILEX 4 MG GUM BUC PRN (15:12)
[2020-04-12] MEDS ORDERED: IBUPROFEN 400 MG TABLET (FP) PO PRN (15:12)
[2020-04-12 15:28] VITALS: BMI 31.1
[2020-04-12] MEDS ORDERED: PATIENT'S OWN MEDICATION (NON-FORMULARY) (Gabapentin [Neurontin] 600 MG Tablet) PO SCH (15:30)
[2020-04-12] MEDS: chlordiazePOXIDE HCL 25 MG CAPSULE PO SCH ×2 (16:57→22:22)
[2020-04-12] MEDS: NICOTINE 21 MG/24 HOURS TOPICAL PATCH TD SCH (16:57)
[2020-04-12] MEDS: hydrOXYzine PAMOATE 25 MG CAPSULE (FP) PO SCH ×2 (16:59→22:24)
[2020-04-12 17:24] LABS: HEMATOCRIT 41.7 % (35.4-49); HEMOGLOBIN 14.6 GM/dL (11.7-16.9); MCH 34.7 pg (25.7-33.7); MEAN CELL VOLUME 99.3 fl (80-96); MEAN PLT VOLUME 7.4 fl (7.5-11.1); PLATELET COUNT 206 K/MM3 (134-434); RDW 14.8 % (11.9-15.9); WHITE BLOOD COUNT 4.7 K/mm3 (4.0-10.0)
[2020-04-12 17:28] LABS: ALBUMIN 4.6 g/dl (3.4-5.0); BLOOD UREA NITROGEN 10.5 mg/dL (7-18); CALCIUM 9.3 mg/dL (8.5-10.1)
[2020-04-12 17:31] LABS: CREATININE 1.3 mg/dL (0.55-1.3)
[2020-04-12 17:32] LABS: TOT PROT 7.5 g/dl (6.4-8.2)
[2020-04-12] MEDS: chlordiazePOXIDE HCL 25 MG CAPSULE PO PRN (20:34)
[2020-04-12] MEDS: GABAPENTIN 300 MG CAPSULE PO SCH (22:22)
[2020-04-12] MEDS: MELATONIN 5 MG TABLETS PO SCH (22:23)
[2020-04-12] MEDS: THIAMINE HCL 100 MG TABLET (FP) PO SCH (22:24)
[2020-04-13] MEDS: GABAPENTIN 300 MG CAPSULE PO SCH ×3 (05:43→22:34)
[2020-04-13] MEDS: chlordiazePOXIDE HCL 25 MG CAPSULE PO SCH ×4 (05:44→22:35)
[2020-04-13] MEDS: hydrOXYzine PAMOATE 25 MG CAPSULE (FP) PO SCH ×5 (05:44→22:35)
[2020-04-13] MEDS ORDERED: LEVOTHYROXINE NA 100 MCG TABLET (FP) ONE (09:28)
[2020-04-13] MEDS ORDERED: LEVOTHYROXINE NA 25 MCG TABLET (FP) ONE (09:28)
[2020-04-13] MEDS: NICOTINE 21 MG/24 HOURS TOPICAL PATCH TD SCH (09:41)
[2020-04-13] MEDS: LEVOTHYROXINE NA 125 MCG TABLET (FP) PO SCH (09:41)
[2020-04-13] MEDS: LEVOTHYROXINE 25 MCG, LEVOTHYROXINE 100 MCG PO SCH (09:41)
[2020-04-13] MEDS: FLUOCINONIDE 0.05% CREAM (60 GM TUBE) TP SCH ×2 (11:29→22:35)
[2020-04-13] MEDS: CHOLECALCIFEROL (VIT D3) 1,000 UNIT (25 MCG) TABLET PO SCH (14:03)
[2020-04-13] MEDS: chlordiazePOXIDE HCL 25 MG CAPSULE PO PRN (14:04)
[2020-04-13] MEDS: THIAMINE HCL 100 MG TABLET (FP) PO SCH (22:34)
[2020-04-13] MEDS: MELATONIN 5 MG TABLETS PO SCH (22:34)
[2020-04-14] MEDS ORDERED: LEVOTHYROXINE NA 100 MCG TABLET (FP) ONE (03:07)
[2020-04-14] MEDS ORDERED: LEVOTHYROXINE NA 25 MCG TABLET (FP) ONE (03:07)
[2020-04-14] MEDS: hydrOXYzine PAMOATE 25 MG CAPSULE (FP) PO SCH ×5 (05:45→22:13)
[2020-04-14] MEDS: GABAPENTIN 300 MG CAPSULE PO SCH ×3 (05:45→22:13)
[2020-04-14] MEDS: chlordiazePOXIDE HCL 25 MG CAPSULE PO SCH ×4 (05:47→22:12)
[2020-04-14] MEDS: LEVOTHYROXINE 25 MCG, LEVOTHYROXINE 100 MCG PO SCH (08:01)
[2020-04-14] MEDS: LEVOTHYROXINE NA 125 MCG TABLET (FP) PO SCH (08:09)
[2020-04-14] MEDS: FLUOCINONIDE 0.05% CREAM (60 GM TUBE) TP SCH ×2 (10:35→22:13)
[2020-04-14] MEDS: CHOLECALCIFEROL (VIT D3) 1,000 UNIT (25 MCG) TABLET PO SCH (10:35)
[2020-04-14] MEDS: NICOTINE 21 MG/24 HOURS TOPICAL PATCH TD SCH (10:35)
[2020-04-14] MEDS: chlordiazePOXIDE HCL 25 MG CAPSULE PO PRN (15:16)
[2020-04-14 18:15] LABS: URINE APPEARANCE CLEAR; URINE BILIRUBIN NEGATIVE (NEGATIVE); URINE COLOR YELLOW; URINE GLUCOSE (UA) NEGATIVE (NEGATIVE); URINE KETONE NEGATIVE (NEGATIVE); URINE LEUK ESTERASE NEGATIVE (NEGATIVE); URINE NITRITE NEGATIVE (NEGATIVE); URINE PROTEIN NEGATIVE (NEGATIVE); URINE UROBILINOGEN 0.2 mg/dL (0.2-1.0)
[2020-04-14] MEDS: MELATONIN 5 MG TABLETS PO SCH (22:13)
[2020-04-14] MEDS: THIAMINE HCL 100 MG TABLET (FP) PO SCH (22:13)
[2020-04-15] MEDS: chlordiazePOXIDE HCL 10 MG CAPSULE PO PRN ×2 (01:08→14:52)
[2020-04-15] MEDS ORDERED: LEVOTHYROXINE NA 100 MCG TABLET (FP) ONE (06:03)
[2020-04-15] MEDS ORDERED: LEVOTHYROXINE NA 25 MCG TABLET (FP) ONE (06:03)
[2020-04-15] MEDS: LEVOTHYROXINE 25 MCG, LEVOTHYROXINE 100 MCG PO SCH (06:04)
[2020-04-15] MEDS: GABAPENTIN 300 MG CAPSULE PO SCH ×3 (06:04→22:11)
[2020-04-15] MEDS: hydrOXYzine PAMOATE 25 MG CAPSULE (FP) PO SCH (06:05)
[2020-04-15] MEDS: chlordiazePOXIDE HCL 10 MG CAPSULE PO SCH ×4 (06:05→22:12)
[2020-04-15] MEDS: FLUOCINONIDE 0.05% CREAM (60 GM TUBE) TP SCH ×2 (10:08→22:12)
[2020-04-15] MEDS: CHOLECALCIFEROL (VIT D3) 1,000 UNIT (25 MCG) TABLET PO SCH (10:08)
[2020-04-15] MEDS: NICOTINE 21 MG/24 HOURS TOPICAL PATCH TD SCH (10:08)
[2020-04-15] MEDS: hydrOXYzine PAMOATE 50 MG CAPSULE (FP) PO PRN ×2 (10:25→22:11)
[2020-04-15] MEDS: METHOCARBAMOL 500 MG TABLET PO PRN (22:11)
[2020-04-15] MEDS: THIAMINE HCL 100 MG TABLET (FP) PO SCH (22:11)
[2020-04-15] MEDS: MELATONIN 5 MG TABLETS PO PRN (22:12)
[2020-04-16] MEDS ORDERED: LEVOTHYROXINE NA 100 MCG TABLET (FP) ONE (03:26)
[2020-04-16] MEDS ORDERED: LEVOTHYROXINE NA 25 MCG TABLET (FP) ONE (03:26)
[2020-04-16] MEDS: GABAPENTIN 300 MG CAPSULE PO SCH ×3 (05:56→22:32)
[2020-04-16] MEDS: chlordiazePOXIDE HCL 10 MG CAPSULE PO SCH ×2 (05:56→17:57)
[2020-04-16] MEDS: LEVOTHYROXINE 25 MCG, LEVOTHYROXINE 100 MCG PO SCH (06:01)
[2020-04-16] MEDS: CHOLECALCIFEROL (VIT D3) 1,000 UNIT (25 MCG) TABLET PO SCH (10:13)
[2020-04-16] MEDS: FLUOCINONIDE 0.05% CREAM (60 GM TUBE) TP SCH ×2 (10:13→22:33)
[2020-04-16] MEDS: NICOTINE 21 MG/24 HOURS TOPICAL PATCH TD SCH (10:13)
[2020-04-16] MEDS: hydrOXYzine PAMOATE 50 MG CAPSULE (FP) PO PRN ×2 (10:13→22:32)
[2020-04-16] MEDS: METHOCARBAMOL 500 MG TABLET PO PRN (22:32)
[2020-04-16] MEDS: THIAMINE HCL 100 MG TABLET (FP) PO SCH (22:32)
[2020-04-16] MEDS: MELATONIN 5 MG TABLETS PO PRN (22:32)
[2020-04-16 23:32] VITALS: TEMP 97.3
[2020-04-17] MEDS ORDERED: LEVOTHYROXINE NA 100 MCG TABLET (FP) ONE (03:13)
[2020-04-17] MEDS ORDERED: LEVOTHYROXINE NA 25 MCG TABLET (FP) ONE (03:13)
[2020-04-17] MEDS ORDERED: chlordiazePOXIDE HCL 10 MG CAPSULE PO ONE (05:00)
[2020-04-17] MEDS: GABAPENTIN 300 MG CAPSULE PO SCH (06:02)
[2020-04-17] MEDS: LEVOTHYROXINE 25 MCG, LEVOTHYROXINE 100 MCG PO SCH (06:03)
[2020-04-17 06:46] VITALS: BP 109/76; PULSE 74
== END 2020-04-17 09:10 | disposition home or self-care (01) | DRG 774 ==
LOC: YASAS 13:53 → Y6N 16:01
PROVIDERS: ADMIT Allergy & Immunology; ATTEND Allergy & Immunology
PROC: HZ2ZZZZ Detoxification Services for Substance Abuse Treatment (ICD-10-PCS; principal; 2020-04-12)
DX: F10.230 Alcohol dependence with withdrawal, uncomplicated (principal); F14.20 Cocaine dependence, uncomplicated; F17.213 Nicotine dependence, cigarettes, with withdrawal; F19.24 Other psychoactive substance dependence with psychoactive substance-induced mood disorder; F31.9 Bipolar disorder, unspecified; F41.9 Anxiety disorder, unspecified; E03.9 Hypothyroidism, unspecified; E55.9 Vitamin D deficiency, unspecified; E83.110 Hereditary hemochromatosis; G40.909 Epilepsy, unspecified, not intractable, without status epilepticus; I10 Essential (primary) hypertension; K21.9 Gastro-esophageal reflux disease without esophagitis; L30.9 Dermatitis, unspecified; R74.01 Elevation of levels of liver transaminase levels; Z86.19 Personal history of other infectious and parasitic diseases; Z88.0 Allergy status to penicillin; Z91.048 Other nonmedicinal substance allergy status; Z91.013 Allergy to seafood
CPT/HCPCS: 36415; 80053; 81003; 82962; 85027; 86780; C9803; U0003

== ENCOUNTER 2020-05-26 18:17 | Inpatient (IN) | payer OTHER ==
[2020-05-26 19:54] VITALS: BMI 29.8
[2020-05-26] MEDS ORDERED: BISMUTH SUBSALICYLATE 524 MG/30 ML UD PO PRN (20:44)
[2020-05-26] MEDS ORDERED: NICOTINE POLACRILEX 2 MG GUM BUC PRN (20:44)
[2020-05-26] MEDS ORDERED: ONDANSETRON *ODT* 4 MG TABLET SL PRN (20:44)
[2020-05-26] MEDS ORDERED: IBUPROFEN 400 MG TABLET (FP) PO PRN (20:44)
[2020-05-26] MEDS ORDERED: chlordiazePOXIDE HCL 25 MG CAPSULE PO ONE (20:44)
[2020-05-26] MEDS ORDERED: MAGNESIUM HYDROX 2400MG/30ML ORAL SUSPENSION 30 ML CUP PO PRN (20:44)
[2020-05-26] MEDS ORDERED: chlordiazePOXIDE HCL 25 MG CAPSULE PO PRN (20:44)
[2020-05-26] MEDS ORDERED: MAGNESIUM CITRATE 300 ML BOTTLE PO PRN (20:44)
[2020-05-26] MEDS ORDERED: METHOCARBAMOL 500 MG TABLET PO PRN (20:44)
[2020-05-26] MEDS ORDERED: MAG HYDROX/AL HYDROX/SIMETH 30 ML UNIT-DOSE CUP PO PRN (20:44)
[2020-05-26] MEDS ORDERED: MENTHOL/PHENOL 1 EACH UD MM PRN (20:44)
[2020-05-26] MEDS ORDERED: ACETAMINOPHEN 325 MG TABLET (FP) PO PRN ×2 (20:44)
[2020-05-26] MEDS: chlordiazePOXIDE HCL 25 MG CAPSULE PO SCH (23:02)
[2020-05-26] MEDS: THIAMINE HCL 100 MG TABLET (FP) PO SCH (23:03)
[2020-05-26] MEDS: GABAPENTIN 100 MG CAPSULE PO SCH (23:04)
[2020-05-26] MEDS: MELATONIN 5 MG TABLETS PO PRN (23:06)
[2020-05-27] MEDS ORDERED: LEVOTHYROXINE NA 25 MCG TABLET (FP) ONE (05:18)
[2020-05-27] MEDS ORDERED: LEVOTHYROXINE NA 100 MCG TABLET (FP) ONE (05:19)
[2020-05-27] MEDS: chlordiazePOXIDE HCL 25 MG CAPSULE PO SCH ×2 (05:43→10:01)
[2020-05-27] MEDS: GABAPENTIN 100 MG CAPSULE PO SCH ×3 (05:43→22:46)
[2020-05-27] MEDS ORDERED: LEVOTHYROXINE NA 25 MCG TABLET (FP) PO SCH (07:00)
[2020-05-27] MEDS: LEVOTHYROXINE 25 MCG, LEVOTHYROXINE 100 MCG PO SCH (07:22)
[2020-05-27] MEDS: CHOLECALCIFEROL (VIT D3) 1,000 UNIT (25 MCG) TABLET PO SCH (09:37)
[2020-05-27] MEDS: PRENATAL VITAMINS W/ FOLIC ACID TABLET (FP) PO SCH (09:37)
[2020-05-27] MEDS: NICOTINE 21 MG/24 HOURS TOPICAL PATCH TD SCH (09:37)
[2020-05-27 09:56] LABS: HEMOGLOBIN 11.6 GM/dL (11.7-16.9); MCH 35.9 pg (25.7-33.7); MCHC 35.1 g/dl (32.0-35.9); MEAN CELL VOLUME 102.1 fl (80-96); MEAN PLT VOLUME 7.6 fl (7.5-11.1); PLATELET COUNT 137 K/MM3 (134-434); RBC 3.23 M/mm3 (4.00-5.60); RDW 14.5 % (11.9-15.9); WHITE BLOOD COUNT 3.5 K/mm3 (4.0-10.0)
[2020-05-27 12:43] LABS: ALBUMIN 3.3 g/dl (3.4-5.0); BILIRUBIN,TOTAL 1.2 mg/dL (0.2-1); BLOOD UREA NITROGEN 11.9 mg/dL (7-18); CALCIUM 8.6 mg/dL (8.5-10.1); CREATININE 1.5 mg/dL (0.55-1.3); POTASSIUM 3.3 mmol/L (3.5-5.1); TOT PROT 5.7 g/dl (6.4-8.2)
[2020-05-27] MEDS ORDERED: LORazepam 1 MG TABLET PO PRN (13:08)
[2020-05-27] MEDS ORDERED: POTASSIUM CHLORIDE TABS 20 MEQ TABLET.ER (FP) PO ONE (13:10)
[2020-05-27] MEDS ORDERED: POTASSIUM CHLORIDE ORAL LIQUID 20 MEQ/15 ML PO ONE (18:00)
[2020-05-27] MEDS: LORazepam 2 MG TABLET PO SCH ×2 (18:11→22:47)
[2020-05-27] MEDS: THIAMINE HCL 100 MG TABLET (FP) PO SCH (22:46)
[2020-05-27] MEDS: MELATONIN 5 MG TABLETS PO PRN (22:47)
[2020-05-28] MEDS ORDERED: LEVOTHYROXINE NA 25 MCG TABLET (FP) ONE (03:56)
[2020-05-28] MEDS ORDERED: LEVOTHYROXINE NA 100 MCG TABLET (FP) ONE (03:56)
[2020-05-28] MEDS ORDERED: chlordiazePOXIDE HCL 25 MG CAPSULE PO SCH (05:00)
[2020-05-28] MEDS ORDERED: LORazepam 1 MG TABLET PO SCH (05:00)
[2020-05-28] MEDS: LEVOTHYROXINE 25 MCG, LEVOTHYROXINE 100 MCG PO SCH (06:06)
[2020-05-28] MEDS: GABAPENTIN 100 MG CAPSULE PO SCH ×3 (06:06→22:40)
[2020-05-28] MEDS ORDERED: diazePAM 5 MG TABLET PO SCH (10:39)
[2020-05-28] MEDS ORDERED: diazePAM 5 MG TABLET PO PRN (10:39)
[2020-05-28] MEDS: PRENATAL VITAMINS W/ FOLIC ACID TABLET (FP) PO SCH (11:16)
[2020-05-28] MEDS: NICOTINE 21 MG/24 HOURS TOPICAL PATCH TD SCH (11:16)
[2020-05-28] MEDS: diazePAM 5 MG TABLET PO PRN ×2 (11:16→18:12)
[2020-05-28] MEDS: CHOLECALCIFEROL (VIT D3) 1,000 UNIT (25 MCG) TABLET PO SCH (11:16)
[2020-05-28 11:45] LABS: POTASSIUM 3.7 mmol/L (3.5-5.1)
[2020-05-28 11:48] LABS: BLOOD UREA NITROGEN 7.7 mg/dL (7-18); CALCIUM 8.8 mg/dL (8.5-10.1)
[2020-05-28 11:52] LABS: CREATININE 1.4 mg/dL (0.55-1.3)
[2020-05-28] MEDS: diazePAM 5 MG TABLET PO SCH ×2 (15:16→22:41)
[2020-05-28 21:15] VITALS: TEMP 96.9
[2020-05-28] MEDS: MELATONIN 5 MG TABLETS PO PRN (22:40)
[2020-05-28] MEDS: THIAMINE HCL 100 MG TABLET (FP) PO SCH (22:41)
[2020-05-29] MEDS ORDERED: chlordiazePOXIDE HCL 10 MG CAPSULE PO PRN
[2020-05-29] MEDS ORDERED: LEVOTHYROXINE NA 100 MCG TABLET (FP) ONE (04:50)
[2020-05-29] MEDS ORDERED: LEVOTHYROXINE NA 25 MCG TABLET (FP) ONE (04:50)
[2020-05-29] MEDS ORDERED: LORazepam 0.5 MG TABLET PO SCH (05:00)
[2020-05-29] MEDS ORDERED: chlordiazePOXIDE HCL 10 MG CAPSULE PO SCH (05:00)
[2020-05-29] MEDS: GABAPENTIN 100 MG CAPSULE PO SCH (05:47)
[2020-05-29] MEDS ORDERED: diazePAM 5 MG TABLET PO SCH (06:00)
[2020-05-29] MEDS: LEVOTHYROXINE 25 MCG, LEVOTHYROXINE 100 MCG PO SCH (07:40)
[2020-05-29 08:20] VITALS: BP 122/76; PULSE 64
[2020-05-30] MEDS ORDERED: LORazepam 0.5 MG TABLET PO PRN
[2020-05-30] MEDS ORDERED: LORazepam 0.5 MG TABLET PO ONE (05:00)
[2020-05-30] MEDS ORDERED: diazePAM 5 MG TABLET PO ONE (05:00)
[2020-05-30] MEDS ORDERED: chlordiazePOXIDE HCL 10 MG CAPSULE PO SCH (05:00)
[2020-05-30] MEDS ORDERED: diazePAM 5 MG TABLET PO SCH (06:00)
[2020-05-31] MEDS ORDERED: chlordiazePOXIDE HCL 10 MG CAPSULE PO ONE (05:00)
[2020-05-31] MEDS ORDERED: diazePAM 5 MG TABLET PO ONE (06:00)
== END 2020-05-29 09:58 | disposition home or self-care (01) | DRG 774 ==
LOC: YASAS 18:17 → Y6N 21:06
PROVIDERS: ADMIT Allergy & Immunology; ATTEND Allergy & Immunology
PROC: HZ2ZZZZ Detoxification Services for Substance Abuse Treatment (ICD-10-PCS; principal; 2020-05-26)
DX: F10.230 Alcohol dependence with withdrawal, uncomplicated (principal); F10.220 Alcohol dependence with intoxication, uncomplicated; F14.20 Cocaine dependence, uncomplicated; F17.210 Nicotine dependence, cigarettes, uncomplicated; F19.24 Other psychoactive substance dependence with psychoactive substance-induced mood disorder; E55.9 Vitamin D deficiency, unspecified; E03.9 Hypothyroidism, unspecified; E87.6 Hypokalemia; K21.9 Gastro-esophageal reflux disease without esophagitis; I10 Essential (primary) hypertension; B19.20 Unspecified viral hepatitis C without hepatic coma; G40.909 Epilepsy, unspecified, not intractable, without status epilepticus; H91.93 Unspecified hearing loss, bilateral; H55.00 Unspecified nystagmus; K02.9 Dental caries, unspecified; M54.41 Lumbago with sciatica, right side; R00.0 Tachycardia, unspecified; R74.01 Elevation of levels of liver transaminase levels; R79.89 Other specified abnormal findings of blood chemistry; R26.89 Other abnormalities of gait and mobility; Z87.828 Personal history of other (healed) physical injury and trauma; Z88.0 Allergy status to penicillin; Z88.8 Allergy status to other drugs, medicaments and biological substances; Z91.048 Other nonmedicinal substance allergy status; Z91.013 Allergy to seafood
CPT/HCPCS: 36415; 80048; 80053; 84132; 85027; 86780; C9803; U0003; U0005

== ENCOUNTER 2020-07-10 18:19 | Inpatient (IN) | payer OTHER ==
[2020-07-10] MEDS ORDERED: DICYCLOMINE HCL 10 MG CAPSULE PO PRN (21:54)
[2020-07-10] MEDS ORDERED: guaiFENesin 200 MG/10 ML 10 ML UNIT-DOSE CUPS PO PRN (21:54)
[2020-07-10] MEDS ORDERED: MAGNESIUM HYDROX 2400MG/30ML ORAL SUSPENSION 30 ML CUP PO PRN (21:54)
[2020-07-10] MEDS ORDERED: NICOTINE POLACRILEX 4 MG GUM BUC PRN (21:54)
[2020-07-10] MEDS ORDERED: chlordiazePOXIDE HCL 25 MG CAPSULE PO PRN (21:54)
[2020-07-10] MEDS ORDERED: ONDANSETRON *ODT* 4 MG TABLET SL PRN (21:54)
[2020-07-10] MEDS ORDERED: MAG HYDROX/AL HYDROX/SIMETH 30 ML UNIT-DOSE CUP PO PRN (21:54)
[2020-07-10] MEDS ORDERED: MENTHOL/PHENOL 1 EACH UD MM PRN (21:54)
[2020-07-10] MEDS ORDERED: MAGNESIUM CITRATE 300 ML BOTTLE PO PRN (21:54)
[2020-07-10] MEDS ORDERED: ACETAMINOPHEN 325 MG TABLET (FP) PO PRN ×2 (21:54)
[2020-07-10] MEDS ORDERED: P-EPHED 60MG/TRIPROLIDI 2.5MG TABLET PO PRN (21:54)
[2020-07-10] MEDS ORDERED: IBUPROFEN 400 MG TABLET (FP) PO PRN (21:54)
[2020-07-10] MEDS ORDERED: BISMUTH SUBSALICYLATE 524 MG/30 ML UD PO PRN (21:54)
[2020-07-10 22:04] VITALS: BMI 29.9
[2020-07-10] MEDS: MELATONIN 5 MG TABLETS PO SCH (23:55)
[2020-07-10] MEDS: chlordiazePOXIDE HCL 25 MG CAPSULE PO SCH (23:58)
[2020-07-10] MEDS: THIAMINE HCL 100 MG TABLET (FP) PO SCH (23:58)
[2020-07-11] MEDS: hydrOXYzine PAMOATE 25 MG CAPSULE (FP) PO PRN (00:55)
[2020-07-11] MEDS: chlordiazePOXIDE HCL 25 MG CAPSULE PO SCH ×4 (05:22→22:28)
[2020-07-11 09:55] LABS: ALBUMIN 3.9 g/dl (3.4-5.0); BLOOD UREA NITROGEN 14.9 mg/dL (7-18)
[2020-07-11 09:56] LABS: CALCIUM 8.8 mg/dL (8.5-10.1)
[2020-07-11 09:58] LABS: CREATININE 1.3 mg/dL (0.55-1.3)
[2020-07-11 10:00] LABS: BILIRUBIN,TOTAL 0.8 mg/dL (0.2-1); TOT PROT 6.6 g/dl (6.4-8.2)
[2020-07-11 10:21] LABS: HEMATOCRIT 38.8 % (35.4-49); HEMOGLOBIN 13.7 GM/dL (11.7-16.9); MCH 36.6 pg (25.7-33.7); MCHC 35.3 g/dl (32.0-35.9); MEAN CELL VOLUME 103.6 fl (80-96); MEAN PLT VOLUME 6.9 fl (7.5-11.1); PLATELET COUNT 188 K/MM3 (134-434); RBC 3.74 M/mm3 (4.00-5.60); RDW 13.3 % (11.9-15.9); WHITE BLOOD COUNT 3.6 K/mm3 (4.0-10.0)
[2020-07-11] MEDS: PRENATAL VITAMINS W/ FOLIC ACID TABLET (FP) PO SCH (10:29)
[2020-07-11] MEDS: NICOTINE 21 MG/24 HOURS TOPICAL PATCH TD SCH (10:29)
[2020-07-11] MEDS: THIAMINE HCL 100 MG TABLET (FP) PO SCH (22:28)
[2020-07-11] MEDS: MELATONIN 5 MG TABLETS PO SCH (22:29)
[2020-07-11] MEDS: GABAPENTIN 300 MG CAPSULE PO SCH (23:25)
[2020-07-12] MEDS: chlordiazePOXIDE HCL 25 MG CAPSULE PO SCH ×4 (05:35→22:29)
[2020-07-12] MEDS: GABAPENTIN 300 MG CAPSULE PO SCH ×3 (05:35→22:29)
[2020-07-12] MEDS ORDERED: LEVOTHYROXINE NA 100 MCG TABLET (FP) ONE (06:37)
[2020-07-12] MEDS ORDERED: LEVOTHYROXINE NA 25 MCG TABLET (FP) ONE (06:37)
[2020-07-12] MEDS: LEVOTHYROXINE 25 MCG, LEVOTHYROXINE 100 MCG PO SCH (06:44)
[2020-07-12] MEDS ORDERED: LEVOTHYROXINE NA 125 MCG TABLET (FP) PO SCH (07:00)
[2020-07-12] MEDS: NICOTINE 21 MG/24 HOURS TOPICAL PATCH TD SCH (10:35)
[2020-07-12] MEDS: PRENATAL VITAMINS W/ FOLIC ACID TABLET (FP) PO SCH (10:35)
[2020-07-12] MEDS: METHOCARBAMOL 500 MG TABLET PO PRN ×2 (10:37→17:12)
[2020-07-12] MEDS: THIAMINE HCL 100 MG TABLET (FP) PO SCH (22:29)
[2020-07-12] MEDS: MELATONIN 5 MG TABLETS PO SCH (22:32)
[2020-07-12] MEDS: SUVOREXANT 10 MG TABLET PO PRN (22:33)
[2020-07-13] MEDS ORDERED: chlordiazePOXIDE HCL 10 MG CAPSULE PO PRN
[2020-07-13] MEDS ORDERED: LEVOTHYROXINE NA 25 MCG TABLET (FP) ONE (04:29)
[2020-07-13] MEDS ORDERED: LEVOTHYROXINE NA 100 MCG TABLET (FP) ONE (04:30)
[2020-07-13] MEDS: GABAPENTIN 300 MG CAPSULE PO SCH ×3 (05:47→22:24)
[2020-07-13] MEDS: chlordiazePOXIDE HCL 10 MG CAPSULE PO SCH ×4 (05:48→22:24)
[2020-07-13] MEDS: METHOCARBAMOL 500 MG TABLET PO PRN ×3 (05:48→22:27)
[2020-07-13] MEDS: LEVOTHYROXINE 25 MCG, LEVOTHYROXINE 100 MCG PO SCH (07:41)
[2020-07-13] MEDS: hydrOXYzine PAMOATE 25 MG CAPSULE (FP) PO PRN (08:44)
[2020-07-13] MEDS: PRENATAL VITAMINS W/ FOLIC ACID TABLET (FP) PO SCH (10:36)
[2020-07-13] MEDS: NICOTINE 21 MG/24 HOURS TOPICAL PATCH TD SCH (10:36)
[2020-07-13] MEDS ORDERED: chlordiazePOXIDE HCL 10 MG CAPSULE PO ONE (14:00)
[2020-07-13] MEDS: THIAMINE HCL 100 MG TABLET (FP) PO SCH (22:24)
[2020-07-13] MEDS: MELATONIN 5 MG TABLETS PO SCH (22:25)
[2020-07-13] MEDS: SUVOREXANT 10 MG TABLET PO PRN (22:27)
[2020-07-14] MEDS: hydrOXYzine PAMOATE 25 MG CAPSULE (FP) PO PRN ×4 (00:50→22:36)
[2020-07-14] MEDS ORDERED: LEVOTHYROXINE NA 100 MCG TABLET (FP) ONE (04:33)
[2020-07-14] MEDS ORDERED: LEVOTHYROXINE NA 25 MCG TABLET (FP) ONE (04:33)
[2020-07-14] MEDS: GABAPENTIN 300 MG CAPSULE PO SCH ×3 (05:46→22:34)
[2020-07-14] MEDS: chlordiazePOXIDE HCL 10 MG CAPSULE PO SCH ×2 (05:46→18:29)
[2020-07-14] MEDS: LEVOTHYROXINE 25 MCG, LEVOTHYROXINE 100 MCG PO SCH (07:05)
[2020-07-14] MEDS: NICOTINE 21 MG/24 HOURS TOPICAL PATCH TD SCH (10:34)
[2020-07-14] MEDS: PRENATAL VITAMINS W/ FOLIC ACID TABLET (FP) PO SCH (10:34)
[2020-07-14] MEDS: METHOCARBAMOL 500 MG TABLET PO PRN ×2 (10:34→22:36)
[2020-07-14] MEDS: THIAMINE HCL 100 MG TABLET (FP) PO SCH (22:35)
[2020-07-14] MEDS: MELATONIN 5 MG TABLETS PO SCH (22:35)
[2020-07-15] MEDS ORDERED: LEVOTHYROXINE NA 100 MCG TABLET (FP) ONE (04:43)
[2020-07-15] MEDS ORDERED: LEVOTHYROXINE NA 25 MCG TABLET (FP) ONE (04:43)
[2020-07-15] MEDS ORDERED: chlordiazePOXIDE HCL 10 MG CAPSULE PO ONE (05:00)
[2020-07-15] MEDS: GABAPENTIN 300 MG CAPSULE PO SCH (05:38)
[2020-07-15 06:08] VITALS: TEMP 97.5
[2020-07-15] MEDS: LEVOTHYROXINE 25 MCG, LEVOTHYROXINE 100 MCG PO SCH (06:17)
[2020-07-15 07:05] LABS: SARS-CoV-2 NAA NOT DETECTED
[2020-07-15] MEDS: NICOTINE 21 MG/24 HOURS TOPICAL PATCH TD SCH (09:25)
[2020-07-15] MEDS: PRENATAL VITAMINS W/ FOLIC ACID TABLET (FP) PO SCH (09:25)
[2020-07-15 10:03] VITALS: BP 119/81; PULSE 99
== END 2020-07-15 09:24 | disposition home or self-care (01) | DRG 774 ==
LOC: YASAS 18:19 → Y6N 22:17
PROVIDERS: ADMIT Allergy & Immunology; ATTEND Allergy & Immunology
PROC: HZ2ZZZZ Detoxification Services for Substance Abuse Treatment (ICD-10-PCS; principal; 2020-07-10)
DX: F10.230 Alcohol dependence with withdrawal, uncomplicated (principal); F14.20 Cocaine dependence, uncomplicated; F17.210 Nicotine dependence, cigarettes, uncomplicated; F19.282 Other psychoactive substance dependence with psychoactive substance-induced sleep disorder; F19.24 Other psychoactive substance dependence with psychoactive substance-induced mood disorder; F41.9 Anxiety disorder, unspecified; F31.9 Bipolar disorder, unspecified; E03.9 Hypothyroidism, unspecified; E83.110 Hereditary hemochromatosis; I10 Essential (primary) hypertension; G40.909 Epilepsy, unspecified, not intractable, without status epilepticus; K21.9 Gastro-esophageal reflux disease without esophagitis; M54.5 Low back pain; G89.29 Other chronic pain; Z86.19 Personal history of other infectious and parasitic diseases; Z88.0 Allergy status to penicillin; Z91.013 Allergy to seafood; Z91.048 Other nonmedicinal substance allergy status; Z87.828 Personal history of other (healed) physical injury and trauma; Z87.81 Personal history of (healed) traumatic fracture; Z98.890 Other specified postprocedural states
CPT/HCPCS: 36415; 80053; 85027; 86780; C9803; U0003; U0005

== ENCOUNTER 2020-09-13 10:27 | Inpatient (IN) | payer OTHER ==
[2020-09-13 11:05] VITALS: BMI 28.8
[2020-09-13] MEDS ORDERED: ACETAMINOPHEN 325 MG TABLET (FP) PO PRN ×2 (11:31)
[2020-09-13] MEDS ORDERED: BISMUTH SUBSALICYLATE 262 MG/15 ML BTL PO PRN (11:31)
[2020-09-13] MEDS ORDERED: MAGNESIUM HYDROX 2400MG/30ML ORAL SUSPENSION 30 ML CUP PO PRN (11:31)
[2020-09-13] MEDS ORDERED: LORazepam 1 MG TABLET PO PRN (11:31)
[2020-09-13] MEDS ORDERED: MENTHOL/PHENOL 1 EACH UD MM PRN (11:31)
[2020-09-13] MEDS ORDERED: NICOTINE POLACRILEX 2 MG GUM BUC PRN (11:31)
[2020-09-13] MEDS ORDERED: MAG HYDROX/AL HYDROX/SIMETH 30 ML UNIT-DOSE CUP PO PRN (11:31)
[2020-09-13] MEDS ORDERED: IBUPROFEN 400 MG TABLET (FP) PO PRN (11:31)
[2020-09-13] MEDS ORDERED: MAGNESIUM CITRATE 300 ML BOTTLE PO PRN (11:31)
[2020-09-13] MEDS ORDERED: ONDANSETRON *ODT* 4 MG TABLET SL PRN (11:31)
[2020-09-13] MEDS ORDERED: METHOCARBAMOL 500 MG TABLET PO PRN (11:31)
[2020-09-13] MEDS ORDERED: PATIENT'S OWN MEDICATION (NON-FORMULARY) (Gabapentin [Neurontin] 600 MG Tablet) PO SCH (11:45)
[2020-09-13] MEDS ORDERED: PRENATAL VITAMINS W/ FOLIC ACID TABLET (FP) PO SCH (11:45)
[2020-09-13] MEDS ORDERED: diazePAM 5 MG TABLET PO ONE (11:53)
[2020-09-13] MEDS: diazePAM 5 MG TABLET PO SCH ×3 (12:41→22:27)
[2020-09-13] MEDS: NICOTINE 21 MG/24 HOURS TOPICAL PATCH TD SCH (12:49)
[2020-09-13 13:29] LABS: CALCIUM 8.3 mg/dL (8.5-10.1); HEMATOCRIT 38.9 % (35.4-49); HEMOGLOBIN 13.4 GM/dL (11.7-16.9); MCH 35.8 pg (25.7-33.7); MCHC 34.4 g/dl (32.0-35.9); MEAN PLT VOLUME 7.3 fl (7.5-11.1); PLATELET COUNT 183 10^3/uL (134-434); RBC 3.74 M/mm3 (4.00-5.60); RDW 13.6 % (11.9-15.9); WHITE BLOOD COUNT 4.5 K/mm3 (4.0-10.0)
[2020-09-13 13:30] LABS: BLOOD UREA NITROGEN 14.7 mg/dL (7-18)
[2020-09-13 13:33] LABS: CREATININE 1.6 mg/dL (0.55-1.3)
[2020-09-13 13:35] LABS: BILIRUBIN,TOTAL 0.6 mg/dL (0.2-1)
[2020-09-13 14:26] LABS: HIV INTERPRETATION NEGATIVE (NEGATIVE)
[2020-09-13] MEDS: GABAPENTIN 300 MG CAPSULE PO SCH ×2 (15:38→22:27)
[2020-09-13] MEDS: hydrOXYzine PAMOATE 25 MG CAPSULE (FP) PO SCH ×3 (15:39→23:01)
[2020-09-13] MEDS ORDERED: GABAPENTIN 300 MG CAPSULE PO ONE (16:38)
[2020-09-13] MEDS ORDERED: LORazepam 2 MG TABLET PO SCH (17:00)
[2020-09-13] MEDS: diazePAM 5 MG TABLET PO PRN (19:27)
[2020-09-13] MEDS ORDERED: MELATONIN 5 MG TABLETS PO SCH (22:00)
[2020-09-13] MEDS: THIAMINE HCL 100 MG TABLET (FP) PO SCH (22:27)
[2020-09-13] MEDS: SUVOREXANT 10 MG TABLET PO PRN (22:29)
[2020-09-14] MEDS: diazePAM 5 MG TABLET PO PRN (00:57)
[2020-09-14] MEDS ORDERED: TRIMETHOBENZAMIDE HCL 200MG/2ML INJ IM ONE (03:11)
[2020-09-14] MEDS: diazePAM 5 MG TABLET PO SCH ×4 (05:51→22:19)
[2020-09-14] MEDS: hydrOXYzine PAMOATE 25 MG CAPSULE (FP) PO SCH ×5 (05:52→22:19)
[2020-09-14] MEDS: GABAPENTIN 300 MG CAPSULE PO SCH ×3 (05:52→22:19)
[2020-09-14] MEDS ORDERED: CEPHALEXIN MONOHYDRATE 500 MG CAPSULE (UD) PO SCH (06:00)
[2020-09-14] MEDS: LEVOTHYROXINE 25 MCG, LEVOTHYROXINE 100 MCG PO SCH (06:47)
[2020-09-14] MEDS ORDERED: LEVOTHYROXINE NA 125 MCG TABLET (FP) PO SCH (07:00)
[2020-09-14] MEDS ORDERED: SULFAMETHOXAZOLE/TRIMETHOPRIM 800MG/160MG D.S. TABLET PO SCH (10:00)
[2020-09-14] MEDS: NICOTINE 21 MG/24 HOURS TOPICAL PATCH TD SCH (10:07)
[2020-09-14] MEDS ORDERED: TRIMETHOBENZAMIDE HCL 200MG/2ML INJ IM PRN (11:19)
[2020-09-14] MEDS ORDERED: ONDANSETRON *ODT* 4 MG TABLET SL PRN (11:36)
[2020-09-14] MEDS ORDERED: cloNIDine HCL 0.1 MG TABLET PO PRN (11:48)
[2020-09-14] MEDS: CHOLECALCIFEROL (VIT D3) 1,000 UNIT (25 MCG) TABLET PO SCH (14:03)
[2020-09-14] MEDS: SUVOREXANT 10 MG TABLET PO PRN (22:19)
[2020-09-14] MEDS: THIAMINE HCL 100 MG TABLET (FP) PO SCH (22:19)
[2020-09-15] MEDS ORDERED: LEVOTHYROXINE NA 25 MCG TABLET (FP) ONE (04:03)
[2020-09-15] MEDS ORDERED: LEVOTHYROXINE NA 100 MCG TABLET (FP) ONE (04:04)
[2020-09-15] MEDS ORDERED: LORazepam 1 MG TABLET PO SCH (05:00)
[2020-09-15] MEDS: diazePAM 5 MG TABLET PO SCH ×3 (05:55→22:06)
[2020-09-15] MEDS: hydrOXYzine PAMOATE 25 MG CAPSULE (FP) PO SCH ×5 (05:56→23:01)
[2020-09-15] MEDS: GABAPENTIN 300 MG CAPSULE PO SCH ×3 (05:56→22:05)
[2020-09-15] MEDS: LEVOTHYROXINE 25 MCG, LEVOTHYROXINE 100 MCG PO SCH (06:18)
[2020-09-15] MEDS: NICOTINE 21 MG/24 HOURS TOPICAL PATCH TD SCH (10:21)
[2020-09-15] MEDS: CHOLECALCIFEROL (VIT D3) 1,000 UNIT (25 MCG) TABLET PO SCH (10:22)
[2020-09-15] MEDS: diazePAM 5 MG TABLET PO PRN ×2 (10:22→17:55)
[2020-09-15] MEDS: SUVOREXANT 10 MG TABLET PO PRN (22:05)
[2020-09-15] MEDS: THIAMINE HCL 100 MG TABLET (FP) PO SCH (22:05)
[2020-09-16] MEDS ORDERED: LORazepam 0.5 MG TABLET PO PRN
[2020-09-16] MEDS ORDERED: LEVOTHYROXINE NA 25 MCG TABLET (FP) ONE (04:04)
[2020-09-16] MEDS ORDERED: LEVOTHYROXINE NA 100 MCG TABLET (FP) ONE (04:05)
[2020-09-16] MEDS ORDERED: LORazepam 0.5 MG TABLET PO SCH (05:00)
[2020-09-16] MEDS: diazePAM 5 MG TABLET PO SCH ×2 (05:35→17:25)
[2020-09-16] MEDS: hydrOXYzine PAMOATE 25 MG CAPSULE (FP) PO SCH ×5 (05:36→22:31)
[2020-09-16] MEDS: GABAPENTIN 300 MG CAPSULE PO SCH ×3 (05:36→22:31)
[2020-09-16] MEDS: LEVOTHYROXINE 25 MCG, LEVOTHYROXINE 100 MCG PO SCH (06:08)
[2020-09-16] MEDS: NICOTINE 21 MG/24 HOURS TOPICAL PATCH TD SCH (10:09)
[2020-09-16] MEDS: CHOLECALCIFEROL (VIT D3) 1,000 UNIT (25 MCG) TABLET PO SCH (10:09)
[2020-09-16] MEDS: diazePAM 5 MG TABLET PO PRN (10:10)
[2020-09-16] MEDS: SUVOREXANT 10 MG TABLET PO PRN (22:30)
[2020-09-16] MEDS: THIAMINE HCL 100 MG TABLET (FP) PO SCH (22:31)
[2020-09-17] MEDS ORDERED: LEVOTHYROXINE NA 25 MCG TABLET (FP) ONE (04:03)
[2020-09-17] MEDS ORDERED: LEVOTHYROXINE NA 100 MCG TABLET (FP) ONE (04:03)
[2020-09-17] MEDS ORDERED: LORazepam 0.5 MG TABLET PO ONE (05:00)
[2020-09-17] MEDS: hydrOXYzine PAMOATE 25 MG CAPSULE (FP) PO SCH ×2 (05:28→10:45)
[2020-09-17] MEDS: GABAPENTIN 300 MG CAPSULE PO SCH (05:28)
[2020-09-17] MEDS ORDERED: diazePAM 5 MG TABLET PO ONE (06:00)
[2020-09-17] MEDS: LEVOTHYROXINE 25 MCG, LEVOTHYROXINE 100 MCG PO SCH (06:03)
[2020-09-17 09:49] VITALS: BP 118/81; PULSE 101; TEMP 97.3
[2020-09-17] MEDS: NICOTINE 21 MG/24 HOURS TOPICAL PATCH TD SCH (10:44)
[2020-09-17] MEDS: CHOLECALCIFEROL (VIT D3) 1,000 UNIT (25 MCG) TABLET PO SCH (10:45)
== END 2020-09-17 09:04 | disposition home or self-care (01) | DRG 774 ==
LOC: YASAS 10:27 → Y6N 11:42
PROVIDERS: ADMIT Allergy & Immunology; ATTEND Allergy & Immunology
PROC: HZ2ZZZZ Detoxification Services for Substance Abuse Treatment (ICD-10-PCS; principal; 2020-09-13)
DX: F10.230 Alcohol dependence with withdrawal, uncomplicated (principal); F14.20 Cocaine dependence, uncomplicated; F17.210 Nicotine dependence, cigarettes, uncomplicated; F19.24 Other psychoactive substance dependence with psychoactive substance-induced mood disorder; F19.280 Other psychoactive substance dependence with psychoactive substance-induced anxiety disorder; F32.9 Major depressive disorder, single episode, unspecified; E03.9 Hypothyroidism, unspecified; E55.9 Vitamin D deficiency, unspecified; E83.110 Hereditary hemochromatosis; K21.9 Gastro-esophageal reflux disease without esophagitis; B18.2 Chronic viral hepatitis C; E11.9 Type 2 diabetes mellitus without complications; Z79.4 Long term (current) use of insulin; Z91.013 Allergy to seafood; Z88.0 Allergy status to penicillin
CPT/HCPCS: 36415; 80053; 85027; 86780; 87389; C9803; Q0162; U0003; U0005

== ENCOUNTER 2021-01-05 09:55 | Inpatient (IN) | payer OTHER ==
[2021-01-05] MEDS ORDERED: MENTHOL/PHENOL 1 EACH UD MM PRN (10:53)
[2021-01-05] MEDS ORDERED: MAGNESIUM CITRATE 300 ML BOTTLE PO PRN (10:53)
[2021-01-05] MEDS ORDERED: IBUPROFEN 400 MG TABLET (FP) PO PRN (10:53)
[2021-01-05] MEDS ORDERED: ACETAMINOPHEN 325 MG TABLET (FP) PO PRN ×2 (10:53)
[2021-01-05] MEDS ORDERED: MAG HYDROX/AL HYDROX/SIMETH 30 ML UNIT-DOSE CUP PO PRN (10:53)
[2021-01-05] MEDS ORDERED: ONDANSETRON *ODT* 4 MG TABLET SL PRN (10:53)
[2021-01-05] MEDS ORDERED: MAGNESIUM HYDROX 2400MG/30ML ORAL SUSPENSION 30 ML CUP PO PRN (10:53)
[2021-01-05] MEDS ORDERED: NICOTINE 10 MG CARTRIDGE (INHALER) IH PRN (10:53)
[2021-01-05] MEDS ORDERED: BISMUTH SUBSALICYLATE 524 MG/30 ML PO PRN (10:53)
[2021-01-05] MEDS ORDERED: LEVOTHYROXINE NA 125 MCG TABLET (FP) PO SCH (11:00)
[2021-01-05 11:20] VITALS: BMI 28.5
[2021-01-05] MEDS: NICOTINE 14 MG/24 HOURS TOPICAL PATCH TD SCH (12:36)
[2021-01-05] MEDS: PRENATAL VITAMINS W/ FOLIC ACID TABLET (FP) PO SCH (12:36)
[2021-01-05] MEDS: METHOCARBAMOL 500 MG TABLET PO PRN (12:37)
[2021-01-05] MEDS: diazePAM 5 MG TABLET PO SCH ×3 (12:38→22:39)
[2021-01-05] MEDS: hydrOXYzine PAMOATE 25 MG CAPSULE (FP) PO SCH ×3 (14:27→22:39)
[2021-01-05] MEDS: diazePAM 5 MG TABLET PO PRN (14:49)
[2021-01-05 14:58] LABS: HEMATOCRIT 37.4 % (35.4-49); HEMOGLOBIN 12.8 GM/dL (11.7-16.9); MCH 36.3 pg (25.7-33.7); MCHC 34.4 g/dl (32.0-35.9); MEAN CELL VOLUME 105.8 fl (80-96); MEAN PLT VOLUME 8.1 fl (7.5-11.1); PLATELET COUNT 208 10^3/uL (134-434); RBC 3.53 M/mm3 (4.00-5.60); WHITE BLOOD COUNT 7.3 K/mm3 (4.0-10.0)
[2021-01-05 17:09] LABS: ALBUMIN 3.3 g/dl (3.4-5.0); CALCIUM 9.1 mg/dL (8.5-10.1)
[2021-01-05 17:10] LABS: BLOOD UREA NITROGEN 21.5 mg/dL (7-18)
[2021-01-05 17:13] LABS: CREATININE 1.7 mg/dL (0.55-1.3)
[2021-01-05 17:15] LABS: BILIRUBIN,TOTAL 0.8 mg/dL (0.2-1); TOT PROT 6.7 g/dl (6.4-8.2)
[2021-01-05] MEDS: MELATONIN 5 MG TABLETS PO SCH (22:35)
[2021-01-05] MEDS: MIRTAZAPINE 15 MG TABLET (FP) PO SCH (22:39)
[2021-01-05] MEDS: GABAPENTIN 300 MG CAPSULE PO SCH (22:39)
[2021-01-05] MEDS: THIAMINE HCL 100 MG TABLET (FP) PO SCH (22:39)
[2021-01-06] MEDS: GABAPENTIN 300 MG CAPSULE PO SCH ×3 (05:57→22:04)
[2021-01-06] MEDS: hydrOXYzine PAMOATE 25 MG CAPSULE (FP) PO SCH ×5 (05:57→22:04)
[2021-01-06] MEDS: diazePAM 5 MG TABLET PO SCH ×4 (05:58→22:03)
[2021-01-06] MEDS ORDERED: LEVOTHYROXINE NA 25 MCG TABLET (FP) ONE (07:04)
[2021-01-06] MEDS ORDERED: LEVOTHYROXINE NA 100 MCG TABLET (FP) ONE (07:04)
[2021-01-06] MEDS: LEVOTHYROXINE 100 MCG, LEVOTHYROXINE 25 MCG PO SCH (07:04)
[2021-01-06] MEDS: METHOCARBAMOL 500 MG TABLET PO PRN (10:47)
[2021-01-06] MEDS: PRENATAL VITAMINS W/ FOLIC ACID TABLET (FP) PO SCH (10:47)
[2021-01-06] MEDS: NICOTINE 14 MG/24 HOURS TOPICAL PATCH TD SCH (10:48)
[2021-01-06] MEDS ORDERED: FLU VACC QS2021-22(6MOS UP)/PF 60 MCG/0.5 ML SYRINGE IM ONE (12:00)
[2021-01-06] MEDS: MIRTAZAPINE 15 MG TABLET (FP) PO SCH (22:03)
[2021-01-06] MEDS: THIAMINE HCL 100 MG TABLET (FP) PO SCH (22:04)
[2021-01-06] MEDS: MELATONIN 5 MG TABLETS PO SCH (22:04)
[2021-01-07] MEDS ORDERED: LEVOTHYROXINE NA 100 MCG TABLET (FP) ONE (04:44)
[2021-01-07] MEDS ORDERED: LEVOTHYROXINE NA 25 MCG TABLET (FP) ONE (04:44)
[2021-01-07] MEDS: diazePAM 5 MG TABLET PO SCH ×3 (05:36→22:22)
[2021-01-07] MEDS: GABAPENTIN 300 MG CAPSULE PO SCH ×3 (05:37→22:22)
[2021-01-07] MEDS: hydrOXYzine PAMOATE 25 MG CAPSULE (FP) PO SCH ×5 (05:37→22:54)
[2021-01-07] MEDS: LEVOTHYROXINE 100 MCG, LEVOTHYROXINE 25 MCG PO SCH (06:33)
[2021-01-07] MEDS: PRENATAL VITAMINS W/ FOLIC ACID TABLET (FP) PO SCH (10:12)
[2021-01-07] MEDS: diazePAM 5 MG TABLET PO PRN ×2 (10:12→15:34)
[2021-01-07] MEDS: METHOCARBAMOL 500 MG TABLET PO PRN (10:12)
[2021-01-07] MEDS: NICOTINE 14 MG/24 HOURS TOPICAL PATCH TD SCH (10:14)
[2021-01-07 15:00] LABS: CALCIUM 9.2 mg/dL (8.5-10.1)
[2021-01-07 15:01] LABS: BLOOD UREA NITROGEN 13.7 mg/dL (7-18)
[2021-01-07 15:04] LABS: CREATININE 1.3 mg/dL (0.55-1.3)
[2021-01-07 15:05] LABS: TOT PROT 6.3 g/dl (6.4-8.2)
[2021-01-07 15:08] LABS: BLOOD UREA NITROGEN 13.8 mg/dL (7-18)
[2021-01-07 15:11] LABS: CREATININE 1.3 mg/dL (0.55-1.3)
[2021-01-07] MEDS: THIAMINE HCL 100 MG TABLET (FP) PO SCH (22:22)
[2021-01-07] MEDS: MIRTAZAPINE 15 MG TABLET (FP) PO SCH (22:22)
[2021-01-07] MEDS: MELATONIN 5 MG TABLETS PO SCH (22:22)
[2021-01-08] MEDS: diazePAM 5 MG TABLET PO PRN ×2 (00:46→10:32)
[2021-01-08] MEDS ORDERED: LEVOTHYROXINE NA 25 MCG TABLET (FP) ONE (04:43)
[2021-01-08] MEDS ORDERED: LEVOTHYROXINE NA 100 MCG TABLET (FP) ONE (04:44)
[2021-01-08] MEDS: GABAPENTIN 300 MG CAPSULE PO SCH ×3 (06:17→22:15)
[2021-01-08] MEDS: hydrOXYzine PAMOATE 25 MG CAPSULE (FP) PO SCH ×5 (06:17→22:15)
[2021-01-08] MEDS: LEVOTHYROXINE 100 MCG, LEVOTHYROXINE 25 MCG PO SCH (06:18)
[2021-01-08] MEDS: diazePAM 5 MG TABLET PO SCH ×2 (06:18→17:19)
[2021-01-08] MEDS: PRENATAL VITAMINS W/ FOLIC ACID TABLET (FP) PO SCH (10:31)
[2021-01-08] MEDS: NICOTINE 14 MG/24 HOURS TOPICAL PATCH TD SCH (10:33)
[2021-01-08] MEDS: THIAMINE HCL 100 MG TABLET (FP) PO SCH (22:15)
[2021-01-08] MEDS: MIRTAZAPINE 15 MG TABLET (FP) PO SCH (22:15)
[2021-01-08] MEDS: MELATONIN 5 MG TABLETS PO SCH (22:15)
[2021-01-09] MEDS ORDERED: LEVOTHYROXINE NA 25 MCG TABLET (FP) ONE (04:31)
[2021-01-09] MEDS ORDERED: LEVOTHYROXINE NA 100 MCG TABLET (FP) ONE (04:31)
[2021-01-09] MEDS: GABAPENTIN 300 MG CAPSULE PO SCH (05:36)
[2021-01-09] MEDS: hydrOXYzine PAMOATE 25 MG CAPSULE (FP) PO SCH (05:36)
[2021-01-09] MEDS ORDERED: diazePAM 5 MG TABLET PO ONE (06:00)
[2021-01-09] MEDS: LEVOTHYROXINE 100 MCG, LEVOTHYROXINE 25 MCG PO SCH (06:11)
[2021-01-09 09:23] VITALS: BP 94/62; PULSE 149; TEMP 97.7
== END 2021-01-09 09:21 | disposition home or self-care (01) | DRG 774 ==
LOC: YASAS 09:55 → Y3N 11:26 → Y6N 11:52
PROVIDERS: ADMIT Allergy & Immunology; ATTEND Allergy & Immunology
PROC: HZ2ZZZZ Detoxification Services for Substance Abuse Treatment (ICD-10-PCS; principal; 2021-01-05)
DX: F10.230 Alcohol dependence with withdrawal, uncomplicated (principal); F14.20 Cocaine dependence, uncomplicated; F17.213 Nicotine dependence, cigarettes, with withdrawal; G40.909 Epilepsy, unspecified, not intractable, without status epilepticus; E03.9 Hypothyroidism, unspecified; E55.9 Vitamin D deficiency, unspecified; K21.9 Gastro-esophageal reflux disease without esophagitis; R74.01 Elevation of levels of liver transaminase levels; Z86.19 Personal history of other infectious and parasitic diseases; Z88.0 Allergy status to penicillin; Z88.8 Allergy status to other drugs, medicaments and biological substances; Z91.013 Allergy to seafood
CPT/HCPCS: 36415; 80053; 82540; 82565; 82962; 84520; 85027; 86780; 90686; C9803; U0003; U0005

== ENCOUNTER 2021-05-03 14:01 | Inpatient (IN) | payer OTHER ==
[2021-05-03] MEDS ORDERED: ONDANSETRON *ODT* 4 MG TABLET SL PRN (15:11)
[2021-05-03] MEDS ORDERED: chlordiazePOXIDE HCL 25 MG CAPSULE PO PRN (15:11)
[2021-05-03] MEDS ORDERED: MENTHOL/PHENOL 1 EACH UD MM PRN (15:11)
[2021-05-03] MEDS ORDERED: MAG HYDROX/AL HYDROX/SIMETH 30 ML UNIT-DOSE CUP PO PRN (15:11)
[2021-05-03] MEDS ORDERED: BISMUTH SUBSALICYLATE 524 MG/30 ML PO PRN (15:11)
[2021-05-03] MEDS ORDERED: LOPERAMIDE HCL 2 MG CAPSULE PO PRN (15:11)
[2021-05-03] MEDS ORDERED: IBUPROFEN 400 MG TABLET (FP) PO PRN (15:11)
[2021-05-03] MEDS ORDERED: NICOTINE 10 MG CARTRIDGE (INHALER) IH PRN (15:11)
[2021-05-03] MEDS ORDERED: MAGNESIUM HYDROX 2400MG/30ML ORAL SUSPENSION 30 ML CUP PO PRN (15:11)
[2021-05-03] MEDS ORDERED: MAGNESIUM CITRATE 300 ML BOTTLE PO PRN (15:11)
[2021-05-03] MEDS ORDERED: ACETAMINOPHEN 325 MG TABLET (FP) PO PRN ×2 (15:11)
[2021-05-03 15:32] VITALS: BMI 29.7
[2021-05-03] MEDS ORDERED: LORazepam 1 MG TABLET PO PRN (15:50)
[2021-05-03] MEDS: LORazepam 2 MG TABLET PO SCH ×2 (16:49→22:08)
[2021-05-03] MEDS: hydrOXYzine PAMOATE 25 MG CAPSULE (FP) PO SCH ×2 (17:00→22:09)
[2021-05-03] MEDS ORDERED: chlordiazePOXIDE HCL 25 MG CAPSULE PO SCH (17:00)
[2021-05-03] MEDS: GABAPENTIN 300 MG CAPSULE PO SCH (22:08)
[2021-05-03] MEDS: SUVOREXANT 10 MG TABLET PO SCH (22:09)
[2021-05-03] MEDS: MELATONIN 5 MG TABLETS PO SCH (22:09)
[2021-05-03] MEDS: THIAMINE HCL 100 MG TABLET (FP) PO SCH (22:09)
[2021-05-04] MEDS: hydrOXYzine PAMOATE 25 MG CAPSULE (FP) PO SCH ×5 (05:23→22:23)
[2021-05-04] MEDS: GABAPENTIN 300 MG CAPSULE PO SCH ×3 (05:23→22:21)
[2021-05-04] MEDS: LORazepam 2 MG TABLET PO SCH (05:24)
[2021-05-04] MEDS: LEVOTHYROXINE NA 125 MCG TABLET (FP) PO SCH (06:09)
[2021-05-04] MEDS: METHOCARBAMOL 500 MG TABLET PO PRN (10:42)
[2021-05-04] MEDS: chlordiazePOXIDE HCL 25 MG CAPSULE PO SCH ×3 (12:01→22:23)
[2021-05-04 12:58] LABS: HEMATOCRIT 39.7 % (35.4-49); HEMOGLOBIN 14.1 GM/dL (11.7-16.9); MCH 34.6 pg (25.7-33.7); MCHC 35.5 g/dl (32.0-35.9); MEAN CELL VOLUME 97.5 fl (80-96); MEAN PLT VOLUME 7.3 fl (7.5-11.1); PLATELET COUNT 163 10^3/uL (134-434); RBC 4.08 M/mm3 (4.00-5.60); RDW 13.9 % (11.9-15.9); WHITE BLOOD COUNT 4.4 K/mm3 (4.0-10.0)
[2021-05-04 13:11] LABS: BLOOD UREA NITROGEN 18.4 mg/dL (7-18); CALCIUM 8.7 mg/dL (8.5-10.1)
[2021-05-04 13:12] LABS: ALBUMIN 3.8 g/dl (3.4-5.0)
[2021-05-04 13:15] LABS: CREATININE 1.3 mg/dL (0.55-1.3)
[2021-05-04 13:16] LABS: BILIRUBIN,TOTAL 1.2 mg/dL (0.2-1); TOT PROT 6.5 g/dl (6.4-8.2)
[2021-05-04] MEDS: NICOTINE 21 MG/24 HOURS TOPICAL PATCH TD SCH (13:19)
[2021-05-04] MEDS ORDERED: SUVOREXANT 10 MG TABLET PO PRN (22:00)
[2021-05-04] MEDS: THIAMINE HCL 100 MG TABLET (FP) PO SCH (22:21)
[2021-05-04] MEDS: MELATONIN 5 MG TABLETS PO SCH (22:21)
[2021-05-04] MEDS: SUVOREXANT 10 MG TABLET PO SCH (22:23)
[2021-05-05] MEDS ORDERED: LORazepam 1 MG TABLET PO SCH (05:00)
[2021-05-05] MEDS ORDERED: chlordiazePOXIDE HCL 25 MG CAPSULE PO SCH (05:00)
[2021-05-05] MEDS: hydrOXYzine PAMOATE 25 MG CAPSULE (FP) PO SCH ×5 (05:51→22:27)
[2021-05-05] MEDS: GABAPENTIN 300 MG CAPSULE PO SCH ×3 (05:51→22:26)
[2021-05-05] MEDS: chlordiazePOXIDE HCL 25 MG CAPSULE PO SCH ×4 (05:51→22:25)
[2021-05-05] MEDS: LEVOTHYROXINE NA 125 MCG TABLET (FP) PO SCH (06:08)
[2021-05-05] MEDS: NICOTINE 21 MG/24 HOURS TOPICAL PATCH TD SCH (10:25)
[2021-05-05] MEDS: chlordiazePOXIDE HCL 25 MG CAPSULE PO PRN (12:04)
[2021-05-05] MEDS: METHOCARBAMOL 500 MG TABLET PO PRN (13:54)
[2021-05-05 14:11] LABS: SARS-CoV-2 NAA Not Detected (Not Detected)
[2021-05-05] MEDS: THIAMINE HCL 100 MG TABLET (FP) PO SCH (22:26)
[2021-05-05] MEDS: MELATONIN 5 MG TABLETS PO SCH (22:26)
[2021-05-05] MEDS: SUVOREXANT 10 MG TABLET PO SCH (22:26)
[2021-05-06] MEDS ORDERED: chlordiazePOXIDE HCL 10 MG CAPSULE PO PRN
[2021-05-06] MEDS ORDERED: LORazepam 0.5 MG TABLET PO PRN
[2021-05-06] MEDS ORDERED: chlordiazePOXIDE HCL 10 MG CAPSULE PO SCH (05:00)
[2021-05-06] MEDS ORDERED: LORazepam 0.5 MG TABLET PO SCH (05:00)
[2021-05-06] MEDS: GABAPENTIN 300 MG CAPSULE PO SCH ×3 (05:55→22:31)
[2021-05-06] MEDS: chlordiazePOXIDE HCL 25 MG CAPSULE PO SCH ×2 (05:55→10:34)
[2021-05-06] MEDS: hydrOXYzine PAMOATE 25 MG CAPSULE (FP) PO SCH ×5 (05:55→22:30)
[2021-05-06] MEDS: LEVOTHYROXINE NA 125 MCG TABLET (FP) PO SCH (07:00)
[2021-05-06] MEDS: NICOTINE 21 MG/24 HOURS TOPICAL PATCH TD SCH (10:34)
[2021-05-06] MEDS: chlordiazePOXIDE HCL 25 MG CAPSULE PO PRN (12:21)
[2021-05-06] MEDS ORDERED: chlordiazePOXIDE HCL 25 MG CAPSULE PO SCH (22:00)
[2021-05-06] MEDS: MELATONIN 5 MG TABLETS PO SCH (22:05)
[2021-05-06] MEDS: THIAMINE HCL 100 MG TABLET (FP) PO SCH (22:30)
[2021-05-06] MEDS: SUVOREXANT 10 MG TABLET PO SCH (22:32)
[2021-05-07] MEDS ORDERED: chlordiazePOXIDE HCL 10 MG CAPSULE PO PRN
[2021-05-07] MEDS ORDERED: LORazepam 0.5 MG TABLET PO ONE (05:00)
[2021-05-07] MEDS ORDERED: chlordiazePOXIDE HCL 10 MG CAPSULE PO SCH ×3 (05:00)
[2021-05-07] MEDS: LEVOTHYROXINE NA 125 MCG TABLET (FP) PO SCH (06:00)
[2021-05-07] MEDS: GABAPENTIN 300 MG CAPSULE PO SCH (06:00)
[2021-05-07] MEDS: hydrOXYzine PAMOATE 25 MG CAPSULE (FP) PO SCH (06:01)
[2021-05-07 07:39] VITALS: PULSE 90
[2021-05-07 09:33] VITALS: BP 124/86; TEMP 97.3
[2021-05-08] MEDS ORDERED: chlordiazePOXIDE HCL 10 MG CAPSULE PO SCH (05:00)
[2021-05-08] MEDS ORDERED: chlordiazePOXIDE HCL 10 MG CAPSULE PO ONE ×2 (05:00)
[2021-05-09] MEDS ORDERED: chlordiazePOXIDE HCL 10 MG CAPSULE PO ONE (05:00)
== END 2021-05-07 09:31 | disposition home or self-care (01) | DRG 774 ==
LOC: YASAS 14:01 → Y6N 15:26
PROVIDERS: ADMIT Allergy & Immunology; ATTEND Allergy & Immunology
PROC: HZ2ZZZZ Detoxification Services for Substance Abuse Treatment (ICD-10-PCS; principal; 2021-05-03)
DX: F10.230 Alcohol dependence with withdrawal, uncomplicated (principal); F14.20 Cocaine dependence, uncomplicated; F17.210 Nicotine dependence, cigarettes, uncomplicated; F19.282 Other psychoactive substance dependence with psychoactive substance-induced sleep disorder; F19.280 Other psychoactive substance dependence with psychoactive substance-induced anxiety disorder; F20.9 Schizophrenia, unspecified; F32.A Depression, unspecified; E03.9 Hypothyroidism, unspecified; I10 Essential (primary) hypertension; K21.9 Gastro-esophageal reflux disease without esophagitis; G40.909 Epilepsy, unspecified, not intractable, without status epilepticus; J44.9 Chronic obstructive pulmonary disease, unspecified; Z86.19 Personal history of other infectious and parasitic diseases; Z56.0 Unemployment, unspecified; Z88.0 Allergy status to penicillin; Z91.013 Allergy to seafood
CPT/HCPCS: 36415; 80053; 85027; 86780; C9803; U0003; U0005

== ENCOUNTER 2021-05-23 16:25 | Inpatient (IN) | payer OTHER ==
[2021-05-23] MEDS ORDERED: LOPERAMIDE HCL 2 MG CAPSULE PO PRN (20:24)
[2021-05-23] MEDS ORDERED: MAGNESIUM CITRATE 300 ML BOTTLE PO PRN (20:24)
[2021-05-23] MEDS ORDERED: IBUPROFEN 400 MG TABLET (FP) PO PRN (20:24)
[2021-05-23] MEDS ORDERED: MAG HYDROX/AL HYDROX/SIMETH 30 ML UNIT-DOSE CUP PO PRN (20:24)
[2021-05-23] MEDS ORDERED: MAGNESIUM HYDROX 2400MG/30ML ORAL SUSPENSION 30 ML CUP PO PRN (20:24)
[2021-05-23] MEDS ORDERED: MENTHOL/PHENOL 1 EACH UD MM PRN (20:24)
[2021-05-23] MEDS ORDERED: BISMUTH SUBSALICYLATE 524 MG/30 ML PO PRN (20:24)
[2021-05-23] MEDS ORDERED: ONDANSETRON *ODT* 4 MG TABLET SL PRN (20:24)
[2021-05-23] MEDS ORDERED: P-EPHED 60MG/TRIPROLIDI 2.5MG TABLET PO PRN (20:24)
[2021-05-23] MEDS ORDERED: ACETAMINOPHEN 325 MG TABLET (FP) PO PRN (20:24)
[2021-05-23] MEDS ORDERED: chlordiazePOXIDE HCL 25 MG CAPSULE ONE (20:52)
[2021-05-23] MEDS ORDERED: hydrOXYzine PAMOATE 25 MG CAPSULE (FP) PO ONE (20:52)
[2021-05-23] MEDS: hydrOXYzine PAMOATE 25 MG CAPSULE (FP) PO PRN (20:53)
[2021-05-23] MEDS: chlordiazePOXIDE HCL 25 MG CAPSULE PO PRN (20:54)
[2021-05-23] MEDS: METHOCARBAMOL 500 MG TABLET PO PRN (23:37)
[2021-05-23] MEDS: THIAMINE HCL 100 MG TABLET (FP) PO SCH (23:37)
[2021-05-23] MEDS: chlordiazePOXIDE HCL 25 MG CAPSULE PO SCH (23:38)
[2021-05-24 05:54] VITALS: BMI 29.7
[2021-05-24] MEDS ORDERED: chlordiazePOXIDE HCL 25 MG CAPSULE ONE ×2 (06:22→06:38)
[2021-05-24] MEDS: chlordiazePOXIDE HCL 25 MG CAPSULE PO SCH ×4 (06:40→22:31)
[2021-05-24] MEDS ORDERED: TRIMETHOBENZAMIDE HCL 200MG/2ML INJ IM ONE (08:59)
[2021-05-24] MEDS ORDERED: LEVOTHYROXINE NA 150 MCG TABLET PO SCH (10:00)
[2021-05-24] MEDS: LEVOTHYROXINE 100 MCG, LEVOTHYROXINE 50 MCG PO SCH (10:43)
[2021-05-24] MEDS: NICOTINE 14 MG/24 HOURS TOPICAL PATCH TD SCH (10:43)
[2021-05-24 13:21] LABS: HIV INTERPRETATION NEGATIVE (NEGATIVE)
[2021-05-24] MEDS: GABAPENTIN 300 MG CAPSULE PO SCH ×2 (13:33→22:31)
[2021-05-24 15:06] LABS: HEMATOCRIT 35.9 % (35.4-49); MCHC 33.5 g/dl (32.0-35.9); MEAN CELL VOLUME 101.5 fl (80-96); MEAN PLT VOLUME 8.6 fl (7.5-11.1); PLATELET COUNT 113 10^3/uL (134-434); RBC 3.53 M/mm3 (4.00-5.60); RDW 15.4 % (11.9-15.9); WHITE BLOOD COUNT 3.7 K/mm3 (4.0-10.0)
[2021-05-24 15:14] LABS: CALCIUM 8.8 mg/dL (8.5-10.1)
[2021-05-24 15:15] LABS: ALBUMIN 3.2 g/dl (3.4-5.0); BLOOD UREA NITROGEN 16.3 mg/dL (7-18)
[2021-05-24 15:18] LABS: CREATININE 1.4 mg/dL (0.55-1.3)
[2021-05-24 15:20] LABS: BILIRUBIN,TOTAL 1.8 mg/dL (0.2-1); TOT PROT 5.5 g/dl (6.4-8.2)
[2021-05-24] MEDS: ACETAMINOPHEN 325 MG TABLET (FP) PO PRN (18:34)
[2021-05-24] MEDS: METHOCARBAMOL 500 MG TABLET PO PRN (20:49)
[2021-05-24] MEDS: hydrOXYzine PAMOATE 25 MG CAPSULE (FP) PO PRN (20:49)
[2021-05-24] MEDS: THIAMINE HCL 100 MG TABLET (FP) PO SCH (22:31)
[2021-05-24] MEDS: MELATONIN 5 MG TABLETS PO PRN (22:33)
[2021-05-25] MEDS: chlordiazePOXIDE HCL 25 MG CAPSULE PO SCH ×4 (06:09→22:21)
[2021-05-25] MEDS: GABAPENTIN 300 MG CAPSULE PO SCH ×3 (06:09→22:21)
[2021-05-25] MEDS: LEVOTHYROXINE 100 MCG, LEVOTHYROXINE 50 MCG PO SCH (06:10)
[2021-05-25] MEDS: NICOTINE 14 MG/24 HOURS TOPICAL PATCH TD SCH (10:14)
[2021-05-25] MEDS: hydrOXYzine PAMOATE 25 MG CAPSULE (FP) PO PRN ×3 (10:16→22:21)
[2021-05-25] MEDS: chlordiazePOXIDE HCL 25 MG CAPSULE PO PRN ×2 (14:10→20:09)
[2021-05-25] MEDS: METHOCARBAMOL 500 MG TABLET PO PRN (20:08)
[2021-05-25] MEDS: MELATONIN 5 MG TABLETS PO PRN (22:20)
[2021-05-25] MEDS: THIAMINE HCL 100 MG TABLET (FP) PO SCH (22:21)
[2021-05-26] MEDS ORDERED: chlordiazePOXIDE HCL 10 MG CAPSULE PO PRN
[2021-05-26] MEDS: hydrOXYzine PAMOATE 25 MG CAPSULE (FP) PO PRN ×3 (02:59→17:36)
[2021-05-26] MEDS: chlordiazePOXIDE HCL 10 MG CAPSULE PO SCH ×2 (05:23→10:07)
[2021-05-26] MEDS: GABAPENTIN 300 MG CAPSULE PO SCH ×3 (05:24→22:29)
[2021-05-26] MEDS: LEVOTHYROXINE 100 MCG, LEVOTHYROXINE 50 MCG PO SCH (07:08)
[2021-05-26] MEDS: NICOTINE 14 MG/24 HOURS TOPICAL PATCH TD SCH (10:04)
[2021-05-26] MEDS: LORazepam 1 MG TABLET PO SCH ×4 (10:58→22:28)
[2021-05-26] MEDS: ACETAMINOPHEN 325 MG TABLET (FP) PO PRN (22:28)
[2021-05-26] MEDS: THIAMINE HCL 100 MG TABLET (FP) PO SCH (22:29)
[2021-05-27] MEDS ORDERED: chlordiazePOXIDE HCL 10 MG CAPSULE PO SCH (05:00)
[2021-05-27] MEDS: GABAPENTIN 300 MG CAPSULE PO SCH ×3 (05:50→22:18)
[2021-05-27] MEDS: LORazepam 0.5 MG TABLET PO SCH ×4 (05:50→22:19)
[2021-05-27] MEDS: LEVOTHYROXINE 100 MCG, LEVOTHYROXINE 50 MCG PO SCH (07:05)
[2021-05-27] MEDS: LORazepam 0.5 MG TABLET PO PRN ×2 (09:25→13:35)
[2021-05-27] MEDS: hydrOXYzine PAMOATE 25 MG CAPSULE (FP) PO PRN (10:25)
[2021-05-27] MEDS: NICOTINE 14 MG/24 HOURS TOPICAL PATCH TD SCH (10:28)
[2021-05-27] MEDS: THIAMINE HCL 100 MG TABLET (FP) PO SCH (22:19)
[2021-05-27] MEDS: MELATONIN 5 MG TABLETS PO PRN (22:20)
[2021-05-28] MEDS: hydrOXYzine PAMOATE 25 MG CAPSULE (FP) PO PRN (02:43)
[2021-05-28] MEDS: METHOCARBAMOL 500 MG TABLET PO PRN (02:43)
[2021-05-28] MEDS ORDERED: LORazepam 0.5 MG TABLET PO ONE (05:00)
[2021-05-28] MEDS ORDERED: chlordiazePOXIDE HCL 10 MG CAPSULE PO ONE (05:00)
[2021-05-28] MEDS: GABAPENTIN 300 MG CAPSULE PO SCH (05:25)
[2021-05-28] MEDS: LEVOTHYROXINE 100 MCG, LEVOTHYROXINE 50 MCG PO SCH (06:35)
[2021-05-28 09:21] VITALS: BP 103/72; PULSE 102; TEMP 96.8
[2021-05-28] MEDS: NICOTINE 14 MG/24 HOURS TOPICAL PATCH TD SCH (09:41)
[2021-05-28 12:12] LABS: ALBUMIN 3.5 g/dl (3.4-5.0); BILIRUBIN,TOTAL 0.7 mg/dL (0.2-1); BLOOD UREA NITROGEN 6.8 mg/dL (7-18); CALCIUM 9.2 mg/dL (8.5-10.1); CREATININE 1.2 mg/dL (0.55-1.3); TOT PROT 6.3 g/dl (6.4-8.2)
== END 2021-05-28 09:33 | disposition home or self-care (01) | DRG 774 ==
LOC: YASAS 16:25 → Y6N 22:06 → UNDOADMIN 22:06 → Y3N 05-24 06:19
PROVIDERS: ADMIT Allergy & Immunology; ATTEND Allergy & Immunology
PROC: HZ2ZZZZ Detoxification Services for Substance Abuse Treatment (ICD-10-PCS; principal; 2021-05-24)
DX: F10.230 Alcohol dependence with withdrawal, uncomplicated (principal); F14.20 Cocaine dependence, uncomplicated; F17.210 Nicotine dependence, cigarettes, uncomplicated; E03.9 Hypothyroidism, unspecified; N17.9 Acute kidney failure, unspecified; D69.6 Thrombocytopenia, unspecified; E83.119 Hemochromatosis, unspecified; J44.9 Chronic obstructive pulmonary disease, unspecified; K21.9 Gastro-esophageal reflux disease without esophagitis; M17.11 Unilateral primary osteoarthritis, right knee; M54.50 Low back pain, unspecified; G89.29 Other chronic pain; R56.1 Post traumatic seizures; R74.8 Abnormal levels of other serum enzymes; R03.0 Elevated blood-pressure reading, without diagnosis of hypertension; Z87.820 Personal history of traumatic brain injury; Z86.19 Personal history of other infectious and parasitic diseases; Z88.0 Allergy status to penicillin
CPT/HCPCS: 36415; 80053; 85027; 86780; 87389; 87811; C9803-CS; Q0162; U0003; U0005

== ENCOUNTER 2021-08-12 09:29 | Inpatient (IN) | payer OTHER ==
[2021-08-11 18:48] VITALS: BMI 29.0
[2021-08-11] MEDS: THIAMINE HCL 100 MG TABLET (FP) PO SCH (22:48)
[2021-08-11] MEDS: GABAPENTIN 300 MG CAPSULE PO SCH (22:48)
[2021-08-11] MEDS: chlordiazePOXIDE HCL 25 MG CAPSULE PO SCH (22:49)
[2021-08-11] MEDS: levETIRAcetam 500 MG TABLET (FP) PO SCH (23:14)
[2021-08-12] MEDS: chlordiazePOXIDE HCL 25 MG CAPSULE PO SCH ×4 (06:00→23:04)
[2021-08-12] MEDS: GABAPENTIN 300 MG CAPSULE PO SCH ×3 (06:00→23:03)
[~2021-08-12 09:29] MED LIST: ACETAMINOPHEN 325 MG TABLET (FP) PO PRN; BENZOCAINE/MENTHOL (CHLORASEPTIC ) LOZENGE MM PRN; BISMUTH SUBSALICYLATE 524 MG/30 ML PO PRN; DICYCLOMINE HCL 10 MG CAPSULE PO PRN; GABAPENTIN 100 MG CAPSULE ONE; IBUPROFEN 400 MG TABLET (FP) PO PRN; LEVOTHYROXINE NA 150 MCG TABLET PO SCH; LOPERAMIDE HCL 2 MG CAPSULE PO PRN; MAG HYDROX/AL HYDROX/SIMETH 30 ML UNIT-DOSE CUP PO PRN; MAGNESIUM CITRATE 300 ML BOTTLE PO PRN; MAGNESIUM HYDROX 2400MG/30ML ORAL SUSPENSION 30 ML CUP PO PRN; MELATONIN 5 MG TABLETS PO PRN; ONDANSETRON *ODT* 4 MG TABLET SL PRN; chlordiazePOXIDE HCL 25 MG CAPSULE ONE; chlordiazePOXIDE HCL 25 MG CAPSULE PO PRN
[2021-08-12] MEDS: levETIRAcetam 500 MG TABLET (FP) PO SCH ×2 (10:11→23:04)
[2021-08-12] MEDS: IBUPROFEN 600 MG TABLET (FP) PO PRN (10:14)
[2021-08-12] MEDS: METHOCARBAMOL 500 MG TABLET PO PRN (10:14)
[2021-08-12] MEDS: NICOTINE 14 MG/24 HOURS TOPICAL PATCH TD SCH (10:16)
[2021-08-12 11:57] LABS: HEMATOCRIT 37.5 % (35.4-49); HEMOGLOBIN 13.1 GM/dL (11.7-16.9); MCH 35.8 pg (25.7-33.7); MCHC 34.9 g/dl (32.0-35.9); MEAN CELL VOLUME 102.6 fl (80-96); MEAN PLT VOLUME 7.3 fl (7.5-11.1); PLATELET COUNT 153 10^3/uL (134-434); RBC 3.66 M/mm3 (4.00-5.60); RDW 13.3 % (11.9-15.9); WHITE BLOOD COUNT 4.3 K/mm3 (4.0-10.0)
[2021-08-12 12:00] LABS: CALCIUM 8.4 mg/dL (8.5-10.1)
[2021-08-12 12:01] LABS: ALBUMIN 3.3 g/dl (3.4-5.0)
[2021-08-12 12:04] LABS: CREATININE 1.3 mg/dL (0.55-1.3)
[2021-08-12 12:06] LABS: BILIRUBIN,TOTAL 0.4 mg/dL (0.2-1)
[2021-08-12] MEDS: hydrOXYzine PAMOATE 25 MG CAPSULE (FP) PO PRN ×2 (18:11→23:07)
[2021-08-12] MEDS ORDERED: SUVOREXANT 10 MG TABLET PO PRN (22:00)
[2021-08-12] MEDS: THIAMINE HCL 100 MG TABLET (FP) PO SCH (23:03)
[2021-08-13] MEDS: chlordiazePOXIDE HCL 25 MG CAPSULE PO SCH ×4 (05:38→22:17)
[2021-08-13] MEDS: LEVOTHYROXINE NA 100 MCG TABLET (FP) PO SCH (06:22)
[2021-08-13] MEDS: GABAPENTIN 300 MG CAPSULE PO SCH ×3 (06:22→22:16)
[2021-08-13] MEDS: METHOCARBAMOL 500 MG TABLET PO PRN (08:52)
[2021-08-13] MEDS: levETIRAcetam 500 MG TABLET (FP) PO SCH ×2 (11:50→22:16)
[2021-08-13] MEDS: hydrOXYzine PAMOATE 25 MG CAPSULE (FP) PO PRN (11:50)
[2021-08-13] MEDS: NICOTINE 14 MG/24 HOURS TOPICAL PATCH TD SCH (11:51)
[2021-08-13] MEDS: THIAMINE HCL 100 MG TABLET (FP) PO SCH (22:16)
[2021-08-14] MEDS: METHOCARBAMOL 500 MG TABLET PO PRN ×2 (03:28→10:09)
[2021-08-14] MEDS: hydrOXYzine PAMOATE 25 MG CAPSULE (FP) PO PRN ×2 (03:28→10:11)
[2021-08-14] MEDS: GABAPENTIN 300 MG CAPSULE PO SCH ×3 (05:53→22:01)
[2021-08-14] MEDS: chlordiazePOXIDE HCL 10 MG CAPSULE PO SCH ×4 (05:53→22:02)
[2021-08-14] MEDS: LEVOTHYROXINE NA 100 MCG TABLET (FP) PO SCH (07:31)
[2021-08-14] MEDS: levETIRAcetam 500 MG TABLET (FP) PO SCH ×2 (10:09→22:01)
[2021-08-14] MEDS: IBUPROFEN 600 MG TABLET (FP) PO PRN (10:11)
[2021-08-14] MEDS: NICOTINE 14 MG/24 HOURS TOPICAL PATCH TD SCH (10:20)
[2021-08-14] MEDS: chlordiazePOXIDE HCL 10 MG CAPSULE PO PRN ×2 (12:14→15:16)
[2021-08-14] MEDS ORDERED: SUVOREXANT 15 MG TABLET PO PRN (15:18)
[2021-08-14] MEDS: THIAMINE HCL 100 MG TABLET (FP) PO SCH (22:01)
[2021-08-15] MEDS ORDERED: chlordiazePOXIDE HCL 10 MG CAPSULE PO SCH (05:00)
[2021-08-15] MEDS: GABAPENTIN 300 MG CAPSULE PO SCH (05:29)
[2021-08-15] MEDS: LEVOTHYROXINE NA 100 MCG TABLET (FP) PO SCH (07:09)
[2021-08-15 09:48] VITALS: BP 137/83; PULSE 100; TEMP 98.1
[2021-08-16] MEDS ORDERED: chlordiazePOXIDE HCL 10 MG CAPSULE PO ONE (05:00)
== END 2021-08-15 09:05 | disposition home or self-care (01) | DRG 774 ==
LOC: YASAS 09:29 → Y6N 09:31
PROVIDERS: ADMIT Allergy & Immunology; ATTEND Surgery
PROC: HZ2ZZZZ Detoxification Services for Substance Abuse Treatment (ICD-10-PCS; principal; 2021-08-12)
DX: F10.230 Alcohol dependence with withdrawal, uncomplicated (principal); F10.220 Alcohol dependence with intoxication, uncomplicated; F14.20 Cocaine dependence, uncomplicated; F17.213 Nicotine dependence, cigarettes, with withdrawal; F32.A Depression, unspecified; F19.282 Other psychoactive substance dependence with psychoactive substance-induced sleep disorder; F19.280 Other psychoactive substance dependence with psychoactive substance-induced anxiety disorder; I10 Essential (primary) hypertension; B18.2 Chronic viral hepatitis C; E03.9 Hypothyroidism, unspecified; G40.909 Epilepsy, unspecified, not intractable, without status epilepticus; R73.09 Other abnormal glucose; K21.9 Gastro-esophageal reflux disease without esophagitis; M54.40 Lumbago with sciatica, unspecified side; G89.29 Other chronic pain; J44.9 Chronic obstructive pulmonary disease, unspecified; R00.0 Tachycardia, unspecified; Z87.820 Personal history of traumatic brain injury; Z87.828 Personal history of other (healed) physical injury and trauma; Z88.0 Allergy status to penicillin; Z91.013 Allergy to seafood; Z56.0 Unemployment, unspecified
CPT/HCPCS: 36415; 80053; 82962; 85027; 86780; C9803-CS; U0003; U0005

== ENCOUNTER 2022-01-08 09:09 | Inpatient (IN) | payer OTHER ==
[2022-01-08 09:39] VITALS: BMI 32.0
[2022-01-08] MEDS ORDERED: MAG HYDROX/AL HYDROX/SIMETH 30 ML UNIT-DOSE CUP PO PRN (10:30)
[2022-01-08] MEDS ORDERED: MAGNESIUM CITRATE 300 ML BOTTLE PO PRN (10:30)
[2022-01-08] MEDS ORDERED: MAGNESIUM HYDROX 2400MG/30ML ORAL SUSPENSION 30 ML CUP PO PRN (10:30)
[2022-01-08] MEDS ORDERED: IBUPROFEN 600 MG TABLET (FP) PO PRN (10:30)
[2022-01-08] MEDS ORDERED: NALOXONE HCL (KLOXXADO) 8 MG SPRAY NS PRN (10:30)
[2022-01-08] MEDS ORDERED: BENZOCAINE/MENTHOL (CHLORASEPTIC ) LOZENGE MM PRN (10:30)
[2022-01-08] MEDS ORDERED: ONDANSETRON *ODT* 4 MG TABLET SL PRN (10:30)
[2022-01-08] MEDS ORDERED: ACETAMINOPHEN 325 MG TABLET (FP) PO PRN ×2 (10:30)
[2022-01-08] MEDS ORDERED: BISMUTH SUBSALICYLATE 524 MG/30 ML PO PRN (10:30)
[2022-01-08] MEDS ORDERED: IBUPROFEN 400 MG TABLET (FP) PO PRN (10:30)
[2022-01-08] MEDS ORDERED: LOPERAMIDE HCL 2 MG CAPSULE PO PRN (10:30)
[2022-01-08] MEDS ORDERED: NICOTINE 10 MG CARTRIDGE (INHALER) IH PRN (10:30)
[2022-01-08] MEDS ORDERED: LEVOTHYROXINE NA 150 MCG TABLET PO SCH (10:45)
[2022-01-08] MEDS ORDERED: diazePAM 5 MG TABLET ONE (10:53)
[2022-01-08] MEDS ORDERED: ONDANSETRON *ODT* 4 MG TABLET ONE (10:54)
[2022-01-08] MEDS ORDERED: LEVOTHYROXINE 100 MCG, LEVOTHYROXINE 50 MCG PO ONE (11:00)
[2022-01-08] MEDS: diazePAM 5 MG TABLET PO SCH ×2 (11:12→17:36)
[2022-01-08] MEDS ORDERED: PNEUMOC 20-VAL CONJ-DIP CRM/PF 0.5 ML SYRINGE IM ONE (12:00)
[2022-01-08] MEDS ORDERED: diazePAM 5 MG TABLET PO PRN (13:14)
[2022-01-08] MEDS: NICOTINE 21 MG/24 HOURS TOPICAL PATCH TD SCH (13:16)
[2022-01-08 13:36] LABS: HEMATOCRIT 35.8 % (35.4-49); HEMOGLOBIN 13.1 GM/dL (11.7-16.9); MCH 36.1 pg (25.7-33.7); MCHC 36.5 g/dl (32.0-35.9); MEAN CELL VOLUME 98.9 fl (80-96); MEAN PLT VOLUME 7.1 fl (7.5-11.1); PLATELET COUNT 192 10^3/uL (134-434); RBC 3.62 M/mm3 (4.00-5.60); RDW 12.2 % (11.9-15.9); WHITE BLOOD COUNT 4.3 K/mm3 (4.0-10.0)
[2022-01-08 14:04] LABS: ALBUMIN 4.2 g/dl (3.4-5.0)
[2022-01-08 14:05] LABS: BLOOD UREA NITROGEN 12.5 mg/dL (7-18)
[2022-01-08 14:07] LABS: BILIRUBIN,TOTAL 0.5 mg/dL (0.2-1); CREATININE 1.2 mg/dL (0.55-1.3); TOT PROT 7.2 g/dl (6.4-8.2)
[2022-01-08] MEDS: LACTULOSE 20 GM/30 ML UDC (FOR ORAL USE ONLY) PO SCH ×2 (15:45→22:23)
[2022-01-08] MEDS: DICYCLOMINE HCL 10 MG CAPSULE PO PRN (17:35)
[2022-01-08] MEDS ORDERED: chlordiazePOXIDE HCL 25 MG CAPSULE PO ONE (18:30)
[2022-01-08] MEDS ORDERED: OLANZapine 5 MG TABLET PO SCH (22:00)
[2022-01-08] MEDS: levETIRAcetam 500 MG TABLET (FP) PO SCH (22:22)
[2022-01-08] MEDS: MELATONIN 5 MG TABLETS PO SCH (22:23)
[2022-01-08] MEDS: THIAMINE HCL 100 MG TABLET (FP) PO SCH (22:23)
[2022-01-08] MEDS: chlordiazePOXIDE HCL 25 MG CAPSULE PO SCH (22:23)
[2022-01-08] MEDS: METHOCARBAMOL 500 MG TABLET PO PRN (22:23)
[2022-01-08] MEDS: OLANZapine 10 MG TABLET PO SCH (22:25)
[2022-01-09] MEDS: LACTULOSE 20 GM/30 ML UDC (FOR ORAL USE ONLY) PO SCH ×3 (05:33→22:20)
[2022-01-09] MEDS: chlordiazePOXIDE HCL 25 MG CAPSULE PO SCH ×4 (05:34→22:23)
[2022-01-09] MEDS: LEVOTHYROXINE 100 MCG, LEVOTHYROXINE 50 MCG PO SCH (06:20)
[2022-01-09] MEDS: levETIRAcetam 500 MG TABLET (FP) PO SCH ×2 (10:41→22:20)
[2022-01-09] MEDS: NICOTINE 21 MG/24 HOURS TOPICAL PATCH TD SCH (10:41)
[2022-01-09] MEDS: chlordiazePOXIDE HCL 25 MG CAPSULE PO PRN (19:55)
[2022-01-09] MEDS: THIAMINE HCL 100 MG TABLET (FP) PO SCH (22:20)
[2022-01-09] MEDS: OLANZapine 10 MG TABLET PO SCH (22:20)
[2022-01-09] MEDS: MELATONIN 5 MG TABLETS PO SCH (22:20)
[2022-01-10] MEDS: chlordiazePOXIDE HCL 25 MG CAPSULE PO SCH ×4 (05:55→22:15)
[2022-01-10] MEDS ORDERED: diazePAM 5 MG TABLET PO SCH (06:00)
[2022-01-10] MEDS: LACTULOSE 20 GM/30 ML UDC (FOR ORAL USE ONLY) PO SCH ×3 (06:58→22:15)
[2022-01-10] MEDS: LEVOTHYROXINE 100 MCG, LEVOTHYROXINE 50 MCG PO SCH (06:58)
[2022-01-10] MEDS: chlordiazePOXIDE HCL 25 MG CAPSULE PO PRN ×3 (08:13→20:01)
[2022-01-10] MEDS: levETIRAcetam 500 MG TABLET (FP) PO SCH ×2 (10:13→22:17)
[2022-01-10] MEDS: NICOTINE 21 MG/24 HOURS TOPICAL PATCH TD SCH (10:15)
[2022-01-10] MEDS: METHOCARBAMOL 500 MG TABLET PO PRN ×2 (10:16→22:16)
[2022-01-10] MEDS ORDERED: hydrOXYzine PAMOATE 50 MG CAPSULE (FP) PO PRN (12:03)
[2022-01-10] MEDS: DICYCLOMINE HCL 10 MG CAPSULE PO PRN (17:44)
[2022-01-10] MEDS: MELATONIN 5 MG TABLETS PO SCH (22:15)
[2022-01-10] MEDS: THIAMINE HCL 100 MG TABLET (FP) PO SCH (22:16)
[2022-01-10] MEDS: OLANZapine 10 MG TABLET PO SCH (22:17)
[2022-01-11] MEDS ORDERED: chlordiazePOXIDE HCL 10 MG CAPSULE PO PRN
[2022-01-11] MEDS: chlordiazePOXIDE HCL 10 MG CAPSULE PO SCH ×2 (05:05→10:09)
[2022-01-11] MEDS: LACTULOSE 20 GM/30 ML UDC (FOR ORAL USE ONLY) PO SCH (05:05)
[2022-01-11] MEDS ORDERED: diazePAM 5 MG TABLET PO SCH (06:00)
[2022-01-11] MEDS: LEVOTHYROXINE 100 MCG, LEVOTHYROXINE 50 MCG PO SCH (06:48)
[2022-01-11 08:57] VITALS: BP 121/84; PULSE 87; RESP 16; TEMP 97.7
[2022-01-11] MEDS: levETIRAcetam 500 MG TABLET (FP) PO SCH (10:09)
[2022-01-11] MEDS: NICOTINE 21 MG/24 HOURS TOPICAL PATCH TD SCH (10:10)
[2022-01-12] MEDS ORDERED: chlordiazePOXIDE HCL 10 MG CAPSULE PO SCH (05:00)
[2022-01-12] MEDS ORDERED: diazePAM 5 MG TABLET PO ONE (06:00)
[2022-01-13] MEDS ORDERED: chlordiazePOXIDE HCL 10 MG CAPSULE PO ONE (05:00)
== END 2022-01-11 11:14 | disposition left against medical advice (07) | DRG 770 ==
LOC: YASAS 09:09 → Y3N 10:38
PROVIDERS: ADMIT Allergy & Immunology; ATTEND Surgery
PROC: HZ2ZZZZ Detoxification Services for Substance Abuse Treatment (ICD-10-PCS; principal; 2022-01-08)
DX: F10.230 Alcohol dependence with withdrawal, uncomplicated (principal); F14.20 Cocaine dependence, uncomplicated; F17.210 Nicotine dependence, cigarettes, uncomplicated; E72.20 Disorder of urea cycle metabolism, unspecified; F31.9 Bipolar disorder, unspecified; F41.9 Anxiety disorder, unspecified; F43.10 Post-traumatic stress disorder, unspecified; R44.0 Auditory hallucinations; E83.119 Hemochromatosis, unspecified; E03.9 Hypothyroidism, unspecified; J44.9 Chronic obstructive pulmonary disease, unspecified; K21.9 Gastro-esophageal reflux disease without esophagitis; E78.5 Hyperlipidemia, unspecified; R56.1 Post traumatic seizures; M54.50 Low back pain, unspecified; G89.29 Other chronic pain; Z87.820 Personal history of traumatic brain injury; Z88.0 Allergy status to penicillin; Z91.013 Allergy to seafood
CPT/HCPCS: 36415; 80053; 82140; 85027; 86780; 87811; 90677; C9803-CS; Q0162; U0003; U0005

== ENCOUNTER 2022-10-27 19:49 | Inpatient (IN) | payer OTHER ==
[2022-10-27 20:19] VITALS: BMI 30.9
[2022-10-27] MEDS ORDERED: BISMUTH SUBSALICYLATE 524 MG/30 ML PO PRN (21:25)
[2022-10-27] MEDS ORDERED: NICOTINE POLACRILEX 2 MG GUM BUC PRN (21:25)
[2022-10-27] MEDS ORDERED: NALOXONE HCL 0.4 MG/ML VIAL IM PRN (21:25)
[2022-10-27] MEDS ORDERED: guaiFENesin 600 MG TABLET.ER (FP) PO PRN (21:25)
[2022-10-27] MEDS ORDERED: BENZOCAINE/MENTHOL (CHLORASEPTIC ) LOZENGE MM PRN (21:25)
[2022-10-27] MEDS ORDERED: DICYCLOMINE HCL 10 MG CAPSULE PO PRN (21:25)
[2022-10-27] MEDS ORDERED: MAGNESIUM HYDROX 2400MG/30ML ORAL SUSPENSION 30 ML CUP PO PRN (21:25)
[2022-10-27] MEDS ORDERED: MAG HYDROX/AL HYDROX/SIMETH 30 ML UNIT-DOSE CUP PO PRN (21:25)
[2022-10-27] MEDS ORDERED: POLYETHYLENE GLYCOL (HEALTHYLAX) 3350 17 GM PACKET PO PRN (21:25)
[2022-10-27] MEDS ORDERED: IBUPROFEN 600 MG TABLET (FP) PO PRN (21:25)
[2022-10-27] MEDS ORDERED: ONDANSETRON *ODT* 4 MG TABLET SL PRN (21:25)
[2022-10-27] MEDS ORDERED: ACETAMINOPHEN 325 MG TABLET (FP) PO PRN (21:25)
[2022-10-27] MEDS ORDERED: NALOXONE HCL (KLOXXADO) 8 MG SPRAY NS PRN (21:25)
[2022-10-27] MEDS ORDERED: BENZONATATE 200 MG CAPSULE PO PRN (21:25)
[2022-10-27] MEDS ORDERED: IBUPROFEN 400 MG TABLET (FP) PO PRN (21:25)
[2022-10-27] MEDS ORDERED: LOPERAMIDE HCL 2 MG CAPSULE PO PRN (21:25)
[2022-10-27] MEDS: THIAMINE HCL 100 MG TABLET (FP) PO SCH (22:51)
[2022-10-27] MEDS: LORazepam 2 MG TABLET PO SCH (22:51)
[2022-10-27] MEDS: MELATONIN 5 MG TABLETS PO SCH (22:51)
[2022-10-28] MEDS: LORazepam 2 MG TABLET PO SCH ×4 (05:24→22:22)
[2022-10-28 10:14] LABS: HEMATOCRIT 36.2 % (35.4-49); HEMOGLOBIN 12.2 GM/dL (11.7-16.9); MCH 35.4 pg (25.7-33.7); MCHC 33.7 g/dl (32.0-35.9); MEAN PLT VOLUME 7.5 fl (7.5-11.1); PLATELET COUNT 168 10^3/uL (134-434); RBC 3.45 M/mm3 (4.00-5.60); RDW 13.5 % (11.9-15.9); WHITE BLOOD COUNT 4.1 K/mm3 (4.0-10.0)
[2022-10-28 10:28] LABS: POTASSIUM 4.5 mmol/L (3.5-5.1)
[2022-10-28 10:38] LABS: ALBUMIN 3.7 g/dl (3.4-5.0)
[2022-10-28 10:39] LABS: BLOOD UREA NITROGEN 12.3 mg/dL (7-18); CALCIUM 8.7 mg/dL (8.5-10.1)
[2022-10-28 10:40] LABS: TOT PROT 6.2 g/dl (6.4-8.2)
[2022-10-28 10:41] LABS: BILIRUBIN,TOTAL 0.5 mg/dL (0.2-1)
[2022-10-28 10:45] LABS: CREATININE 1.4 mg/dL (0.55-1.3)
[2022-10-28] MEDS: levETIRAcetam 500 MG TABLET (FP) PO SCH ×2 (10:53→22:22)
[2022-10-28] MEDS: PRENATAL VITAMINS W/ FOLIC ACID TABLET (FP) PO SCH (10:53)
[2022-10-28] MEDS: NICOTINE 21 MG/24 HOURS TOPICAL PATCH TD SCH (10:54)
[2022-10-28] MEDS ORDERED: LEVOTHYROXINE NA 150 MCG TABLET PO SCH (11:00)
[2022-10-28] MEDS: METHOCARBAMOL 500 MG TABLET PO PRN (11:00)
[2022-10-28] MEDS ORDERED: LEVOTHYROXINE 100 MCG, LEVOTHYROXINE 50 MCG PO ONE (11:30)
[2022-10-28] MEDS ORDERED: LAMOTRIGINE 200 MG, LAMOTRIGINE 25 MG PO SCH (13:00)
[2022-10-28] MEDS: LAMOTRIGINE 200 MG, LAMOTRIGINE 50 MG PO SCH (13:56)
[2022-10-28] MEDS ORDERED: OLANZapine 7.5 MG TABLET PO SCH (22:00)
[2022-10-28] MEDS: THIAMINE HCL 100 MG TABLET (FP) PO SCH (22:22)
[2022-10-28] MEDS: MELATONIN 5 MG TABLETS PO SCH (22:22)
[2022-10-28] MEDS: OLANZapine 10 MG TABLET PO SCH (22:23)
[2022-10-29] MEDS: LORazepam 1 MG TABLET PO SCH ×4 (05:17→22:15)
[2022-10-29] MEDS: LEVOTHYROXINE 100 MCG, LEVOTHYROXINE 50 MCG PO SCH (06:02)
[2022-10-29] MEDS: PRENATAL VITAMINS W/ FOLIC ACID TABLET (FP) PO SCH (10:38)
[2022-10-29] MEDS: LAMOTRIGINE 200 MG, LAMOTRIGINE 50 MG PO SCH (10:38)
[2022-10-29] MEDS: levETIRAcetam 500 MG TABLET (FP) PO SCH ×2 (10:38→22:14)
[2022-10-29] MEDS: NICOTINE 21 MG/24 HOURS TOPICAL PATCH TD SCH (10:39)
[2022-10-29] MEDS: LORazepam 1 MG TABLET PO PRN ×2 (12:32→19:25)
[2022-10-29] MEDS: THIAMINE HCL 100 MG TABLET (FP) PO SCH (22:14)
[2022-10-29] MEDS: OLANZapine 10 MG TABLET PO SCH (22:14)
[2022-10-29] MEDS: MELATONIN 5 MG TABLETS PO SCH (22:14)
[2022-10-29] MEDS: METHOCARBAMOL 500 MG TABLET PO PRN (22:18)
[2022-10-30] MEDS ORDERED: LORazepam 0.5 MG TABLET PO PRN
[2022-10-30] MEDS ORDERED: LORazepam 0.5 MG TABLET PO SCH (05:00)
[2022-10-30] MEDS: LEVOTHYROXINE 100 MCG, LEVOTHYROXINE 50 MCG PO SCH (06:12)
[2022-10-30 06:49] VITALS: RESP 18
[2022-10-30 09:04] VITALS: BP 148/97; PULSE 97; TEMP 97.3
[2022-10-31] MEDS ORDERED: LORazepam 0.5 MG TABLET PO ONE (05:00)
== END 2022-10-30 09:23 | disposition home or self-care (01) | DRG 774 ==
LOC: YASAS 19:49 → Y6N 22:24
PROVIDERS: ADMIT Allergy & Immunology; ATTEND Surgery
PROC: HZ2ZZZZ Detoxification Services for Substance Abuse Treatment (ICD-10-PCS; principal; 2022-10-27)
DX: F10.230 Alcohol dependence with withdrawal, uncomplicated (principal); F14.20 Cocaine dependence, uncomplicated; F17.213 Nicotine dependence, cigarettes, with withdrawal; F25.0 Schizoaffective disorder, bipolar type; F31.9 Bipolar disorder, unspecified; E03.9 Hypothyroidism, unspecified; I10 Essential (primary) hypertension; K21.9 Gastro-esophageal reflux disease without esophagitis; M54.40 Lumbago with sciatica, unspecified side; G89.29 Other chronic pain; Z86.69 Personal history of other diseases of the nervous system and sense organs; Z86.19 Personal history of other infectious and parasitic diseases; Z88.0 Allergy status to penicillin
CPT/HCPCS: 36415; 80053; 84443; 84481; 85027; 86780; 87635; 93005; 93010; Q0162

== ENCOUNTER 2023-10-08 09:22 | Inpatient (IN) | payer OTHER ==
[2023-10-08 10:22] VITALS: BMI 30.1
[2023-10-08] MEDS ORDERED: MAG HYDROX/AL HYDROX/SIMETH 30 ML UNIT-DOSE CUP PO PRN (11:47)
[2023-10-08] MEDS ORDERED: guaiFENesin 600 MG TABLET.ER (FP) PO PRN (11:47)
[2023-10-08] MEDS ORDERED: LOPERAMIDE HCL 2 MG CAPSULE PO PRN (11:47)
[2023-10-08] MEDS ORDERED: METHOCARBAMOL 500 MG TABLET PO PRN (11:47)
[2023-10-08] MEDS ORDERED: NALOXONE HCL 0.4 MG/ML VIAL IM PRN (11:47)
[2023-10-08] MEDS ORDERED: IBUPROFEN 600 MG TABLET (FP) PO PRN (11:47)
[2023-10-08] MEDS ORDERED: BISMUTH SUBSALICYLATE 262 MG/15 ML BTL PO PRN (11:47)
[2023-10-08] MEDS ORDERED: NICOTINE POLACRILEX 2 MG GUM BUC PRN (11:47)
[2023-10-08] MEDS ORDERED: DICYCLOMINE HCL 10 MG CAPSULE PO PRN (11:47)
[2023-10-08] MEDS ORDERED: ACETAMINOPHEN 325 MG TABLET (FP) PO PRN (11:47)
[2023-10-08] MEDS ORDERED: BENZONATATE 200 MG CAPSULE PO PRN (11:47)
[2023-10-08] MEDS ORDERED: NALOXONE (NARCAN) HCL 4 MG/0.1 ML SPRAY NS PRN (11:47)
[2023-10-08] MEDS ORDERED: POLYETHYLENE GLYCOL (HEALTHYLAX) 3350 17 GM PACKET PO PRN (11:47)
[2023-10-08] MEDS ORDERED: MAGNESIUM HYDROX 2400MG/30ML ORAL SUSPENSION 30 ML CUP PO PRN (11:47)
[2023-10-08] MEDS ORDERED: BENZOCAINE/MENTHOL (CHLORASEPTIC ) LOZENGE MM PRN (11:47)
[2023-10-08] MEDS ORDERED: LORazepam 1 MG TABLET PO PRN (11:50)
[2023-10-08] MEDS ORDERED: LORazepam 2 MG TABLET ONE (12:01)
[2023-10-08] MEDS ORDERED: ONDANSETRON *ODT* 4 MG TABLET ONE (12:01)
[2023-10-08] MEDS ORDERED: IBUPROFEN 400 MG TABLET (FP) PO ONE (12:01)
[2023-10-08] MEDS: LORazepam 2 MG TABLET PO SCH (12:02)
[2023-10-08] MEDS: ONDANSETRON *ODT* 4 MG TABLET SL PRN (12:02)
[2023-10-08] MEDS: IBUPROFEN 400 MG TABLET (FP) PO PRN (12:03)
[2023-10-08] MEDS: hydrOXYzine PAMOATE 25 MG CAPSULE (FP) PO PRN (13:15)
[2023-10-08] MEDS: GABAPENTIN 300 MG CAPSULE PO SCH (13:15)
[2023-10-08] MEDS: lamoTRIgine 25 MG TABLET PO SCH (16:05)
[2023-10-08] MEDS: lamoTRIgine 100 MG TABLET PO SCH (16:06)
[2023-10-08] MEDS: OLANZapine 10 MG TABLET PO SCH (22:47)
[2023-10-08] MEDS: MELATONIN 5 MG TABLETS PO SCH (22:48)
[2023-10-08] MEDS: PRAZOSIN HCL 1 MG CAPSULE PO SCH (22:48)
[2023-10-08] MEDS: THIAMINE 100 MG TABLET PO SCH (22:48)
[2023-10-09] MEDS: LEVOTHYROXINE NA 100 MCG TABLET (FP) PO SCH (06:10)
[2023-10-09] MEDS ORDERED: PRENATAL VITAMINS W/ FOLIC ACID TABLET (FP) PO SCH (10:00)
[2023-10-09] MEDS: CHOLECALCIFEROL (VIT D3) 1,000 UNIT (25 MCG) TABLET PO SCH (10:14)
[2023-10-09] MEDS: NICOTINE 21 MG/24 HOURS TOPICAL PATCH TD SCH (10:14)
[2023-10-09] MEDS ORDERED: lamoTRIgine 100 MG TABLET PO SCH (11:30)
[2023-10-09 11:36] LABS: HEMATOCRIT 43.4 % (35.4-49); HEMOGLOBIN 15.1 GM/dL (11.7-16.9); MCH 35.7 pg (25.7-33.7); MCHC 34.9 g/dl (32.0-35.9); MEAN CELL VOLUME 102.2 fl (80-96); MEAN PLT VOLUME 8.4 fl (7.5-11.1); PLATELET COUNT 177 10^3/uL (134-434); RBC 4.24 M/mm3 (4.00-5.60); RDW 14.2 % (11.9-15.9); WHITE BLOOD COUNT 5.7 K/mm3 (4.0-10.0)
[2023-10-09 11:40] LABS: POTASSIUM 4.3 mmol/L (3.5-5.1)
[2023-10-09 12:05] LABS: BILIRUBIN,TOTAL 1.1 mg/dL (0.2-1); CALCIUM 9.3 mg/dL (8.5-10.1); TOT PROT 7.2 g/dl (6.4-8.2)
[2023-10-09 12:06] LABS: CREATININE 1.5 mg/dL (0.55-1.3)
[2023-10-10] MEDS: LORazepam 1 MG TABLET PO SCH (05:59)
[2023-10-10] MEDS ORDERED: lamoTRIgine 100 MG TABLET PO SCH (10:00)
[2023-10-10] MEDS: LAMOTRIGINE 200 MG, LAMOTRIGINE 50 MG PO SCH (10:01)
[2023-10-11] MEDS ORDERED: LORazepam 0.5 MG TABLET PO PRN
[2023-10-11] MEDS: LORazepam 0.5 MG TABLET PO SCH (05:50)
[2023-10-12] MEDS: LORazepam 0.5 MG TABLET PO ONE (05:31)
[2023-10-12 06:40] VITALS: BP 105/65; PULSE 75; RESP 16; TEMP 97.7
== END 2023-10-12 09:40 | disposition home or self-care (01) | DRG 774 ==
LOC: YASAS 09:22 → Y3N 12:15
PROVIDERS: ADMIT Allergy & Immunology; ATTEND Surgery
PROC: HZ2ZZZZ Detoxification Services for Substance Abuse Treatment (ICD-10-PCS; principal; 2023-10-08)
DX: F10.230 Alcohol dependence with withdrawal, uncomplicated (principal); F14.20 Cocaine dependence, uncomplicated; F17.210 Nicotine dependence, cigarettes, uncomplicated; F25.0 Schizoaffective disorder, bipolar type; I10 Essential (primary) hypertension; K21.9 Gastro-esophageal reflux disease without esophagitis; G40.909 Epilepsy, unspecified, not intractable, without status epilepticus; E03.9 Hypothyroidism, unspecified; M54.59 Other low back pain; G89.29 Other chronic pain; E11.9 Type 2 diabetes mellitus without complications; Z86.19 Personal history of other infectious and parasitic diseases; Z88.0 Allergy status to penicillin; Z91.013 Allergy to seafood; Z56.0 Unemployment, unspecified
CPT/HCPCS: 36415; 80053; 80305; 80307; 82140; 82962; 85027; 86780; 93005; 93010; Q0162

== ENCOUNTER 2024-08-09 13:01 | Inpatient (IN) | payer OTHER ==
[2024-08-09 13:38] VITALS: BMI 29.2
[2024-08-09] MEDS ORDERED: LOPERAMIDE HCL 2 MG CAPSULE PO PRN (14:25)
[2024-08-09] MEDS ORDERED: chlordiazePOXIDE HCL 25 MG CAPSULE PO PRN (14:25)
[2024-08-09] MEDS ORDERED: BISMUTH SUBSALICYLATE 524 MG/30 ML PO PRN (14:25)
[2024-08-09] MEDS ORDERED: NALOXONE (NARCAN) HCL 4 MG/0.1 ML SPRAY NS PRN (14:25)
[2024-08-09] MEDS ORDERED: BENZOCAINE/MENTHOL (CHLORASEPTIC ) LOZENGE MM PRN (14:25)
[2024-08-09] MEDS ORDERED: IBUPROFEN 400 MG TABLET (FP) PO PRN (14:25)
[2024-08-09] MEDS ORDERED: IBUPROFEN 600 MG TABLET (FP) PO PRN (14:25)
[2024-08-09] MEDS ORDERED: guaiFENesin 600 MG TABLET.ER (FP) PO PRN (14:25)
[2024-08-09] MEDS ORDERED: ACETAMINOPHEN 325 MG TABLET (FP) PO PRN (14:25)
[2024-08-09] MEDS ORDERED: MAGNESIUM HYDROX 2400MG/30ML ORAL SUSPENSION 30 ML CUP PO PRN (14:25)
[2024-08-09] MEDS ORDERED: ONDANSETRON *ODT* 4 MG TABLET SL PRN (14:25)
[2024-08-09] MEDS ORDERED: NICOTINE POLACRILEX 2 MG GUM BUC PRN (14:25)
[2024-08-09] MEDS ORDERED: BENZONATATE 200 MG CAPSULE PO PRN (14:25)
[2024-08-09] MEDS ORDERED: POLYETHYLENE GLYCOL (HEALTHYLAX) 3350 17 GM PACKET PO PRN (14:25)
[2024-08-09] MEDS ORDERED: DICYCLOMINE HCL 10 MG CAPSULE PO PRN (14:25)
[2024-08-09] MEDS ORDERED: METHOCARBAMOL 500 MG TABLET PO PRN (14:25)
[2024-08-09] MEDS ORDERED: chlordiazePOXIDE HCL 25 MG CAPSULE ONE (17:04)
[2024-08-09] MEDS: chlordiazePOXIDE HCL 25 MG CAPSULE PO SCH (17:06)
[2024-08-09] MEDS: hydrOXYzine PAMOATE 25 MG CAPSULE (FP) PO PRN (17:47)
[2024-08-09] MEDS: THIAMINE 100 MG TABLET PO SCH (22:26)
[2024-08-09] MEDS: MELATONIN 5 MG TABLETS PO SCH (22:27)
[2024-08-10] MEDS: NICOTINE 21 MG/24 HOURS TOPICAL PATCH TD SCH (10:07)
[2024-08-10] MEDS: PRENATAL VITAMINS W/ FOLIC ACID TABLET (FP) PO SCH (10:07)
[2024-08-10] MEDS: LEVOTHYROXINE NA 100 MCG TABLET (FP) PO SCH (10:23)
[2024-08-10] MEDS: GABAPENTIN 300 MG CAPSULE PO SCH (10:24)
[2024-08-10] MEDS: LAMOTRIGINE 200 MG, LAMOTRIGINE 50 MG PO SCH (10:24)
[2024-08-10 11:22] LABS: HEMOGLOBIN 11.9 g/dL (13.7-17.5); MEAN CELL VOLUME 103.6 fl (79.0-92.2); MEAN PLT VOLUME 10.6 fl (9.4-12.4); PLATELET COUNT 106 x10^3/uL (163-337); RDW 13.7 % (12.2-16.1)
[2024-08-10 11:26] LABS: POTASSIUM 3.5 mmol/L (3.5-5.1)
[2024-08-10 11:37] LABS: ALBUMIN 3.6 g/dl (3.4-5.0); BLOOD UREA NITROGEN 12.3 mg/dL (7-18)
[2024-08-10 11:39] LABS: BILIRUBIN,TOTAL 0.5 mg/dL (0.2-1); CALCIUM 9.2 mg/dL (8.5-10.1); TOT PROT 6.7 g/dl (6.4-8.2)
[2024-08-10 11:41] LABS: CREATININE 1.5 mg/dL (0.55-1.3)
[2024-08-10 12:24] LABS: HIV INTERPRETATION NEGATIVE (NEGATIVE)
[2024-08-10] MEDS: OLANZapine 10 MG TABLET PO SCH (22:06)
[2024-08-11] MEDS: chlordiazePOXIDE HCL 25 MG CAPSULE PO SCH (06:00)
[2024-08-11] MEDS: MAG HYDROX/AL HYDROX/SIMETH 30 ML UNIT-DOSE CUP PO PRN (19:34)
[2024-08-12] MEDS ORDERED: chlordiazePOXIDE HCL 10 MG CAPSULE PO PRN
[2024-08-12] MEDS: chlordiazePOXIDE HCL 10 MG CAPSULE PO SCH (05:20)
[2024-08-12 08:46] VITALS: BP 100/61; PULSE 69; RESP 18; TEMP 97.6
[2024-08-13] MEDS ORDERED: chlordiazePOXIDE HCL 10 MG CAPSULE PO SCH (05:00)
[2024-08-14] MEDS ORDERED: chlordiazePOXIDE HCL 10 MG CAPSULE PO ONE (05:00)
== END 2024-08-12 12:02 | disposition home or self-care (01) | DRG 774 ==
LOC: YASAS 13:01 → Y6N 16:31
PROVIDERS: ADMIT Family Medicine; ATTEND Family Medicine
PROC: HZ2ZZZZ Detoxification Services for Substance Abuse Treatment (ICD-10-PCS; principal; 2024-08-09)
DX: F10.230 Alcohol dependence with withdrawal, uncomplicated (principal); F14.20 Cocaine dependence, uncomplicated; F17.210 Nicotine dependence, cigarettes, uncomplicated; F31.9 Bipolar disorder, unspecified; F41.9 Anxiety disorder, unspecified; E03.9 Hypothyroidism, unspecified; J44.9 Chronic obstructive pulmonary disease, unspecified; M54.50 Low back pain, unspecified; G89.29 Other chronic pain; Z87.820 Personal history of traumatic brain injury; Z86.19 Personal history of other infectious and parasitic diseases
CPT/HCPCS: 36415; 80053; 80305; 80307; 84443; 85027; 86780; 87389; 93005; 93010

== ENCOUNTER 2024-11-02 09:06 | Inpatient (IN) | payer OTHER ==
[2024-11-02 09:43] VITALS: BMI 29.9
[2024-11-02] MEDS ORDERED: MAG HYDROX/AL HYDROX/SIMETH 30 ML UNIT-DOSE CUP PO PRN (09:57)
[2024-11-02] MEDS ORDERED: IBUPROFEN 400 MG TABLET (FP) PO PRN (09:57)
[2024-11-02] MEDS ORDERED: NICOTINE POLACRILEX 2 MG LOZENGE BC PRN (09:57)
[2024-11-02] MEDS ORDERED: BENZONATATE 200 MG CAPSULE PO PRN (09:57)
[2024-11-02] MEDS ORDERED: DICYCLOMINE HCL 10 MG CAPSULE PO PRN (09:57)
[2024-11-02] MEDS ORDERED: POLYETHYLENE GLYCOL (HEALTHYLAX) 3350 17 GM PACKET PO PRN (09:57)
[2024-11-02] MEDS ORDERED: LOPERAMIDE HCL 2 MG CAPSULE PO PRN (09:57)
[2024-11-02] MEDS ORDERED: MAGNESIUM HYDROX 2400MG/30ML ORAL SUSPENSION 30 ML CUP PO PRN (09:57)
[2024-11-02] MEDS ORDERED: BISMUTH SUBSALICYLATE 524 MG/30 ML PO PRN (09:57)
[2024-11-02] MEDS ORDERED: guaiFENesin 600 MG TABLET.ER (FP) PO PRN (09:57)
[2024-11-02] MEDS ORDERED: NALOXONE (NARCAN) HCL 4 MG/0.1 ML SPRAY NS PRN (09:57)
[2024-11-02] MEDS ORDERED: BENZOCAINE/MENTHOL (CHLORASEPTIC ) LOZENGE MM PRN (09:57)
[2024-11-02] MEDS ORDERED: ONDANSETRON *ODT* 4 MG TABLET SL PRN (09:57)
[2024-11-02] MEDS ORDERED: NICOTINE POLACRILEX 2 MG GUM BUC PRN (09:57)
[2024-11-02] MEDS ORDERED: ACETAMINOPHEN 325 MG TABLET (FP) PO PRN (09:57)
[2024-11-02] MEDS ORDERED: levETIRAcetam 500 MG TABLET (FP) PO ONE (10:21)
[2024-11-02] MEDS: levETIRAcetam 500 MG TABLET (FP) PO SCH (10:47)
[2024-11-02] MEDS: GABAPENTIN 300 MG CAPSULE PO SCH (11:30)
[2024-11-02] MEDS: IBUPROFEN 600 MG TABLET (FP) PO PRN (17:33)
[2024-11-02] MEDS: THIAMINE 100 MG TABLET PO SCH (22:08)
[2024-11-02] MEDS: PRAZOSIN HCL 1 MG CAPSULE PO SCH (22:10)
[2024-11-02] MEDS: MELATONIN 5 MG TABLETS PO SCH (22:10)
[2024-11-03] MEDS: LEVOTHYROXINE NA 100 MCG TABLET (FP) PO SCH (07:12)
[2024-11-03] MEDS: FOLIC ACID 1 MG TABLET (FP) PO SCH (10:10)
[2024-11-03] MEDS: CHOLECALCIFEROL (VIT D3) 1,000 UNIT (25 MCG) TABLET PO SCH (10:12)
[2024-11-03 12:27] LABS: MCHC 33.1 g/dl (32.3-36.5); MEAN CELL VOLUME 102.2 fl (79.0-92.2); MEAN PLT VOLUME 9.2 fl (9.4-12.4); RDW 12.5 % (12.2-16.1)
[2024-11-03 12:53] LABS: GLUCOSE,RANDOM 132.0 mg/dL (74-106); TOT PROT 6.2 g/dl (6.4-8.2)
[2024-11-03 12:54] LABS: CO2 19.0 mmol/L (21-32)
[2024-11-03 12:56] LABS: ALK PHOS 58.0 U/L (40-150)
[2024-11-03 12:59] LABS: CREATININE 1.46 mg/dL (0.55-1.3); SGOT/AST 142.0 U/L (5-34); SGPT/ALT 109.0 U/L (0-55)
[2024-11-03] MEDS: METHOCARBAMOL 500 MG TABLET PO PRN (13:20)
[2024-11-03] MEDS: hydrOXYzine PAMOATE 25 MG CAPSULE (FP) PO PRN (13:20)
[2024-11-03] MEDS: NICOTINE 14 MG/24 HOURS TOPICAL PATCH TD SCH (13:58)
[2024-11-03] MEDS: NALTREXONE HCL 50 MG TABLET PO SCH (15:25)
[2024-11-06 09:28] VITALS: BP 117/77; PULSE 116; RESP 20; TEMP 97.6
== END 2024-11-06 11:02 | disposition home or self-care (01) | DRG 775 ==
LOC: YASAS 09:06 → Y6N 10:15
PROVIDERS: ADMIT Neuromusculoskeletal Medicine & OMM; ATTEND Allergy & Immunology
PROC: HZ2ZZZZ Detoxification Services for Substance Abuse Treatment (ICD-10-PCS; principal; 2024-11-02)
DX: F10.230 Alcohol dependence with withdrawal, uncomplicated (principal); F17.210 Nicotine dependence, cigarettes, uncomplicated; F31.9 Bipolar disorder, unspecified; F20.9 Schizophrenia, unspecified; F10.282 Alcohol dependence with alcohol-induced sleep disorder; F43.10 Post-traumatic stress disorder, unspecified; F41.9 Anxiety disorder, unspecified; D53.9 Nutritional anemia, unspecified; E03.9 Hypothyroidism, unspecified; G40.909 Epilepsy, unspecified, not intractable, without status epilepticus; Z86.19 Personal history of other infectious and parasitic diseases
CPT/HCPCS: 36415; 80053; 80307; 85027; 86780